=== PATIENT | male | born 1955 | race African-American/Black ===

== ENCOUNTER 2016-10-25 12:19 | Inpatient (IN) | payer OTHER ==
[2016-10-25 13:56] VITALS: BMI 23.3
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
[2016-10-25] MEDS ORDERED: MAGNESIUM HYDROX 2400MG/30ML ORAL SUSPENSION 30 ML CUP PO PRN (17:24)
[2016-10-25] MEDS ORDERED: IBUPROFEN 400 MG TABLET (FP) PO PRN (17:24)
[2016-10-25] MEDS ORDERED: MENTHOL/PHENOL 1 EACH UD MM PRN (17:24)
[2016-10-25] MEDS ORDERED: LOPERAMIDE HCL 2 MG CAPSULE PO PRN (17:24)
[2016-10-25] MEDS ORDERED: MAGNESIUM CITRATE 300 ML BOTTLE PO PRN (17:24)
[2016-10-25] MEDS ORDERED: diphenhydrAMINE HCL 50 MG CAPSULE PO PRN (17:24)
[2016-10-25] MEDS ORDERED: ACETAMINOPHEN 325 MG TABLET (FP) PO PRN (17:24)
[2016-10-25] MEDS ORDERED: P-EPHED 60MG/TRIPROLIDI 2.5MG TABLET PO PRN (17:24)
[2016-10-25] MEDS ORDERED: guaiFENesin/D-METHORPHAN HB 10 ML UNIT-DOSE CUPS PO PRN (17:24)
[2016-10-25] MEDS ORDERED: MAG HYDROX/AL HYDROX/SIMETH 30 ML UNIT-DOSE CUP PO PRN (17:24)
[2016-10-25] MEDS ORDERED: chlordiazePOXIDE HCL 25 MG CAPSULE PO PRN (17:24)
[2016-10-25] MEDS ORDERED: ALBUTEROL SO4 6.7 GM HFA INHALER IH PRN (17:27)
[2016-10-25] MEDS ORDERED: chlordiazePOXIDE HCL 25 MG CAPSULE PO ONE (18:00)
[2016-10-25] MEDS: NICOTINE 21 MG/24 HOURS TOPICAL PATCH TD SCH (18:51)
[2016-10-25] MEDS: chlordiazePOXIDE HCL 25 MG CAPSULE PO SCH (22:14)
[2016-10-25] MEDS: THIAMINE HCL 100 MG TABLET (FP) PO SCH (22:14)
[2016-10-25 22:24] LABS: URINE APPEARANCE CLEAR; URINE BILIRUBIN NEGATIVE (NEGATIVE); URINE BLOOD NEGATIVE (NEGATIVE); URINE COLOR YELLOW; URINE GLUCOSE (UA) NEGATIVE (NEGATIVE); URINE KETONE NEGATIVE (NEGATIVE); URINE LEUK ESTERASE NEGATIVE (NEGATIVE); URINE NITRITE NEGATIVE (NEGATIVE); URINE PROTEIN NEGATIVE (NEGATIVE); URINE UROBILINOGEN 2.0 E.U/dl E.U./dl (0.2-1.0)
[2016-10-26] MEDS: chlordiazePOXIDE HCL 25 MG CAPSULE PO SCH ×4 (05:55→22:49)
--- NOTE | 2016-10-26 09:19 | EKG ---
Test Reason : Blood Pressure : / mmHG Vent. Rate : 073 BPM Atrial Rate : 081 BPM P-R Int : 000 ms QRS Dur : 090 ms QT Int : 440 ms P-R-T Axes : 000 063 056 degrees QTc Int : 484 ms POOR DATA QUALITY, INTERPRETATION MAY BE ADVERSELY AFFECTED NORMAL SINUS RHYTHM INCOMPLETE RBBB PROLONGED QT ABNORMAL ECG Confirmed by DINESH COATES MD ([id number]) on 10/26/2016 9:18:30 AM Referred By: Confirmed By:DINESH COATES MD
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
[2016-10-26 09:54] LABS: MCH 28.7 pg (25.7-33.7); MCHC 32.9 g/dl (32.0-35.9); MEAN CELL VOLUME 87.3 fl (80-96); MEAN PLT VOLUME 9.5 fl (7.5-11.1); PLATELET COUNT 246 K/MM3 (134-434); RDW 14.9 % (11.9-15.9); WHITE BLOOD COUNT 3.3 K/mm3 (4.0-10.0)
--- NOTE | 2016-10-26 10:08 | PN ---
S CIWA - CIWA Score Nausea/Vomitin-No Nausea/No Vomiting Muscle Tremors: 4-Moderate,w/Arms Extend Anxiety: 3 Agitation: 3 Paroxysmal Sweats: 3 Orientation: 0-Oriented Tacttile Disturbances: 0-None Auditory Disturbances: 0-None Visual Disturbances: 0-None Headache: 0-None Present CIWA-Ar Total Score: 13 S Progress Note (SOAP) Subjective: sweating,interrupted sleep,anxiety,tremors,restless. Objective: 10/26/16 10:06 Vital Signs - 8 hr 10/26/16 10/26/16 03:30 06:59 Temperature 97.2 F L Pulse Rate 79 Respiratory 18 18 Rate Blood Pressure 110/69 Laboratory Tests 10/25/16 10/26/16 22:04 06:00 WBC 3.3 L D RBC 4.38 Hgb 12.6 Hct 38.3 MCV 87.3 MCHC 32.9 RDW 14.9 Plt Count 246 MPV 9.5 Urine Color Yellow Urine Appearance Clear Urine pH 5.0 Ur Specific [place] 1.025 Urine Protein Negative Urine Glucose (UA) Negative Urine Ketones Negative Urine Blood Negative Urine Nitrite Negative Urine Bilirubin Negative Urine Urobilinogen 2.0 e.u/dl Ur Leukocyte Esterase Negative labs noted Assessment: 10/26/16 10:07 Withdrawal sx. Plan: Continue detox
[2016-10-26] MEDS: PRENATAL VITAMINS W/ FOLIC ACID TABLET (FP) PO SCH (10:12)
[2016-10-26] MEDS: NICOTINE 21 MG/24 HOURS TOPICAL PATCH TD SCH (10:12)
[2016-10-26 10:18] LABS: ALBUMIN 3.2 g/dl (3.4-5.0); ANION GAP 7 (8-16); CALCIUM 8.7 mg/dL (8.5-10.1); CO2 30 mmol/L (21-32); GLUCOSE,RANDOM 91 mg/dL (74-106)
[2016-10-26 10:23] LABS: ALK PHOS 84 U/L (45-117); BILIRUBIN,TOTAL 0.4 mg/dL (0.2-1.0); COCKROFT - GAULT 91.34; CREATININE 0.8 mg/dL (0.7-1.3); SGOT/AST 12 U/L (15-37); SGPT/ALT 16 U/L (12-78); TOT PROT 6.6 g/dl (6.4-8.2)
[2016-10-26] MEDS: TRIHEXYPHENIDYL HCL 2 MG TABLET PO SCH ×2 (15:07→22:49)
[2016-10-26] MEDS: OLANZapine 2.5 MG TABLET PO SCH (22:49)
[2016-10-26] MEDS: DIVALPROEX SODIUM 250 MG TABLET E.C. (FP) PO SCH (22:49)
[2016-10-26] MEDS: THIAMINE HCL 100 MG TABLET (FP) PO SCH (22:49)
[2016-10-27] MEDS: chlordiazePOXIDE HCL 25 MG CAPSULE PO SCH ×3 (05:41→17:40)
[2016-10-27] MEDS: TRIHEXYPHENIDYL HCL 2 MG TABLET PO SCH ×2 (10:23→22:05)
[2016-10-27] MEDS: DIVALPROEX SODIUM 250 MG TABLET E.C. (FP) PO SCH ×2 (10:23→22:05)
[2016-10-27] MEDS: NICOTINE 21 MG/24 HOURS TOPICAL PATCH TD SCH (10:23)
[2016-10-27] MEDS: PRENATAL VITAMINS W/ FOLIC ACID TABLET (FP) PO SCH (10:23)
--- NOTE | 2016-10-27 14:49 | PN ---
S CIWA - CIWA Score Nausea/Vomitin-No Nausea/No Vomiting Muscle Tremors: 4-Moderate,w/Arms Extend Anxiety: 3 Agitation: 3 Paroxysmal Sweats: 3 Orientation: 0-Oriented Tacttile Disturbances: 1-Very Mild Itch/Numbness Auditory Disturbances: 0-None Visual Disturbances: 0-None Headache: 0-None Present CIWA-Ar Total Score: 14 BHS Progress Note (SOAP) Subjective: Anxiety,tremors,sweating,interrupted sleep,restless Objective: 10/27/16 14:49 Vital Signs - 8 hr 10/27/16 10/27/16 09:42 14:04 Temperature 97.9 F 97.6 F Pulse Rate 70 68 Respiratory 18 18 Rate Blood Pressure 92/69 92/64 Laboratory Tests 10/25/16 10/26/16 10/26/16 22:04 06:00 06:00 WBC 3.3 L D RBC 4.38 Hgb 12.6 Hct 38.3 MCV 87.3 MCHC 32.9 RDW 14.9 Plt Count 246 MPV 9.5 Sodium 143 Potassium 4.1 Chloride 106 Carbon Dioxide 30 D Anion Gap 7 L BUN 13 D Creatinine 0.8 Creat Clearance w eGFR > 60 Random Glucose 91 Calcium 8.7 Total Bilirubin 0.4 D AST 12 L D ALT 16 Alkaline Phosphatase 84 Total Protein 6.6 Albumin 3.2 L Urine Color Yellow Urine Appearance Clear Urine pH 5.0 Ur Specific [place] 1.025 Urine Protein Negative Urine Glucose (UA) Negative Urine Ketones Negative Urine Blood Negative Urine Nitrite Negative Urine Bilirubin Negative Urine Urobilinogen 2.0 e.u/dl Ur Leukocyte Esterase Negative RPR Titer 10/26/16 06:00 WBC RBC Hgb Hct MCV MCHC RDW Plt Count MPV Sodium Potassium Chloride Carbon Dioxide Anion Gap BUN Creatinine Creat Clearance w eGFR Random Glucose Calcium Total Bilirubin AST ALT Alkaline Phosphatase Total Protein Albumin Urine Color Urine Appearance Urine pH Ur Specific [place] Urine Protein Urine Glucose (UA) Urine Ketones Urine Blood Urine Nitrite Urine Bilirubin Urine Urobilinogen Ur Leukocyte Esterase RPR Titer Nonreactive labs noted Assessment: 10/27/16 14:49 Withdrawal sx. Plan: Continue detox
[2016-10-27] MEDS: OLANZapine 2.5 MG TABLET PO SCH (22:05)
[2016-10-27] MEDS: THIAMINE HCL 100 MG TABLET (FP) PO SCH (22:05)
[2016-10-27] MEDS: chlordiazePOXIDE 5 MG CAPSULE PO SCH (22:06)
[2016-10-28] MEDS: chlordiazePOXIDE 5 MG CAPSULE PO SCH ×3 (05:21→17:01)
[2016-10-28] MEDS: PRENATAL VITAMINS W/ FOLIC ACID TABLET (FP) PO SCH (10:04)
[2016-10-28] MEDS: TRIHEXYPHENIDYL HCL 2 MG TABLET PO SCH ×2 (10:04→22:10)
[2016-10-28] MEDS: DIVALPROEX SODIUM 250 MG TABLET E.C. (FP) PO SCH ×2 (10:05→22:10)
[2016-10-28] MEDS: NICOTINE 21 MG/24 HOURS TOPICAL PATCH TD SCH (10:05)
--- NOTE | 2016-10-28 14:22 | PN ---
BHS Progress Note (SOAP) Subjective: Sweating,interrupted sleep,restless Objective: 10/28/16 14:15 Vital Signs - 8 hr 10/28/16 10/28/16 10/28/16 06:41 09:48 13:46 Temperature 97.7 F 96.9 F L 97.4 F L Pulse Rate 71 70 88 Respiratory 16 18 18 Rate Blood Pressure 100/74 91/54 94/65 Laboratory Tests 10/25/16 10/26/16 10/26/16 22:04 06:00 06:00 WBC 3.3 L D RBC 4.38 Hgb 12.6 Hct 38.3 MCV 87.3 MCHC 32.9 RDW 14.9 Plt Count 246 MPV 9.5 Sodium 143 Potassium 4.1 Chloride 106 Carbon Dioxide 30 D Anion Gap 7 L BUN 13 D Creatinine 0.8 Creat Clearance w eGFR > 60 Random Glucose 91 Calcium 8.7 Total Bilirubin 0.4 D AST 12 L D ALT 16 Alkaline Phosphatase 84 Total Protein 6.6 Albumin 3.2 L Urine Color Yellow Urine Appearance Clear Urine pH 5.0 Ur Specific [place] 1.025 Urine Protein Negative Urine Glucose (UA) Negative Urine Ketones Negative Urine Blood Negative Urine Nitrite Negative Urine Bilirubin Negative Urine Urobilinogen 2.0 e.u/dl Ur Leukocyte Esterase Negative RPR Titer 10/26/16 06:00 WBC RBC Hgb Hct MCV MCHC RDW Plt Count MPV Sodium Potassium Chloride Carbon Dioxide Anion Gap BUN Creatinine Creat Clearance w eGFR Random Glucose Calcium Total Bilirubin AST ALT Alkaline Phosphatase Total Protein Albumin Urine Color Urine Appearance Urine pH Ur Specific [place] Urine Protein Urine Glucose (UA) Urine Ketones Urine Blood Urine Nitrite Urine Bilirubin Urine Urobilinogen Ur Leukocyte Esterase RPR Titer Nonreactive Labs noted Assessment: 10/28/16 14:16 Withdrawal sx. Plan: Continue detox
[2016-10-28] MEDS: chlordiazePOXIDE HCL 10 MG CAPSULE PO SCH (22:10)
[2016-10-28] MEDS: OLANZapine 2.5 MG TABLET PO SCH (22:10)
[2016-10-28] MEDS: THIAMINE HCL 100 MG TABLET (FP) PO SCH (22:10)
[2016-10-29] MEDS: chlordiazePOXIDE HCL 10 MG CAPSULE PO SCH ×2 (05:44→10:16)
[2016-10-29 06:54] VITALS: BP 101/50; PULSE 77; TEMP 97.6
--- NOTE | 2016-10-29 09:42 | DS ---
[facility] Detox Discharge Summary Admission Date: 10/25/16 Discharge Date: 10/29/16 - History Present History: Alcohol Dependence, Cocaine Dependence Pertinent Past History: Asthma Parkinson's Disease - Physical Exam Results Vital Signs: Vital Signs Temperature 97.6 F 10/29/16 06:53 Pulse Rate 77 10/29/16 06:53 Respiratory Rate 18 10/29/16 06:53 Blood Pressure 101/50 10/29/16 06:53 O2 Sat by Pulse Oximetry (%) Pertinent Admission Physical Exam Findings: Withdrawal sx. Laboratory Last Values WBC 3.3 K/mm3 (4.0-10.0) L D 10/26/16 06:00 RBC 4.38 M/mm3 (4.00-5.60) 10/26/16 06:00 Hgb 12.6 GM/dL (11.7-16.9) 10/26/16 06:00 Hct 38.3 % (35.4-49) 10/26/16 06:00 MCV 87.3 fl (80-96) 10/26/16 06:00 MCHC 32.9 g/dl (32.0-35.9) 10/26/16 06:00 RDW 14.9 % (11.9-15.9) 10/26/16 06:00 Plt Count 246 K/MM3 (134-434) 10/26/16 06:00 MPV 9.5 fl (7.5-11.1) 10/26/16 06:00 Sodium 143 mmol/L (136-145) 10/26/16 06:00 Potassium 4.1 mmol/L (3.5-5.1) 10/26/16 06:00 Chloride 106 mmol/L (98-107) 10/26/16 06:00 Carbon Dioxide 30 mmol/L (21-32) D 10/26/16 06:00 Anion Gap 7 (8-16) L 10/26/16 06:00 BUN 13 mg/dL (7-18) D 10/26/16 06:00 Creatinine 0.8 mg/dL (0.7-1.3) 10/26/16 06:00 Creat Clearance w eGFR > 60 (>60) 10/26/16 06:00 Random Glucose 91 mg/dL (74-106) 10/26/16 06:00 Calcium 8.7 mg/dL (8.5-10.1) 10/26/16 06:00 Total Bilirubin 0.4 mg/dL (0.2-1.0) D 10/26/16 06:00 AST 12 U/L (15-37) L D 10/26/16 06:00 ALT 16 U/L (12-78) 10/26/16 06:00 Alkaline Phosphatase 84 U/L (45-117) 10/26/16 06:00 Total Protein 6.6 g/dl (6.4-8.2) 10/26/16 06:00 Albumin 3.2 g/dl (3.4-5.0) L 10/26/16 06:00 Urine Color Yellow 10/25/16 22:04 Urine Appearance Clear 10/25/16 22:04 Urine pH 5.0 (5.0-8.0) 10/25/16 22:04 Ur Specific [place] 1.025 (1.001-1.035) 10/25/16 22:04 Urine Protein Negative (NEGATIVE) 10/25/16 22:04 Urine Glucose (UA) Negative (NEGATIVE) 10/25/16 22:04 Urine Ketones Negative (NEGATIVE) 10/25/16 22:04 Urine Blood Negative (NEGATIVE) 10/25/16 22:04 Urine Nitrite Negative (NEGATIVE) 10/25/16 22:04 Urine Bilirubin Negative (NEGATIVE) 10/25/16 22:04 Urine Urobilinogen 2.0 e.u/dl E.U./dl (0.2-1.0) 10/25/16 22:04 Ur Leukocyte Esterase Negative (NEGATIVE) 10/25/16 22:04 RPR Titer Nonreactive (NONREACTIVE) 10/26/16 06:00 labs noted - Treatment Hospital Course: Detox Protocol Followed, Detoxed Safely, Responded well, Discharged Condition Good, Rehab Referral Accepted Patient has Accepted a Rehab Referral to: [facility] - Medication Discharge Medications: Ambulatory Orders Albuterol Sulfate Inhaler - [Ventolin HFA Inhaler -] 2 inh PO Q4H PRN #1 inh 05/04 Divalproex [Depakote -] 500 mg PO BID #60 tablet.ec 05/01/14 Trazodone HCl [Desyrel -] 100 mg PO HS 04/06/17 Benztropine Mesylate [Cogentin -] 2 mg PO BID 10/26/16 Divalproex [Depakote -] 500 mg PO HS #30 tablet.ec 10/26/16 Olanzapine [Zyprexa -] 2.5 mg PO HS #30 tablet 10/26/16 Trihexyphenidyl HCl 2 mg PO BID 10/26/16 - Diagnosis (1) Alcohol dependence with uncomplicated withdrawal Current Visit: Yes Status: Acute (2) Cocaine dependence, uncomplicated Current Visit: Yes Status: Acute (3) Nicotine dependence Current Visit: Yes Status: Acute Qualifiers: Nicotine product type: cigarettes Substance use status: uncomplicated Qualified Code(s): F17.210 - Nicotine dependence, cigarettes, uncomplicated (4) Asthma Current Visit: Yes Status: Chronic Qualifiers: Asthma severity: mild intermittent Asthma complication type: with status asthmaticus Qualified Code(s): J45.22 - Mild intermittent asthma with status asthmaticus (5) Parkinson disease Current Visit: Yes Status: Chronic (6) Schizoaffective disorder Current Visit: Yes Status: Chronic (7) Extrapyramidal and movement disorder Current Visit: Yes Status: Acute - AMA Did Patient Leave Against Medical Advice: No
[2016-10-29] MEDS: TRIHEXYPHENIDYL HCL 2 MG TABLET PO SCH (10:16)
[2016-10-29] MEDS: PRENATAL VITAMINS W/ FOLIC ACID TABLET (FP) PO SCH (10:16)
[2016-10-29] MEDS: NICOTINE 21 MG/24 HOURS TOPICAL PATCH TD SCH (10:16)
[2016-10-29] MEDS: DIVALPROEX SODIUM 250 MG TABLET E.C. (FP) PO SCH (10:16)
== END 2016-10-29 03:13 | disposition home or self-care (01) | DRG 774 ==
LOC: YASAS 12:19 → Y3N 17:40
PROVIDERS: ADMIT Internal Medicine; ATTEND Internal Medicine
PROC: HZ2ZZZZ Detoxification Services for Substance Abuse Treatment (ICD-10-PCS; principal; 2016-10-29)
DX: F10.230 Alcohol dependence with withdrawal, uncomplicated (principal); F14.120 Cocaine abuse with intoxication, uncomplicated; F17.210 Nicotine dependence, cigarettes, uncomplicated; F25.9 Schizoaffective disorder, unspecified; G40.909 Epilepsy, unspecified, not intractable, without status epilepticus; G20 Parkinson's disease; G25.9 Extrapyramidal and movement disorder, unspecified; Z86.73 Personal history of transient ischemic attack (TIA), and cerebral infarction without residual deficits; R63.4 Abnormal weight loss; Z68.23 Body mass index [BMI] 23.0-23.9, adult; Z59.0 Homelessness
CPT/HCPCS: 36415; 80053; 81003; 85027; 86593; 93005; 93010

== ENCOUNTER 2017-03-02 19:54 | Inpatient (IN) | payer OTHER ==
[2017-03-02 20:18] VITALS: BMI 26.9
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
[2017-03-02] MEDS ORDERED: ACETAMINOPHEN 325 MG TABLET (FP) PO PRN (21:11)
[2017-03-02] MEDS ORDERED: MAG HYDROX/AL HYDROX/SIMETH 30 ML UNIT-DOSE CUP PO PRN (21:11)
[2017-03-02] MEDS ORDERED: chlordiazePOXIDE HCL 25 MG CAPSULE PO PRN (21:11)
[2017-03-02] MEDS ORDERED: MENTHOL/PHENOL 1 EACH UD MM PRN (21:11)
[2017-03-02] MEDS ORDERED: guaiFENesin/D-METHORPHAN HB 10 ML UNIT-DOSE CUPS PO PRN (21:11)
[2017-03-02] MEDS ORDERED: chlordiazePOXIDE HCL 25 MG CAPSULE PO ONE (21:11)
[2017-03-02] MEDS ORDERED: P-EPHED 60MG/TRIPROLIDI 2.5MG TABLET PO PRN (21:11)
[2017-03-02] MEDS ORDERED: MAGNESIUM CITRATE 300 ML BOTTLE PO PRN (21:11)
[2017-03-02] MEDS ORDERED: MAGNESIUM HYDROX 2400MG/30ML ORAL SUSPENSION 30 ML CUP PO PRN (21:11)
[2017-03-02] MEDS ORDERED: IBUPROFEN 400 MG TABLET (FP) PO PRN (21:11)
[2017-03-02] MEDS ORDERED: LOPERAMIDE HCL 2 MG CAPSULE PO PRN (21:11)
[2017-03-02] MEDS ORDERED: diphenhydrAMINE HCL 50 MG CAPSULE PO PRN (21:11)
[2017-03-02] MEDS ORDERED: hydrOXYzine PAMOATE 25 MG CAPSULE (FP) PO PRN (21:11)
[2017-03-02] MEDS ORDERED: ALBUTEROL SO4 6.7 GM HFA INHALER IH PRN (21:22)
[2017-03-03] MEDS: chlordiazePOXIDE HCL 25 MG CAPSULE PO SCH ×5 (00:02→22:52)
[2017-03-03] MEDS: DIVALPROEX SODIUM 500 MG TABLET E.C. PO SCH ×3 (00:03→22:54)
[2017-03-03] MEDS: THIAMINE HCL 100 MG TABLET (FP) PO SCH ×2 (00:04→22:52)
[2017-03-03] MEDS: PRENATAL VITAMINS W/ FOLIC ACID TABLET (FP) PO SCH (10:30)
[2017-03-03 10:45] LABS: ALBUMIN 2.9 g/dl (3.4-5.0); ALK PHOS 75 U/L (45-117); ANION GAP 7 (8-16); BILIRUBIN,TOTAL 0.5 mg/dL (0.2-1.0); CALCIUM 8.1 mg/dL (8.5-10.1); CO2 27 mmol/L (21-32); CREATININE 0.8 mg/dL (0.7-1.3); GLUCOSE,RANDOM 105 mg/dL (74-106); SGOT/AST 11 U/L (15-37); SGPT/ALT 18 U/L (12-78); TOT PROT 5.6 g/dl (6.4-8.2)
[2017-03-03 10:50] LABS: MCH 28.3 pg (25.7-33.7); MCHC 32.7 g/dl (32.0-35.9); MEAN CELL VOLUME 86.5 fl (80-96); PLATELET COUNT 205 K/MM3 (134-434); RDW 14.1 % (11.9-15.9); WHITE BLOOD COUNT 3.7 K/mm3 (4.0-10.0)
[2017-03-03 11:40] LABS: HIV 1 & 2 AB NEGATIVE; HIV 1 AGp24 NEGATIVE
[2017-03-03 11:54] LABS: URINE APPEARANCE CLEAR; URINE BILIRUBIN NEGATIVE (NEGATIVE); URINE BLOOD NEGATIVE (NEGATIVE); URINE COLOR LT. YELLOW; URINE GLUCOSE (UA) NEGATIVE (NEGATIVE); URINE KETONE NEGATIVE (NEGATIVE); URINE LEUK ESTERASE NEGATIVE (NEGATIVE); URINE NITRITE NEGATIVE (NEGATIVE); URINE PROTEIN NEGATIVE (NEGATIVE); URINE UROBILINOGEN 0.2 mg/dL (0.2-1.0)
--- NOTE | 2017-03-03 14:31 | PN ---
S CIWA - CIWA Score Nausea/Vomitin Muscle Tremors: 4-Moderate,w/Arms Extend Anxiety: 4-Mod. Anxious/Guarded Agitation: 4-Moderately Restless Paroxysmal Sweats: 3 Orientation: 0-Oriented Tacttile Disturbances: 1-Very Mild Itch/Numbness Auditory Disturbances: 0-None Visual Disturbances: 0-None Headache: 2-Mild CIWA-Ar Total Score: 21 BHS Progress Note (SOAP) Subjective: Nausea, sweating, tremor, chills, interrupted sleep Objective: 03/03/17 14:28 Last Vital Signs Temp Pulse Resp BP Pulse Ox 97.6 F 73 18 94/58 03/03/17 13:51 03/03/17 13:51 03/03/17 13:51 03/03/17 13:51 B/P 94/58 (noted) Laboratory Tests 03/03/17 03/03/17 03/03/17 08:00 08:00 08:00 WBC 3.7 L RBC 4.10 Hgb 11.6 L Hct 35.5 MCV 86.5 MCH 28.3 MCHC 32.7 RDW 14.1 Plt Count 205 MPV 9.0 Sodium 142 Potassium 4.0 Chloride 108 H Carbon Dioxide 27 Anion Gap 7 L BUN 13 Creatinine 0.8 Creat Clearance w eGFR > 60 Random Glucose 105 Calcium 8.1 L Total Bilirubin 0.5 D AST 11 L ALT 18 Alkaline Phosphatase 75 Total Protein 5.6 L Albumin 2.9 L Urine Color Urine Appearance Urine pH Urine Protein Urine Glucose (UA) Urine Ketones Urine Blood Urine Nitrite Urine Bilirubin Urine Urobilinogen Ur Leukocyte Esterase RPR Titer Nonreactive HIV 1&2 Antibody Screen HIV P24 Antigen 03/03/17 03/03/17 08:00 09:20 WBC RBC Hgb Hct MCV MCH MCHC RDW Plt Count MPV Sodium Potassium Chloride Carbon Dioxide Anion Gap BUN Creatinine Creat Clearance w eGFR Random Glucose Calcium Total Bilirubin AST ALT Alkaline Phosphatase Total Protein Albumin Urine Color Lt. yellow Urine Appearance Clear Urine pH 6.0 Urine Protein Negative Urine Glucose (UA) Negative Urine Ketones Negative Urine Blood Negative Urine Nitrite Negative Urine Bilirubin Negative Urine Urobilinogen 0.2 Ur Leukocyte Esterase Negative RPR Titer HIV 1&2 Antibody Screen Negative HIV P24 Antigen Negative Labs noted Assessment: 03/03/17 14:29 Withdrawal symptoms Noted with hypotension Plan: Continue detox Hypotension: asymptomatic, encouraged to drink more water (water pitcher ordered )
[2017-03-04] MEDS: chlordiazePOXIDE HCL 25 MG CAPSULE PO SCH ×3 (05:16→17:50)
--- NOTE | 2017-03-04 09:32 | EKG ---
Test Reason : Blood Pressure : / mmHG Vent. Rate : 073 BPM Atrial Rate : 073 BPM P-R Int : 102 ms QRS Dur : 106 ms QT Int : 418 ms P-R-T Axes : 061 070 071 degrees QTc Int : 460 ms POOR DATA QUALITY, INTERPRETATION MAY BE ADVERSELY AFFECTED SINUS RHYTHM WITH SHORT GA OTHERWISE NORMAL ECG WHEN COMPARED WITH ECG OF 25-OCT-2016 17:58, GA INTERVAL HAS INCREASED ST NO LONGER ELEVATED IN LATERAL LEADS Confirmed by ANTONIA MARX MD ([id number]) on 03/04/2017 9:32:16 AM Referred By: Roderick Donahue Confirmed By:ANTONIA MARX MD
[2017-03-04] MEDS: DIVALPROEX SODIUM 500 MG TABLET E.C. PO SCH ×2 (10:27→22:38)
[2017-03-04] MEDS: PRENATAL VITAMINS W/ FOLIC ACID TABLET (FP) PO SCH (10:28)
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
--- NOTE | 2017-03-04 14:53 | PN ---
S CIWA - CIWA Score Nausea/Vomitin Muscle Tremors: 4-Moderate,w/Arms Extend Anxiety: 2 Agitation: 0-Normal Activity Paroxysmal Sweats: 3 Orientation: 2-Disoriented Date<2 days Tacttile Disturbances: 2-Mild Itch/Numbness/Burn Auditory Disturbances: 0-None Visual Disturbances: 0-None Headache: 3-Moderate CIWA-Ar Total Score: 18 BHS Progress Note (SOAP) Subjective: Tremors, Body Aches, Interrupted sleep, Sweating, H/A, Stomach Cramping. Objective: PT. A & O X 2 (DISORIENTED ABOUT DAY / DATE). PT. OBSERVED AMBULATING ON UNIT WITH ASSISTANCE OF A WALKER. NO ACUTE DISTRESS. 03/04/17 14:55 Vital Signs Temperature 98.3 F 03/04/17 14:11 Pulse Rate 87 03/04/17 14:11 Respiratory Rate 20 03/04/17 14:11 Blood Pressure 116/78 03/04/17 14:11 O2 Sat by Pulse Oximetry (%) Laboratory Tests 03/03/17 03/03/17 03/03/17 08:00 08:00 08:00 WBC 3.7 L RBC 4.10 Hgb 11.6 L Hct 35.5 MCV 86.5 MCH 28.3 MCHC 32.7 RDW 14.1 Plt Count 205 MPV 9.0 Sodium 142 Potassium 4.0 Chloride 108 H Carbon Dioxide 27 Anion Gap 7 L BUN 13 Creatinine 0.8 Creat Clearance w eGFR > 60 Random Glucose 105 Calcium 8.1 L Total Bilirubin 0.5 D AST 11 L ALT 18 Alkaline Phosphatase 75 Total Protein 5.6 L Albumin 2.9 L Urine Color Urine Appearance Urine pH Ur Specific [place] Urine Protein Urine Glucose (UA) Urine Ketones Urine Blood Urine Nitrite Urine Bilirubin Urine Urobilinogen Ur Leukocyte Esterase RPR Titer Nonreactive HIV 1&2 Antibody Screen HIV P24 Antigen 03/03/17 03/03/17 08:00 09:20 WBC RBC Hgb Hct MCV MCH MCHC RDW Plt Count MPV Sodium Potassium Chloride Carbon Dioxide Anion Gap BUN Creatinine Creat Clearance w eGFR Random Glucose Calcium Total Bilirubin AST ALT Alkaline Phosphatase Total Protein Albumin Urine Color Lt. yellow Urine Appearance Clear Urine pH 6.0 Ur Specific [place] 1.020 Urine Protein Negative Urine Glucose (UA) Negative Urine Ketones Negative Urine Blood Negative Urine Nitrite Negative Urine Bilirubin Negative Urine Urobilinogen 0.2 Ur Leukocyte Esterase Negative RPR Titer HIV 1&2 Antibody Screen Negative HIV P24 Antigen Negative LABS NOTED. Assessment: 03/04/17 15:11 WITHDRAWAL SYMPTOMS. Plan: CONTINUE DETOX.
[2017-03-04] MEDS ORDERED: ZOLPIDEM TARTRATE 5 MG TABLET PO PRN (22:00)
[2017-03-04] MEDS: chlordiazePOXIDE 5 MG CAPSULE PO SCH (22:38)
[2017-03-04] MEDS: OLANZapine 2.5 MG TABLET PO SCH (22:38)
[2017-03-04] MEDS: THIAMINE HCL 100 MG TABLET (FP) PO SCH (22:38)
[2017-03-05] MEDS: chlordiazePOXIDE 5 MG CAPSULE PO SCH ×3 (06:08→17:38)
[2017-03-05] MEDS: PRENATAL VITAMINS W/ FOLIC ACID TABLET (FP) PO SCH (10:21)
[2017-03-05] MEDS: DIVALPROEX SODIUM 500 MG TABLET E.C. PO SCH ×2 (10:21→22:20)
--- NOTE | 2017-03-05 11:26 | PN ---
BHS Progress Note (SOAP) Subjective: PT RESTING IN BED WHEN SEEN. C/O BODY ACHES,SLIGHT TREMORS BUT SLIGHTLY DROWSY.FATIGUE. Objective: 03/05/17 11:25 Vital Signs Temperature 96.9 F L 03/05/17 09:48 Pulse Rate 77 03/05/17 09:48 Respiratory Rate 20 03/05/17 09:48 Blood Pressure 111/72 03/05/17 09:48 O2 Sat by Pulse Oximetry (%) Laboratory Last Values WBC 3.7 K/mm3 (4.0-10.0) L 03/03/17 08:00 RBC 4.10 M/mm3 (4.00-5.60) 03/03/17 08:00 Hgb 11.6 GM/dL (11.7-16.9) L 03/03/17 08:00 Hct 35.5 % (35.4-49) 03/03/17 08:00 MCV 86.5 fl (80-96) 03/03/17 08:00 MCH 28.3 pg (25.7-33.7) 03/03/17 08:00 MCHC 32.7 g/dl (32.0-35.9) 03/03/17 08:00 RDW 14.1 % (11.9-15.9) 03/03/17 08:00 Plt Count 205 K/MM3 (134-434) 03/03/17 08:00 MPV 9.0 fl (7.5-11.1) 03/03/17 08:00 Sodium 142 mmol/L (136-145) 03/03/17 08:00 Potassium 4.0 mmol/L (3.5-5.1) 03/03/17 08:00 Chloride 108 mmol/L (98-107) H 03/03/17 08:00 Carbon Dioxide 27 mmol/L (21-32) 03/03/17 08:00 Anion Gap 7 (8-16) L 03/03/17 08:00 BUN 13 mg/dL (7-18) 03/03/17 08:00 Creatinine 0.8 mg/dL (0.7-1.3) 03/03/17 08:00 Creat Clearance w eGFR > 60 (>60) 03/03/17 08:00 Random Glucose 105 mg/dL (74-106) 03/03/17 08:00 Calcium 8.1 mg/dL (8.5-10.1) L 03/03/17 08:00 Total Bilirubin 0.5 mg/dL (0.2-1.0) D 03/03/17 08:00 AST 11 U/L (15-37) L 03/03/17 08:00 ALT 18 U/L (12-78) 03/03/17 08:00 Alkaline Phosphatase 75 U/L (45-117) 03/03/17 08:00 Total Protein 5.6 g/dl (6.4-8.2) L 03/03/17 08:00 Albumin 2.9 g/dl (3.4-5.0) L 03/03/17 08:00 Urine Color Lt. yellow 03/03/17 09:20 Urine Appearance Clear 03/03/17 09:20 Urine pH 6.0 (5.0-8.0) 03/03/17 09:20 Ur Specific [place] 1.020 (1.005-1.025) 03/03/17 09:20 Urine Protein Negative (NEGATIVE) 03/03/17 09:20 Urine Glucose (UA) Negative (NEGATIVE) 03/03/17 09:20 Urine Ketones Negative (NEGATIVE) 03/03/17 09:20 Urine Blood Negative (NEGATIVE) 03/03/17 09:20 Urine Nitrite Negative (NEGATIVE) 03/03/17 09:20 Urine Bilirubin Negative (NEGATIVE) 03/03/17 09:20 Urine Urobilinogen 0.2 mg/dL (0.2-1.0) 03/03/17 09:20 Ur Leukocyte Esterase Negative (NEGATIVE) 03/03/17 09:20 RPR Titer Nonreactive (NONREACTIVE) 03/03/17 08:00 HIV 1&2 Antibody Screen Negative 03/03/17 08:00 HIV P24 Antigen Negative 03/03/17 08:00 Assessment: 03/05/17 11:25 WITHDRAWAL SX Plan: CONTINUE DETOX LIBRIUM 15 MG PO HELD AT 11:OO TODAY.
[2017-03-05] MEDS: THIAMINE HCL 100 MG TABLET (FP) PO SCH (22:20)
[2017-03-05] MEDS: OLANZapine 2.5 MG TABLET PO SCH ×2 (22:20→22:41)
[2017-03-05] MEDS: chlordiazePOXIDE HCL 10 MG CAPSULE PO SCH (22:20)
[2017-03-06] MEDS: chlordiazePOXIDE HCL 10 MG CAPSULE PO SCH ×2 (06:11→12:06)
[2017-03-06] MEDS: DIVALPROEX SODIUM 500 MG TABLET E.C. PO SCH (09:36)
[2017-03-06] MEDS: PRENATAL VITAMINS W/ FOLIC ACID TABLET (FP) PO SCH (09:36)
[2017-03-06 09:39] VITALS: BP 113/81; PULSE 92; TEMP 98.2
--- NOTE | 2017-03-06 10:59 | DS ---
[facility] Detox Discharge Summary Admission Date: 03/02/17 Discharge Date: 03/06/17 - History Present History: Alcohol Dependence, Cocaine Dependence Additional Comments: DETOX COMPLETED. ALERT O X 3. NAD. Pertinent Past History: ASTHMA S/P CVA HX SEIZURES HX PARKINSONS DISEASE - Physical Exam Results Vital Signs: Vital Signs Temperature 98.2 F 03/06/17 09:38 Pulse Rate 92 H 03/06/17 09:38 Respiratory Rate 18 03/06/17 09:38 Blood Pressure 113/81 03/06/17 09:38 O2 Sat by Pulse Oximetry (%) Pertinent Admission Physical Exam Findings: WITHDRAWAL SX Laboratory Last Values WBC 3.7 K/mm3 (4.0-10.0) L 03/03/17 08:00 RBC 4.10 M/mm3 (4.00-5.60) 03/03/17 08:00 Hgb 11.6 GM/dL (11.7-16.9) L 03/03/17 08:00 Hct 35.5 % (35.4-49) 03/03/17 08:00 MCV 86.5 fl (80-96) 03/03/17 08:00 MCH 28.3 pg (25.7-33.7) 03/03/17 08:00 MCHC 32.7 g/dl (32.0-35.9) 03/03/17 08:00 RDW 14.1 % (11.9-15.9) 03/03/17 08:00 Plt Count 205 K/MM3 (134-434) 03/03/17 08:00 MPV 9.0 fl (7.5-11.1) 03/03/17 08:00 Sodium 142 mmol/L (136-145) 03/03/17 08:00 Potassium 4.0 mmol/L (3.5-5.1) 03/03/17 08:00 Chloride 108 mmol/L (98-107) H 03/03/17 08:00 Carbon Dioxide 27 mmol/L (21-32) 03/03/17 08:00 Anion Gap 7 (8-16) L 03/03/17 08:00 BUN 13 mg/dL (7-18) 03/03/17 08:00 Creatinine 0.8 mg/dL (0.7-1.3) 03/03/17 08:00 Creat Clearance w eGFR > 60 (>60) 03/03/17 08:00 Random Glucose 105 mg/dL (74-106) 03/03/17 08:00 Calcium 8.1 mg/dL (8.5-10.1) L 03/03/17 08:00 Total Bilirubin 0.5 mg/dL (0.2-1.0) D 03/03/17 08:00 AST 11 U/L (15-37) L 03/03/17 08:00 ALT 18 U/L (12-78) 03/03/17 08:00 Alkaline Phosphatase 75 U/L (45-117) 03/03/17 08:00 Total Protein 5.6 g/dl (6.4-8.2) L 03/03/17 08:00 Albumin 2.9 g/dl (3.4-5.0) L 03/03/17 08:00 Urine Color Lt. yellow 03/03/17 09:20 Urine Appearance Clear 03/03/17 09:20 Urine pH 6.0 (5.0-8.0) 03/03/17 09:20 Ur Specific [place] 1.020 (1.005-1.025) 03/03/17 09:20 Urine Protein Negative (NEGATIVE) 03/03/17 09:20 Urine Glucose (UA) Negative (NEGATIVE) 03/03/17 09:20 Urine Ketones Negative (NEGATIVE) 03/03/17 09:20 Urine Blood Negative (NEGATIVE) 03/03/17 09:20 Urine Nitrite Negative (NEGATIVE) 03/03/17 09:20 Urine Bilirubin Negative (NEGATIVE) 03/03/17 09:20 Urine Urobilinogen 0.2 mg/dL (0.2-1.0) 03/03/17 09:20 Ur Leukocyte Esterase Negative (NEGATIVE) 03/03/17 09:20 RPR Titer Nonreactive (NONREACTIVE) 03/03/17 08:00 HIV 1&2 Antibody Screen Negative 03/03/17 08:00 HIV P24 Antigen Negative 03/03/17 08:00 - Treatment Hospital Course: Detox Protocol Followed, Detoxed Safely, Responded well, Discharged Condition Good - Medication Discharge Medications: Ambulatory Orders Albuterol Sulfate Inhaler - [Ventolin HFA Inhaler -] 2 puff IH PRN PRN 03/02/17 Benztropine Mesylate [Cogentin -] 2 mg PO BID 03/02/17 Divalproex [Depakote -] 500 mg PO BID 03/02/17 Olanzapine [Zyprexa -] 2.5 mg PO HS 03/02/17 Trazodone HCl [Desyrel -] 100 mg PO HS 03/02/17 Trihexyphenidyl HCl 2 mg PO BID 03/02/17 Olanzapine [Zyprexa -] 2.5 mg PO HS #30 tablet 03/04/17 - Diagnosis (1) Alcohol dependence with uncomplicated withdrawal Status: Acute (2) Cocaine dependence, uncomplicated Status: Acute (3) Frequent falls Status: Chronic (4) Nicotine dependence Status: Chronic Qualifiers: Nicotine product type: cigarettes Substance use status: uncomplicated Qualified Code(s): F17.210 - Nicotine dependence, cigarettes, uncomplicated (5) Walker as ambulation aid Status: Chronic (6) Asthma Status: Chronic Qualifiers: Asthma severity: mild intermittent Asthma complication type: with status asthmaticus Qualified Code(s): J45.22 - Mild intermittent asthma with status asthmaticus (7) Old cerebrovascular accident without late effect Status: Chronic (8) Parkinson disease Status: Chronic (9) Seizure disorder Status: Chronic - AMA Did Patient Leave Against Medical Advice: No
== END 2017-03-06 12:40 | disposition other institution (70) | DRG 774 ==
LOC: YASAS 19:54 → Y3N 21:16
PROVIDERS: ADMIT Internal Medicine; ATTEND Internal Medicine
PROC: HZ2ZZZZ Detoxification Services for Substance Abuse Treatment (ICD-10-PCS; principal; 2017-03-02)
DX: F10.230 Alcohol dependence with withdrawal, uncomplicated (principal); F14.20 Cocaine dependence, uncomplicated; F17.210 Nicotine dependence, cigarettes, uncomplicated; I95.9 Hypotension, unspecified; G20 Parkinson's disease; J45.22 Mild intermittent asthma with status asthmaticus; R29.6 Repeated falls; R26.2 Difficulty in walking, not elsewhere classified; Z99.89 Dependence on other enabling machines and devices; G24.01 Drug induced subacute dyskinesia; G47.00 Insomnia, unspecified; G40.909 Epilepsy, unspecified, not intractable, without status epilepticus; Z86.73 Personal history of transient ischemic attack (TIA), and cerebral infarction without residual deficits; Z87.898 Personal history of other specified conditions; Z59.0 Homelessness
CPT/HCPCS: 36415; 80053; 81003; 85027; 86593; 87389; 93005; 93010

== ENCOUNTER 2017-03-06 12:55 | Inpatient (IN) | payer OTHER ==
--- NOTE | 2017-03-06 14:56 | HP ---
Psychiatrist Admission - Data Date of interview: 03/06/17 Admission source: [address] [place] [address] detox Identifying data: This is the fourth admission to [address] [place] [address] rehabilitation for this 61 AA single father of 5,homeless,supported by [facility]. Medical History: Significant for Seizure disorder,BA,S/P Low back surgery, Tardive dyskinezia. Psychiatric History: Patient has long and extensive psychiatric history started back in 1997 .according to the patient he was admitted to [facility] due first psychotic episode.Patient was dx with Schizophrenia.He was placed on Haldol.he reports about 5-7 psyichiatric hospitalizations .Most recent admission was about 6 months ago to [facility] due to depressed mood,auditory hallucinations,drug abuse.No psychiatric follow up.Patient restarted his psychotropic medications while in detox this week,prescribed by .Current medications:Zyprexa 2,5 mg po hs,Cogentin 2 mg po bid, Depakote 50 mg po bid and Trazodone 100 mg po hs. Physical/Sexual Abuse/Trauma History: denies Allergies/Adverse Reactions: Allergies Allergy/AdvReac Type Severity Reaction Status Date / Time No Known Allergies Allergy Verified 10/25/16 16:58 Date of last physical exam: 03/05/17 Concur with the findings of this exam: Yes - Substance Abuse/Tx History Hx Alcohol Use: Yes (drinking since 10 yo,1 int of vodka,6 packs of 16 oz of beer ) Hx Substance Use: Yes (cocaine /crack since 51 yo,$100 daily) Substance Use Type: Alcohol, Cocaine Hx Substance Use Treatment: Yes (longest abstinence-2 months only) - Admission Criteria Previous failed treatment: Yes Poor recovery environment: Yes Comorbidities: Yes Lacks judgement: Yes Mental Status Exam - Mental Status Exam Alert and Oriented to: Time, Place, Person Cognitive Function: Grossly Intact Patient Appearance: Unkempt Mood: Sad Affect: Mood Congruent, Constricted Patient Behavior: Cooperative Speech Pattern: Slurred Voice Loudness: Mildly Soft/Quiet Thought Process: Goal Oriented Thought Disorder: Being Controlled Hallucinations: Denies Suicidal Ideation: Denies Homicidal Ideation: Denies Insight/Judgement: Fair Sleep: Difficulty falling asleep Appetite: Fair Muscle strength/Tone: Normal Gait/Station: Spastic (patient ambulates with walker) Psychiatric Findings - Problem List ([place] 1, 2,3) (1) Extrapyramidal and movement disorder Status: Chronic (2) Asthma Status: Chronic Qualifiers: Asthma severity: mild intermittent Asthma complication type: with status asthmaticus Qualified Code(s): J45.22 - Mild intermittent asthma with status asthmaticus (3) Alcohol dependence Status: Chronic (4) Cocaine dependence Status: Chronic (5) Schizoaffective disorder, depressive type Status: Chronic (6) Old cerebrovascular accident without late effect Status: Chronic (7) Parkinson disease Status: Chronic (8) Seizure disorder Status: Chronic (9) Tardive dyskinesia Status: Chronic Comment: non compliant with his medication (10) Walker as ambulation aid Status: Chronic - Initial Treatment Plan Initial Treatment Plan: Continue current medications as per plan.
--- NOTE | 2017-03-06 16:04 | HP ---
[facility] Rehab Assess/Revision - Admission History Admitted to Rehab from: [facility] Date of Admission to Rehab: 03/06/17 - Findings Detox History & Physical reviewed: Yes Concur with findings: Yes Comments/Additional Findings: TRANSFERRED FROM DETOX TO REHAB ADMISSION PER PROTOCOL
[2017-03-06] MEDS ORDERED: MAGNESIUM HYDROX 2400MG/30ML ORAL SUSPENSION 30 ML CUP PO PRN (16:05)
[2017-03-06] MEDS ORDERED: P-EPHED 60MG/TRIPROLIDI 2.5MG TABLET PO PRN (16:05)
[2017-03-06] MEDS ORDERED: ACETAMINOPHEN 325 MG TABLET (FP) PO PRN (16:05)
[2017-03-06] MEDS ORDERED: MAG HYDROX/AL HYDROX/SIMETH 30 ML UNIT-DOSE CUP PO PRN (16:05)
[2017-03-06] MEDS ORDERED: diphenhydrAMINE HCL 50 MG CAPSULE PO PRN (16:05)
[2017-03-06] MEDS ORDERED: MAGNESIUM CITRATE 300 ML BOTTLE PO PRN (16:05)
[2017-03-06] MEDS ORDERED: LOPERAMIDE HCL 2 MG CAPSULE PO PRN (16:05)
[2017-03-06] MEDS ORDERED: NICOTINE POLACRILEX 2 MG GUM BUC PRN (16:05)
[2017-03-06] MEDS ORDERED: NICOTINE 14 MG/24 HOURS TOPICAL PATCH TD PRN (16:05)
[2017-03-06] MEDS ORDERED: guaiFENesin/D-METHORPHAN HB 10 ML UNIT-DOSE CUPS PO PRN (16:05)
[2017-03-06] MEDS ORDERED: IBUPROFEN 400 MG TABLET (FP) PO PRN (16:05)
[2017-03-06] MEDS ORDERED: MENTHOL/PHENOL 1 EACH UD MM PRN (16:05)
[2017-03-06] MEDS ORDERED: ALBUTEROL SO4 6.7 GM HFA INHALER IH PRN (16:06)
[2017-03-06 17:33] VITALS: BP 117/77; PULSE 80; TEMP 98.2
[2017-03-06] MEDS ORDERED: DIVALPROEX SODIUM 500 MG TABLET E.C. PO SCH (22:00)
[2017-03-06] MEDS ORDERED: traZODone HCL 100 MG TABLET (FP) PO SCH (22:00)
[2017-03-06] MEDS ORDERED: THIAMINE HCL 100 MG TABLET (FP) PO SCH (22:00)
[2017-03-06] MEDS ORDERED: OLANZapine 2.5 MG TABLET PO SCH (22:00)
[2017-03-06] MEDS ORDERED: BENZTROPINE MESYLATE 1 MG TABLET (FP) PO SCH (22:00)
[2017-03-07] MEDS ORDERED: PRENATAL VITAMINS W/ FOLIC ACID TABLET (FP) PO SCH (10:00)
== END 2017-03-06 20:50 | DRG 772 ==
LOC: YASAS 12:55 → Y5N 12:56
PROVIDERS: ADMIT Psychiatry & Neurology Psychiatry; ATTEND Psychiatry & Neurology Psychiatry
PROC: HZ42ZZZ Group Counseling for Substance Abuse Treatment, Cognitive-Behavioral (ICD-10-PCS; principal; 2017-03-06)
DX: F10.20 Alcohol dependence, uncomplicated (principal); F14.20 Cocaine dependence, uncomplicated; F17.210 Nicotine dependence, cigarettes, uncomplicated; G20 Parkinson's disease; J45.22 Mild intermittent asthma with status asthmaticus; F25.1 Schizoaffective disorder, depressive type; Z86.73 Personal history of transient ischemic attack (TIA), and cerebral infarction without residual deficits; G40.909 Epilepsy, unspecified, not intractable, without status epilepticus; G24.01 Drug induced subacute dyskinesia; Z59.0 Homelessness

== ENCOUNTER 2017-07-29 19:27 | Inpatient (IN) | payer OTHER ==
[2017-07-29 20:37] VITALS: BMI 21.7
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
[2017-07-29] MEDS ORDERED: LOPERAMIDE HCL 2 MG CAPSULE PO PRN (22:39)
[2017-07-29] MEDS ORDERED: hydrOXYzine PAMOATE 50 MG CAPSULE (FP) PO PRN (22:39)
[2017-07-29] MEDS ORDERED: P-EPHED 60MG/TRIPROLIDI 2.5MG TABLET PO PRN (22:39)
[2017-07-29] MEDS ORDERED: IBUPROFEN 400 MG TABLET (FP) PO PRN (22:39)
[2017-07-29] MEDS ORDERED: guaiFENesin/D-METHORPHAN HB 10 ML UNIT-DOSE CUPS PO PRN (22:39)
[2017-07-29] MEDS ORDERED: ACETAMINOPHEN 325 MG TABLET (FP) PO PRN (22:39)
[2017-07-29] MEDS ORDERED: MAG HYDROX/AL HYDROX/SIMETH 30 ML UNIT-DOSE CUP PO PRN (22:39)
[2017-07-29] MEDS ORDERED: MENTHOL/PHENOL 1 EACH UD MM PRN (22:39)
[2017-07-29] MEDS ORDERED: MAGNESIUM CITRATE 300 ML BOTTLE PO PRN (22:39)
[2017-07-29] MEDS ORDERED: chlordiazePOXIDE HCL 25 MG CAPSULE PO PRN (22:39)
[2017-07-29] MEDS ORDERED: NICOTINE POLACRILEX 2 MG GUM BC PRN (22:39)
[2017-07-29] MEDS ORDERED: chlordiazePOXIDE HCL 25 MG CAPSULE PO ONE (22:39)
[2017-07-29] MEDS ORDERED: MAGNESIUM HYDROX 2400MG/30ML ORAL SUSPENSION 30 ML CUP PO PRN (22:39)
[2017-07-29] MEDS ORDERED: ALBUTEROL SO4 18 GM HFA INHALER IH PRN (22:43)
[2017-07-29] MEDS: chlordiazePOXIDE HCL 25 MG CAPSULE PO SCH (23:48)
[2017-07-30] MEDS: chlordiazePOXIDE HCL 25 MG CAPSULE PO SCH ×4 (05:45→22:29)
[2017-07-30 10:21] LABS: ALBUMIN 2.8 g/dl (3.4-5.0); ALK PHOS 71 U/L (45-117); ANION GAP 4 (8-16); BILIRUBIN,TOTAL 0.2 mg/dL (0.2-1.0); BLOOD UREA NITROGEN 9 mg/dL (7-18); CALCIUM 8.5 mg/dL (8.5-10.1); CHLORIDE 107 mmol/L (98-107); CO2 31 mmol/L (21-32); CREATININE 0.7 mg/dL (0.7-1.3); GLUCOSE,RANDOM 82 mg/dL (74-106); POTASSIUM 4.3 mmol/L (3.5-5.1); SGOT/AST 12 U/L (15-37); SGPT/ALT 19 U/L (12-78); SODIUM 142 mmol/L (136-145)
[2017-07-30 10:29] LABS: HEMATOCRIT 34.4 % (35.4-49); HEMOGLOBIN 10.9 GM/dL (11.7-16.9); MCH 27.7 pg (25.7-33.7); MCHC 31.8 g/dl (32.0-35.9); MEAN CELL VOLUME 87.1 fl (80-96); PLATELET COUNT 137 K/MM3 (134-434); RBC 3.95 M/mm3 (4.00-5.60); RDW 14.7 % (11.9-15.9)
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
[2017-07-30] MEDS: PRENATAL VITAMINS W/ FOLIC ACID TABLET (FP) PO SCH (10:47)
[2017-07-30] MEDS: NICOTINE 21 MG/24 HOURS TOPICAL PATCH TD SCH (10:47)
--- NOTE | 2017-07-30 14:00 | PN ---
S CIWA - CIWA Score Nausea/Vomitin Muscle Tremors: 4-Moderate,w/Arms Extend Anxiety: 4-Mod. Anxious/Guarded Agitation: 4-Moderately Restless Paroxysmal Sweats: 3 Orientation: 0-Oriented Tacttile Disturbances: 1-Very Mild Itch/Numbness Auditory Disturbances: 0-None Visual Disturbances: 0-None Headache: 0-None Present CIWA-Ar Total Score: 19 BHS Progress Note (SOAP) Subjective: Tremor, chills, interrupted sleep Objective: 07/30/17 13:58 Last Vital Signs Temp Pulse Resp BP Pulse Ox 97.5 F L 89 16 98/66 07/30/17 10:15 07/30/17 10:15 07/30/17 10:15 07/30/17 10:15 b/p 98/66 (hypotension) Laboratory Tests 07/30/17 07/30/17 07/30/17 08:00 08:00 08:00 WBC 4.0 RBC 3.95 L Hgb 10.9 L Hct 34.4 L MCV 87.1 MCH 27.7 MCHC 31.8 L RDW 14.7 Plt Count 137 D MPV 10.0 D Sodium 142 Potassium 4.3 Chloride 107 Carbon Dioxide 31 Anion Gap 4 L BUN 9 D Creatinine 0.7 Creat Clearance w eGFR > 60 Random Glucose 82 D Calcium 8.5 Total Bilirubin 0.2 D AST 12 L ALT 19 Alkaline Phosphatase 71 Total Protein 6.0 L Albumin 2.8 L RPR Titer Nonreactive HIV 1&2 Antibody Screen HIV P24 Antigen 07/30/17 08:00 WBC RBC Hgb Hct MCV MCH MCHC RDW Plt Count MPV Sodium Potassium Chloride Carbon Dioxide Anion Gap BUN Creatinine Creat Clearance w eGFR Random Glucose Calcium Total Bilirubin AST ALT Alkaline Phosphatase Total Protein Albumin RPR Titer HIV 1&2 Antibody Screen Negative HIV P24 Antigen Negative Labs noted: anemia and thrombocytopenia noted Assessment: 07/30/17 13:59 Withdrawal symptoms Noted with anemia and thrombocytopenia, mild Plan: Continue detox Anemia: encouraged to eat more green leafy vegetables, follow up with PCP for monitoring/management Thrombocytopenia: stable, follow up with PCP for monitoring
--- NOTE | 2017-07-30 14:45 | EKG ---
Test Reason : Blood Pressure : / mmHG Vent. Rate : 072 BPM Atrial Rate : 072 BPM P-R Int : 118 ms QRS Dur : 102 ms QT Int : 412 ms P-R-T Axes : 075 073 069 degrees QTc Int : 451 ms NORMAL SINUS RHYTHM NORMAL ECG WHEN COMPARED WITH ECG OF 02-MAR-2017 22:24, NO SIGNIFICANT CHANGE WAS FOUND Confirmed by Albert Luque MD ([id number]) on 07/30/2017 2:45:20 PM Referred By: Confirmed By:Albert Luque MD
[2017-07-30 18:25] LABS: URINE APPEARANCE CLEAR; URINE BILIRUBIN NEGATIVE (NEGATIVE); URINE BLOOD NEGATIVE (NEGATIVE); URINE COLOR LTYELLOW; URINE GLUCOSE (UA) NEGATIVE (NEGATIVE); URINE KETONE NEGATIVE (NEGATIVE); URINE LEUK ESTERASE NEGATIVE (NEGATIVE); URINE NITRITE NEGATIVE (NEGATIVE); URINE PROTEIN NEGATIVE (NEGATIVE); URINE UROBILINOGEN NEGATIVE mg/dL (0.2-1.0)
[2017-07-30] MEDS: BENZTROPINE MESYLATE 1 MG TABLET (FP) PO SCH (22:28)
[2017-07-30] MEDS: OLANZapine 2.5 MG TABLET PO SCH (22:28)
[2017-07-30] MEDS: THIAMINE HCL 100 MG TABLET (FP) PO SCH (22:28)
[2017-07-30] MEDS: DIVALPROEX SODIUM 250 MG TABLET E.C. (FP) PO SCH (22:28)
[2017-07-31] MEDS: chlordiazePOXIDE HCL 25 MG CAPSULE PO SCH ×3 (06:02→17:32)
[2017-07-31] MEDS: BENZTROPINE MESYLATE 1 MG TABLET (FP) PO SCH ×2 (10:32→22:35)
[2017-07-31] MEDS: NICOTINE 21 MG/24 HOURS TOPICAL PATCH TD SCH (10:32)
[2017-07-31] MEDS: PRENATAL VITAMINS W/ FOLIC ACID TABLET (FP) PO SCH (10:32)
[2017-07-31] MEDS: DIVALPROEX SODIUM 250 MG TABLET E.C. (FP) PO SCH ×2 (10:32→22:34)
--- NOTE | 2017-07-31 15:29 | PN ---
S CIWA - CIWA Score Nausea/Vomitin-Mild Nausea/No Vomiting Muscle Tremors: 3 Anxiety: 3 Agitation: 0-Normal Activity Paroxysmal Sweats: 1-Minimal Palms Moist Orientation: 0-Oriented Tacttile Disturbances: 1-Very Mild Itch/Numbness Auditory Disturbances: 0-None Visual Disturbances: 0-None Headache: 0-None Present CIWA-Ar Total Score: 9 BHS Progress Note (SOAP) Subjective: Tremors, chills, interrupted sleep, anxious Objective: 07/31/17 15:28 Last Vital Signs Temp Pulse Resp BP Pulse Ox 98.9 F 89 18 108/75 07/31/17 13:17 07/31/17 13:17 07/31/17 13:17 07/31/17 13:17 07/31/17 15:28 Laboratory Last Values WBC 4.0 K/mm3 (4.0-10.0) 07/30/17 08:00 RBC 3.95 M/mm3 (4.00-5.60) L 07/30/17 08:00 Hgb 10.9 GM/dL (11.7-16.9) L 07/30/17 08:00 Hct 34.4 % (35.4-49) L 07/30/17 08:00 MCV 87.1 fl (80-96) 07/30/17 08:00 MCH 27.7 pg (25.7-33.7) 07/30/17 08:00 MCHC 31.8 g/dl (32.0-35.9) L 07/30/17 08:00 RDW 14.7 % (11.9-15.9) 07/30/17 08:00 Plt Count 137 K/MM3 (134-434) D 07/30/17 08:00 MPV 10.0 fl (7.5-11.1) D 07/30/17 08:00 Sodium 142 mmol/L (136-145) 07/30/17 08:00 Potassium 4.3 mmol/L (3.5-5.1) 07/30/17 08:00 Chloride 107 mmol/L (98-107) 07/30/17 08:00 Carbon Dioxide 31 mmol/L (21-32) 07/30/17 08:00 Anion Gap 4 (8-16) L 07/30/17 08:00 BUN 9 mg/dL (7-18) D 07/30/17 08:00 Creatinine 0.7 mg/dL (0.7-1.3) 07/30/17 08:00 Creat Clearance w eGFR > 60 (>60) 07/30/17 08:00 Random Glucose 82 mg/dL (74-106) D 07/30/17 08:00 Calcium 8.5 mg/dL (8.5-10.1) 07/30/17 08:00 Total Bilirubin 0.2 mg/dL (0.2-1.0) D 07/30/17 08:00 AST 12 U/L (15-37) L 07/30/17 08:00 ALT 19 U/L (12-78) 07/30/17 08:00 Alkaline Phosphatase 71 U/L (45-117) 07/30/17 08:00 Total Protein 6.0 g/dl (6.4-8.2) L 07/30/17 08:00 Albumin 2.8 g/dl (3.4-5.0) L 07/30/17 08:00 Urine Color Ltyellow 07/29/17 18:00 Urine Appearance Clear 07/29/17 18:00 Urine pH 7.0 (5.0-8.0) 07/29/17 18:00 Ur Specific [place] 1.012 (1.001-1.035) 07/29/17 18:00 Urine Protein Negative (NEGATIVE) 07/29/17 18:00 Urine Glucose (UA) Negative (NEGATIVE) 07/29/17 18:00 Urine Ketones Negative (NEGATIVE) 07/29/17 18:00 Urine Blood Negative (NEGATIVE) 07/29/17 18:00 Urine Nitrite Negative (NEGATIVE) 07/29/17 18:00 Urine Bilirubin Negative (NEGATIVE) 07/29/17 18:00 Urine Urobilinogen Negative mg/dL (0.2-1.0) 07/29/17 18:00 Ur Leukocyte Esterase Negative (NEGATIVE) 07/29/17 18:00 Valproic Acid 19.351 ug/ml (50-100) L 07/31/17 07:00 RPR Titer Nonreactive (NONREACTIVE) 07/30/17 08:00 Hepatitis C Antibody <0.1 s/co ratio (0.0-0.9) 07/29/17 08:00 HIV 1&2 Antibody Screen Negative 07/30/17 08:00 HIV P24 Antigen Negative 07/30/17 08:00 Labs noted Assessment: 07/31/17 15:28 Withdrawal symptoms Plan: Continue Detox Increase fluids
[2017-07-31] MEDS: THIAMINE HCL 100 MG TABLET (FP) PO SCH (22:33)
[2017-07-31] MEDS: OLANZapine 2.5 MG TABLET PO SCH (22:34)
[2017-07-31] MEDS: chlordiazePOXIDE 5 MG CAPSULE PO SCH (22:34)
[2017-08-01] MEDS: chlordiazePOXIDE 5 MG CAPSULE PO SCH ×3 (06:20→17:37)
[2017-08-01] MEDS: DIVALPROEX SODIUM 250 MG TABLET E.C. (FP) PO SCH ×2 (10:45→22:32)
[2017-08-01] MEDS: PRENATAL VITAMINS W/ FOLIC ACID TABLET (FP) PO SCH (10:45)
[2017-08-01] MEDS: BENZTROPINE MESYLATE 1 MG TABLET (FP) PO SCH ×2 (10:46→22:32)
[2017-08-01] MEDS: NICOTINE 21 MG/24 HOURS TOPICAL PATCH TD SCH (10:46)
--- NOTE | 2017-08-01 13:12 | PN ---
BHS Progress Note (SOAP) Subjective: tire, interrupted sleep, chills, body aches, anxious Objective: 08/01/17 13:11 Last Vital Signs Temp Pulse Resp BP Pulse Ox 97.4 F L 86 20 105/69 08/01/17 09:42 08/01/17 09:42 08/01/17 09:42 08/01/17 09:42 Laboratory Last Values WBC 4.0 K/mm3 (4.0-10.0) 07/30/17 08:00 RBC 3.95 M/mm3 (4.00-5.60) L 07/30/17 08:00 Hgb 10.9 GM/dL (11.7-16.9) L 07/30/17 08:00 Hct 34.4 % (35.4-49) L 07/30/17 08:00 MCV 87.1 fl (80-96) 07/30/17 08:00 MCH 27.7 pg (25.7-33.7) 07/30/17 08:00 MCHC 31.8 g/dl (32.0-35.9) L 07/30/17 08:00 RDW 14.7 % (11.9-15.9) 07/30/17 08:00 Plt Count 137 K/MM3 (134-434) D 07/30/17 08:00 MPV 10.0 fl (7.5-11.1) D 07/30/17 08:00 Sodium 142 mmol/L (136-145) 07/30/17 08:00 Potassium 4.3 mmol/L (3.5-5.1) 07/30/17 08:00 Chloride 107 mmol/L (98-107) 07/30/17 08:00 Carbon Dioxide 31 mmol/L (21-32) 07/30/17 08:00 Anion Gap 4 (8-16) L 07/30/17 08:00 BUN 9 mg/dL (7-18) D 07/30/17 08:00 Creatinine 0.7 mg/dL (0.7-1.3) 07/30/17 08:00 Creat Clearance w eGFR > 60 (>60) 07/30/17 08:00 Random Glucose 82 mg/dL (74-106) D 07/30/17 08:00 Calcium 8.5 mg/dL (8.5-10.1) 07/30/17 08:00 Total Bilirubin 0.2 mg/dL (0.2-1.0) D 07/30/17 08:00 AST 12 U/L (15-37) L 07/30/17 08:00 ALT 19 U/L (12-78) 07/30/17 08:00 Alkaline Phosphatase 71 U/L (45-117) 07/30/17 08:00 Total Protein 6.0 g/dl (6.4-8.2) L 07/30/17 08:00 Albumin 2.8 g/dl (3.4-5.0) L 07/30/17 08:00 Urine Color Ltyellow 07/29/17 18:00 Urine Appearance Clear 07/29/17 18:00 Urine pH 7.0 (5.0-8.0) 07/29/17 18:00 Ur Specific [place] 1.012 (1.001-1.035) 07/29/17 18:00 Urine Protein Negative (NEGATIVE) 07/29/17 18:00 Urine Glucose (UA) Negative (NEGATIVE) 07/29/17 18:00 Urine Ketones Negative (NEGATIVE) 07/29/17 18:00 Urine Blood Negative (NEGATIVE) 07/29/17 18:00 Urine Nitrite Negative (NEGATIVE) 07/29/17 18:00 Urine Bilirubin Negative (NEGATIVE) 07/29/17 18:00 Urine Urobilinogen Negative mg/dL (0.2-1.0) 07/29/17 18:00 Ur Leukocyte Esterase Negative (NEGATIVE) 07/29/17 18:00 Valproic Acid 19.351 ug/ml (50-100) L 07/31/17 07:00 RPR Titer Nonreactive (NONREACTIVE) 07/30/17 08:00 Hepatitis C Antibody <0.1 s/co ratio (0.0-0.9) 07/29/17 08:00 HIV 1&2 Antibody Screen Negative 07/30/17 08:00 HIV P24 Antigen Negative 07/30/17 08:00 Labs noted Assessment: 08/01/17 13:11 withdrawal symptoms Plan: Continue Detox Increase fluids Continue to monitor
[2017-08-01] MEDS: OLANZapine 2.5 MG TABLET PO SCH (22:32)
[2017-08-01] MEDS: chlordiazePOXIDE HCL 10 MG CAPSULE PO SCH (22:32)
[2017-08-01] MEDS: THIAMINE HCL 100 MG TABLET (FP) PO SCH (22:32)
[2017-08-02] MEDS: chlordiazePOXIDE HCL 10 MG CAPSULE PO SCH ×2 (06:13→10:32)
[2017-08-02 10:24] VITALS: BP 94/62; PULSE 92; TEMP 98.7
[2017-08-02] MEDS: PRENATAL VITAMINS W/ FOLIC ACID TABLET (FP) PO SCH (10:32)
[2017-08-02] MEDS: BENZTROPINE MESYLATE 1 MG TABLET (FP) PO SCH (10:32)
[2017-08-02] MEDS: DIVALPROEX SODIUM 250 MG TABLET E.C. (FP) PO SCH (10:32)
[2017-08-02] MEDS: NICOTINE 21 MG/24 HOURS TOPICAL PATCH TD SCH (10:32)
--- NOTE | 2017-08-02 10:59 | DS ---
[facility] Detox Discharge Summary Admission Date: 07/29/17 Discharge Date: 08/02/17 - History Present History: Alcohol Dependence, Cocaine Dependence Pertinent Past History: Asthma CVA Parkinson disease - Physical Exam Results Vital Signs: Vital Signs Temperature 98.7 F 08/02/17 10:23 Pulse Rate 92 H 08/02/17 10:23 Respiratory Rate 16 08/02/17 10:23 Blood Pressure 94/62 08/02/17 10:23 O2 Sat by Pulse Oximetry (%) Pertinent Admission Physical Exam Findings: Withdrawal symptoms Laboratory Tests 07/29/17 07/29/17 07/30/17 08:00 18:00 08:00 WBC 4.0 RBC 3.95 L Hgb 10.9 L Hct 34.4 L MCV 87.1 MCH 27.7 MCHC 31.8 L RDW 14.7 Plt Count 137 D MPV 10.0 D Sodium Potassium Chloride Carbon Dioxide Anion Gap BUN Creatinine Creat Clearance w eGFR Random Glucose Calcium Total Bilirubin AST ALT Alkaline Phosphatase Total Protein Albumin Urine Color Ltyellow Urine Appearance Clear Urine pH 7.0 Ur Specific [place] 1.012 Urine Protein Negative Urine Glucose (UA) Negative Urine Ketones Negative Urine Blood Negative Urine Nitrite Negative Urine Bilirubin Negative Urine Urobilinogen Negative Ur Leukocyte Esterase Negative Valproic Acid RPR Titer Hepatitis C Antibody <0.1 HIV 1&2 Antibody Screen HIV P24 Antigen 07/30/17 07/30/17 07/30/17 08:00 08:00 08:00 WBC RBC Hgb Hct MCV MCH MCHC RDW Plt Count MPV Sodium 142 Potassium 4.3 Chloride 107 Carbon Dioxide 31 Anion Gap 4 L BUN 9 D Creatinine 0.7 Creat Clearance w eGFR > 60 Random Glucose 82 D Calcium 8.5 Total Bilirubin 0.2 D AST 12 L ALT 19 Alkaline Phosphatase 71 Total Protein 6.0 L Albumin 2.8 L Urine Color Urine Appearance Urine pH Ur Specific [place] Urine Protein Urine Glucose (UA) Urine Ketones Urine Blood Urine Nitrite Urine Bilirubin Urine Urobilinogen Ur Leukocyte Esterase Valproic Acid RPR Titer Nonreactive Hepatitis C Antibody HIV 1&2 Antibody Screen Negative HIV P24 Antigen Negative 07/31/17 07:00 WBC RBC Hgb Hct MCV MCH MCHC RDW Plt Count MPV Sodium Potassium Chloride Carbon Dioxide Anion Gap BUN Creatinine Creat Clearance w eGFR Random Glucose Calcium Total Bilirubin AST ALT Alkaline Phosphatase Total Protein Albumin Urine Color Urine Appearance Urine pH Ur Specific [place] Urine Protein Urine Glucose (UA) Urine Ketones Urine Blood Urine Nitrite Urine Bilirubin Urine Urobilinogen Ur Leukocyte Esterase Valproic Acid 19.351 L RPR Titer Hepatitis C Antibody HIV 1&2 Antibody Screen HIV P24 Antigen Labs noted - Treatment Hospital Course: Detox Protocol Followed, Detoxed Safely, Responded well, Discharged Condition Good - Medication Discharge Medications: Ambulatory Orders Albuterol Sulfate Inhaler - [Ventolin HFA Inhaler -] 2 puff IH PRN PRN 03/02/17 Benztropine Mesylate [Cogentin -] 2 mg PO BID 03/02/17 Divalproex [Depakote -] 500 mg PO BID 03/02/17 Olanzapine [Zyprexa -] 2.5 mg PO HS 03/02/17 Trazodone HCl [Desyrel -] 100 mg PO HS 03/02/17 Trihexyphenidyl HCl 2 mg PO BID 03/02/17 Benztropine Mesylate [Cogentin -] 0.5 mg PO BID #30 tablet 08/02/17 Divalproex [Depakote -] 500 mg PO HS #30 tablet.ec 08/02/17 Olanzapine [Zyprexa -] 2.5 mg PO HS #30 tablet 08/02/17 - Diagnosis (1) Anemia Current Visit: Yes Status: Acute (2) Alcohol dependence with uncomplicated withdrawal Current Visit: Yes Status: Acute (3) Cocaine dependence, uncomplicated Current Visit: Yes Status: Chronic (4) Nicotine dependence Current Visit: Yes Status: Chronic Qualifiers: Nicotine product type: cigarettes Substance use status: uncomplicated Qualified Code(s): F17.210 - Nicotine dependence, cigarettes, uncomplicated (5) Asthma Current Visit: Yes Status: Chronic Qualifiers: Asthma severity: mild intermittent Asthma complication type: with status asthmaticus Qualified Code(s): J45.22 - Mild intermittent asthma with status asthmaticus (6) Parkinson disease Current Visit: Yes Status: Chronic (7) Old cerebrovascular accident without late effect Current Visit: Yes Status: Chronic - AMA Did Patient Leave Against Medical Advice: No (F/U with PCP within 1 week)
== END 2017-08-02 15:14 | disposition other institution (70) | DRG 774 ==
LOC: YASAS 19:27 → Y3N 22:51
PROVIDERS: ADMIT Internal Medicine; ATTEND Internal Medicine
PROC: HZ2ZZZZ Detoxification Services for Substance Abuse Treatment (ICD-10-PCS; principal; 2017-07-29)
DX: F10.230 Alcohol dependence with withdrawal, uncomplicated (principal); F14.20 Cocaine dependence, uncomplicated; F17.210 Nicotine dependence, cigarettes, uncomplicated; J45.22 Mild intermittent asthma with status asthmaticus; G20 Parkinson's disease; G24.01 Drug induced subacute dyskinesia; D64.9 Anemia, unspecified; Z86.73 Personal history of transient ischemic attack (TIA), and cerebral infarction without residual deficits; F25.9 Schizoaffective disorder, unspecified; G47.00 Insomnia, unspecified; Z59.0 Homelessness
CPT/HCPCS: 36415; 80053; 80164; 81003; 85027; 86593; 86803; 87389; 93005; 93010

== ENCOUNTER 2017-08-02 15:24 | Inpatient (IN) | payer OTHER ==
[2017-08-02] MEDS ORDERED: guaiFENesin/D-METHORPHAN HB 10 ML UNIT-DOSE CUPS PO PRN (19:53)
[2017-08-02] MEDS ORDERED: IBUPROFEN 400 MG TABLET (FP) PO PRN (19:53)
[2017-08-02] MEDS ORDERED: MAG HYDROX/AL HYDROX/SIMETH 30 ML UNIT-DOSE CUP PO PRN (19:53)
[2017-08-02] MEDS ORDERED: ACETAMINOPHEN 325 MG TABLET (FP) PO PRN (19:53)
[2017-08-02] MEDS ORDERED: hydrOXYzine PAMOATE 50 MG CAPSULE (FP) PO PRN (19:53)
[2017-08-02] MEDS ORDERED: MENTHOL/PHENOL 1 EACH UD MM PRN (19:53)
[2017-08-02] MEDS ORDERED: LOPERAMIDE HCL 2 MG CAPSULE PO PRN (19:53)
[2017-08-02] MEDS ORDERED: MAGNESIUM CITRATE 300 ML BOTTLE PO PRN (19:53)
[2017-08-02] MEDS ORDERED: P-EPHED 60MG/TRIPROLIDI 2.5MG TABLET PO PRN (19:53)
[2017-08-02] MEDS ORDERED: MAGNESIUM HYDROX 2400MG/30ML ORAL SUSPENSION 30 ML CUP PO PRN (19:53)
[2017-08-02] MEDS ORDERED: ALBUTEROL SO4 18 GM HFA INHALER IH PRN (19:54)
--- NOTE | 2017-08-02 19:55 | HP ---
[facility] Rehab Assess/Revision - Admission History Admitted to Rehab from: [facility] Date of Admission to Rehab: 08/02/17 - Findings Detox History & Physical reviewed: Yes Concur with findings: Yes Comments/Additional Findings: ADMIT TO REHAB
--- NOTE | 2017-08-02 20:04 | PN ---
S Progress Note Note: Psychiatry Attending's on-call note : Patient transferred from [address] [place] [address]. Medications resumed : zyprexa 2.5 mg po hs depakote 250 mg po bid cogentin 0.5 mg po bid Discussed with nurse in charge.
[2017-08-02] MEDS: DIVALPROEX SODIUM 250 MG TABLET E.C. (FP) PO SCH (21:50)
[2017-08-02] MEDS: THIAMINE HCL 100 MG TABLET (FP) PO SCH (21:50)
[2017-08-02] MEDS: BENZTROPINE MESYLATE 0.5 MG TABLET (FP) PO SCH (22:11)
[2017-08-02] MEDS: OLANZapine 2.5 MG TABLET PO SCH (22:19)
[2017-08-03] MEDS: PRENATAL VITAMINS W/ FOLIC ACID TABLET (FP) PO SCH (09:46)
[2017-08-03] MEDS: DIVALPROEX SODIUM 250 MG TABLET E.C. (FP) PO SCH ×2 (09:46→22:04)
[2017-08-03] MEDS: BENZTROPINE MESYLATE 0.5 MG TABLET (FP) PO SCH (10:46)
[2017-08-03] MEDS: BENZTROPINE MESYLATE 1 MG TABLET (FP) PO SCH ×2 (12:25→22:04)
[2017-08-03] MEDS: THIAMINE HCL 100 MG TABLET (FP) PO SCH (22:05)
[2017-08-03] MEDS: OLANZapine 2.5 MG TABLET PO SCH (22:05)
[2017-08-04] MEDS: PRENATAL VITAMINS W/ FOLIC ACID TABLET (FP) PO SCH (09:34)
[2017-08-04] MEDS: DIVALPROEX SODIUM 250 MG TABLET E.C. (FP) PO SCH (09:35)
[2017-08-04] MEDS: BENZTROPINE MESYLATE 1 MG TABLET (FP) PO SCH ×2 (09:35→21:59)
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
[2017-08-04] MEDS: OLANZapine 10 MG TABLET PO SCH (21:58)
[2017-08-04] MEDS: traZODone HCL 100 MG TABLET (FP) PO SCH (21:58)
[2017-08-04] MEDS: THIAMINE HCL 100 MG TABLET (FP) PO SCH (21:59)
[2017-08-04] MEDS: DIVALPROEX SODIUM 500 MG TABLET E.C. PO SCH (21:59)
[2017-08-05] MEDS: PRENATAL VITAMINS W/ FOLIC ACID TABLET (FP) PO SCH (09:16)
[2017-08-05] MEDS: DIVALPROEX SODIUM 500 MG TABLET E.C. PO SCH (09:17)
[2017-08-05] MEDS: BENZTROPINE MESYLATE 1 MG TABLET (FP) PO SCH (09:17)
[2017-08-06] MEDS: PRENATAL VITAMINS W/ FOLIC ACID TABLET (FP) PO SCH (10:27)
[2017-08-06] MEDS: DIVALPROEX SODIUM 500 MG TABLET E.C. PO SCH ×3 (10:28→22:25)
[2017-08-06] MEDS: BENZTROPINE MESYLATE 1 MG TABLET (FP) PO SCH ×3 (10:28→22:26)
[2017-08-06] MEDS: traZODone HCL 100 MG TABLET (FP) PO SCH ×2 (17:59→22:25)
[2017-08-06] MEDS: OLANZapine 10 MG TABLET PO SCH ×2 (18:00→22:25)
[2017-08-06] MEDS: THIAMINE HCL 100 MG TABLET (FP) PO SCH ×2 (18:00→22:25)
[2017-08-07] MEDS: BENZTROPINE MESYLATE 1 MG TABLET (FP) PO SCH ×2 (09:38→22:06)
[2017-08-07] MEDS: DIVALPROEX SODIUM 500 MG TABLET E.C. PO SCH ×2 (09:38→22:06)
[2017-08-07] MEDS: PRENATAL VITAMINS W/ FOLIC ACID TABLET (FP) PO SCH (09:38)
[2017-08-07] MEDS: OLANZapine 10 MG TABLET PO SCH (22:06)
[2017-08-07] MEDS: traZODone HCL 100 MG TABLET (FP) PO SCH (22:06)
[2017-08-07] MEDS: THIAMINE HCL 100 MG TABLET (FP) PO SCH (22:06)
[2017-08-08] MEDS: PRENATAL VITAMINS W/ FOLIC ACID TABLET (FP) PO SCH (09:45)
[2017-08-08] MEDS: BENZTROPINE MESYLATE 1 MG TABLET (FP) PO SCH ×2 (09:45→21:19)
[2017-08-08] MEDS: DIVALPROEX SODIUM 500 MG TABLET E.C. PO SCH ×2 (09:46→21:18)
[2017-08-08] MEDS: OLANZapine 10 MG TABLET PO SCH (21:19)
[2017-08-08] MEDS: THIAMINE HCL 100 MG TABLET (FP) PO SCH (21:19)
[2017-08-08] MEDS: traZODone HCL 100 MG TABLET (FP) PO SCH (21:19)
[2017-08-09] MEDS: PRENATAL VITAMINS W/ FOLIC ACID TABLET (FP) PO SCH (09:52)
[2017-08-09] MEDS: DIVALPROEX SODIUM 500 MG TABLET E.C. PO SCH ×2 (09:52→21:39)
[2017-08-09] MEDS: BENZTROPINE MESYLATE 1 MG TABLET (FP) PO SCH ×2 (09:52→21:38)
[2017-08-09] MEDS: OLANZapine 10 MG TABLET PO SCH (21:38)
[2017-08-09] MEDS: THIAMINE HCL 100 MG TABLET (FP) PO SCH (21:38)
[2017-08-09] MEDS: traZODone HCL 100 MG TABLET (FP) PO SCH (21:39)
[2017-08-10] MEDS: DIVALPROEX SODIUM 500 MG TABLET E.C. PO SCH ×2 (09:41→21:22)
[2017-08-10] MEDS: PRENATAL VITAMINS W/ FOLIC ACID TABLET (FP) PO SCH (09:41)
[2017-08-10] MEDS: BENZTROPINE MESYLATE 1 MG TABLET (FP) PO SCH ×2 (09:41→21:22)
[2017-08-10] MEDS: traZODone HCL 100 MG TABLET (FP) PO SCH (21:22)
[2017-08-10] MEDS: THIAMINE HCL 100 MG TABLET (FP) PO SCH (21:22)
[2017-08-10] MEDS: OLANZapine 10 MG TABLET PO SCH (21:22)
[2017-08-11] MEDS: BENZTROPINE MESYLATE 1 MG TABLET (FP) PO SCH ×2 (09:42→21:31)
[2017-08-11] MEDS: DIVALPROEX SODIUM 500 MG TABLET E.C. PO SCH ×2 (09:42→21:31)
[2017-08-11] MEDS: PRENATAL VITAMINS W/ FOLIC ACID TABLET (FP) PO SCH (09:42)
[2017-08-11] MEDS: THIAMINE HCL 100 MG TABLET (FP) PO SCH (21:31)
[2017-08-11] MEDS: traZODone HCL 100 MG TABLET (FP) PO SCH (21:31)
[2017-08-11] MEDS: OLANZapine 10 MG TABLET PO SCH (21:32)
[2017-08-12] MEDS: DIVALPROEX SODIUM 500 MG TABLET E.C. PO SCH ×2 (09:29→21:36)
[2017-08-12] MEDS: PRENATAL VITAMINS W/ FOLIC ACID TABLET (FP) PO SCH (09:29)
[2017-08-12] MEDS: BENZTROPINE MESYLATE 1 MG TABLET (FP) PO SCH ×2 (09:29→21:37)
[2017-08-12] MEDS: traZODone HCL 100 MG TABLET (FP) PO SCH (21:36)
[2017-08-12] MEDS: THIAMINE HCL 100 MG TABLET (FP) PO SCH (21:36)
[2017-08-12] MEDS: OLANZapine 10 MG TABLET PO SCH (21:36)
[2017-08-13] MEDS: BENZTROPINE MESYLATE 1 MG TABLET (FP) PO SCH ×2 (09:40→21:44)
[2017-08-13] MEDS: PRENATAL VITAMINS W/ FOLIC ACID TABLET (FP) PO SCH (09:40)
[2017-08-13] MEDS: DIVALPROEX SODIUM 500 MG TABLET E.C. PO SCH ×2 (09:40→21:44)
[2017-08-13] MEDS: THIAMINE HCL 100 MG TABLET (FP) PO SCH (21:44)
[2017-08-13] MEDS: OLANZapine 10 MG TABLET PO SCH (21:44)
[2017-08-13] MEDS: traZODone HCL 100 MG TABLET (FP) PO SCH (21:44)
[2017-08-14] MEDS: BENZTROPINE MESYLATE 1 MG TABLET (FP) PO SCH ×2 (09:22→21:33)
[2017-08-14] MEDS: DIVALPROEX SODIUM 500 MG TABLET E.C. PO SCH ×2 (09:22→21:32)
[2017-08-14] MEDS: PRENATAL VITAMINS W/ FOLIC ACID TABLET (FP) PO SCH (09:22)
[2017-08-14] MEDS: OLANZapine 10 MG TABLET PO SCH (21:31)
[2017-08-14] MEDS: THIAMINE HCL 100 MG TABLET (FP) PO SCH (21:31)
[2017-08-14] MEDS: traZODone HCL 100 MG TABLET (FP) PO SCH (21:32)
[2017-08-15] MEDS: PRENATAL VITAMINS W/ FOLIC ACID TABLET (FP) PO SCH (09:46)
[2017-08-15] MEDS: BENZTROPINE MESYLATE 1 MG TABLET (FP) PO SCH ×2 (09:46→21:46)
[2017-08-15] MEDS: DIVALPROEX SODIUM 500 MG TABLET E.C. PO SCH ×2 (09:46→21:45)
--- NOTE | 2017-08-15 10:02 | HP ---
Psychiatrist Admission - Data Identifying data: Patient addressing Alcohol and Cocaine Dependence comorbid with Nicotine Dependence, Schizoaffective Disorder and Substance-induced Sleep Disorder Vital Signs: Vital Signs - 24 hr 08/15/17 08/15/17 08/15/17 00:30 03:30 06:51 Temperature 97.2 F L Pulse Rate 71 Respiratory 18 18 20 Rate Blood Pressure 128/78 Allergies/Adverse Reactions: Allergies Allergy/AdvReac Type Severity Reaction Status Date / Time No Known Allergies Allergy Verified 07/29/17 22:56 Psychiatric Findings - Problem List ([place] 1, 2,3) (1) Alcohol dependence Current Visit: No Status: Acute (2) Cocaine dependence Current Visit: No Status: Acute (3) Nicotine dependence Current Visit: No Status: Chronic Qualifiers: Nicotine product type: cigarettes Substance use status: uncomplicated Qualified Code(s): F17.210 - Nicotine dependence, cigarettes, uncomplicated (4) Schizoaffective disorder Current Visit: No Status: Chronic Comment: As per records.Medications prescribed.Questionable adherence. (5) Substance or medication-induced sleep disorder Current Visit: Yes Status: Acute (6) Anemia Current Visit: No Status: Acute (7) Asthma Current Visit: No Status: Chronic Qualifiers: Asthma severity: mild intermittent Asthma complication type: with status asthmaticus (8) Old cerebrovascular accident without late effect Current Visit: No Status: Chronic (9) Parkinson disease Current Visit: No Status: Chronic (10) Seizure disorder Current Visit: No Status: Chronic (11) Tardive dyskinesia Current Visit: No Status: Chronic (12) Walker as ambulation aid Current Visit: No Status: Chronic
--- NOTE | 2017-08-15 10:03 | PN ---
Psychiatric Progress Note Vital Signs: Vital Signs Period Temp Pulse Resp BP Sys/Quintanilla Pulse Ox Last 24 Hr 97.2 F 71 18-20 128/78 Date of Session: 08/15/17 Chief Complaint:: Discharge Note HPI: Patient addressing Alcohol and Cocaine Dependence comorbid with Nicotine Dependence, Schizoaffective Disorder and Substance-induced Sleep Disorder ROS: Anemia, Asthma, Parkinson's Disease, Seizure Disorder, Old CVA, Tardive Dyskinesia Current Medications: Active Medications Generic Name Dose Route Start Last Admin Trade Name Freq PRN Reason Stop Dose Admin Acetaminophen 650 mg 08/02/17 19:53 Tylenol - PO Q4H PRN FEVER Al Hydroxide/Mg Hydroxide 30 ml 08/02/17 19:53 Mylanta Oral Suspension - PO Q6H PRN DYSPEPSIA Albuterol Sulfate 2 puff 08/02/17 19:54 Ventolin Hfa Inhaler - IH PRN PRN ASTHMA Benztropine Mesylate 2 mg 08/04/17 22:00 08/15/17 09:46 Cogentin - PO 2 mg BID MIKY Administration Divalproex Sodium 500 mg 08/04/17 22:00 08/15/17 09:46 Depakote - PO 500 mg BID MIKY Administration Eucalyptus/Menthol/Phenol/Sorbitol 1 each 08/02/17 19:53 Cepastat Lozenge - MM Q4H PRN SORE THROAT Guaifenesin 10 ml 08/02/17 19:53 08/05/17 12:48 Robitussin Dm - PO 10 ml Q6H PRN Administration COUGH Hydroxyzine Pamoate 50 mg 08/02/17 19:53 Vistaril - PO Q4H PRN AGITATION Ibuprofen 400 mg 08/02/17 19:53 Motrin - PO Q6H PRN Pain Level 4-6 Loperamide HCl 4 mg 08/02/17 19:53 Imodium - PO Q6H PRN DIARRHEA Magnesium Citrate 300 ml 08/02/17 19:53 Citroma - PO Q48H PRN CONSTIPATION Magnesium Hydroxide 30 ml 08/02/17 19:53 Milk Of Magnesia - PO DAILY PRN CONSTIPATION Olanzapine 10 mg 08/04/17 22:00 08/14/17 21:31 Zyprexa - PO 10 mg HS MIKY Administration Multivit/Folic Acid/Iron 1 tab 08/03/17 10:00 08/15/17 09:46 Vitamins (Sjr) - PO 1 tab DAILY MIKY Administration Pseudoephedrine/Triprolidine 1 combo 08/02/17 19:53 Actifed - PO TID PRN NASAL CONGESTION Thiamine HCl 100 mg 08/02/17 22:00 08/14/17 21:31 Vitamin B1 - PO 100 mg HS MIKY Administration Trazodone HCl 100 mg 08/04/17 22:00 08/14/17 21:32 Desyrel - PO 100 mg HS MIKY Administration Current Side Effect: No Lab tests ordered: Yes Lab tests reviewed: Yes Provider note:: Patient will complete this program on 08/16/17. He has met his treatment goals and will continue to address his issues in outpatient treatment program at [facility]. Told press writer that from his participation in this program, he has learned the importance of establishing a sober support network in order to maintain abstinence. He responded well to Zyprexa 10 mg po HS, Depakote 500 mg po BID, Trazadone 100 mg po HS and Cogentin 2 mg po BID. Scripts for 30 days supply of these medications will be electronically transmitted to [facility] at [address] [place] [address], He is stable for discharge on 08/16/17 Total face to face time:: 35 Mental Status Exam - Mental Status Exam Alert and Oriented to: Time, Place, Person Cognitive Function: Fair Patient Appearance: Well Groomed Mood: Hopeful, Euthymic Affect: Appropriate Patient Behavior: Cooperative Speech Pattern: Clear Voice Loudness: Normal Thought Process: Intact, Goal Oriented Thought Disorder: Not Present Hallucinations: Denies Suicidal Ideation: Denies Homicidal Ideation: Denies Insight/Judgement: Fair Sleep: Fair Appetite: Good Muscle strength/Tone: Normal Gait/Station: Normal Psychiatric Treatment Plan - Problem List (1) Alcohol dependence Current Visit: No (2) Cocaine dependence Current Visit: No (3) Nicotine dependence Current Visit: No Qualifiers: Nicotine product type: cigarettes Substance use status: uncomplicated Qualified Code(s): F17.210 - Nicotine dependence, cigarettes, uncomplicated (4) Schizoaffective disorder Current Visit: No Comment: As per records.Medications prescribed.Questionable adherence. (5) Substance or medication-induced sleep disorder Current Visit: Yes (6) Anemia Current Visit: No (7) Asthma Current Visit: No Qualifiers: Asthma severity: mild intermittent Asthma complication type: with status asthmaticus (8) Old cerebrovascular accident without late effect Current Visit: No (9) Parkinson disease Current Visit: No (10) Seizure disorder Current Visit: No (11) Tardive dyskinesia Current Visit: No (12) Walker as ambulation aid Current Visit: No Initial treatment plan: Patient will be discharged tomorrow and [facility]
[2017-08-15] MEDS: traZODone HCL 100 MG TABLET (FP) PO SCH (21:45)
[2017-08-15] MEDS: THIAMINE HCL 100 MG TABLET (FP) PO SCH (21:45)
[2017-08-15] MEDS: OLANZapine 10 MG TABLET PO SCH (21:45)
[2017-08-16 06:43] VITALS: BP 109/73; PULSE 70; TEMP 97.6
[2017-08-16] MEDS: DIVALPROEX SODIUM 500 MG TABLET E.C. PO SCH (09:01)
[2017-08-16] MEDS: BENZTROPINE MESYLATE 1 MG TABLET (FP) PO SCH (09:01)
[2017-08-16] MEDS: PRENATAL VITAMINS W/ FOLIC ACID TABLET (FP) PO SCH (09:01)
== END 2017-08-16 09:05 | disposition home or self-care (01) | DRG 772 ==
LOC: YASAS 15:24 → Y3W 15:25
PROVIDERS: ADMIT Psychiatry & Neurology Psychiatry; ATTEND Psychiatry & Neurology Psychiatry
PROC: HZ42ZZZ Group Counseling for Substance Abuse Treatment, Cognitive-Behavioral (ICD-10-PCS; principal; 2017-08-02)
DX: F10.20 Alcohol dependence, uncomplicated (principal); F14.20 Cocaine dependence, uncomplicated; F17.210 Nicotine dependence, cigarettes, uncomplicated; F25.9 Schizoaffective disorder, unspecified; F19.282 Other psychoactive substance dependence with psychoactive substance-induced sleep disorder; D64.9 Anemia, unspecified; J45.909 Unspecified asthma, uncomplicated; G20 Parkinson's disease; G24.01 Drug induced subacute dyskinesia; R26.89 Other abnormalities of gait and mobility; Z91.14 Patient's other noncompliance with medication regimen; Z86.73 Personal history of transient ischemic attack (TIA), and cerebral infarction without residual deficits

== ENCOUNTER 2018-02-13 15:54 | Emergency (ER) | payer OTHER ==
[2018-02-13 16:07] VITALS: BMI 20.9
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
--- NOTE | 2018-02-13 18:00 | PDOC ---
Attending Attestation - HPI HPI: 02/13/18 18:58 The patient is a 62 year old male with history of polysubstance abuse, psych disorder, seizure disorder, tardive dyskinesia, sent from [facility] rehab s/p unwitnessed fall today. Per [facility] staff, the patient was reportedly found after an unwitnessed fall. He reportedly complained that he felt dizzy and his legs gave out. On ED evaluation, the patient is a poor historian and is unable to recall the details of his fall. - Physicial Exam PE: 02/13/18 19:01 Constitutional: Awake, appears sleepy. Head: Normocephalic. Atraumatic Eyes: PERRL. EOMI. Conjunctivae are not pale. ENT: +Mucous membranes are very dry. Posterior pharynx without exudates or erythema. Uvula midline. Neck: Supple. Full ROM. No lymphadenopathy. Cardiovascular: Regular rate. Regular rhythm. S1, S2 regular. Distal pulses are 2+ and symmetric. Pulmonary/Chest: No evidence of respiratory distress. Clear to auscultation bilaterally No wheezing, rales or rhonchi. Abdominal: Soft and non-distended. There is no tenderness. No rebound, guarding or rigidity. No organomegaly. No palpable masses. Good bowel sounds. Back: No CVA tenderness. Musculoskeletal: No edema. No cyanosis. No clubbing. Full range of motion in all extremities. Nocalf tenderness. Radial/pedal pulses are intact and 2+ bilaterally Skin: Skin is warm and dry. No petechiae. No purpura. Neurological: Awake, appears slightly confused. +Mild left sided facial droop. +L nystagmus. Generalized weakness in all four extremities. +Speech is slurred. - Medical Decision Making 02/13/18 19:04 Documentation prepared by Eunice Gorman, acting as medical physics professor for Phyllis Avelar DO. <Eunice Gorman - Last Filed: 02/13/18 19:05> - Resident Resident Name: Priscilla Oliveira - ED Attending Attestation I have performed the following: I have examined & evaluated the patient, The case was reviewed & discussed with the resident, I agree w/resident's findings & plan, Exceptions are as noted - Medical Decision Making 02/13/18 18:00 IDr. Phyllis, DO, attest that this document has been prepared under my direction and personally reviewed by me in its entirety. I further attest, that it accurately reflects all work, treatment, procedures and medical decision -making performed by me. 02/13/18 18:48 a/p: 62yo male with hx of etoh abuse, psych hx, tardive dyskinesia, drug abuse presents from rehab for eval of a fall earlier today -felt dizzy with cp earlier today -unwitness fall at rehab -sent for eval -hx of hepatic encephalopathy as well -concern for cp/altered ms -pt is a poor historia -pt is generally weak on exam -will obtain head ct, labs, ammonia, cxr, ekg -pt with decreased PO intake over the last few days -will start IVF hydration -will send lactate -will most likely need admission 02/13/18 23:[address] trop negative head ct negative pt feels better and reqeusting to go back to rehab. <Phyllis Avelar - Last Filed: 02/13/18 23:17> Discharge Disposition - Discharge Dispostion Last Admission D/C Date: 02/10/18 Decision to Admit order: No <Phyllis Avelar - Last Filed: 02/13/18 23:17> - Diagnosis Unwitnessed fall, Closed head injury, Extrapyramidal and movement disorder - Discharge Dispostion Disposition: HOME Condition at time of disposition: Stable - Referrals Referrals: Peter Espinoza MD [Staff Physician] - - Patient Instructions Printed Discharge Instructions: How to Prevent Falls, DI for Closed Head Injury Additional Instructions: Please take all medications as prescribed. Please return to the ED with any further concerns or complaints. Please return to rehab. Heart Score/ECG Review - ECG Intrepretation Comment:: 02/13/18 21:17 sinus at 76, nl axis, nl interval, no acute st/t wave findings <Phyllis Avelar - Last Filed: 02/13/18 23:17>
[2018-02-13] MEDS ORDERED: SODIUM CHLORIDE 0.9% 500 ML INFUS.BAG IV ONE (18:08)
[2018-02-13 18:51] LABS: HEMOGLOBIN 10.2 GM/dL (11.7-16.9); MCH 28.6 pg (25.7-33.7); MCHC 32.9 g/dl (32.0-35.9); MEAN CELL VOLUME 86.9 fl (80-96); MEAN PLT VOLUME 8.7 fl (7.5-11.1); PLATELET COUNT 178 K/MM3 (134-434); RBC 3.56 M/mm3 (4.00-5.60); RDW 15.2 % (11.9-15.9)
[2018-02-13 19:06] LABS: INR 0.94 (0.82-1.09); PROTHROMBIN TIME (PATIENT) 10.6 SEC (9.7-13.0)
[2018-02-13 19:09] LABS: ACTIVATED PTT 27.4 SECONDS (25.2-36.5)
[2018-02-13 19:15] LABS: ALBUMIN 2.8 g/dl (3.4-5.0); ANION GAP 5 (8-16); BILIRUBIN,TOTAL 0.1 mg/dL (0.2-1.0); BLOOD UREA NITROGEN 14 mg/dL (7-18); CALCIUM 8.6 mg/dL (8.5-10.1); CHLORIDE 110 mmol/L (98-107); CO2 31 mmol/L (21-32); CREATININE 0.6 mg/dL (0.7-1.3); GLUCOSE,RANDOM 88 mg/dL (74-106); POTASSIUM 4.3 mmol/L (3.5-5.1); SGOT/AST 11 U/L (15-37); SODIUM 146 mmol/L (136-145)
[2018-02-13 19:21] LABS: ALK PHOS 78 U/L (45-117); SGPT/ALT 15 U/L (12-78)
--- NOTE | 2018-02-13 19:35 | PDOC ---
*Physical Exam - Vital Signs Last Vital Signs Temp Pulse Resp BP Pulse Ox 97.8 F 77 18 102/68 99 02/13/18 16:03 02/13/18 16:03 02/13/18 16:03 02/13/18 16:03 02/13/18 16:03 - Physical Exam Comments: HEENT: EOMI, PERRL, atraumatic Neck: trachea midline, supple Respiratory: Lungs clear, Normal breath sounds Cardiovascular: Regular rhythm, normal S1 and S2, no murmurs, rubs, or gallops Abdominal: Soft, nontender, normative bowel sounds Extremities: Distal pulses present in all extremities Neurologic: Alert and Oriented x2, Slurred speech, +horizontal nystagmus ED Treatment Course - LABORATORY CBC & Chemistry Diagram: 02/13/18 18:30 02/13/18 18:30 - ADDITIONAL ORDERS Additional order review: Laboratory Results 02/13/18 02/13/18 02/13/18 18:30 18:30 18:30 PT with INR 10.60 INR 0.94 PTT (Actin FS) 27.4 Sodium Potassium Chloride Carbon Dioxide Anion Gap BUN Creatinine Creat Clearance w eGFR Random Glucose Lactic Acid 1.0 Calcium Magnesium 1.9 Total Bilirubin AST ALT Alkaline Phosphatase Ammonia Troponin I Total Protein Albumin 02/13/18 02/13/18 18:30 18:30 PT with INR INR PTT (Actin FS) Sodium 146 H Potassium 4.3 Chloride 110 H Carbon Dioxide 31 Anion Gap 5 L BUN 14 Creatinine 0.6 L Creat Clearance w eGFR > 60 Random Glucose 88 Lactic Acid Calcium 8.6 Magnesium Total Bilirubin 0.1 L AST 11 L D ALT 15 Alkaline Phosphatase 78 Ammonia 36.20 H Troponin I < 0.02 Total Protein 6.0 L Albumin 2.8 L 02/13/18 18:30 RBC 3.56 L MCV 86.9 MCHC 32.9 RDW 15.2 MPV 8.7 - Medications Given in the ED: ED Medications Discontinued Medications Generic Name Dose Route Start Last Admin Trade Name Freq PRN Reason Stop Dose Admin Sodium Chloride 1,000 ml 02/13/18 18:08 02/13/18 18:33 Normal Saline - IV 02/13/18 18:09 1,000 ml ONCE ONE Administration Medical Decision Making - Medical Decision Making 62yo patient with history of parkinson's disease, tardive dykinesia, seizures, polysubstance abuse fell today unwitnessed. Ordered: EKG, CBC, CMP, Ammonia, PTT , PT/INR, Tpn, Mag, Lactate; Imaging: Head CT w/o contrast, CXR, Knee R, Knee L. Likely admission to observation due to chest pain, dizziness, and unwitnessed fall. Patient appears dry. Complaining of chest pain; may be musculoskeletal in nature as it is reproducible upon palpation. Patient also reports bilateral knee pain. Unable to ascertain whether this is a chronic issue vs. injury sustained from unwitnessed fall. Ammonia 36.2 high (63.4 on 02/09/18) 02/13/18 19:[address] Brown who recommended second troponin at 4 hours after first troponin. Second troponin negative. Will discharge back to [facility]. 02/14/18 00:06 *DC/Admit/Observation/Transfer Diagnosis at time of Disposition: Unwitnessed fall, Closed head injury, Extrapyramidal and movement disorder - Discharge Dispostion Disposition: HOME Condition at time of disposition: Stable - Referrals Referrals: Peter Espinoza MD [Staff Physician] - - Patient Instructions Printed Discharge Instructions: How to Prevent Falls, DI for Closed Head Injury Additional Instructions: Please take all medications as prescribed. Please return to the ED with any further concerns or complaints. Please return to rehab. - Post Discharge Activity
[2018-02-13 23:22] VITALS: BP 105/70; PULSE 80; TEMP 98.2
--- NOTE | 2018-02-14 11:31 | EKG ---
Test Reason : Blood Pressure : / mmHG Vent. Rate : 076 BPM Atrial Rate : 076 BPM P-R Int : 126 ms QRS Dur : 084 ms QT Int : 390 ms P-R-T Axes : 058 056 050 degrees QTc Int : 438 ms POOR DATA QUALITY, INTERPRETATION MAY BE ADVERSELY AFFECTED NORMAL SINUS RHYTHM NORMAL ECG WHEN COMPARED WITH ECG OF 07-FEB-2018 11:49, ST NO LONGER ELEVATED IN ANTERIOR LEADS Confirmed by PAULINE PALMA, LUIS ([id number]) on 02/14/2018 11:31:29 AM Referred By: Confirmed By:LUIS CARPENTER MD
== END 2018-02-14 00:26 | disposition home or self-care (01) ==
LOC: JER 15:54
DX: S09.8XXA Other specified injuries of head, initial encounter (principal); R41.82 Altered mental status, unspecified; W18.39XA Other fall on same level, initial encounter; Z91.81 History of falling; Y93.89 Activity, other specified; Y92.238 Other place in hospital as the place of occurrence of the external cause; Y99.8 Other external cause status; F10.20 Alcohol dependence, uncomplicated; G24.01 Drug induced subacute dyskinesia; G20 Parkinson's disease; J45.909 Unspecified asthma, uncomplicated
CPT/HCPCS: 36415; 70450-TC; 71045-TC-FY; 73560-TC-LT-FY; 73560-TC-RT-FY; 80053; 82140; 83605; 83735; 84484; 85027; 85610; 85730; 93005; 93010; 99283-25

== ENCOUNTER 2018-04-24 14:35 | Inpatient (IN) | payer OTHER ==
[2018-04-24 15:01] VITALS: BMI 20.3
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
[2018-04-24] MEDS ORDERED: MENTHOL/PHENOL 1 EACH UD MM PRN (16:30)
[2018-04-24] MEDS ORDERED: MAGNESIUM CITRATE 300 ML BOTTLE PO PRN (16:30)
[2018-04-24] MEDS ORDERED: NICOTINE POLACRILEX 2 MG GUM BC PRN (16:30)
[2018-04-24] MEDS ORDERED: ACETAMINOPHEN 325 MG TABLET (FP) PO PRN (16:30)
[2018-04-24] MEDS ORDERED: IBUPROFEN 400 MG TABLET (FP) PO PRN (16:30)
[2018-04-24] MEDS ORDERED: MAGNESIUM HYDROX 2400MG/30ML ORAL SUSPENSION 30 ML CUP PO PRN (16:30)
[2018-04-24] MEDS ORDERED: P-EPHED 60MG/TRIPROLIDI 2.5MG TABLET PO PRN (16:30)
[2018-04-24] MEDS ORDERED: MAG HYDROX/AL HYDROX/SIMETH 30 ML UNIT-DOSE CUP PO PRN (16:30)
[2018-04-24] MEDS ORDERED: LOPERAMIDE HCL 2 MG CAPSULE PO PRN (16:30)
[2018-04-24] MEDS ORDERED: chlordiazePOXIDE HCL 25 MG CAPSULE PO PRN (16:30)
[2018-04-24] MEDS ORDERED: hydrOXYzine PAMOATE 25 MG CAPSULE (FP) PO PRN (16:30)
[2018-04-24] MEDS ORDERED: guaiFENesin/D-METHORPHAN HB 10 ML UNIT-DOSE CUPS PO PRN (16:30)
[2018-04-24] MEDS ORDERED: ALBUTEROL SO4 0.083% IH SOL 2.5 MG/3 ML VIAL.NEB. NEB PRN (16:38)
[2018-04-24] MEDS ORDERED: chlordiazePOXIDE HCL 25 MG CAPSULE PO ONE (19:00)
[2018-04-24] MEDS ORDERED: MELATONIN 5 MG TABLETS PO PRN (22:00)
[2018-04-24] MEDS: chlordiazePOXIDE HCL 25 MG CAPSULE PO SCH (22:26)
[2018-04-24] MEDS: THIAMINE HCL 100 MG TABLET (FP) PO SCH (22:26)
[2018-04-25] MEDS: chlordiazePOXIDE HCL 25 MG CAPSULE PO SCH ×4 (06:00→23:13)
--- NOTE | 2018-04-25 09:38 | EKG ---
Test Reason : Blood Pressure : / mmHG Vent. Rate : 073 BPM Atrial Rate : 073 BPM P-R Int : 114 ms QRS Dur : 100 ms QT Int : 410 ms P-R-T Axes : 075 075 063 degrees QTc Int : 451 ms NORMAL SINUS RHYTHM WHEN COMPARED WITH ECG OF 13-FEB-2018 21:17, NO SIGNIFICANT CHANGE WAS FOUND Confirmed by DINESH COATES MD ([id number]) on 04/25/2018 9:38:06 AM Referred By: Confirmed By:DINESH COATES MD
--- NOTE | 2018-04-25 10:06 | PN ---
BHS CIWA - CIWA Score Nausea/Vomitin Muscle Tremors: 2 Anxiety: 1-Mildly Anxious Agitation: 0-Normal Activity Paroxysmal Sweats: 3 Orientation: 0-Oriented Tacttile Disturbances: 0-None Auditory Disturbances: 0-None Visual Disturbances: 0-None Headache: 0-None Present CIWA-Ar Total Score: 8 BHS Progress Note (SOAP) Subjective: ANXIOUS, INSOMNIA, SHAKES AND SWEATING. Objective: 04/25/18 10:04 Vital Signs Temperature 97.3 F L 04/25/18 09:48 Pulse Rate 61 04/25/18 09:48 Respiratory Rate 18 04/25/18 09:48 Blood Pressure 113/74 04/25/18 09:48 O2 Sat by Pulse Oximetry (%) ALERT AND ORIENTED SKIN FOREHEAD MOISTURE CAR S1S2 RESP CTA BL EXT +TREMORS Assessment: 04/25/18 10:05 WITHDRAWAL SYNDROME Plan: CONTINUE DETOX ORDERED ENCOURAGE ORAL FLUIDS CONTINUE TO MONITOR CLINICALLY
[2018-04-25 11:01] LABS: HEMATOCRIT 35.1 % (35.4-49); HEMOGLOBIN 11.3 GM/dL (11.7-16.9); MCH 27.8 pg (25.7-33.7); MCHC 32.2 g/dl (32.0-35.9); MEAN CELL VOLUME 86.1 fl (80-96); MEAN PLT VOLUME 9.5 fl (7.5-11.1); PLATELET COUNT 175 K/MM3 (134-434); RBC 4.07 M/mm3 (4.00-5.60); RDW 14.3 % (11.9-15.9); WHITE BLOOD COUNT 3.7 K/mm3 (4.0-10.0)
--- NOTE | 2018-04-25 11:07 | CONSULT ---
[facility] Psychiatric Consult - Data Date of interview: 04/25/18 Admission source: [facility] Identifying data: Patient is a 63 year old single male, father of five, unemployed, domiciled, and supported by disability benefits. This is one multiple admissions for patient. Patient admitted to for alcohol and cocaine dependence. Substance Abuse History: Smoking Cessation. Smoking history: Current every day smoker. Have you smoked in the past 12 months: Yes. Aproximately how many cigarettes per day: 8. Cigars Per Day: 0. Hx Chewing Tobacco Use: No. Initiated information on smoking cessation: Yes. 'Breaking Loose' booklet given : 04/24/18. - Substance & Tx. History. Hx Alcohol Use: Yes. Hx Substance Use : Yes. Substance Use Type: Alcohol, Cocaine. Hx Substance Use Treatment: Yes ( Last detox and Rehab [facility] 02/06/18 -02/10/18 and rehab 02/10/18 -03/01/18.). - Substances Abused. Alcohol. Route: Oral. Frequency: Daily. Amount used: 3 pints nitesh angulo. Age of first use: 10. Date of Last Use: 04/24/18. Crack. Route: Smoking. Frequency: Daily. Amount used: $300. Age of first use : 53. Date of Last Use: 04/23/18 Medical History: Anemia, seizures ( 2 months ago) Psychiatric History: Patient reports multiple psychiatric hospitalizations, most recently at [facility] six months ago. Patient is also known to [facility], and [facility]. Patient was receiving outpatient care at the [facility]. As per pharmacy claims patient is prescribed zyprexa 2.5mg + depakote 250mg TID + cogentin 0.5mg. Diagnosis of schizoaffective. He reports medications nonadherence. Last accepted medication one month ago. No psychosis noted. He reports history of suicide attempts (self- mutilation). Patient currently reports poor sleep and is agreeable to restarting medications. Physical/Sexual Abuse/Trauma History: denies. Mental Status Exam - Mental Status Exam Alert and Oriented to: Time, Place, Person Cognitive Function: Good Patient Appearance: Well Groomed Mood: Euthymic Affect: Mood Congruent Patient Behavior: Cooperative Speech Pattern: Delayed Voice Loudness: Moderately Soft/Quiet Thought Process: Goal Oriented Thought Disorder: Not Present Hallucinations: Denies Suicidal Ideation: Denies Homicidal Ideation: Denies Insight/Judgement: Poor Sleep: Poorly Appetite: Fair Gait/Station: Other (Patient uses a rolling walker to ambulate.) Psychiatric Findings - Problem List ([place] 1, 2,3) (1) Alcohol dependence with uncomplicated withdrawal Current Visit: Yes Status: Acute (2) Cocaine dependence Current Visit: Yes Status: Acute Qualifiers: Substance use status: uncomplicated Qualified Code(s): F14.20 - Cocaine dependence, uncomplicated (3) Schizoaffective disorder Current Visit: Yes Status: Chronic (4) Substance-induced sleep disorder Current Visit: Yes Status: Acute (5) Tardive dyskinesia Current Visit: Yes Status: Chronic - Initial Treatment Plan Initial Treatment Plan: Psychoeducation provided. Detoxiifcation in progress. Will order zyprexa 2.5mg + Cogentin 0.5mg qhs + depakote 250mg TID + Trazodone 50mg qhs. Valproic level ordered for 04/26/18. Benefits and side effects discussed. Verbal consent given.
[2018-04-25] MEDS: PRENATAL VITAMINS W/ FOLIC ACID TABLET (FP) PO SCH (11:26)
[2018-04-25] MEDS: NICOTINE 14 MG/24 HOURS TOPICAL PATCH TD SCH (11:26)
[2018-04-25 11:43] LABS: ALBUMIN 2.9 g/dl (3.4-5.0); ALK PHOS 73 U/L (45-117); ANION GAP 8 MMOL/L (8-16); BILIRUBIN,TOTAL 0.4 mg/dL (0.2-1); BLOOD UREA NITROGEN 8 mg/dL (7-18); CALCIUM 8.9 mg/dL (8.5-10.1); CHLORIDE 108 mmol/L (98-107); CO2 26 mmol/L (21-32); CREATININE 0.7 mg/dL (0.55-1.3); GLUCOSE,RANDOM 87 mg/dL (74-106); POTASSIUM 4.1 mmol/L (3.5-5.1); SGOT/AST 14 U/L (15-37); SGPT/ALT 17 U/L (13-61); SODIUM 141 mmol/L (136-145); TOT PROT 6.2 g/dl (6.4-8.2)
[2018-04-25] MEDS: DIVALPROEX SODIUM 250 MG TABLET E.C. PO SCH ×2 (14:21→23:12)
[2018-04-25 17:35] LABS: URINE APPEARANCE CLOUDY; URINE BILIRUBIN NEGATIVE (<2.0 mg/dL); URINE COLOR DKYELLOW; URINE GLUCOSE (UA) NEGATIVE (NEGATIVE); URINE KETONE NEGATIVE (NEGATIVE); URINE LEUK ESTERASE NEGATIVE (NEGATIVE); URINE NITRITE NEGATIVE (NEGATIVE); URINE PROTEIN NEGATIVE (NEGATIVE); URINE UROBILINOGEN NEGATIVE mg/dL (0.2-1.0)
[2018-04-25] MEDS: BENZTROPINE MESYLATE 1 MG TABLET (FP) PO SCH (23:12)
[2018-04-25] MEDS: traZODone HCL 50 MG TABLET (FP) PO SCH (23:12)
[2018-04-25] MEDS: OLANZapine 2.5 MG TABLET PO SCH (23:13)
[2018-04-25] MEDS: THIAMINE HCL 100 MG TABLET (FP) PO SCH (23:13)
[2018-04-26] MEDS: chlordiazePOXIDE HCL 25 MG CAPSULE PO SCH ×3 (05:11→17:55)
[2018-04-26] MEDS: DIVALPROEX SODIUM 250 MG TABLET E.C. PO SCH ×3 (05:11→22:20)
--- NOTE | 2018-04-26 10:10 | PN ---
S CIWA - CIWA Score Nausea/Vomitin-No Nausea/No Vomiting Muscle Tremors: 2 Anxiety: 2 Agitation: 1-Slight > Activity Paroxysmal Sweats: No Perspiration Orientation: 0-Oriented Tacttile Disturbances: 0-None Auditory Disturbances: 0-None Visual Disturbances: 0-None Headache: 2-Mild CIWA-Ar Total Score: 7 BHS Progress Note (SOAP) Subjective: PT REPORTS MILD SHAKES AND ANXIOUS/IRRITABILITY Objective: 04/26/18 10:09 Vital Signs Temperature 97.7 F 04/26/18 06:00 Pulse Rate 71 04/26/18 06:00 Respiratory Rate 18 04/26/18 06:00 Blood Pressure 101/87 04/26/18 06:00 O2 Sat by Pulse Oximetry (%) Laboratory Tests 04/25/18 04/25/18 04/25/18 07:00 07:00 07:00 WBC 3.7 L RBC 4.07 Hgb 11.3 L Hct 35.1 L MCV 86.1 MCH 27.8 MCHC 32.2 RDW 14.3 Plt Count 175 MPV 9.5 Sodium 141 Potassium 4.1 Chloride 108 H Carbon Dioxide 26 Anion Gap 8 BUN 8 Creatinine 0.7 Creat Clearance w eGFR > 60 Random Glucose 87 Calcium 8.9 Total Bilirubin 0.4 AST 14 L ALT 17 Alkaline Phosphatase 73 Total Protein 6.2 L Albumin 2.9 L Urine Color Urine Appearance Urine pH Ur Specific [place] Urine Protein Urine Glucose (UA) Urine Ketones Urine Blood Urine Nitrite Urine Bilirubin Urine Urobilinogen Ur Leukocyte Esterase RPR Titer Nonreactive 04/25/18 16:30 WBC RBC Hgb Hct MCV MCH MCHC RDW Plt Count MPV Sodium Potassium Chloride Carbon Dioxide Anion Gap BUN Creatinine Creat Clearance w eGFR Random Glucose Calcium Total Bilirubin AST ALT Alkaline Phosphatase Total Protein Albumin Urine Color Dkyellow Urine Appearance Cloudy Urine pH 5.0 Ur Specific [place] 1.021 Urine Protein Negative Urine Glucose (UA) Negative Urine Ketones Negative Urine Blood Negative Urine Nitrite Negative Urine Bilirubin Negative Urine Urobilinogen Negative Ur Leukocyte Esterase Negative RPR Titer ALERT AND ORIENTED SKIN WARM AND DRY AMB AD LOLLY EXT NO EDEMA, MILD TREMORS Assessment: 04/26/18 10:09 WITHDRAWAL SYNDROME Plan: CONTINUE DETOX ENOURAGE ORAL FLUIDS CONTINUE TO MONITOR
[2018-04-26] MEDS: PRENATAL VITAMINS W/ FOLIC ACID TABLET (FP) PO SCH (10:18)
[2018-04-26] MEDS: BENZTROPINE MESYLATE 1 MG TABLET (FP) PO SCH ×2 (10:18→22:20)
[2018-04-26] MEDS: NICOTINE 14 MG/24 HOURS TOPICAL PATCH TD SCH (10:19)
[2018-04-26] MEDS: traZODone HCL 50 MG TABLET (FP) PO SCH (22:20)
[2018-04-26] MEDS: chlordiazePOXIDE 5 MG CAPSULE PO SCH (22:20)
[2018-04-26] MEDS: THIAMINE HCL 100 MG TABLET (FP) PO SCH (22:21)
[2018-04-26] MEDS: OLANZapine 2.5 MG TABLET PO SCH (22:21)
[2018-04-27] MEDS: chlordiazePOXIDE 5 MG CAPSULE PO SCH ×3 (06:25→18:12)
[2018-04-27] MEDS: DIVALPROEX SODIUM 250 MG TABLET E.C. PO SCH ×3 (06:25→23:57)
[2018-04-27] MEDS: BENZTROPINE MESYLATE 1 MG TABLET (FP) PO SCH ×2 (10:31→22:55)
[2018-04-27] MEDS: PRENATAL VITAMINS W/ FOLIC ACID TABLET (FP) PO SCH (10:31)
[2018-04-27] MEDS: NICOTINE 14 MG/24 HOURS TOPICAL PATCH TD SCH (10:31)
--- NOTE | 2018-04-27 16:49 | PN ---
BHS Progress Note (SOAP) Subjective: feeling better sleep better social with peers in day room Objective: 04/27/18 16:48 Vital Signs Temperature 98.2 F 04/27/18 14:36 Pulse Rate 74 04/27/18 14:36 Respiratory Rate 18 04/27/18 14:36 Blood Pressure 101/54 L 04/27/18 14:36 O2 Sat by Pulse Oximetry (%) Laboratory Last Values WBC 3.7 K/mm3 (4.0-10.0) L 04/25/18 07:00 RBC 4.07 M/mm3 (4.00-5.60) 04/25/18 07:00 Hgb 11.3 GM/dL (11.7-16.9) L 04/25/18 07:00 Hct 35.1 % (35.4-49) L 04/25/18 07:00 MCV 86.1 fl (80-96) 04/25/18 07:00 MCH 27.8 pg (25.7-33.7) 04/25/18 07:00 MCHC 32.2 g/dl (32.0-35.9) 04/25/18 07:00 RDW 14.3 % (11.9-15.9) 04/25/18 07:00 Plt Count 175 K/MM3 (134-434) 04/25/18 07:00 MPV 9.5 fl (7.5-11.1) 04/25/18 07:00 Sodium 141 mmol/L (136-145) 04/25/18 07:00 Potassium 4.1 mmol/L (3.5-5.1) 04/25/18 07:00 Chloride 108 mmol/L (98-107) H 04/25/18 07:00 Carbon Dioxide 26 mmol/L (21-32) 04/25/18 07:00 Anion Gap 8 MMOL/L (8-16) 04/25/18 07:00 BUN 8 mg/dL (7-18) 04/25/18 07:00 Creatinine 0.7 mg/dL (0.55-1.3) 04/25/18 07:00 Creat Clearance w eGFR > 60 (>60) 04/25/18 07:00 Random Glucose 87 mg/dL (74-106) 04/25/18 07:00 Calcium 8.9 mg/dL (8.5-10.1) 04/25/18 07:00 Total Bilirubin 0.4 mg/dL (0.2-1) 04/25/18 07:00 AST 14 U/L (15-37) L 04/25/18 07:00 ALT 17 U/L (13-61) 04/25/18 07:00 Alkaline Phosphatase 73 U/L (45-117) 04/25/18 07:00 Total Protein 6.2 g/dl (6.4-8.2) L 04/25/18 07:00 Albumin 2.9 g/dl (3.4-5.0) L 04/25/18 07:00 Urine Color Dkyellow 04/25/18 16:30 Urine Appearance Cloudy 04/25/18 16:30 Urine pH 5.0 (5.0-8.0) 04/25/18 16:30 Ur Specific [place] 1.021 (1.010-1.035) 04/25/18 16:30 Urine Protein Negative (NEGATIVE) 04/25/18 16:30 Urine Glucose (UA) Negative (NEGATIVE) 04/25/18 16:30 Urine Ketones Negative (NEGATIVE) 04/25/18 16:30 Urine Blood Negative (NEGATIVE) 04/25/18 16:30 Urine Nitrite Negative (NEGATIVE) 04/25/18 16:30 Urine Bilirubin Negative (<2.0 mg/dL) 04/25/18 16:30 Urine Urobilinogen Negative mg/dL (0.2-1.0) 04/25/18 16:30 Ur Leukocyte Esterase Negative (NEGATIVE) 04/25/18 16:30 Valproic Acid < 3.0 ug/ml (50-100) L 04/26/18 10:15 RPR Titer Nonreactive (NONREACTIVE) 04/25/18 07:00 lab noted Assessment: 04/27/18 16:49 mild withdrawal sx Plan: medically supervised detox
[2018-04-27] MEDS: chlordiazePOXIDE HCL 10 MG CAPSULE PO SCH (23:58)
[2018-04-27] MEDS: THIAMINE HCL 100 MG TABLET (FP) PO SCH (23:58)
[2018-04-27] MEDS: OLANZapine 2.5 MG TABLET PO SCH (23:58)
[2018-04-27] MEDS: traZODone HCL 50 MG TABLET (FP) PO SCH (23:58)
[2018-04-28] MEDS: chlordiazePOXIDE HCL 10 MG CAPSULE PO SCH ×2 (06:43→10:33)
[2018-04-28] MEDS: DIVALPROEX SODIUM 250 MG TABLET E.C. PO SCH ×2 (06:45→13:25)
--- NOTE | 2018-04-28 08:55 | DS ---
[facility] Detox Discharge Summary Admission Date: 04/24/18 Discharge Date: 04/28/18 - History Present History: Alcohol Dependence Additional Comments: 63 years old male admitted on 04/24/18 for alcohol withdrawal sx completed alcohol detox regimen tolerated well denies alcohol withdrawal sx alert oriented x 3 no acute distress aftercare [facility] - Physical Exam Results Vital Signs: Vital Signs Temperature 98.2 F 04/28/18 06:49 Pulse Rate 84 04/28/18 06:49 Respiratory Rate 18 04/28/18 06:49 Blood Pressure 117/73 04/28/18 06:49 O2 Sat by Pulse Oximetry (%) Pertinent Admission Physical Exam Findings: alcohol withdrawal sx Vital Signs Temperature 98.8 F 04/28/18 09:12 Pulse Rate 83 04/28/18 09:12 Respiratory Rate 16 04/28/18 09:12 Blood Pressure 117/67 04/28/18 09:12 O2 Sat by Pulse Oximetry (%) Laboratory Last Values WBC 3.7 K/mm3 (4.0-10.0) L 04/25/18 07:00 RBC 4.07 M/mm3 (4.00-5.60) 04/25/18 07:00 Hgb 11.3 GM/dL (11.7-16.9) L 04/25/18 07:00 Hct 35.1 % (35.4-49) L 04/25/18 07:00 MCV 86.1 fl (80-96) 04/25/18 07:00 MCH 27.8 pg (25.7-33.7) 04/25/18 07:00 MCHC 32.2 g/dl (32.0-35.9) 04/25/18 07:00 RDW 14.3 % (11.9-15.9) 04/25/18 07:00 Plt Count 175 K/MM3 (134-434) 04/25/18 07:00 MPV 9.5 fl (7.5-11.1) 04/25/18 07:00 Sodium 141 mmol/L (136-145) 04/25/18 07:00 Potassium 4.1 mmol/L (3.5-5.1) 04/25/18 07:00 Chloride 108 mmol/L (98-107) H 04/25/18 07:00 Carbon Dioxide 26 mmol/L (21-32) 04/25/18 07:00 Anion Gap 8 MMOL/L (8-16) 04/25/18 07:00 BUN 8 mg/dL (7-18) 04/25/18 07:00 Creatinine 0.7 mg/dL (0.55-1.3) 04/25/18 07:00 Creat Clearance w eGFR > 60 (>60) 04/25/18 07:00 Random Glucose 87 mg/dL (74-106) 04/25/18 07:00 Calcium 8.9 mg/dL (8.5-10.1) 04/25/18 07:00 Total Bilirubin 0.4 mg/dL (0.2-1) 04/25/18 07:00 AST 14 U/L (15-37) L 04/25/18 07:00 ALT 17 U/L (13-61) 04/25/18 07:00 Alkaline Phosphatase 73 U/L (45-117) 04/25/18 07:00 Total Protein 6.2 g/dl (6.4-8.2) L 04/25/18 07:00 Albumin 2.9 g/dl (3.4-5.0) L 04/25/18 07:00 Urine Color Dkyellow 04/25/18 16:30 Urine Appearance Cloudy 04/25/18 16:30 Urine pH 5.0 (5.0-8.0) 04/25/18 16:30 Ur Specific [place] 1.021 (1.010-1.035) 04/25/18 16:30 Urine Protein Negative (NEGATIVE) 04/25/18 16:30 Urine Glucose (UA) Negative (NEGATIVE) 04/25/18 16:30 Urine Ketones Negative (NEGATIVE) 04/25/18 16:30 Urine Blood Negative (NEGATIVE) 04/25/18 16:30 Urine Nitrite Negative (NEGATIVE) 04/25/18 16:30 Urine Bilirubin Negative (<2.0 mg/dL) 04/25/18 16:30 Urine Urobilinogen Negative mg/dL (0.2-1.0) 04/25/18 16:30 Ur Leukocyte Esterase Negative (NEGATIVE) 04/25/18 16:30 Valproic Acid < 3.0 ug/ml (50-100) L 04/26/18 10:15 RPR Titer Nonreactive (NONREACTIVE) 04/25/18 07:00 lab noted - Treatment Hospital Course: Detox Protocol Followed, Detoxed Safely, Responded well, Discharged Condition Good, Rehab Referral Accepted Patient has Accepted a Rehab Referral to: [facility] - Medication Discharge Medications: Ambulatory Orders Albuterol Sulfate Inhaler - [Ventolin HFA Inhaler -] 2 puff IH PRN PRN 03/02/17 Divalproex [Depakote -] 500 mg PO BID #60 tablet.ec 08/15/17 traZODone HCL [Desyrel -] 100 mg PO HS #30 tablet 08/15/17 Budesonide/Formeterol Fumarate [SYMBICORT 80/4.5mcg -] 1 inh PO BID 02/10/18 Benztropine Mesylate [Cogentin -] 2 mg PO BID #60 tablet 02/19/18 Divalproex [Depakote -] 500 mg PO BID #60 tablet.ec 02/19/18 Olanzapine [Zyprexa] 10 mg PO HS #30 tablet 02/19/18 Divalproex Sodium [Depakote] 250 mg PO TID 04/25/18 - Diagnosis (1) Alcohol dependence with uncomplicated withdrawal Current Visit: Yes Status: Acute (2) Substance-induced sleep disorder Current Visit: Yes Status: Suspected (3) Weight loss Current Visit: Yes Status: Acute (4) Asthma Current Visit: Yes Status: Chronic Qualifiers: Asthma severity: mild Asthma persistence: unspecified Asthma complication type: uncomplicated Qualified Code(s): J45.909 - Unspecified asthma, uncomplicated (5) Nicotine dependence Current Visit: Yes Status: Acute Qualifiers: Nicotine product type: cigarettes Substance use status: in withdrawal Qualified Code(s): F17.213 - Nicotine dependence, cigarettes, with withdrawal (6) Schizoaffective disorder Current Visit: Yes Status: Suspected Qualifiers: Schizoaffective disorder type: unspecified Qualified Code(s): F25.9 - Schizoaffective disorder, unspecified (7) Walker as ambulation aid Current Visit: Yes Status: Chronic - AMA Did Patient Leave Against Medical Advice: No
[2018-04-28 09:13] VITALS: BP 117/67; PULSE 83; TEMP 98.8
[2018-04-28] MEDS: BENZTROPINE MESYLATE 1 MG TABLET (FP) PO SCH (10:32)
[2018-04-28] MEDS: PRENATAL VITAMINS W/ FOLIC ACID TABLET (FP) PO SCH (10:32)
[2018-04-28] MEDS: NICOTINE 14 MG/24 HOURS TOPICAL PATCH TD SCH (10:32)
== END 2018-04-28 15:00 | disposition home or self-care (01) | DRG 775 ==
LOC: YASAS 14:35 → Y6N 18:15
PROC: HZ2ZZZZ Detoxification Services for Substance Abuse Treatment (ICD-10-PCS; principal; 2018-04-24)
DX: F10.230 Alcohol dependence with withdrawal, uncomplicated (principal); F17.210 Nicotine dependence, cigarettes, uncomplicated; F19.282 Other psychoactive substance dependence with psychoactive substance-induced sleep disorder; F31.9 Bipolar disorder, unspecified; F25.9 Schizoaffective disorder, unspecified; D64.9 Anemia, unspecified; G40.909 Epilepsy, unspecified, not intractable, without status epilepticus; G24.01 Drug induced subacute dyskinesia; G25.9 Extrapyramidal and movement disorder, unspecified; J45.909 Unspecified asthma, uncomplicated; R63.4 Abnormal weight loss; Z68.20 Body mass index [BMI] 20.0-20.9, adult; R26.89 Other abnormalities of gait and mobility; Z99.89 Dependence on other enabling machines and devices; Z86.73 Personal history of transient ischemic attack (TIA), and cerebral infarction without residual deficits; Z91.81 History of falling; Z91.5 Personal history of self-harm
CPT/HCPCS: 36415; 80053; 80164; 81003; 85027; 86593; 93005; 93010

== ENCOUNTER 2019-02-13 11:23 | Inpatient (IN) | payer OTHER | END 2019-02-17 08:41 | disposition home or self-care (01) | LOC: YASAS 11:23 → Y3N 15:26 | PROC: HZ2ZZZZ Detoxification Services for Substance Abuse Treatment (ICD-10-PCS; principal; 2019-02-13) | DX: F10.230 Alcohol dependence with withdrawal, uncomplicated (principal); F14.20 Cocaine dependence, uncomplicated; F17.213 Nicotine dependence, cigarettes, with withdrawal; F25.9 Schizoaffective disorder, unspecified; F31.9 Bipolar disorder, unspecified; D64.9 Anemia, unspecified; D72.819 Decreased white blood cell count, unspecified; G40.909 Epilepsy, unspecified, not intractable, without status epilepticus; G47.00 Insomnia, unspecified; G20 Parkinson's disease; G24.01 Drug induced subacute dyskinesia; Z86.73 Personal history of transient ischemic attack (TIA), and cerebral infarction without residual deficits; Z99.89 Dependence on other enabling machines and devices; Z91.19 Patient's noncompliance with other medical treatment and regimen ==

== ENCOUNTER 2019-05-08 10:58 | Inpatient (IN) | payer OTHER ==
[2019-05-08 12:13] VITALS: BMI 19.3
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
[2019-05-08] MEDS ORDERED: hydrOXYzine PAMOATE 25 MG CAPSULE (FP) PO PRN (14:29)
[2019-05-08] MEDS ORDERED: IBUPROFEN 400 MG TABLET (FP) PO PRN (14:29)
[2019-05-08] MEDS ORDERED: MAG HYDROX/AL HYDROX/SIMETH 30 ML UNIT-DOSE CUP PO PRN (14:29)
[2019-05-08] MEDS ORDERED: MAGNESIUM HYDROX 2400MG/30ML ORAL SUSPENSION 30 ML CUP PO PRN (14:29)
[2019-05-08] MEDS ORDERED: MENTHOL/PHENOL 1 EACH UD MM PRN (14:29)
[2019-05-08] MEDS ORDERED: MAGNESIUM CITRATE 300 ML BOTTLE PO PRN (14:29)
[2019-05-08] MEDS ORDERED: BISMUTH SUBSALICYLATE 524 MG/30 ML UD PO PRN (14:29)
[2019-05-08] MEDS ORDERED: ACETAMINOPHEN 325 MG TABLET (FP) PO PRN ×2 (14:29)
[2019-05-08] MEDS ORDERED: chlordiazePOXIDE HCL 25 MG CAPSULE PO PRN (14:30)
[2019-05-08] MEDS: chlordiazePOXIDE HCL 25 MG CAPSULE PO SCH ×2 (17:14→22:03)
[2019-05-08] MEDS: VALBENAZINE TOSYLATE 80 MG PO ONE ×2 (18:21→19:35)
--- NOTE | 2019-05-08 18:22 | PN ---
S Progress Note Note: Patient currently on Ingrezza 80 mg qd. Patient brought one dose of his medication and medication is currently unavailable at this and requires delivery from a specialty pharmacy.
[2019-05-08] MEDS: PATIENT'S OWN MEDICATION (NON-FORMULARY) (Umeclidinium Bromide [Incruse Ellipta] 62.5 MCG) IH SCH (21:34)
[2019-05-08] MEDS: levETIRAcetam 500 MG TABLET (FP) PO SCH (21:35)
[2019-05-08] MEDS: MELATONIN 5 MG TABLETS PO PRN (21:35)
[2019-05-08] MEDS: THIAMINE HCL 100 MG TABLET (FP) PO SCH (21:36)
[2019-05-08] MEDS: VALPROATE SODIUM 250 MG/5 ML LIQUID BULK BOTTLE PO SCH (21:36)
[2019-05-08] MEDS: ATORVASTATIN CA 20 MG TABLET (FP) PO SCH (21:36)
[2019-05-09] MEDS: chlordiazePOXIDE HCL 25 MG CAPSULE PO SCH ×4 (05:14→22:16)
[2019-05-09 10:13] LABS: ALBUMIN 2.5 g/dl (3.4-5.0); BILIRUBIN,TOTAL 0.2 mg/dL (0.2-1); CALCIUM 8.4 mg/dL (8.5-10.1); CREATININE 0.6 mg/dL (0.55-1.3); POTASSIUM 4.1 mmol/L (3.5-5.1)
[2019-05-09] MEDS: VALPROATE SODIUM 250 MG/5 ML LIQUID BULK BOTTLE PO SCH ×2 (10:14→22:15)
[2019-05-09] MEDS: levETIRAcetam 500 MG TABLET (FP) PO SCH ×2 (10:14→22:15)
[2019-05-09] MEDS: PRENATAL VITAMINS W/ FOLIC ACID TABLET (FP) PO SCH (10:14)
[2019-05-09] MEDS: PATIENT'S OWN MEDICATION (NON-FORMULARY) (Umeclidinium Bromide [Incruse Ellipta] 62.5 MCG) IH SCH (10:30)
[2019-05-09 10:38] LABS: HEMATOCRIT 29.5 % (35.4-49); HEMOGLOBIN 9.8 GM/dL (11.7-16.9); MCH 28.8 pg (25.7-33.7); MCHC 33.3 g/dl (32.0-35.9); MEAN CELL VOLUME 86.4 fl (80-96); MEAN PLT VOLUME 8.7 fl (7.5-11.1); PLATELET COUNT 211 K/MM3 (134-434); RBC 3.41 M/mm3 (4.00-5.60); RDW 15.3 % (11.9-15.9); WHITE BLOOD COUNT 6.8 K/mm3 (4.0-10.0)
--- NOTE | 2019-05-09 10:45 | PN ---
S CIWA - CIWA Score Nausea/Vomitin-No Nausea/No Vomiting Muscle Tremors: 2 Anxiety: 2 Agitation: 1-Slight > Activity Paroxysmal Sweats: 3 Orientation: 0-Oriented Tacttile Disturbances: 0-None Auditory Disturbances: 0-None Visual Disturbances: 0-None Headache: 2-Mild CIWA-Ar Total Score: 10 BHS Progress Note (SOAP) Subjective: c/o anxiety, headache, shakes, and sweats. Objective: 05/09/19 10:44 Vital Signs 05/09/19 05/09/19 06:00 09:32 Temperature 97.3 F L 97.8 F Pulse Rate 63 89 Respiratory 16 18 Rate Blood Pressure 106/63 102/70 Lab Results Sodium 142 mmol/L (136-145) 05/09/19 08:00 Potassium 4.1 mmol/L (3.5-5.1) 05/09/19 08:00 Chloride 108 mmol/L (98-107) H 05/09/19 08:00 Carbon Dioxide 30 mmol/L (21-32) 05/09/19 08:00 Anion Gap 5 MMOL/L (8-16) L 05/09/19 08:00 BUN 9.0 mg/dL (7-18) 05/09/19 08:00 Creatinine 0.6 mg/dL (0.55-1.3) 05/09/19 08:00 Random Glucose 87 mg/dL (74-106) 05/09/19 08:00 Calcium 8.4 mg/dL (8.5-10.1) L 05/09/19 08:00 Laboratory Last Values Sodium 142 mmol/L (136-145) 05/09/19 08:00 Potassium 4.1 mmol/L (3.5-5.1) 05/09/19 08:00 Chloride 108 mmol/L (98-107) H 05/09/19 08:00 Carbon Dioxide 30 mmol/L (21-32) 05/09/19 08:00 Anion Gap 5 MMOL/L (8-16) L 05/09/19 08:00 BUN 9.0 mg/dL (7-18) 05/09/19 08:00 Creatinine 0.6 mg/dL (0.55-1.3) 05/09/19 08:00 Est GFR (CKD-EPI)AfAm 124.02 05/09/19 08:00 Est GFR (CKD-EPI)NonAf 107.00 05/09/19 08:00 Random Glucose 87 mg/dL (74-106) 05/09/19 08:00 Calcium 8.4 mg/dL (8.5-10.1) L 05/09/19 08:00 Total Bilirubin 0.2 mg/dL (0.2-1) 05/09/19 08:00 AST 8 U/L (15-37) L 05/09/19 08:00 ALT 11 U/L (13-61) L 05/09/19 08:00 Alkaline Phosphatase 72 U/L (45-117) 05/09/19 08:00 Total Protein 6.0 g/dl (6.4-8.2) L 05/09/19 08:00 Albumin 2.5 g/dl (3.4-5.0) L 05/09/19 08:00 Labs noted. Assessment: 05/09/19 10:45 AOX3, in no acute respiratory distress. Full ROM, ambulating in the unit with a walker. Withdrawal symptoms. Plan: continue detox.
[2019-05-09] MEDS ORDERED: FLU VACCINE QUAD 60 MCG/0.5 ML (MDV 19-20) IM ONE (12:00)
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
[2019-05-09] MEDS ORDERED: VALBENAZINE TOSYLATE 80 MG PO ONE (22:00)
[2019-05-09] MEDS: THIAMINE HCL 100 MG TABLET (FP) PO SCH (22:15)
[2019-05-09] MEDS: ATORVASTATIN CA 20 MG TABLET (FP) PO SCH (22:15)
[2019-05-09] MEDS: OLANZapine 5 MG TABLET PO SCH (22:15)
[2019-05-09] MEDS: traZODone HCL 50 MG TABLET (FP) PO SCH (22:15)
[2019-05-09] MEDS: MELATONIN 5 MG TABLETS PO PRN (22:17)
[2019-05-10] MEDS: chlordiazePOXIDE HCL 25 MG CAPSULE PO SCH ×4 (05:24→22:29)
[2019-05-10] MEDS: PRENATAL VITAMINS W/ FOLIC ACID TABLET (FP) PO SCH (10:40)
[2019-05-10] MEDS: levETIRAcetam 500 MG TABLET (FP) PO SCH ×2 (10:40→22:29)
[2019-05-10] MEDS: VALPROATE SODIUM 250 MG/5 ML LIQUID BULK BOTTLE PO SCH ×2 (10:42→22:30)
[2019-05-10] MEDS: PATIENT'S OWN MEDICATION (NON-FORMULARY) (Umeclidinium Bromide [Incruse Ellipta] 62.5 MCG) IH SCH (10:43)
--- NOTE | 2019-05-10 11:41 | PN ---
S CIWA - CIWA Score Nausea/Vomitin-Mild Nausea/No Vomiting Muscle Tremors: 3 Anxiety: 3 Agitation: 2 Paroxysmal Sweats: 3 Orientation: 0-Oriented Tacttile Disturbances: 0-None Auditory Disturbances: 0-None Visual Disturbances: 0-None Headache: 0-None Present CIWA-Ar Total Score: 12 BHS Progress Note (SOAP) Subjective: Feels ok, the medication is working fine Objective: 05/10/19 11:39 Last Vital Signs Temp Pulse Resp BP Pulse Ox 97.5 F L 64 16 104/67 05/10/19 09:32 05/10/19 09:32 05/10/19 09:32 05/10/19 09:32 Laboratory Tests 05/09/19 05/09/19 05/09/19 08:00 08:00 08:00 WBC 6.8 RBC 3.41 L Hgb 9.8 L Hct 29.5 L MCV 86.4 MCH 28.8 MCHC 33.3 RDW 15.3 Plt Count 211 D MPV 8.7 D Sodium 142 Potassium 4.1 Chloride 108 H Carbon Dioxide 30 Anion Gap 5 L BUN 9.0 Creatinine 0.6 Est GFR (CKD-EPI)AfAm 124.02 Est GFR (CKD-EPI)NonAf 107.00 Random Glucose 87 Calcium 8.4 L Total Bilirubin 0.2 AST 8 L ALT 11 L Alkaline Phosphatase 72 Total Protein 6.0 L Albumin 2.5 L RPR Titer Nonreactive Labs reviewed: anemia noted Assessment: 05/10/19 11:40 Withdrawal sxs Noted with anemia Plan: Continue detox Encouraged PO water intake Anemia: could be r/t alcoholism, follow up with PCP for management
[2019-05-10] MEDS: ATORVASTATIN CA 20 MG TABLET (FP) PO SCH (22:29)
[2019-05-10] MEDS: THIAMINE HCL 100 MG TABLET (FP) PO SCH (22:29)
[2019-05-10] MEDS: OLANZapine 5 MG TABLET PO SCH (22:29)
[2019-05-10] MEDS: traZODone HCL 50 MG TABLET (FP) PO SCH (22:29)
[2019-05-11] MEDS ORDERED: chlordiazePOXIDE HCL 10 MG CAPSULE PO PRN
[2019-05-11 06:39] VITALS: PULSE 76
[2019-05-11 06:46] VITALS: BP 103/70
--- NOTE | 2019-05-11 07:13 | PN ---
[facility] Progress Note Note: ASKED TO SEE CLIENT FOR NEAR FALL. IT IS REPORTED THAT THE CLIENT ATTEMPTED TO GET OUT OF BED AND FELT WEAK. STAFF REPORTS CLIENT WAS ABLE TO INFORM THEM THAT HE BUMPED HIS HEAD ON HIS ROLLING WALKER HE WAS GOING TO SIT ON THE BED. CLIENT WAS FOUND LYING ACROSS HIS BED. CLIENT SEEN BY PROVIDER LYING IN BED WITH PURSED LIP BREATHING O2 SAT 98% RA. HE IS A/O X3 BUT APPEARS CONFUSED WITH SLOW THOUGHT PROCESS AND GARBLED SPEECH. CLIENT IS UNABLE TO GIVE ACCOUNT OF THE ABOVE INCIDENT ONLY THAT HE WAS CALLED FOR MEDICATION. CLIENT ALSO NOTED WITH A PRODUCTIVE COUGH WITH WEAK COUGH. DENIES FEVERS, CHILLS, SOB CLIENT IS UNABLE TO SIT UP ON HIS OWN. ASSISTED TO SEATING POSITION BY PROVIDER. CLIENT UNABLE TO REMAIN IN SEATED POSITION LEANING OVER TOWARD RIGHT SIDE WITH TRUNK IMBALANCE. WEAKNESS IN MUSCLE STRENGTH TO UPPER/LOWER EXTREMITIES NOTED RIGHT GREATER THAN LEFT. CLIENT REPORTS HX/O CVA BUT STATES WEAKNESS ON LEFT. HE IS ALSO NOTED WITH LEFT SIDED FACIAL DROOPING. BUT DOES NOT HAVE HIS BOTTOM DENTURES IN. NCAT WITH LEFT SIDE FACIAL DROOPING PERRLA- UNABLE TO FOLLOW DIRECTIONS TO COMPLETE NEURO EXAM CV RRR LUNGS DECREASED BREATH SOUND BILAT- 02 SAT RA 98% EXTREMITIES: WEAKNESS NOTED TO BOTH UPPER/LOWER EXTREMITIES R> L Vital Signs - 8 hr 05/11/19 05/11/19 05/11/19 00:30 03:30 06:37 Temperature 95.5 F L Pulse Rate 76 Respiratory 18 18 18 Rate Blood Pressure 107/70 05/11/19 06:45 Temperature 95.5 F L Pulse Rate 76 Respiratory 18 Rate Blood Pressure 103/70 Laboratory Tests 05/09/19 05/09/19 05/09/19 08:00 08:00 08:00 WBC 6.8 RBC 3.41 L Hgb 9.8 L Hct 29.5 L MCV 86.4 MCH 28.8 MCHC 33.3 RDW 15.3 Plt Count 211 D MPV 8.7 D Sodium 142 Potassium 4.1 Chloride 108 H Carbon Dioxide 30 Anion Gap 5 L BUN 9.0 Creatinine 0.6 Est GFR (CKD-EPI)AfAm 124.02 Est GFR (CKD-EPI)NonAf 107.00 Random Glucose 87 Calcium 8.4 L Total Bilirubin 0.2 AST 8 L ALT 11 L Alkaline Phosphatase 72 Total Protein 6.0 L Albumin 2.5 L RPR Titer Nonreactive S/P NEAR FALL, WEAKNESS, CHANGE IN MENTAL STATUS, R/O NEW CVA, POST ICTAL- SEIZURE 64 Y.O. MALE ADMITTED ON 05/08/2019 TO DETOX FOR ALCOHOLISM. UNEVENTFUL STAY UNTIL APPROX 6:20 AM WHEN CLIENT WAS FOUND LYING ACROSS HIS BED. PMHX- ASTHMA, SEIZURE D/O, SCHIZOPHRENIA, PARKINSON D/O. CLIENT WAS LAST MEDICATED WITH LIBRIUM 25 MG AT 10:29PM. PER STAFF CLIENT WAS OOB AMBULATING WITH ROLLING WALKER TO NURSING WINDOW ON HIS OWN W/O DIFFICULTY AT THIS TIME. P- TRANSFER CLIENT TO [facility] FOR EVAL CASE ENDORSED TO DR. VENTURA
[2019-05-11 07:25] VITALS: TEMP 98.8
[2019-05-11] MEDS: chlordiazePOXIDE HCL 10 MG CAPSULE PO SCH ×4 (07:31→22:22)
[2019-05-11] MEDS: VALPROATE SODIUM 250 MG/5 ML LIQUID BULK BOTTLE PO SCH ×2 (11:32→22:22)
[2019-05-11] MEDS: PRENATAL VITAMINS W/ FOLIC ACID TABLET (FP) PO SCH (11:33)
[2019-05-11] MEDS: levETIRAcetam 500 MG TABLET (FP) PO SCH ×2 (11:33→22:22)
[2019-05-11] MEDS: PATIENT'S OWN MEDICATION (NON-FORMULARY) (Umeclidinium Bromide [Incruse Ellipta] 62.5 MCG) IH SCH (11:34)
[2019-05-11] MEDS: traZODone HCL 50 MG TABLET (FP) PO SCH (22:22)
[2019-05-11] MEDS: ATORVASTATIN CA 20 MG TABLET (FP) PO SCH (22:24)
[2019-05-11] MEDS: THIAMINE HCL 100 MG TABLET (FP) PO SCH (22:25)
[2019-05-11] MEDS: OLANZapine 5 MG TABLET PO SCH (22:25)
[2019-05-12] MEDS ORDERED: chlordiazePOXIDE HCL 10 MG CAPSULE PO SCH (05:00)
[2019-05-13] MEDS ORDERED: chlordiazePOXIDE HCL 10 MG CAPSULE PO ONE (05:00)
== END 2019-05-11 11:00 | disposition short-term general hospital (02) | DRG 774 ==
LOC: YASAS 10:58 → Y6N 15:06
PROVIDERS: ADMIT Allergy & Immunology; ATTEND Allergy & Immunology
PROC: HZ2ZZZZ Detoxification Services for Substance Abuse Treatment (ICD-10-PCS; principal; 2019-05-11)
DX: F10.230 Alcohol dependence with withdrawal, uncomplicated (principal); F14.20 Cocaine dependence, uncomplicated; F17.213 Nicotine dependence, cigarettes, with withdrawal; F25.9 Schizoaffective disorder, unspecified; D64.9 Anemia, unspecified; R41.82 Altered mental status, unspecified; R53.1 Weakness; G25.70 Drug induced movement disorder, unspecified; G24.01 Drug induced subacute dyskinesia; G47.00 Insomnia, unspecified; G40.909 Epilepsy, unspecified, not intractable, without status epilepticus; G20 Parkinson's disease; J45.909 Unspecified asthma, uncomplicated; Z86.73 Personal history of transient ischemic attack (TIA), and cerebral infarction without residual deficits; Z99.89 Dependence on other enabling machines and devices; W22.8XXA Striking against or struck by other objects, initial encounter; Y93.89 Activity, other specified; Y92.230 Patient room in hospital as the place of occurrence of the external cause
CPT/HCPCS: 36415; 80053; 85027; 86593

== ENCOUNTER 2019-05-11 08:39 | Observation (INO) | payer OTHER ==
--- NOTE | 2019-05-11 09:28 | PDOC ---
Attending Attestation - Resident Resident Name: Milton Randall - ED Attending Attestation I have performed the following: I have examined & evaluated the patient, The case was reviewed & discussed with the resident, I agree w/resident's findings & plan, Exceptions are as noted - HPI HPI: 05/11/19 09:24 64y hx of schizoaffective d/o, seizures, tardive dyskinesia, parkinsons, asthma , polysubstance abuse presents from [facility] for evaluation of weakness. Per [facility] records, the pt had attempted to get out of bed and felt weak - staff reported pt bumped head on the rolling walker when he went to sit in bed, but apparently appeared confused and pt unable to give clear recollection of what ocurred. It was noted pt had R sided [facility]. Pt does not recall what happened - states that he fell on his walker going to the bathroom. Pt also had difficulty sitting up from the bed. Pt endorses having mild productive cough for the past month without any fever/loza/cp/le edema. Exam: General: No acute distress HEENT: atraumatic Pulm: rhonchi bilaterally, no acute respiratory distress Card: rrr, no mrg abd: soft nontender ext: no edema neuro: +truncal weakness, but symmetric b/l UE/LE movement, +slurred speech. - Physicial Exam PE: 05/11/19 14:37 see above - Medical Decision Making 05/11/19 11:27 ct head is negative here will dw neuro and pt will likely need an MRI due to concern for possible TIA and hx of CVA 05/11/19 14:37 pts cxr noted to have findings in RLL - will treat with azithromycin fuad dmit for ruther management Heart Score/ECG Review - ECG Impressions Comment:: 05/11/19 12:04 Twelve-lead EKG was performed and reviewed by me. There is normal sinus rhythm with a normal rate. Rate of 67 The axis is normal. The intervals are normal. There is normal R wave progression There are no ST or T wave abnormalities. Impression: Normal twelve-lead EKG
[2019-05-11 10:13] LABS: BASO % 0.2 % (0-2.0); EOS % 1.1 % (0-4.5); HEMATOCRIT 30.2 % (35.4-49); HEMOGLOBIN 9.9 GM/dL (11.7-16.9); LYMPH % 9.6 % (8-40); MCH 28.5 pg (25.7-33.7); MCHC 32.8 g/dl (32.0-35.9); MEAN PLT VOLUME 8.4 fl (7.5-11.1); MONO % 6.6 % (3.8-10.2); NEUT % 82.5 % (42.8-82.8); PLATELET COUNT 223 K/MM3 (134-434); RBC 3.47 M/mm3 (4.00-5.60); RDW 15.3 % (11.9-15.9)
[2019-05-11 10:26] LABS: INR 1.12 (0.83-1.09); PROTHROMBIN TIME (PATIENT) 13.2 SEC (9.7-13.0)
[2019-05-11 10:28] LABS: ACTIVATED PTT 30.1 SECONDS (25.2-36.5)
[2019-05-11 10:45] LABS: URINE APPEARANCE CLEAR; URINE BILIRUBIN NEGATIVE (NEGATIVE); URINE COLOR YELLOW; URINE GLUCOSE (UA) NEGATIVE (NEGATIVE); URINE KETONE NEGATIVE (NEGATIVE); URINE LEUK ESTERASE NEGATIVE (NEGATIVE); URINE NITRITE NEGATIVE (NEGATIVE); URINE PROTEIN NEGATIVE (NEGATIVE); URINE UROBILINOGEN 0.2 mg/dL (0.2-1.0)
[2019-05-11 12:10] LABS: MAGNESIUM 1.7 mg/dL (1.8-2.4); PHOSPHOROUS 3.1 mg/dL (2.5-4.9)
[2019-05-11 12:13] LABS: COCAINE, UR NEGATIVE ng/ml (CUTOFF=300); METHADONE, UR NEGATIVE ng/ml (CUTOFF=300); OPIATES, URI NEGATIVE ng/ml (CUTOFF=300); PHENCYCLIDINE,URINE NEGATIVE ng/ml (CUTOFF=25); URINE AMPHETAMINES NEGATIVE ng/ml (CUTOFF=500); URINE BARBITURATES NEGATIVE ng/ml (CUTOFF=200)
[2019-05-11 12:16] LABS: URINE BENZODIAZEPINES POSITIVE ng/ml (CUTOFF=200)
[2019-05-11 12:17] LABS: ALBUMIN 2.4 g/dl (3.4-5.0); ALK PHOS 73 U/L (45-117); ANION GAP 7 MMOL/L (8-16); BILIRUBIN,TOTAL 0.2 mg/dL (0.2-1); BLOOD UREA NITROGEN 8.6 mg/dL (7-18); CALCIUM 8.1 mg/dL (8.5-10.1); CHLORIDE 107 mmol/L (98-107); CO2 30 mmol/L (21-32); CREATININE 0.5 mg/dL (0.55-1.3); GLUCOSE,RANDOM 82 mg/dL (74-106); SGOT/AST 8 U/L (15-37); SGPT/ALT 9 U/L (13-61); SODIUM 143 mmol/L (136-145); TOT PROT 5.8 g/dl (6.4-8.2)
[2019-05-11] MEDS ORDERED: chlordiazePOXIDE HCL 10 MG CAPSULE PO ONE (12:29)
[2019-05-11] MEDS ORDERED: chlordiazePOXIDE 5 MG CAPSULE ONE (12:30)
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
[2019-05-11] MEDS ORDERED: AZITHROMYCIN 250 MG TABLET PO ONE (14:37)
[2019-05-11] MEDS ORDERED: AZITHROMYCIN 250 MG TABLET ONE (15:05)
--- NOTE | 2019-05-11 19:37 | HP ---
Admitting History and Physical - Primary Care Physician PCP: Matthew Forman - Admission History of Present Illness: 64y hx of schizoaffective d/o, seizures, tardive dyskinesia, parkinsons, asthma , polysubstance abuse presents from [facility] for evaluation of weakness. Per [facility] records, the pt had attempted to get out of bed and felt weak - staff reported pt bumped head on the rolling walker when he went to sit in bed, but apparently appeared confused and pt unable to give clear recollection of what ocurred. It was noted pt had R sided weakness per [place] records. Pt does not recall what happened - states that he fell on his walker going to the bathroom. Pt also had difficulty sitting up from the bed. Pt endorses having mild productive cough for the past month without any fever/loza/cp/le edema. 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 Pulmonary: Yes: Asthma - Smoking History Smoking history: Unknown if ever smoked Have you smoked in the past 12 months: Yes Aproximately how many cigarettes per day: 8 - Alcohol/Substance Use Hx Alcohol Use: Yes Home Medications - Allergies Allergies/Adverse Reactions: Allergies Allergy/AdvReac Type Severity Reaction Status Date / Time No Known Allergies Allergy Verified 05/08/19 11:57 - Home Medications Home Medications: Ambulatory Orders Folic Acid 1 mg PO DAILY 02/13/19 Atorvastatin Ca [Lipitor] 20 mg PO DAILY 05/08/19 Olanzapine [Zyprexa] 20 mg PO HS 05/08/19 Umeclidinium [place] [Incruse Ellipta] 62.5 mcg IH DAILY 05/08/19 Valbenazine Tosylate [Ingrezza] 80 mg PO DAILY 05/08/19 Valproic Acid 500 mg PO BID 05/08/19 levETIRAcetam [Keppra -] 500 mg PO BID 05/08/19 traZODone HCL [Desyrel -] 50 mg PO HS 05/08/19 Physical Examination Vital Signs: Vital Signs Temperature 98.3 F 05/11/19 17:13 Pulse Rate 69 05/11/19 17:13 Respiratory Rate 18 05/11/19 15:35 Blood Pressure 100/63 05/11/19 17:13 O2 Sat by Pulse Oximetry (%) 98 05/11/19 17:13 Constitutional: Yes: Calm Neck: Yes: Supple Cardiovascular: Yes: Regular Rate and Rhythm Respiratory: Yes: CTA Bilaterally Gastrointestinal: Yes: Normal Bowel Sounds Extremities: Yes: WNL Edema: No Neurological: Yes: Alert, Oriented Labs: CBC, BMP 05/11/19 10:00 05/11/19 11:23 Imaging - Results X-ray: Report Reviewed Cat Scan: Report Reviewed Problem List - Problems (1) Alcohol dependence with uncomplicated withdrawal Assessment/Plan: librium protocol detox consult Code(s): F10.230 - ALCOHOL DEPENDENCE WITH WITHDRAWAL, UNCOMPLICATED (2) Facial droop Assessment/Plan: neuro on board neuro checks q4 Code(s): R29.810 - FACIAL WEAKNESS (3) Weakness Assessment/Plan: pt eval Code(s): R53.1 - WEAKNESS Assessment/Plan Laboratory Tests 05/11/19 05/11/19 05/11/19 10:00 10:00 10:00 WBC 12.0 H RBC 3.47 L Hgb 9.9 L Hct 30.2 L MCV 87.0 MCH 28.5 MCHC 32.8 RDW 15.3 Plt Count 223 MPV 8.4 Absolute Neuts (auto) 9.9 H Neutrophils % 82.5 D Lymphocytes % 9.6 D Monocytes % 6.6 Eosinophils % 1.1 Basophils % 0.2 Nucleated RBC % 0 PT with INR 13.20 H INR 1.12 H PTT (Actin FS) 30.1 Sodium Potassium Chloride Carbon Dioxide Anion Gap BUN Creatinine Est GFR (CKD-EPI)AfAm Est GFR (CKD-EPI)NonAf Random Glucose Calcium Phosphorus Magnesium Total Bilirubin AST ALT Alkaline Phosphatase Troponin I Total Protein Albumin Urine Color Urine Appearance Urine pH Ur Specific [place] Urine Protein Urine Glucose (UA) Urine Ketones Urine Blood Urine Nitrite Urine Bilirubin Urine Urobilinogen Ur Leukocyte Esterase Opiates Screen Methadone Screen Barbiturate Screen Phencyclidine Screen Ur Amphetamines Screen MDMA (Ecstasy) Screen Benzodiazepines Screen Cocaine Screen U Marijuana (THC) Screen Alcohol, Quantitative Cancelled 05/11/19 05/11/19 05/11/19 10:00 10:30 10:30 WBC RBC Hgb Hct MCV MCH MCHC RDW Plt Count MPV Absolute Neuts (auto) Neutrophils % Lymphocytes % Monocytes % Eosinophils % Basophils % Nucleated RBC % PT with INR INR PTT (Actin FS) Sodium Cancelled Potassium Cancelled Chloride Cancelled Carbon Dioxide Cancelled Anion Gap Cancelled BUN Cancelled Creatinine Cancelled Est GFR (CKD-EPI)AfAm Cancelled Est GFR (CKD-EPI)NonAf Cancelled Random Glucose Cancelled Calcium Cancelled Phosphorus Cancelled Magnesium Cancelled Total Bilirubin Cancelled AST Cancelled ALT Cancelled Alkaline Phosphatase Cancelled Troponin I Cancelled Total Protein Cancelled Albumin Cancelled Urine Color Yellow Urine Appearance Clear Urine pH 7.0 D Ur Specific [place] 1.021 Urine Protein Negative Urine Glucose (UA) Negative Urine Ketones Negative Urine Blood Negative Urine Nitrite Negative Urine Bilirubin Negative Urine Urobilinogen 0.2 Ur Leukocyte Esterase Negative Opiates Screen Negative Methadone Screen Negative Barbiturate Screen Negative Phencyclidine Screen Negative Ur Amphetamines Screen Negative MDMA (Ecstasy) Screen Negative Benzodiazepines Screen Positive A* Cocaine Screen Negative U Marijuana (THC) Screen Negative Alcohol, Quantitative 05/11/19 05/11/19 11:23 11:23 WBC RBC Hgb Hct MCV MCH MCHC RDW Plt Count MPV Absolute Neuts (auto) Neutrophils % Lymphocytes % Monocytes % Eosinophils % Basophils % Nucleated RBC % PT with INR INR PTT (Actin FS) Sodium 143 Potassium 4.0 Chloride 107 Carbon Dioxide 30 Anion Gap 7 L BUN 8.6 Creatinine 0.5 L Est GFR (CKD-EPI)AfAm 133.67 Est GFR (CKD-EPI)NonAf 115.33 Random Glucose 82 Calcium 8.1 L Phosphorus 3.1 Magnesium 1.7 L Total Bilirubin 0.2 AST 8 L ALT 9 L Alkaline Phosphatase 73 Troponin I < 0.02 Total Protein 5.8 L Albumin 2.4 L Urine Color Urine Appearance Urine pH Ur Specific [place] Urine Protein Urine Glucose (UA) Urine Ketones Urine Blood Urine Nitrite Urine Bilirubin Urine Urobilinogen Ur Leukocyte Esterase Opiates Screen Methadone Screen Barbiturate Screen Phencyclidine Screen Ur Amphetamines Screen MDMA (Ecstasy) Screen Benzodiazepines Screen Cocaine Screen U Marijuana (THC) Screen Alcohol, Quantitative < 3.0 Active Medications Generic Name Dose Route Start Last Admin Trade Name Freq PRN Reason Stop Dose Admin Atorvastatin Calcium 20 mg 05/11/19 22:00 05/13/19 21:29 Lipitor - PO 20 mg HS MIKY Administration Folic Acid 1 mg 05/12/19 10:00 05/14/19 09:48 Folic Acid - PO 1 mg DAILY MIKY Administration Non-Formulary Medication 80 mg 05/12/19 10:00 Valbenazine Tosylate [Ingrezza] PO DAILY MIKY Olanzapine 20 mg 05/11/19 22:00 05/13/19 21:29 Zyprexa - PO 20 mg HS MIYK Administration Tiotropium [place] 2 puff 05/13/19 10:00 05/14/19 09:48 Spiriva Respimat IH 2 puff DAILY MIKY Administration
[2019-05-11] MEDS ORDERED: ATORVASTATIN CA 20 MG TABLET (FP) ONE (22:08)
[2019-05-11] MEDS ORDERED: levETIRAcetam 500 MG TABLET (FP) PO ONE (22:09)
[2019-05-11] MEDS ORDERED: OLANZapine 10 MG TABLET ONE (22:09)
[2019-05-11] MEDS: OLANZapine 10 MG TABLET PO SCH (22:14)
[2019-05-11] MEDS: levETIRAcetam 500 MG TABLET (FP) PO SCH (22:14)
[2019-05-11] MEDS: ATORVASTATIN CA 20 MG TABLET (FP) PO SCH (22:14)
[2019-05-11] MEDS: traZODone HCL 50 MG TABLET (FP) PO SCH (23:41)
--- NOTE | 2019-05-12 08:41 | CON.NEURO ---
Consult Consult Specialty:: neurology Reason for Consultation:: AMS - History of Present Illness History of Present Illness: 64y hx of schizoaffective d/o, seizures, tardive dyskinesia, parkinsons, asthma , polysubstance abuse presents from [facility] for evaluation of weakness. Per [facility] records, the pt had attempted to get out of bed and felt weak - staff reported pt bumped head on the rolling walker when he went to sit in bed, but apparently appeared confused and pt unable to give clear recollection of what ocurred. It was noted pt had R sided weakness per [place] records. Pt does not recall what happened - states that he fell on his walker going to the bathroom. Pt also had difficulty sitting up from the bed. Pt endorses having mild productive cough for the past month without any fever/loza/cp/le edema. I saw and examined the pt at the bedside; not a good hx ; he is disheveled , dysarthric , oriented to self only ; states that his last sz was 4 months ago. 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 Pulmonary: Yes: Asthma - Alcohol/Substance Use Hx Alcohol Use: Yes - Smoking History Smoking history: Unknown if ever smoked Have you smoked in the past 12 months: Yes Aproximately how many cigarettes per day: 8 Home Medications - Allergies Allergies/Adverse Reactions: Allergies Allergy/AdvReac Type Severity Reaction Status Date / Time No Known Allergies Allergy Verified 05/08/19 11:57 - Home Medications Home Medications: Ambulatory Orders Folic Acid 1 mg PO DAILY 02/13/19 Atorvastatin Ca [Lipitor] 20 mg PO DAILY 05/08/19 Olanzapine [Zyprexa] 20 mg PO HS 05/08/19 Umeclidinium [place] [Incruse Ellipta] 62.5 mcg IH DAILY 05/08/19 Valbenazine Tosylate [Ingrezza] 80 mg PO DAILY 05/08/19 Valproic Acid 500 mg PO BID 05/08/19 levETIRAcetam [Keppra -] 500 mg PO BID 05/08/19 traZODone HCL [Desyrel -] 50 mg PO HS 05/08/19 Review of Systems - Review of Systems Eyes: reports: No Symptoms HENT: reports: No Symptoms Neck: reports: No Symptoms Cardiovascular: reports: No Symptoms Breasts: reports: No Symptoms Reported Musculoskeletal: reports: No Symptoms Physical Exam-Neuro Vital Signs: Vital Signs Temperature 98.1 F 05/12/19 06:12 Pulse Rate 64 05/12/19 06:12 Respiratory Rate 16 05/12/19 06:12 Blood Pressure 112/75 05/12/19 06:12 O2 Sat by Pulse Oximetry (%) 98 05/12/19 06:12 Constitutional: Yes: Mild Distress Neck: Yes: Supple Cardiovascular: Yes: Regular Rate and Rhythm Respiratory: Yes: CTA Bilaterally Musculoskeletal: Yes: WNL Edema: No Psychiatric: Yes: Other (confused) Labs: CBC, BMP 05/11/19 10:00 05/11/19 11:23 INR, PTT INR 1.12 (0.83-1.09) H 05/11/19 10:00 - Neuro Exam Level Of Consciousness: Yes: Oriented to Person Eyes: Yes: PERRLA Speech: Garbled Cranial Nerves II-XII Intact: Yes (face asymmetric) Gag: Present DTR's: 1+ Left Bicep, 1+ Right Bicep, 1+ Left Tricep, 1+ Right Tricep, 1+ Left Brachioradialis, 1+ Right Brachioradialis, 1+ Left Achilles, 1+ Right Achilles Babinski: Absent Response to light touch: Normal Response to pain prick: Normal Coordination: Normal: Finger to Nose Motor Strength: 4/5: Left Arm, Right Arm, Left Leg, Right Leg Gait: Deferred Imaging - Results Cat Scan: Report Reviewed, Image Reviewed (No acvute finding) Problem List - Problems (1) Fall Code(s): W19.XXXA - UNSPECIFIED FALL, INITIAL ENCOUNTER Qualifiers: Encounter type: initial encounter Qualified Code(s): W19.XXXA - Unspecified fall, initial encounter (2) Slurred speech Code(s): R47.81 - SLURRED SPEECH (3) Weakness Code(s): R53.1 - WEAKNESS (4) Alcohol dependence Code(s): F10.20 - ALCOHOL DEPENDENCE, UNCOMPLICATED Assessment/Plan 64y hx of schizoaffective d/o, seizures, tardive dyskinesia, parkinsons, asthma , polysubstance abuse presents from [facility] for evaluation of weakness. Pt is confused , demented , ?base line , no clinical seizure , face asymmeric and has dysarthria , ? ischemic event vs amparo's paralysis due to seizure ; hx of substance abuse; I suggest: MRI /A brain wo ; EEG routine ; keppra not a good option given h/o schizoaffective ; switch to trileptal 150 mg bid ; neurocheck q 4 hours; fall . seizure precautions ; DT protocol. Health maintenance per primary team. Thank you. Riley Snider MD
[2019-05-12 09:05] LABS: BASO % 0.2 % (0-2.0); EOS % 2.1 % (0-4.5); HEMATOCRIT 32.2 % (35.4-49); HEMOGLOBIN 10.5 GM/dL (11.7-16.9); LYMPH % 13.9 % (8-40); MCH 28.2 pg (25.7-33.7); MCHC 32.5 g/dl (32.0-35.9); MEAN CELL VOLUME 86.8 fl (80-96); NEUT % 77.8 % (42.8-82.8); PLATELET COUNT 228 K/MM3 (134-434); RBC 3.71 M/mm3 (4.00-5.60); RDW 15.6 % (11.9-15.9); WHITE BLOOD COUNT 8.6 K/mm3 (4.0-10.0)
[2019-05-12 09:38] LABS: ALBUMIN 2.6 g/dl (3.4-5.0); BILIRUBIN,TOTAL 0.2 mg/dL (0.2-1); BLOOD UREA NITROGEN 7.8 mg/dL (7-18); CALCIUM 8.8 mg/dL (8.5-10.1); CREATININE 0.6 mg/dL (0.55-1.3); POTASSIUM 3.9 mmol/L (3.5-5.1); TOT PROT 6.6 g/dl (6.4-8.2)
[2019-05-12] MEDS ORDERED: VALBENAZINE TOSYLATE 80 MG PO SCH (10:00)
[2019-05-12] MEDS: levETIRAcetam 500 MG TABLET (FP) PO SCH ×2 (10:00→21:48)
[2019-05-12] MEDS: FOLIC ACID 1 MG TABLET (FP) PO SCH (10:05)
--- NOTE | 2019-05-12 12:11 | EKG ---
Test Reason : Blood Pressure : / mmHG Vent. Rate : 067 BPM Atrial Rate : 067 BPM P-R Int : 118 ms QRS Dur : 098 ms QT Int : 422 ms P-R-T Axes : 065 071 065 degrees QTc Int : 445 ms NORMAL SINUS RHYTHM NORMAL ECG WHEN COMPARED WITH ECG OF 24-APR-2018 18:39, NO SIGNIFICANT CHANGE WAS FOUND Confirmed by Albert Luque MD ([id number]) on 05/12/2019 12:11:18 PM Referred By: Confirmed By:Albert Luque MD
--- NOTE | 2019-05-12 20:42 | PN ---
Progress Note, Physician - Current Medication List Current Medications: Active Medications Atorvastatin Calcium (Lipitor -) 20 mg PO HS [facility] Last Admin: 05/11/19 22:14 Dose: 20 mg Folic Acid (Folic Acid -) 1 mg PO DAILY [facility] Last Admin: 05/12/19 10:05 Dose: 1 mg Influenza Virus Vaccine Quadrival (Flulaval Quad [id number]) 60 mcg IM .ONCE ONE Stop: 05/13/19 09:01 Levetiracetam (Keppra -) 500 mg PO BID [facility] Last Admin: 05/12/19 10:00 Dose: 500 mg Non-Formulary Medication (Valbenazine Tosylate [Ingrezza]) 80 mg PO DAILY [facility] Olanzapine (Zyprexa -) 20 mg PO HS [facility] Last Admin: 05/11/19 22:14 Dose: 20 mg Pneumococcal 13-Valent Conj Vacc (Prevnar 13 Syringe -) 0.5 ml IM .ONCE ONE Stop: 05/13/19 09:01 Tiotropium [place] (Spiriva Respimat) 2 puff IH DAILY [facility] Trazodone HCl (Desyrel -) 50 mg PO [facility] Last Admin: 05/11/19 23:41 Dose: 50 mg - Objective Vital Signs: Vital Signs Temperature 98.1 F 05/12/19 18:00 Pulse Rate 71 05/12/19 18:00 Respiratory Rate 18 05/12/19 18:57 Blood Pressure 127/67 05/12/19 18:00 O2 Sat by Pulse Oximetry (%) 100 05/12/19 18:57 Constitutional: Yes: No Distress HENT: Yes: Atraumatic Neck: Yes: Supple Cardiovascular: Yes: Regular Rate and Rhythm Respiratory: Yes: CTA Bilaterally Gastrointestinal: Yes: Normal Bowel Sounds Extremities: Yes: WNL Neurological: Yes: Alert, Oriented Labs: CBC, BMP 05/12/19 08:35 05/12/19 08:35 INR, PTT INR 1.12 (0.83-1.09) H 05/11/19 10:00 Problem List - Problems (1) Alcohol dependence with uncomplicated withdrawal Assessment/Plan: on librium protocol Code(s): F10.230 - ALCOHOL DEPENDENCE WITH WITHDRAWAL, UNCOMPLICATED (2) Facial droop Assessment/Plan: neuro on board Code(s): R29.810 - FACIAL WEAKNESS (3) Weakness Assessment/Plan: pt eval Code(s): R53.1 - WEAKNESS
[2019-05-12] MEDS: traZODone HCL 50 MG TABLET (FP) PO SCH (21:48)
[2019-05-12] MEDS: ATORVASTATIN CA 20 MG TABLET (FP) PO SCH (21:48)
[2019-05-13] MEDS: OLANZapine 10 MG TABLET PO SCH ×2 (04:36→21:29)
[2019-05-13] MEDS ORDERED: PNEUMOC 13-VAL CONJ-DIP CRM/PF 0.5 ML DISP.SYRIN IM ONE (09:00)
[2019-05-13] MEDS: FOLIC ACID 1 MG TABLET (FP) PO SCH (10:42)
[2019-05-13] MEDS: levETIRAcetam 500 MG TABLET (FP) PO SCH (10:42)
[2019-05-13] MEDS: TIOTROPIUM BROMIDE 2.5 MCG (SPIRIVA) RESPIMAT INHALER IH SCH (10:42)
--- NOTE | 2019-05-13 11:32 | PN ---
Progress Note (short form) - Note Progress Note: 64y hx of schizoaffective d/o, seizures, tardive dyskinesia, parkinsons, asthma , polysubstance abuse presents from [facility] for evaluation of weakness. Per [facility] records, the pt had attempted to get out of bed and felt weak - staff reported pt bumped head on the rolling walker when he went to sit in bed, but apparently appeared confused and pt unable to give clear recollection of what ocurred. It was noted pt had R sided weakness per MD records. Pt does not recall what happened - states that he fell on his walker going to the bathroom. Pt also had difficulty sitting up from the bed. Pt endorses having mild productive cough for the past month without any fever/loza/cp/le edema. last seizure 4 months ago. FU: still quite sleepy, dysarthric, ? 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 Pulmonary: Yes: Asthma - Alcohol/Substance Use Hx Alcohol Use: Yes - Smoking History Smoking history: Unknown if ever smoked Have you smoked in the past 12 months: Yes Aproximately how many cigarettes per day: 8 Home Medications - Allergies Allergies/Adverse Reactions: Allergies Allergy/AdvReac Type Severity Reaction Status Date / Time No Known Allergies Allergy Verified 05/08/19 11:57 - Home Medications Home Medications: Ambulatory Orders Folic Acid 1 mg PO DAILY 02/13/19 Atorvastatin Ca [Lipitor] 20 mg PO DAILY 05/08/19 Olanzapine [Zyprexa] 20 mg PO HS 05/08/19 Umeclidinium [place] [Incruse Ellipta] 62.5 mcg IH DAILY 05/08/19 Valbenazine Tosylate [Ingrezza] 80 mg PO DAILY 05/08/19 Valproic Acid 500 mg PO BID 05/08/19 levETIRAcetam [Keppra -] 500 mg PO BID 05/08/19 traZODone HCL [Desyrel -] 50 mg PO HS 05/08/19 Review of Systems - Review of Systems Eyes: reports: No Symptoms HENT: reports: No Symptoms Neck: reports: No Symptoms Cardiovascular: reports: No Symptoms Breasts: reports: No Symptoms Reported Musculoskeletal: reports: No Symptoms Physical Exam-Neuro Vital Signs: Vital Signs Temperature 98.5 F 05/13/19 05:35 Pulse Rate 70 05/13/19 05:35 Respiratory Rate 18 05/13/19 05:35 Blood Pressure 92/62 05/13/19 05:35 O2 Sat by Pulse Oximetry (%) 100 05/12/19 21:00 Constitutional: Yes: Mild Distress Neck: Yes: Supple Cardiovascular: Yes: Regular Rate and Rhythm Respiratory: Yes: CTA Bilaterally Musculoskeletal: Yes: WNL Edema: No Psychiatric: Yes: Other (confused) Labs: CBC, BMP 05/11/19 10:00 05/11/19 11:23 INR, PTT INR 1.12 (0.83-1.09) H 05/11/19 10:00 - Neuro Exam Level Of Consciousness: Yes: Oriented to Person Eyes: Yes: PERRLA Speech: Garbled Cranial Nerves II-XII Intact: Yes (face asymmetric) Gag: Present DTR's: 1+ Left Bicep, 1+ Right Bicep, 1+ Left Tricep, 1+ Right Tricep, 1+ Left Brachioradialis, 1+ Right Brachioradialis, 1+ Left Achilles, 1+ Right Achilles Babinski: Absent Response to light touch: Normal Response to pain prick: Normal Coordination: Normal: Finger to Nose Motor Strength: 4/5: Left Arm, Right Arm, Left Leg, Right Leg Gait: Deferred Imaging - Results Cat Scan: Report Reviewed, Image Reviewed (No acvute finding) Problem List - Problems (1) Fall Code(s): W19.XXXA - UNSPECIFIED FALL, INITIAL ENCOUNTER Qualifiers: Encounter type: initial encounter Qualified Code(s): W19.XXXA - Unspecified fall, initial encounter (2) Slurred speech Code(s): R47.81 - SLURRED SPEECH (3) Weakness Code(s): R53.1 - WEAKNESS (4) Alcohol dependence Code(s): F10.20 - ALCOHOL DEPENDENCE, UNCOMPLICATED Assessment/Plan 64y hx of schizoaffective d/o, seizures, tardive dyskinesia, parkinsons, asthma , polysubstance abuse presents from [facility] for evaluation of weakness. Pt is confused , demented , ?base line , no clinical seizure , face asymmeric and has dysarthria , ? ischemic event vs amparo's paralysis due to seizure ; hx of substance abuse; ideally would like him more awake before dc planning to get MRI BRAIN tonight will DC for now [facility] [id number]-- ? contributes to sleepiness , also hold trazodone cont Depakote ideally would like him more awake before dc planning DR ALVES
[2019-05-13] MEDS ORDERED: FLU VACCINE QUAD 60 MCG/0.5 ML (MDV 19-20) IM ONE (14:15)
[2019-05-13] MEDS ORDERED: PNEUMOCOCCAL 23 VACCINE 0.5 ML VIAL IM ONE (14:30)
[2019-05-13 15:18] VITALS: BMI 19.2
--- NOTE | 2019-05-13 16:04 | PN ---
Progress Note, Physician - Current Medication List Current Medications: Active Medications Atorvastatin Calcium (Lipitor -) 20 mg PO HS [facility] Last Admin: 05/12/19 21:48 Dose: 20 mg Folic Acid (Folic Acid -) 1 mg PO DAILY [facility] Last Admin: 05/13/19 10:42 Dose: 1 mg Non-Formulary Medication (Valbenazine Tosylate [Ingrezza]) 80 mg PO DAILY [facility] Olanzapine (Zyprexa -) 20 mg PO HS [facility] Last Admin: 05/13/19 04:36 Dose: 20 mg Tiotropium [place] (Spiriva Respimat) 2 puff IH DAILY [facility] Last Admin: 05/13/19 10:42 Dose: 2 puff - Objective Vital Signs: Vital Signs Temperature 97.8 F 05/13/19 14:00 Pulse Rate 79 05/13/19 14:00 Respiratory Rate 18 05/13/19 05:35 Blood Pressure 89/53 L 05/13/19 14:00 O2 Sat by Pulse Oximetry (%) 100 05/12/19 21:00 Constitutional: Yes: No Distress HENT: Yes: Atraumatic Neck: Yes: Supple Cardiovascular: Yes: Regular Rate and Rhythm Respiratory: Yes: CTA Bilaterally Gastrointestinal: Yes: Normal Bowel Sounds Extremities: Yes: WNL Neurological: Yes: Alert, Oriented Labs: CBC, BMP 05/12/19 08:35 05/12/19 08:35 INR, PTT INR 1.12 (0.83-1.09) H 05/11/19 10:00 Problem List - Problems (1) Alcohol dependence with uncomplicated withdrawal Assessment/Plan: on librium protocol detox consult Code(s): F10.230 - ALCOHOL DEPENDENCE WITH WITHDRAWAL, UNCOMPLICATED (2) Facial droop Assessment/Plan: neuro on board resolved mri done..negative Code(s): R29.810 - FACIAL WEAKNESS (3) Weakness Assessment/Plan: pt eval Code(s): R53.1 - WEAKNESS
[2019-05-13] MEDS ORDERED: PT OWN MED DRAWER 7, Y5N ONE (21:00)
[2019-05-13] MEDS: ATORVASTATIN CA 20 MG TABLET (FP) PO SCH (21:29)
[2019-05-14] MEDS: FOLIC ACID 1 MG TABLET (FP) PO SCH (09:48)
[2019-05-14] MEDS: TIOTROPIUM BROMIDE 2.5 MCG (SPIRIVA) RESPIMAT INHALER IH SCH (09:48)
[2019-05-14 10:30] VITALS: BP 123/81; PULSE 89; TEMP 98.4
--- NOTE | 2019-05-14 12:11 | DS ---
Physical Examination Vital Signs: Vital Signs Temperature 98.4 F 05/14/19 09:00 Pulse Rate 89 05/14/19 09:00 Respiratory Rate 20 05/14/19 09:00 Blood Pressure 123/81 05/14/19 09:00 O2 Sat by Pulse Oximetry (%) 97 05/14/19 09:00 Constitutional: Yes: No Distress HENT: Yes: Atraumatic Neck: Yes: Supple Cardiovascular: Yes: Regular Rate and Rhythm Respiratory: Yes: CTA Bilaterally Gastrointestinal: Yes: Normal Bowel Sounds Extremities: Yes: WNL Edema: No Neurological: Yes: Alert, Oriented Labs: CBC, BMP 05/12/19 08:35 05/12/19 08:35 Discharge Summary Problems reviewed: Yes Reason For Visit: SLURRED SPEECH,FACIAL DROOP,WEAKNESS,FALL Current Active Problems Facial droop (Acute) Fall (Acute) Slurred speech (Acute) Weakness (Acute) Condition: Stable - Instructions Referrals: Austin Meeks DO [Staff Physician] - Disposition: I.P. ALCOHOL/SUBS ABUSE REHAB - Home Medications Comprehensive Discharge Medication List: Ambulatory Orders Folic Acid 1 mg PO DAILY 02/13/19 Atorvastatin Ca [Lipitor] 20 mg PO DAILY 05/08/19 Olanzapine [Zyprexa] 20 mg PO HS 05/08/19 Umeclidinium [place] [Incruse Ellipta] 62.5 mcg IH DAILY 05/08/19 Valbenazine Tosylate [Ingrezza] 80 mg PO DAILY 05/08/19 Valproic Acid 500 mg PO BID 05/08/19 levETIRAcetam [Keppra -] 500 mg PO BID 05/08/19 traZODone HCL [Desyrel -] 50 mg PO HS 05/08/19 dc to [facility] for rehab
== END 2019-05-14 15:40 | disposition other institution (70) ==
LOC: JER 08:39 → INTOOBSV 14:25 → UNDOADMOB 14:25 → JERBED 14:25 → J4W 05-12 15:34 → JERBED 05-12 15:34 → J4W 05-13 13:48 → JERBED 05-13 13:48
PROVIDERS: ADMIT Internal Medicine; ATTEND Internal Medicine
PROC: 3E0234Z Introduction of Serum, Toxoid and Vaccine into Muscle, Percutaneous Approach (ICD-10-PCS; principal; 2019-05-13)
PROC: 3E0234Z Introduction of Serum, Toxoid and Vaccine into Muscle, Percutaneous Approach (ICD-10-PCS; 2019-05-13)
PROC: 3E0F7GC Introduction of Other Therapeutic Substance into Respiratory Tract, Via Natural or Artificial Opening (ICD-10-PCS; 2019-05-13)
DX: R53.1 Weakness (principal); R47.81 Slurred speech; R29.810 Facial weakness; F10.230 Alcohol dependence with withdrawal, uncomplicated; F17.210 Nicotine dependence, cigarettes, uncomplicated; F25.9 Schizoaffective disorder, unspecified; G40.909 Epilepsy, unspecified, not intractable, without status epilepticus; J45.909 Unspecified asthma, uncomplicated; I69.354 Hemiplegia and hemiparesis following cerebral infarction affecting left non-dominant side; D64.9 Anemia, unspecified; G20 Parkinson's disease; R26.2 Difficulty in walking, not elsewhere classified; Z99.89 Dependence on other enabling machines and devices; W18.39XA Other fall on same level, initial encounter; Y93.9 Activity, unspecified; Y92.239 Unspecified place in hospital as the place of occurrence of the external cause; Y99.9 Unspecified external cause status; Z23 Encounter for immunization
CPT/HCPCS: 36415; 70450-TC; 70544-TC; 70551-TC; 71045-TC-FY; 80053; 80307; 81003; 83735; 84100; 84484; 85025; 85610; 85730; 90471; 90732; 93005; 93010; 94640; 97116-GP; 97161-GP; 99285-25; G0009; G0378; Q2036

== ENCOUNTER 2019-05-14 15:50 | Inpatient (IN) | payer OTHER ==
[2019-05-14 17:38] VITALS: BMI 19.5
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
--- NOTE | 2019-05-14 18:31 | PN ---
Teaching Attending Note Name of Resident: Jamari Mojica ATTENDING PHYSICIAN STATEMENT I saw and evaluated the patient. I reviewed the resident's note and discussed the case with the resident. I agree with the resident's findings and plan as documented. SUBJECTIVE: 64 y.o. male retruns for rehab after hospitalization 05/11/19-05/14 for change in MS , CVA r/o . Pt states he is feeling well, noted to have dysarthria . PMHX: asthma, seizure d/o , Parkinson disease, schizophrenia. OBJECTIVE: wnwd Vital Signs - 24 hr 05/14/19 17:35 Temperature 100.2 F H Pulse Rate 95 H Respiratory 16 Rate Blood Pressure 82/59 L ASSESSMENT AND PLAN: Alcohol dependence - rehab Empiric tx for Pneumonia / IVF . Soft diet.
[2019-05-14] MEDS ORDERED: MAGNESIUM HYDROX 2400MG/30ML ORAL SUSPENSION 30 ML CUP PO PRN (18:35)
[2019-05-14] MEDS ORDERED: IBUPROFEN 400 MG TABLET (FP) PO PRN (18:35)
[2019-05-14] MEDS ORDERED: guaiFENesin 200 MG/10 ML 10 ML UNIT-DOSE CUPS PO PRN (18:35)
[2019-05-14] MEDS ORDERED: MENTHOL/PHENOL 1 EACH UD MM PRN (18:35)
[2019-05-14] MEDS ORDERED: MAG HYDROX/AL HYDROX/SIMETH 30 ML UNIT-DOSE CUP PO PRN (18:35)
[2019-05-14] MEDS ORDERED: ACETAMINOPHEN 325 MG TABLET (FP) PO PRN (18:35)
[2019-05-14] MEDS ORDERED: P-EPHED 60MG/TRIPROLIDI 2.5MG TABLET PO PRN (18:35)
[2019-05-14] MEDS ORDERED: LOPERAMIDE HCL 2 MG CAPSULE PO PRN (18:35)
[2019-05-14] MEDS ORDERED: MAGNESIUM CITRATE 300 ML BOTTLE PO PRN (18:35)
[2019-05-14] MEDS ORDERED: SODIUM CHLORIDE 1,000 ML IV SCH (18:45)
[2019-05-14] MEDS ORDERED: ATORVASTATIN CA 20 MG TABLET (FP) PO SCH (22:00)
[2019-05-14] MEDS ORDERED: VALPROIC ACID 250 MG CAPSULE PO SCH (22:00)
[2019-05-14] MEDS ORDERED: MELATONIN 5 MG TABLETS PO PRN (22:00)
[2019-05-14] MEDS: THIAMINE HCL 100 MG TABLET (FP) PO SCH (22:10)
[2019-05-14] MEDS: levETIRAcetam 500 MG TABLET (FP) PO SCH (22:10)
[2019-05-14] MEDS: DIVALPROEX SODIUM 500 MG TABLET E.C. PO SCH (22:10)
[2019-05-15] MEDS ORDERED: TIOTROPIUM BROMIDE 2.5 MCG (SPIRIVA) RESPIMAT INHALER IH SCH (10:00)
[2019-05-15] MEDS ORDERED: VALBENAZINE TOSYLATE 80 MG PO SCH (10:00)
[2019-05-15] MEDS ORDERED: PRENATAL VITAMINS W/ FOLIC ACID TABLET (FP) PO SCH (10:00)
[2019-05-15] MEDS ORDERED: AZITHROMYCIN 250 MG TABLET PO SCH (10:00)
[2019-05-15 10:35] LABS: HEMATOCRIT 29.3 % (35.4-49); HEMOGLOBIN 9.7 GM/dL (11.7-16.9); MCH 28.5 pg (25.7-33.7); MCHC 33.1 g/dl (32.0-35.9); MEAN CELL VOLUME 86.2 fl (80-96); MEAN PLT VOLUME 7.9 fl (7.5-11.1); PLATELET COUNT 254 K/MM3 (134-434); RBC 3.41 M/mm3 (4.00-5.60); RDW 15.2 % (11.9-15.9); WHITE BLOOD COUNT 6.7 K/mm3 (4.0-10.0)
[2019-05-15] MEDS: levETIRAcetam 500 MG TABLET (FP) PO SCH ×2 (10:42→23:40)
[2019-05-15] MEDS: DIVALPROEX SODIUM 500 MG TABLET E.C. PO SCH ×2 (10:43→23:40)
[2019-05-15 10:53] LABS: ALBUMIN 2.4 g/dl (3.4-5.0); BILIRUBIN,TOTAL 0.2 mg/dL (0.2-1); BLOOD UREA NITROGEN 13.4 mg/dL (7-18); CREATININE 0.6 mg/dL (0.55-1.3); POTASSIUM 4.5 mmol/L (3.5-5.1)
--- NOTE | 2019-05-15 11:03 | PN ---
Physical Exam: SUBJECTIVE: Patient seen and examined at bedside. Per nurse, patient febrile at 100.4 with tachycardia 101. Patient appears weak and tired. OBJECTIVE: Vital Signs Period Temp Pulse Resp BP Sys/Quintanilla Pulse Ox Last 24 Hr 99.0 F-100.2 F 88-95 16-18 82-106/57-59 GENERAL: A&Ox3, no acute distress EYES: PERRLA, EOMI ENT: Dry mucus membranes LUNGS: rales in RLL and mild rhonchi in L base, cough expectorated yellow sputum HEART: tachycardic ABDOMEN: Soft, nontender, BS present EXTREMITIES: 2+ pulses, no edema NEUROLOGICAL: Dysarthric, rest of cranial nerves grossly intact; patient is weak and cannot ambulate Laboratory Results - last 24 hr 05/15/19 05/15/19 07:20 07:20 WBC 6.7 RBC 3.41 L Hgb 9.7 L Hct 29.3 L MCV 86.2 MCH 28.5 MCHC 33.1 RDW 15.2 Plt Count 254 MPV 7.9 Sodium 143 Potassium 4.5 Chloride 108 H Carbon Dioxide 30 Anion Gap 5 L BUN 13.4 Creatinine 0.6 Est GFR (CKD-EPI)AfAm 124.02 Est GFR (CKD-EPI)NonAf 107.00 Random Glucose 93 Calcium 8.0 L Total Bilirubin 0.2 AST 10 L ALT 9 L Alkaline Phosphatase 68 Total Protein 6.0 L Albumin 2.4 L Active Medications Generic Name Dose Route Start Last Admin Trade Name Freq PRN Reason Stop Dose Admin Acetaminophen 650 mg 05/14/19 18:35 05/15/19 10:46 Tylenol - PO 650 mg Q4H PRN Administration FEVER Al Hydroxide/Mg Hydroxide 30 ml 05/14/19 18:35 Mylanta Oral Suspension - PO Q6H PRN DYSPEPSIA Azithromycin 500 mg 05/15/19 10:00 Zithromax - PO 05/17/19 10:01 DAILY MIKY Divalproex Sodium 500 mg 05/14/19 22:00 05/15/19 10:43 Depakote - PO 500 mg BID MIKY Administration Eucalyptus/Menthol/Phenol/Sorbitol 1 each 05/14/19 18:35 Cepastat Lozenge - MM Q4H PRN SORE THROAT Guaifenesin 10 ml 05/14/19 18:35 Robitussin - PO Q6H PRN COUGH Ibuprofen 400 mg 05/14/19 18:35 Motrin - PO Q6H PRN Pain level 4-6 Levetiracetam 500 mg 05/14/19 22:00 05/15/19 10:42 Keppra - PO 500 mg BID MIKY Administration Loperamide HCl 4 mg 05/14/19 18:35 Imodium - PO Q6H PRN DIARRHEA Magnesium Citrate 300 ml 05/14/19 18:35 Citroma - PO Q48H PRN CONSTIPATION Magnesium Hydroxide 30 ml 05/14/19 18:35 Milk Of Magnesia - PO DAILY PRN CONSTIPATION Non-Formulary Medication 80 mg 05/15/19 10:00 Valbenazine Tosylate [Ingrezza] PO DAILY [facility] Multivit/Folic Acid/Iron 1 tab 05/15/19 10:00 05/15/19 10:43 Vitamins (Sjr) - PO 1 tab DAILY MIKY Administration Pseudoephedrine/Triprolidine 1 combo 05/14/19 18:35 Actifed - PO TID PRN NASAL CONGESTION Thiamine HCl 100 mg 05/14/19 22:00 05/14/19 22:10 Vitamin B1 - PO 100 mg HS MIKY Administration Tiotropium [place] 2 puff 05/15/19 10:00 05/15/19 10:45 Spiriva Respimat IH 2 puff DAILY MIKY Administration ASSESSMENT/PLAN: 64 year old male with a history of schizoaffective disorder, parkinson disease, tardive dyskinesia, parkinsons, asthma, and alcohol/cocaine dependence here for rehab from alcohol/cocaine use. Evaluated in ED for dysarthria and possible stroke yesterday, MRI negative. Had a possible developing infectious process yesterday of unclear etiology. #Sepsis: possible pneumonia/aspiration; patient is febrile to 100.4, tachycardic to 101, and hypotensive 96/60. -yesterday trialed 1 liter of normal saline and azithromycin 500mg -patient did not appear to improve this morning -will need repeat CXR, blood/urine cultures -respiratory virus panel should be ordered -will need further sepsis evaluation in hospital and likely IV fluids/IV antibiotics -differentials include aspiration PNA, community acquired PNA, urinary tract infection (although previous UA was unremarkable -keep on a soft diet as patient may not easily swallow medication -report given to Dr. Chepe Arroyo in ED Jamari Mojica Problem List - Problems (1) Alcohol dependence Code(s): F10.20 - ALCOHOL DEPENDENCE, UNCOMPLICATED (2) Slurred speech Code(s): R47.81 - SLURRED SPEECH (3) Weakness Code(s): R53.1 - WEAKNESS (4) Tardive dyskinesia Code(s): G24.01 - DRUG INDUCED SUBACUTE DYSKINESIA Visit type - Emergency Visit Emergency Visit: No - New Patient This patient is new to me today: No - Critical Care Critical Care patient: No ATTENDING PHYSICIAN STATEMENT I saw and evaluated the patient. I reviewed the resident's note and discussed the case with the resident. I agree with the resident's findings and plan as documented. SUBJECTIVE: OBJECTIVE: ASSESSMENT AND PLAN:
[2019-05-15 12:16] VITALS: BP 96/64; PULSE 101; TEMP 100.4
[2019-05-15] MEDS: THIAMINE HCL 100 MG TABLET (FP) PO SCH (23:41)
== END 2019-05-15 11:55 | disposition short-term general hospital (02) | DRG 772 ==
LOC: YASAS 15:50 → Y3W 19:26
PROVIDERS: ADMIT Neuromusculoskeletal Medicine & OMM; ATTEND Neuromusculoskeletal Medicine & OMM
PROC: HZ42ZZZ Group Counseling for Substance Abuse Treatment, Cognitive-Behavioral (ICD-10-PCS; principal; 2019-05-14)
DX: F10.20 Alcohol dependence, uncomplicated (principal); A41.9 Sepsis, unspecified organism; J45.909 Unspecified asthma, uncomplicated; R50.9 Fever, unspecified; R00.0 Tachycardia, unspecified; R47.81 Slurred speech; R53.1 Weakness; G24.01 Drug induced subacute dyskinesia; Z86.73 Personal history of transient ischemic attack (TIA), and cerebral infarction without residual deficits
CPT/HCPCS: 36415; 80053; 85027; 86593; J7030

== ENCOUNTER 2019-05-15 11:42 | Inpatient (IN) | payer OTHER ==
--- NOTE | 2019-05-15 12:17 | PDOC ---
Attending Attestation - Resident Resident Name: Milton Randall - HPI HPI: 05/15/19 12:40 Pt presents to the ED complaining of fever--sent in from [facility] for evaluation. Patient reports that he has had fevers and chest discomfort accompanied by productive cough for the last two days. Denies nausea, vomiting , abdominal pain or urinary complaints. States that he is in [facility] for ETOH and cocaine. Denies IV drug abuse. Denies history of HIV (but states he' s never been tested). Recent admission for CVA/TIA. - Physicial Exam PE: 05/15/19 12:44 Agree with resident exam. PAtient is alert and in NAD. CV: RRR no m/r/g. Pulm :+ rhonchi in bases, worse on L. Abdomen: soft, non distended, non tender. Ext : no edema or tenderness. - Medical Decision Making 05/15/19 12:48 PT presents to the ED complaining of fever. Found to be febrile and hypotensive on arrival to the ED. Will start sepsis protocol, start agressive hydration and admit. Will check CXR and UA, blood and urine cultures. Will admit to medicine.
[2019-05-15 13:03] LABS: BASO % 0.7 % (0-2.0); EOS % 2.1 % (0-4.5); LYMPH % 14.1 % (8-40); MCH 28.2 pg (25.7-33.7); MCHC 32.2 g/dl (32.0-35.9); MEAN CELL VOLUME 87.6 fl (80-96); MEAN PLT VOLUME 8.2 fl (7.5-11.1); NEUT % 74.1 % (42.8-82.8); PLATELET COUNT 276 K/MM3 (134-434); RDW 15.6 % (11.9-15.9); WHITE BLOOD COUNT 8.5 K/mm3 (4.0-10.0)
[2019-05-15] MEDS ORDERED: CEFEPIME HCL/D5W 2 GM/50 ML BAG IVPB ONE (13:15)
[2019-05-15] MEDS ORDERED: VANCOMYCIN HCL 1,500 MG in DEXTROSE 5%-WATER - 500 ML IVPB ONE (13:15)
[2019-05-15] MEDS ORDERED: LACTATED RINGERS SOLUTION 1000 ML INFUS.BAG IV ONE (13:15)
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
[2019-05-15 13:22] LABS: VENOUS PH 7.41 (7.31-7.41); VENOUS PO2 64.9 mmHg (28-48)
[2019-05-15 13:31] LABS: ALBUMIN 2.4 g/dl (3.4-5.0); BILIRUBIN,TOTAL 0.1 mg/dL (0.2-1); BLOOD UREA NITROGEN 12.2 mg/dL (7-18); CALCIUM 8.4 mg/dL (8.5-10.1); CREATININE 0.6 mg/dL (0.55-1.3); INR 1.27 (0.83-1.09); POTASSIUM 4.1 mmol/L (3.5-5.1); TOT PROT 5.9 g/dl (6.4-8.2)
[2019-05-15 13:34] LABS: ACTIVATED PTT 19.4 SECONDS (25.2-36.5)
[2019-05-15] MEDS ORDERED: VANCOMYCIN 500 MG VIAL (RESTRICTED TO ID ONLY) ONE (13:34)
[2019-05-15] MEDS ORDERED: VANCOMYCIN 1 GRAM (PRE-DOCKED) 1,000 MG/250 ML BAG IVPB ONE (13:34)
[2019-05-15] MEDS ORDERED: CEFEPIME 2 GM/100 ML BAG IVPB ONE (13:35)
[2019-05-15 14:00] LABS: PH,URINE 7.5 (5.0-8.0); URINE APPEARANCE CLEAR; URINE BILIRUBIN NEGATIVE (NEGATIVE); URINE COLOR YELLOW; URINE GLUCOSE (UA) NEGATIVE (NEGATIVE); URINE KETONE NEGATIVE (NEGATIVE); URINE LEUK ESTERASE NEGATIVE (NEGATIVE); URINE NITRITE NEGATIVE (NEGATIVE); URINE PROTEIN NEGATIVE (NEGATIVE)
--- NOTE | 2019-05-15 15:07 | HP ---
Admitting History and Physical - Admission Chief Complaint: fever History Source: Patient - Past Medical History ASSESSMENT RN: Yes: Seizure Pulmonary: Yes: Asthma - Smoking History Smoking history: Smoker current status UNK Have you smoked in the past 12 months: Yes Aproximately how many cigarettes per day: 8 - Alcohol/Substance Use Hx Alcohol Use: Yes Home Medications - Allergies Allergies/Adverse Reactions: Allergies Allergy/AdvReac Type Severity Reaction Status Date / Time No Known Allergies Allergy Verified 05/15/19 11:49 - Home Medications Home Medications: Ambulatory Orders Folic Acid 1 mg PO DAILY 02/13/19 Atorvastatin Ca [Lipitor] 20 mg PO DAILY 05/08/19 Olanzapine [Zyprexa] 20 mg PO HS 05/08/19 Umeclidinium [place] [Incruse Ellipta] 62.5 mcg IH DAILY 05/08/19 Valbenazine Tosylate [Ingrezza] 80 mg PO DAILY 05/08/19 Valproic Acid 500 mg PO BID 05/08/19 levETIRAcetam [Keppra -] 500 mg PO BID 05/08/19 traZODone HCL [Desyrel -] 50 mg PO HS 05/08/19 Physical Examination Vital Signs: Vital Signs Temperature 100.9 F H 05/15/19 11:49 Pulse Rate 81 05/15/19 14:56 Respiratory Rate 24 H 05/15/19 14:56 Blood Pressure 78/44 L 05/15/19 14:56 O2 Sat by Pulse Oximetry (%) 97 05/15/19 14:56 Labs: CBC, BMP 05/15/19 12:37 05/15/19 12:37
[2019-05-15] MEDS ORDERED: LACTATED RINGERS SOLUTION 1,000 ML/1,000 ML INFUS.BAG IV SCH (16:15)
--- NOTE | 2019-05-15 16:50 | HP ---
<Jamari Lao - Last Filed: 05/15/19 17:51> CHIEF COMPLAINT: PCP: HISTORY OF PRESENT ILLNESS: 64yo M with h/o of [facility] rehab (alcohol and crack/cocaine) and seizure disorder for unknown reason who presents today from rehab for fever. 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 Pt reports he was sent here from [facility] and he has increased white sputum production. Pt doesn't remember anybody sick at [facility], but he is unsure. Pt is unsure of HIV status. Pt has no new medications and does not use IV illicit drugs. Denies any chills, rigors, shortness of breath, chest pain, palpitations, abdominal pain, diarrhea, constipation, leg pain, calf tenderness, leg edema. PAST MEDICAL HISTORY: Polysubstance abuse Seizure disorder Prior CVA? (R sided residual weakness) PAST SURGICAL HISTORY: Denies Social History: Smoking: No tobacco Alcohol: Last use 3 days ago; 3-4 pints of alcohol every other day Drugs: Crack; smokes it; last use 3 days ago Homeless Allergies No Known Allergies Allergy (Verified 05/15/19 11:49) HOME MEDICATIONS: Home Medications Medication Instructions Recorded Folic Acid 1 mg PO DAILY 02/13/19 Atorvastatin Ca [Lipitor] 20 mg PO DAILY 05/08/19 Olanzapine [Zyprexa] 20 mg PO HS 05/08/19 Umeclidinium [place] [Incruse 62.5 mcg IH DAILY 05/08/19 Ellipta] Valbenazine Tosylate [Ingrezza] 80 mg PO DAILY 05/08/19 Valproic Acid 500 mg PO BID 05/08/19 levETIRAcetam [Keppra -] 500 mg PO BID 05/08/19 traZODone HCL [Desyrel -] 50 mg PO HS 05/08/19 REVIEW OF SYSTEMS As per HPI PHYSICAL EXAMINATION Vital Signs - 24 hr 05/15/19 05/15/19 11:49 14:56 Temperature 100.9 F H Pulse Rate 90 Pulse Rate [#1] 81 Pulse Rate [#2] 77 Pulse Rate [#3] 69 Respiratory 18 Rate Respiratory 24 H Rate [#2] Respiratory 16 Rate [#3] Blood Pressure 96/60 Blood Pressure 78/44 L [#1] Blood Pressure 86/64 L [#2] Blood Pressure 95/69 [#3] O2 Sat by Pulse 97 Oximetry (%) O2 Sat by Pulse 97 Oximetry (%) [ #1] O2 Sat by Pulse 98 Oximetry (%) [ #2] O2 Sat by Pulse 99 Oximetry (%) [ #3] GENERAL: Cachectic, NAD, Awake, alert, and fully oriented HEENT: NC/AT, scalp without notable findings, sclera anicteric, OC, EOMI, mouth without ulcerations, no thrush observed NECK: No JVD LUNGS: Rhoncherous breath sounds L>R, no wheezes, no accessory muscle use. 98% on RA HEART: RRR, normal S1 and S2 without murmur, ABDOMEN: Soft, NT/ND, normoactive bowel sounds, no guarding MUSCULOSKELETAL: No CVA tenderness. see EXT exam UPPER EXTREMITIES: 2+ radial pulses, warm, well-perfused. No insect bites or injection osborne noted on arms. Old scars well-healed LOWER EXTREMITIES: 2+ DP pulses, warm No calf tenderness. No peripheral edema. NEUROLOGICAL: R-sided chronic weakness noted. otherwise molder closed molds intact and nonfocal exam. PSYCHIATRIC: Cooperative. Good eye contact. Appropriate mood and affect. SKIN: Warm, dry, no rashes or lesions noted Laboratory Results - last 24 hr 05/15/19 05/15/19 05/15/19 12:37 12:37 12:37 WBC 8.5 RBC 3.20 L Hgb 9.0 L Hct 28.0 L MCV 87.6 MCH 28.2 MCHC 32.2 RDW 15.6 Plt Count 276 MPV 8.2 Absolute Neuts (auto) 6.3 Neutrophils % 74.1 Lymphocytes % 14.1 Monocytes % 9.0 Eosinophils % 2.1 Basophils % 0.7 D Nucleated RBC % 0 PT with INR 15.00 H INR 1.27 H PTT (Actin FS) 19.4 L VBG pH POC VBG pCO2 POC VBG pO2 VBG HCO3 VBG O2 Sat (Manny) VBG Base Excess Sodium Potassium Chloride Carbon Dioxide Anion Gap BUN Creatinine Est GFR (CKD-EPI)AfAm Est GFR (CKD-EPI)NonAf Random Glucose Lactic Acid 1.1 Calcium Total Bilirubin AST ALT Alkaline Phosphatase Troponin I Total Protein Albumin Urine Color Urine Appearance Urine pH Ur Specific [place] Urine Protein Urine Glucose (UA) Urine Ketones Urine Blood Urine Nitrite Urine Bilirubin Urine Urobilinogen Ur Leukocyte Esterase 05/15/19 05/15/19 05/15/19 12:37 12:37 12:37 WBC RBC Hgb Hct MCV MCH MCHC RDW Plt Count MPV Absolute Neuts (auto) Neutrophils % Lymphocytes % Monocytes % Eosinophils % Basophils % Nucleated RBC % PT with INR INR PTT (Actin FS) VBG pH POC VBG pCO2 POC VBG pO2 VBG HCO3 VBG O2 Sat (Manny) VBG Base Excess Sodium 141 Potassium 4.1 Chloride 108 H Carbon Dioxide 28 Anion Gap 4 L BUN 12.2 Creatinine 0.6 Est GFR (CKD-EPI)AfAm 124.02 Est GFR (CKD-EPI)NonAf 107.00 Random Glucose 89 Lactic Acid Calcium 8.4 L Total Bilirubin 0.1 L AST 11 L ALT 11 L Alkaline Phosphatase 67 Troponin I < 0.02 Total Protein 5.9 L Albumin 2.4 L Urine Color Yellow Urine Appearance Clear Urine pH 7.5 Ur Specific [place] 1.014 Urine Protein Negative Urine Glucose (UA) Negative Urine Ketones Negative Urine Blood Negative Urine Nitrite Negative Urine Bilirubin Negative Urine Urobilinogen 1.0 Ur Leukocyte Esterase Negative 05/15/19 12:50 WBC RBC Hgb Hct MCV MCH MCHC RDW Plt Count MPV Absolute Neuts (auto) Neutrophils % Lymphocytes % Monocytes % Eosinophils % Basophils % Nucleated RBC % PT with INR INR PTT (Actin FS) VBG pH 7.41 POC VBG pCO2 45.0 POC VBG pO2 64.9 H VBG HCO3 27.7 VBG O2 Sat (Manny) 91.5 H VBG Base Excess 3.2 H Sodium Potassium Chloride Carbon Dioxide Anion Gap BUN Creatinine Est GFR (CKD-EPI)AfAm Est GFR (CKD-EPI)NonAf Random Glucose Lactic Acid Calcium Total Bilirubin AST ALT Alkaline Phosphatase Troponin I Total Protein Albumin Urine Color Urine Appearance Urine pH Ur Specific [place] Urine Protein Urine Glucose (UA) Urine Ketones Urine Blood Urine Nitrite Urine Bilirubin Urine Urobilinogen Ur Leukocyte Esterase ASSESSMENT/PLAN: Fever of Unknown Origin Hypotension Polysubstance abuse Seizure Disorder History of ? CVA --One-time fever noted during this stay --PE reflecting lung source, however CXR not truly impressive --CT Chest noncontrast for accurate read --BCx and UCx pending --HIV status pending --RSV, Influenza and respiratory panel ordered --Albuterol PRN for wheezing --Bolus 1L LR; maintenance of 100cc/hr LR for support --Repeat orthostatics after bolus --ID consult: Dr. Garcia --Cefepime and vancomycin already given in ED --Monitor for withdrawal signs --Can give Valium doses if pt withdraws: CIWA 0 currently FEN: Fluids: LR @100cc/hr Electrolyte abnormalities: None Nutrition: Regular diet PPX: DVT - SCds GI - Not indicated Dispo: M/S case discussed Jamari Lao Do - IM PGy-3 ATTENDING PHYSICIAN STATEMENT I saw and evaluated the patient. I reviewed the resident's note and discussed the case with the resident. I agree with the resident's findings and plan as documented. SUBJECTIVE: OBJECTIVE: ASSESSMENT AND PLAN: <Reza Ann - Last Filed: 05/16/19 10:15> Seen and examined in ER; agree with above history and physcial. Independently verified all exam findings and historical information. Personally reviewed all imaging and all diagnostics. Discussed with resident team. 60 minutes were spent in the care of this patient. Presents with fever and hypotension without tachycardia from [facility]. Suboptimal historian with history of polysubstance and EtOH abuse. ER events noted. No actual complaints when I saw him; generalized headache but no meningeal signs and no red flag symptoms or neuro findings with exam. Benign abdominal exam. No HIV since 2018. Requested Dr. Garcia to see in ER. 10 sys ROS done and negative aside from HPI VS noted; orthostatics pending NAD, AAOx3, resting in bed NC AT EOMI PERRLA Neck supple, (-) B/K-mening signs, trachea midline, no LN CN2-12 wnl, no FND Lungs with scattered wheezes b/l but no focal consolidation, w/ sym exp NT ND +BS Skin without rashes or breakdown or obvious track osborne Normal strength 5/5 all 4 ext with normal tone Flat affect, negligible CIWA, limited insight Final imaging reads pending Labs pending serology, etc. A/P: This is a 64 y/o male presenting to the ER with hypotension and fever with normal HR; technically septic with unclear source. Underlying polysubstance abuse and seizure disorder (unclear if organic or related to this). Neuro checks and seizure precautions ordered, monitoring on floor pending diagnostic workup. Problem list agreed with per resident note. Visit type - Emergency Visit Emergency Visit: Yes ED Registration Date: 05/15/19 Care time: The patient presented to the Emergency Department on the above date and was hospitalized for further evaluation of their emergent condition. - New Patient This patient is new to me today: Yes Date on this admission: 05/16/19 - Critical Care Critical Care patient: Yes Total Critical Care Time (in minutes): 60 Critical Care Statement: The care of this patient involved high complexity decision making to prevent further life threatening deterioration of the patient 's condition and/or to evaluate & treat vital organ system(s) failure or risk of failure. ATTENDING PHYSICIAN STATEMENT I saw and evaluated the patient. I reviewed the resident's note and discussed the case with the resident. I agree with the resident's findings and plan as documented. SUBJECTIVE: OBJECTIVE: ASSESSMENT AND PLAN:
[2019-05-15] MEDS ORDERED: ACETAMINOPHEN 325 MG TABLET (FP) PO PRN (17:50)
[2019-05-15] MEDS: LACTATED RINGERS SOLUTION 1,000 ML/1,000 ML INFUS.BAG IV SCH (18:36)
--- NOTE | 2019-05-15 19:46 | PN ---
Progress Note (short form) - Note Progress Note: ID CONSULT DICTATED
--- NOTE | 2019-05-15 20:37 | CONS ---
DATE OF CONSULTATION: 05/15/2019 INFECTIOUS DISEASE CONSULTATION HISTORY OF PRESENT ILLNESS: The patient is a 64-year-old male who is evaluated for fever. He was recently admitted to [facility] for evaluation of slurred speech, facial droop, and weakness. He was evaluated by medicine team. An MRI was performed of the brain and was negative for acute infarct or bleed. He was discharged back to detox. Patient now returns reports of fever. He is awake and responsive. Complains only of fever. He denies any focal complaint. He denies any chest pain, shortness of breath, cough or sputum production. No abdominal pain, vomiting, or diarrhea. No dysuria, or hematuria. In the emergency room, he was noted to be hypotensive. Cultures were obtained; he was empirically treated with vancomycin and cefepime. An HIV test was performed and was negative. PAST MEDICAL HISTORY: Positive for schizoaffective disorder, seizure disorder, asthma, CVA. ALLERGIES: No known allergies. SOCIAL HISTORY: Positive for alcohol and cocaine use. He denies history of intravenous drug use. LABORATORY DATA: White count 8.5, hematocrit 28.0, platelets 276. Urinalysis negative. Chest x-ray negative . Liver enzymes normal. PHYSICAL EXAMINATION: General: On exam, he is awake and responsive, in no acute distress. Vital signs: Temperature 100.9, blood pressure 78/44, pulse 81 regular, respirations 16 per minute. HEENT: Sclerae anicteric. Cardiovascular: Heart sounds S1, S2. Lungs: Clear. Abdomen: Soft, nontender. Extremities: Negative for edema. IMPRESSION: 1. Fever, unclear source. 2. History of polysubstance abuse. Sepsis workup has been ordered. Empiric antibiotic coverage pending sepsis workup with ceftriaxone. Obtain influenza swab and viral respiratory panel. Thank you for the kind referral. DINESH DE LA GARZA M.D. [id number]
[2019-05-15] MEDS ORDERED: CEFTRIAXONE 2 GM/100 ML BAG IVPB ONE (21:36)
[2019-05-15] MEDS: CEFTRIAXONE 2 GM in DEXTROSE 5%-WATER 100 ML IVPB SCH (21:46)
[2019-05-15] MEDS: levETIRAcetam 500 MG TABLET (FP) PO SCH (23:16)
[2019-05-15] MEDS: ATORVASTATIN CA 20 MG TABLET (FP) PO SCH (23:16)
[2019-05-15] MEDS: OLANZapine 10 MG TABLET PO SCH (23:16)
[2019-05-15] MEDS: DIVALPROEX SODIUM 500 MG TABLET E.C. PO SCH (23:17)
[2019-05-16] MEDS ORDERED: DEXTROSE 5%-WATER 100 ML IVPB ONE (10:05)
[2019-05-16] MEDS: THIAMINE HCL 100 MG TABLET (FP) PO SCH (10:10)
[2019-05-16] MEDS: levETIRAcetam 500 MG TABLET (FP) PO SCH ×2 (10:10→21:00)
[2019-05-16] MEDS: CEFTRIAXONE 2 GM in DEXTROSE 5%-WATER 100 ML IVPB SCH (10:10)
[2019-05-16] MEDS: FOLIC ACID 1 MG TABLET (FP) PO SCH (10:10)
[2019-05-16] MEDS: DIVALPROEX SODIUM 500 MG TABLET E.C. PO SCH ×2 (10:10→21:00)
[2019-05-16 12:13] LABS: COCAINE, UR NEGATIVE ng/ml (CUTOFF=300); METHADONE, UR NEGATIVE ng/ml (CUTOFF=300); OPIATES, URI NEGATIVE ng/ml (CUTOFF=300); PHENCYCLIDINE,URINE NEGATIVE ng/ml (CUTOFF=25); URINE AMPHETAMINES NEGATIVE ng/ml (CUTOFF=500); URINE BARBITURATES NEGATIVE ng/ml (CUTOFF=200)
[2019-05-16 12:21] LABS: URINE BENZODIAZEPINES POSITIVE ng/ml (CUTOFF=200)
--- NOTE | 2019-05-16 12:32 | PN ---
Physical Exam: SUBJECTIVE: Patient seen and examined' Patient continue to have in his back and chest currunt dose of morphine is not helping. OBJECTIVE: Vital Signs Period Temp Pulse Resp BP Sys/Quintanilla Pulse Ox Last 24 Hr 98.4 F-98.8 F 56-81 16-24 78-123/44-78 97-100 GENERAL: The patient is awake, alert, and fully oriented, in no acute distress. HEAD: Normal with no signs of trauma. EYES: PERRL, extraocular movements intact, sclera anicteric, conjunctiva clear. No ptosis. ENT: Ears normal, nares patent, oropharynx clear without exudates, moist mucous membranes. NECK: Trachea midline, full range of motion, supple. LUNGS: coarse bs bilateral. HEART: Regular rate and rhythm, S1, S2 without murmur, rub or gallop. ABDOMEN: Soft, nontender, nondistended, normoactive bowel sounds, no guarding, no rebound, no hepatosplenomegaly, no masses. EXTREMITIES: 2+ pulses, warm, well-perfused, no edema. NEUROLOGICAL: Cranial nerves II through XII grossly intact. Normal speech, gait not observed. Laboratory Results - last 24 hr 05/15/19 05/15/19 05/15/19 12:37 12:37 12:37 WBC 8.5 RBC 3.20 L Hgb 9.0 L Hct 28.0 L MCV 87.6 MCH 28.2 MCHC 32.2 RDW 15.6 Plt Count 276 MPV 8.2 Absolute Neuts (auto) 6.3 Neutrophils % 74.1 Lymphocytes % 14.1 Monocytes % 9.0 Eosinophils % 2.1 Basophils % 0.7 D Nucleated RBC % 0 PT with INR 15.00 H INR 1.27 H PTT (Actin FS) 19.4 L VBG pH POC VBG pCO2 POC VBG pO2 VBG HCO3 VBG O2 Sat (Manny) VBG Base Excess Sodium Potassium Chloride Carbon Dioxide Anion Gap BUN Creatinine Est GFR (CKD-EPI)AfAm Est GFR (CKD-EPI)NonAf Random Glucose Lactic Acid 1.1 Calcium Total Bilirubin AST ALT Alkaline Phosphatase Troponin I Total Protein Albumin Urine Color Urine Appearance Urine pH Ur Specific [place] Urine Protein Urine Glucose (UA) Urine Ketones Urine Blood Urine Nitrite Urine Bilirubin Urine Urobilinogen Ur Leukocyte Esterase Opiates Screen Methadone Screen Barbiturate Screen Phencyclidine Screen Ur Amphetamines Screen MDMA (Ecstasy) Screen Benzodiazepines Screen Cocaine Screen U Marijuana (THC) Screen HIV 1&2 Antibody Screen HIV P24 Antigen Influenza A (Rapid) Influenza B (Rapid) RSV Rapid 05/15/19 05/15/19 05/15/19 12:37 12:37 12:37 WBC RBC Hgb Hct MCV MCH MCHC RDW Plt Count MPV Absolute Neuts (auto) Neutrophils % Lymphocytes % Monocytes % Eosinophils % Basophils % Nucleated RBC % PT with INR INR PTT (Actin FS) VBG pH POC VBG pCO2 POC VBG pO2 VBG HCO3 VBG O2 Sat (Manny) VBG Base Excess Sodium 141 Potassium 4.1 Chloride 108 H Carbon Dioxide 28 Anion Gap 4 L BUN 12.2 Creatinine 0.6 Est GFR (CKD-EPI)AfAm 124.02 Est GFR (CKD-EPI)NonAf 107.00 Random Glucose 89 Lactic Acid Calcium 8.4 L Total Bilirubin 0.1 L AST 11 L ALT 11 L Alkaline Phosphatase 67 Troponin I < 0.02 Total Protein 5.9 L Albumin 2.4 L Urine Color Yellow Urine Appearance Clear Urine pH 7.5 Ur Specific [place] 1.014 Urine Protein Negative Urine Glucose (UA) Negative Urine Ketones Negative Urine Blood Negative Urine Nitrite Negative Urine Bilirubin Negative Urine Urobilinogen 1.0 Ur Leukocyte Esterase Negative Opiates Screen Methadone Screen Barbiturate Screen Phencyclidine Screen Ur Amphetamines Screen MDMA (Ecstasy) Screen Benzodiazepines Screen Cocaine Screen U Marijuana (THC) Screen HIV 1&2 Antibody Screen HIV P24 Antigen Influenza A (Rapid) Influenza B (Rapid) RSV Rapid 05/15/19 05/15/19 05/15/19 12:50 15:35 19:28 WBC RBC Hgb Hct MCV MCH MCHC RDW Plt Count MPV Absolute Neuts (auto) Neutrophils % Lymphocytes % Monocytes % Eosinophils % Basophils % Nucleated RBC % PT with INR INR PTT (Actin FS) VBG pH 7.41 POC VBG pCO2 45.0 POC VBG pO2 64.9 H VBG HCO3 27.7 VBG O2 Sat (Manny) 91.5 H VBG Base Excess 3.2 H Sodium Potassium Chloride Carbon Dioxide Anion Gap BUN Creatinine Est GFR (CKD-EPI)AfAm Est GFR (CKD-EPI)NonAf Random Glucose Lactic Acid Calcium Total Bilirubin AST ALT Alkaline Phosphatase Troponin I Total Protein Albumin Urine Color Urine Appearance Urine pH Ur Specific [place] Urine Protein Urine Glucose (UA) Urine Ketones Urine Blood Urine Nitrite Urine Bilirubin Urine Urobilinogen Ur Leukocyte Esterase Opiates Screen Methadone Screen Barbiturate Screen Phencyclidine Screen Ur Amphetamines Screen MDMA (Ecstasy) Screen Benzodiazepines Screen Cocaine Screen U Marijuana (THC) Screen HIV 1&2 Antibody Screen Negative HIV P24 Antigen Negative Influenza A (Rapid) Negative Influenza B (Rapid) Negative RSV Rapid 05/15/19 05/16/19 19:28 11:30 WBC RBC Hgb Hct MCV MCH MCHC RDW Plt Count MPV Absolute Neuts (auto) Neutrophils % Lymphocytes % Monocytes % Eosinophils % Basophils % Nucleated RBC % PT with INR INR PTT (Actin FS) VBG pH POC VBG pCO2 POC VBG pO2 VBG HCO3 VBG O2 Sat (Manny) VBG Base Excess Sodium Potassium Chloride Carbon Dioxide Anion Gap BUN Creatinine Est GFR (CKD-EPI)AfAm Est GFR (CKD-EPI)NonAf Random Glucose Lactic Acid Calcium Total Bilirubin AST ALT Alkaline Phosphatase Troponin I Total Protein Albumin Urine Color Urine Appearance Urine pH Ur Specific [place] Urine Protein Urine Glucose (UA) Urine Ketones Urine Blood Urine Nitrite Urine Bilirubin Urine Urobilinogen Ur Leukocyte Esterase Opiates Screen Negative Methadone Screen Negative Barbiturate Screen Negative Phencyclidine Screen Negative Ur Amphetamines Screen Negative MDMA (Ecstasy) Screen Negative Benzodiazepines Screen Positive A* Cocaine Screen Negative U Marijuana (THC) Screen Negative HIV 1&2 Antibody Screen HIV P24 Antigen Influenza A (Rapid) Influenza B (Rapid) RSV Rapid Negative Active Medications Generic Name Dose Route Start Last Admin Trade Name Freq PRN Reason Stop Dose Admin Acetaminophen 650 mg 05/15/19 17:50 Tylenol - PO Q4H PRN FEVER Atorvastatin Calcium 20 mg 05/15/19 22:00 05/15/19 23:16 Lipitor - PO 20 mg HS MIKY Administration Divalproex Sodium 500 mg 05/15/19 22:00 05/16/19 10:10 Depakote - PO 500 mg BID MIKY Administration Folic Acid 1 mg 05/16/19 10:00 05/16/19 10:10 Folic Acid - PO 1 mg DAILY MIKY Administration Lactated Ringer's 1,000 ml in 1,000 mls @ 100 mls/hr 05/15/19 18:00 05/15/19 18:36 Lactated Ringers Solution IV 100 mls/hr ASDIR MIKY Administration Ceftriaxone Sodium 2 gm/ 100 mls @ 100 mls/hr 05/15/19 20:00 05/16/19 10:10 Dextrose IVPB 100 mls/hr DAILY MIKY Administration Protocol Levetiracetam 500 mg 05/15/19 22:00 05/16/19 10:10 Keppra - PO 500 mg BID MIKY Administration Olanzapine 20 mg 05/15/19 22:00 05/15/19 23:16 Zyprexa - PO 20 mg HS MIKY Administration Thiamine HCl 100 mg 05/16/19 10:00 05/16/19 10:10 Vitamin B1 - PO 100 mg DAILY MIKY Administration ASSESSMENT/PLAN: Fever it is possibley due to pneumonia on iv abx Hypotension Stable now and continue iv fluids at this time. Polysubstance abuse urine tox came back with positive benzo Seizure Disorder no siezure noted in hospital continue meds keppra Back and chest pains increase dose of morphine to 4 mg every six hourly. FEN: Fluids: LR @100cc/hr Electrolyte abnormalities: None Nutrition: Regular diet PPX: DVT - SCds GI - Not indicated Visit type - Emergency Visit Emergency Visit: Yes ED Registration Date: 05/15/19 Care time: The patient presented to the Emergency Department on the above date and was hospitalized for further evaluation of their emergent condition. - New Patient This patient is new to me today: Yes Date on this admission: 05/16/19 - Critical Care Critical Care patient: No - Discharge Referral Referred to [facility] Med P.C[facility] No
[2019-05-16 12:33] LABS: BASO % 0.4 % (0-2.0); EOS % 3.7 % (0-4.5); HEMATOCRIT 26.8 % (35.4-49); HEMOGLOBIN 8.9 GM/dL (11.7-16.9); LYMPH % 22.4 % (8-40); MCH 28.4 pg (25.7-33.7); MEAN CELL VOLUME 86.1 fl (80-96); MEAN PLT VOLUME 7.3 fl (7.5-11.1); MONO % 15.3 % (3.8-10.2); NEUT % 58.2 % (42.8-82.8); PLATELET COUNT 222 K/MM3 (134-434); RBC 3.12 M/mm3 (4.00-5.60); RDW 15.3 % (11.9-15.9); WHITE BLOOD COUNT 5.9 K/mm3 (4.0-10.0)
[2019-05-16 13:00] LABS: BLOOD UREA NITROGEN 10.3 mg/dL (7-18); CALCIUM 8.2 mg/dL (8.5-10.1); CREATININE 0.5 mg/dL (0.55-1.3); MAGNESIUM 1.9 mg/dL (1.8-2.4)
--- NOTE | 2019-05-16 14:47 | EKG ---
Test Reason : Blood Pressure : / mmHG Vent. Rate : 075 BPM Atrial Rate : 075 BPM P-R Int : 122 ms QRS Dur : 096 ms QT Int : 410 ms P-R-T Axes : 066 062 057 degrees QTc Int : 457 ms NORMAL SINUS RHYTHM NORMAL ECG WHEN COMPARED WITH ECG OF 11-MAY-2019 10:13, NO SIGNIFICANT CHANGE WAS FOUND Confirmed by LUIS CARPENTER MD ([id number]) on 05/16/2019 2:47:10 PM Referred By: Confirmed By:LUIS CARPENTER MD
--- NOTE | 2019-05-16 16:20 | PN ---
Progress Note, Physician History of Present Illness: AWAKE, ALERT SUPINE IN BED REPORTS OCCASIONAL COUGH, WHITE SPUTUM TEMPS DOWN AFEBRILE LEGIONELLA AG (-) PNEUMOCOCCAL AG + HIV(-) FLU (-) RSV(-) - Current Medication List Current Medications: Active Medications Acetaminophen (Tylenol -) 650 mg PO Q4H PRN PRN Reason: FEVER Atorvastatin Calcium (Lipitor -) 20 mg PO HS [facility] Last Admin: 05/15/19 23:16 Dose: 20 mg Divalproex Sodium (Depakote -) 500 mg PO BID [facility] Last Admin: 05/16/19 10:10 Dose: 500 mg Folic Acid (Folic Acid -) 1 mg PO DAILY [facility] Last Admin: 05/16/19 10:10 Dose: 1 mg Lactated Ringer's (Lactated Ringers Solution) 1,000 ml in 1,000 mls @ 100 mls/ hr IV ASDIR [facility] Last Admin: 05/15/19 18:36 Dose: 100 mls/hr Ceftriaxone Sodium 2 gm/ (Dextrose) 100 mls @ 100 mls/hr IVPB DAILY [facility]; Protocol Last Admin: 05/16/19 10:10 Dose: 100 mls/hr Levetiracetam (Keppra -) 500 mg PO BID [facility] Last Admin: 05/16/19 10:10 Dose: 500 mg Olanzapine (Zyprexa -) 20 mg PO HS [facility] Last Admin: 05/15/19 23:16 Dose: 20 mg Thiamine HCl (Vitamin B1 -) 100 mg PO DAILY [facility] Last Admin: 05/16/19 10:10 Dose: 100 mg - Objective Vital Signs: Vital Signs Temperature 98.1 F 05/16/19 14:00 Pulse Rate 73 05/16/19 14:00 Respiratory Rate 20 05/16/19 14:00 Blood Pressure 106/69 05/16/19 14:00 O2 Sat by Pulse Oximetry (%) 99 05/16/19 09:00 Constitutional: Yes: No Distress Cardiovascular: Yes: Regular Rate and Rhythm, S1, S2 Respiratory: Yes: Rhonchi Gastrointestinal: Yes: Normal Bowel Sounds, Soft Labs: CBC, BMP 05/16/19 11:50 05/16/19 11:50 INR, PTT INR 1.27 (0.83-1.09) H 05/15/19 12:37 Assessment/Plan ? PNEUMOCOCCAL PNEUMONIA HX SUBSTANCE ABUSE CONTINUE CEFTRIAXONE CHECK SPUTUM C/S
[2019-05-16] MEDS: LACTATED RINGERS SOLUTION 1,000 ML/1,000 ML INFUS.BAG IV SCH (18:07)
[2019-05-16] MEDS: OLANZapine 10 MG TABLET PO SCH (21:01)
[2019-05-16] MEDS: ATORVASTATIN CA 20 MG TABLET (FP) PO SCH (21:01)
[2019-05-17] MEDS ORDERED: DEXTROSE 5%-WATER 100 ML IVPB ONE (09:13)
[2019-05-17] MEDS: levETIRAcetam 500 MG TABLET (FP) PO SCH ×2 (09:21→21:07)
[2019-05-17] MEDS: FOLIC ACID 1 MG TABLET (FP) PO SCH (09:21)
[2019-05-17] MEDS: DIVALPROEX SODIUM 500 MG TABLET E.C. PO SCH ×2 (09:21→21:07)
[2019-05-17] MEDS: THIAMINE HCL 100 MG TABLET (FP) PO SCH (09:21)
[2019-05-17] MEDS: CEFTRIAXONE 2 GM in DEXTROSE 5%-WATER 100 ML IVPB SCH (09:21)
--- NOTE | 2019-05-17 11:42 | PN ---
Physical Exam: SUBJECTIVE: Patient seen and examined He is better and no fever ro chills he is eating well his wbc count is better. OBJECTIVE: Vital Signs Period Temp Pulse Resp BP Sys/Quintanilla Pulse Ox Last 24 Hr 97.5 F-99 F 64-76 20-20 106-133/65-78 98-98 GENERAL: The patient is awake, alert, , in no acute distress. HEAD: Normal with no signs of trauma. NECK: Trachea midline, full range of motion, supple. LUNGS: coarse bs bilateral . HEART: Regular rate and rhythm, S1, S2 without murmur, rub or gallop. ABDOMEN: Soft, nontender, nondistended, normoactive bowel sounds, no guarding, no rebound, no hepatosplenomegaly, no masses. EXTREMITIES: 2+ pulses, warm, well-perfused, no edema. NEUROLOGICAL: alert and awake and oriented Laboratory Results - last 24 hr 05/16/19 05/16/19 05/16/19 10:16 11:30 11:50 WBC 5.9 RBC 3.12 L Hgb 8.9 L Hct 26.8 L MCV 86.1 MCH 28.4 MCHC 33.0 RDW 15.3 Plt Count 222 MPV 7.3 L D Absolute Neuts (auto) 3.4 Neutrophils % 58.2 D Lymphocytes % 22.4 D Monocytes % 15.3 H Eosinophils % 3.7 Basophils % 0.4 Nucleated RBC % 0 ESR Sodium Potassium Chloride Carbon Dioxide Anion Gap BUN Creatinine Est GFR (CKD-EPI)AfAm Est GFR (CKD-EPI)NonAf Random Glucose Calcium Magnesium C-Reactive Protein 3.8 H Opiates Screen Negative Methadone Screen Negative Barbiturate Screen Negative Phencyclidine Screen Negative Ur Amphetamines Screen Negative MDMA (Ecstasy) Screen Negative Benzodiazepines Screen Positive A* Cocaine Screen Negative U Marijuana (THC) Screen Negative 05/16/19 05/16/19 11:50 11:50 WBC RBC Hgb Hct MCV MCH MCHC RDW Plt Count MPV Absolute Neuts (auto) Neutrophils % Lymphocytes % Monocytes % Eosinophils % Basophils % Nucleated RBC % ESR 83 H Sodium 143 Potassium 4.0 Chloride 107 Carbon Dioxide 31 Anion Gap 5 L BUN 10.3 Creatinine 0.5 L Est GFR (CKD-EPI)AfAm 133.67 Est GFR (CKD-EPI)NonAf 115.33 Random Glucose 87 Calcium 8.2 L Magnesium 1.9 C-Reactive Protein Opiates Screen Methadone Screen Barbiturate Screen Phencyclidine Screen Ur Amphetamines Screen MDMA (Ecstasy) Screen Benzodiazepines Screen Cocaine Screen U Marijuana (THC) Screen Active Medications Generic Name Dose Route Start Last Admin Trade Name Freq PRN Reason Stop Dose Admin Acetaminophen 650 mg 05/15/19 17:50 Tylenol - PO Q4H PRN FEVER Atorvastatin Calcium 20 mg 05/15/19 22:00 05/16/19 21:01 Lipitor - PO 20 mg HS MIKY Administration Divalproex Sodium 500 mg 05/15/19 22:00 05/17/19 09:21 Depakote - PO 500 mg BID MIKY Administration Folic Acid 1 mg 05/16/19 10:00 05/17/19 09:21 Folic Acid - PO 1 mg DAILY MIKY Administration Lactated Ringer's 1,000 ml in 1,000 mls @ 100 mls/hr 05/15/19 18:00 05/16/19 18:07 Lactated Ringers Solution IV 100 mls/hr ASDIR MIKY Administration Ceftriaxone Sodium 2 gm/ 100 mls @ 100 mls/hr 05/15/19 20:00 05/17/19 09:21 Dextrose IVPB 100 mls/hr DAILY MIKY Administration Protocol Levetiracetam 500 mg 05/15/19 22:00 05/17/19 09:21 Keppra - PO 500 mg BID MIKY Administration Olanzapine 20 mg 05/15/19 22:00 05/16/19 21:01 Zyprexa - PO 20 mg HS MIKY Administration Thiamine HCl 100 mg 05/16/19 10:00 05/17/19 09:21 Vitamin B1 - PO 100 mg DAILY MIKY Administration A/P Fever AND pneumonia on iv abx Hypotension Stable now and continue iv fluids at this time. Polysubstance abuse urine tox came back with positive benzo Seizure Disorder no siezure noted in hospital continue meds keppra FEN: Fluids: LR @100cc/hr Electrolyte abnormalities: None Nutrition: Regular diet PPX: DVT - SCds GI - Not indicated Visit type - Emergency Visit Emergency Visit: Yes ED Registration Date: 05/15/19 Care time: The patient presented to the Emergency Department on the above date and was hospitalized for further evaluation of their emergent condition. - New Patient This patient is new to me today: Yes Date on this admission: 05/17/19 - Critical Care Critical Care patient: No - Discharge Referral Referred to [facility] Med P.C.: No
[2019-05-17] MEDS: OLANZapine 10 MG TABLET PO SCH (21:07)
[2019-05-17] MEDS: ATORVASTATIN CA 20 MG TABLET (FP) PO SCH (21:07)
--- NOTE | 2019-05-18 08:16 | PN ---
Progress Note (short form) - Note Progress Note: HPI: No fevers overnight. Pt with continued sputum production and denies shortness of breath. Denies CP, palpitations PE: GENERAL: Cachectic, NAD, Awake, alert, and fully oriented HEENT: NC/AT, sclera anicteric, OC, mouth without ulcerations, no thrush observed LUNGS: Rhoncherous breath sounds L>R, no wheezes, no accessory muscle use. 98% on RA HEART: RRR, normal S1 and S2 without murmur, ABDOMEN: Soft, NT/ND, normoactive bowel sounds, no guarding LOWER EXTREMITIES: 2+ DP pulses, warm No calf tenderness. No peripheral edema. NEUROLOGICAL: R-sided chronic weakness noted. 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 PSYCHIATRIC: Cooperative. Good eye contact. Appropriate mood and affect. SKIN: Warm, dry, no rashes or lesions noted CBC, BMP 05/18/19 08:24 05/18/19 08:24 Microbiology 05/16/19 16:50 Sputum - Expectorated Gram Stain - Final 05/16/19 16:50 Sputum - Expectorated Sputum Culture - Preliminary Yeast Like Organism 05/15/19 12:30 Blood - Peripheral Venous Blood Culture - Preliminary NO GROWTH OBTAINED AFTER 72 HOURS, INCUBATION TO CONTINUE FOR 2 DAYS. 05/15/19 12:30 Blood - Peripheral Venous Blood Culture - Preliminary NO GROWTH OBTAINED AFTER 72 HOURS, INCUBATION TO CONTINUE FOR 2 DAYS. 05/16/19 12:00 Urine For Antigen Detection Legionella Antigen - Final 05/16/19 12:00 Urine For Antigen Detection Streptococcus pneumoniae Antigen (M - Final 05/15/19 12:37 Urine - Urine Clean Catch Urine Culture - Final NO GROWTH OBTAINED Active Medications Acetaminophen (Tylenol -) 650 mg PO Q4H PRN PRN Reason: FEVER Aspirin (Ecotrin -) 81 mg PO DAILY [facility] Last Admin: 05/18/19 09:18 Dose: 81 mg Atorvastatin Calcium (Lipitor -) 20 mg PO HS [facility] Last Admin: 05/18/19 21:43 Dose: 20 mg Budesonide/Formoterol Fumarate (Symbicort 160/4.5mcg -) 2 puff IH BID [facility] Last Admin: 05/18/19 21:42 Dose: 2 inhaler Divalproex Sodium (Depakote -) 500 mg PO BID [facility] Last Admin: 05/18/19 21:43 Dose: 500 mg Folic Acid (Folic Acid -) 1 mg PO DAILY [facility] Last Admin: 05/18/19 09:18 Dose: 1 mg Ceftriaxone Sodium 2 gm/ (Dextrose) 100 mls @ 100 mls/hr IVPB DAILY [facility]; Protocol Last Admin: 05/18/19 09:18 Dose: 100 mls/hr Levetiracetam (Keppra -) 500 mg PO BID [facility] Last Admin: 05/18/19 21:43 Dose: 500 mg Olanzapine (Zyprexa -) 20 mg PO HS [facility] Last Admin: 05/18/19 21:43 Dose: 20 mg Thiamine HCl (Vitamin B1 -) 100 mg PO DAILY [facility] Last Admin: 05/18/19 09:18 Dose: 100 mg Tiotropium [place] (Spiriva Respimat) 2 puff IH DAILY [facility] Last Admin: 05/18/19 09:35 Dose: 2 puff Assessment and Plan: Community acquired Pneumonia Multiple apical lung nodules COPD 2/2 to tobacco abuse history Bronchiectasis Seizure history 2/2 CVA Polysubstance abuse Normocytic anemia Leukopenia --Pt afebrile for 24hrs --Continue Rocephin 2gm for CAPna --Can likely de-escalate from IV ABX per ID --Pt can optional CT scan in 6-12 months for pulmonary nodule f/u --Continue Spiriva qdaily --Continue Symbicort 160/4.5 BID --Albuterol PRN --Continue Keppra 500mg BID --Continue rest of home medications: ASA 81m qdaily Lipitor 20mg HS Depakote 500mg BID Zyprexa 20mg HS PO --Folic acid to continue FEN: Fluids: PO encouraged Electrolyte abnormalities: none Nutrition: Regular diet PPX: DVT - SCDs for now Dispo: Can likely de-escalate IV ABX to oral agents and can d/c back to inpatient rehab soon Case discussed with Dr. Marissa Lao, DO - IM PGY-3 <Jamari Lao - Last Filed: 05/19/19 01:21> - Note Progress Note: Seen and examined in ER; agree with above history and physcial. Independently verified all exam findings and historical information. Personally reviewed all imaging and all diagnostics. Discussed with resident team. No new symptoms; smacks lips together in pattern that appears like Tardive Dyskinesia but tells me that he has a diagnosis of Parkinsons. He denies issues swallowing and can apparently sip his cup of water. He doesn't have solid food around to complete a formal bedside eval. If I have persisting suspicions of dysphagia I will obtain his prior records and consider consulting speech and swallow. 10 sys ROS done and negative aside from HPI VS noted; orthostatics pending NAD, AAOx3, resting in bed NC AT EOMI PERRLA Neck supple, (-) B/K-mening signs, trachea midline, no LN CN2-12 wnl, no FND Lungs with scattered wheezes b/l but no focal consolidation, w/ sym exp NT ND +BS Skin without rashes or breakdown or obvious track osborne Normal strength 5/5 all 4 ext with normal tone Flat affect, negligible CIWA, limited insight Final imaging reads pending Labs pending serology, etc. A/P: This is a 64 y/o male presenting to the ER with hypotension and fever with normal HR; technically septic with unclear source. Underlying polysubstance abuse and seizure disorder (unclear if organic or related to this). He is found to have a multifocal pneumonia with PNC Ag + and was seen by ID and is cleared to go on Levaquin if remains stable for an additional 7 days. He is considering going back to [facility] to complete his rehab and detox. Community acquired Pneumococcal Pneumonia, multifocal and Multiple apical lung nodules, followup imaging per radiology guidelines COPD 2/2 to tobacco abuse history, followup pulmonary recs and needs OP PFTs and COPD tx Bronchiectasis Seizure history 2/2 CVA Polysubstance abuse Normocytic anemia Leukopenia Problem list agreed with per resident note. Full Code <Reza Ann - Last Filed: 05/20/19 01:39>
[2019-05-18 08:48] LABS: HEMATOCRIT 28.8 % (35.4-49); HEMOGLOBIN 9.5 GM/dL (11.7-16.9); MCH 28.4 pg (25.7-33.7); MEAN CELL VOLUME 86.2 fl (80-96); MEAN PLT VOLUME 7.7 fl (7.5-11.1); PLATELET COUNT 252 K/MM3 (134-434); RBC 3.34 M/mm3 (4.00-5.60); RDW 15.2 % (11.9-15.9); WHITE BLOOD COUNT 3.1 K/mm3 (4.0-10.0)
[2019-05-18 09:08] LABS: BLOOD UREA NITROGEN 11.8 mg/dL (7-18); CALCIUM 8.4 mg/dL (8.5-10.1); CREATININE 0.5 mg/dL (0.55-1.3); POTASSIUM 4.5 mmol/L (3.5-5.1)
[2019-05-18] MEDS ORDERED: PT OWN MED DRAWER 7, Y5N ONE (09:13)
[2019-05-18] MEDS ORDERED: DEXTROSE 5%-WATER 100 ML IVPB ONE (09:13)
[2019-05-18] MEDS: CEFTRIAXONE 2 GM in DEXTROSE 5%-WATER 100 ML IVPB SCH (09:18)
[2019-05-18] MEDS: levETIRAcetam 500 MG TABLET (FP) PO SCH ×2 (09:18→21:43)
[2019-05-18] MEDS: FOLIC ACID 1 MG TABLET (FP) PO SCH (09:18)
[2019-05-18] MEDS: ASPIRIN COATED 81 MG TABLET.EC PO SCH (09:18)
[2019-05-18] MEDS: DIVALPROEX SODIUM 500 MG TABLET E.C. PO SCH ×2 (09:18→21:43)
[2019-05-18] MEDS: THIAMINE HCL 100 MG TABLET (FP) PO SCH (09:18)
--- NOTE | 2019-05-18 09:19 | CON.PULM ---
Consult Consult Specialty:: PULM/CCM Referred by:: Hospitalist Reason for Consultation:: COPD - History of Present Illness Chief Complaint: fever History of Present Illness: 64 M, alcohol and crack/cocaine abuse, seizure disorder, and long standing 1 PPD smoker. Admitted from rehab for fever. Reports some increase in daily cough productive of white to clear sputum. No hemoptysis. No travel history or sick contacts. He has never had baseline PFTs. He reports sporadic use of inhalational devices. He has not been steroid dependent. There is no history that would be consistent with [facility]. 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 No: O2 Dependent, Pneumonia, Previously Intubated, Pulmonary Embolus, Pulmonary Fibrosis, Sleep Apnea - Alcohol/Substance Use Hx Alcohol Use: Yes - Smoking History Smoking history: Smoker current status UNK Have you smoked in the past 12 months: Yes Aproximately how many cigarettes per day: 8 Home Medications - Allergies Allergies/Adverse Reactions: Allergies Allergy/AdvReac Type Severity Reaction Status Date / Time No Known Allergies Allergy Verified 05/15/19 11:49 - Home Medications Home Medications: Ambulatory Orders Folic Acid 1 mg PO DAILY 02/13/19 Atorvastatin Ca [Lipitor] 20 mg PO DAILY 05/08/19 Olanzapine [Zyprexa] 20 mg PO HS 05/08/19 Umeclidinium [place] [Incruse Ellipta] 62.5 mcg IH DAILY 05/08/19 Valbenazine Tosylate [Ingrezza] 80 mg PO DAILY 05/08/19 Valproic Acid 500 mg PO BID 05/08/19 levETIRAcetam [Keppra -] 500 mg PO BID 05/08/19 traZODone HCL [Desyrel -] 50 mg PO HS 05/08/19 Review of Systems - Review of Systems Constitutional: reports: Fever, Malaise. denies: Night Sweats, Unintentional Wgt. Loss Eyes: reports: No Symptoms HENT: reports: No Symptoms Neck: reports: No Symptoms Cardiovascular: reports: Shortness of Breath. denies: Chest Pain, Edema, Palpitations Respiratory: reports: Cough, SOB, SOB on Exertion. denies: Hemoptysis, Orthopnea, PND, Snoring, Wheezing Gastrointestinal: reports: No Symptoms Genitourinary: reports: No Symptoms Breasts: reports: No Symptoms Reported Musculoskeletal: reports: No Symptoms Integumentary: reports: No Symptoms Neurological: reports: No Symptoms Endocrine: reports: No Symptoms Hematology/Lymphatic: reports: No Symptoms Psychiatric: reports: No Symptoms Physical Exam Vital Sings: Vital Signs Temperature 98 F 05/18/19 06:41 Pulse Rate 59 L 05/18/19 06:41 Respiratory Rate 23 H 05/18/19 06:41 Blood Pressure 120/68 05/18/19 06:41 O2 Sat by Pulse Oximetry (%) 98 05/17/19 21:00 Constitutional: Yes: No Distress, Thin Eyes: Yes: Conjunctiva Clear, EOM Intact HENT: Yes: Atraumatic, Normocephalic Neck: Yes: Supple, Trachea Midline Cardiovascular: Yes: Regular Rate and Rhythm Respiratory: Yes: Cough, Diminished. No: Accessory Muscle Use, Rales, Rhonchi, SOB, SOB on Exertion, Stridor, Tachypnea, Wheezes ...Inspection: Yes: WNL ...Clubbing: No Gastrointestinal: Yes: Normal Bowel Sounds, Soft Renal/: Yes: WNL Musculoskeletal: Yes: WNL Extremities: Yes: WNL Edema: No Peripheral Pulses WNL: Yes Integumentary: Yes: WNL Neurological: Yes: WNL, Alert, Oriented ...Motor Strength: WNL Psychiatric: Yes: WNL, Oriented Labs: CBC, BMP 05/18/19 08:24 Imaging - Results Chest X-ray: Report Reviewed, Image Reviewed Cat Scan: Report Reviewed, Image Reviewed Problem List - Problems (1) COPD (chronic obstructive pulmonary disease) Code(s): J44.9 - CHRONIC OBSTRUCTIVE PULMONARY DISEASE, UNSPECIFIED (2) Fever Code(s): R50.9 - FEVER, UNSPECIFIED Qualifiers: Fever type: unspecified Qualified Code(s): R50.9 - Fever, unspecified (3) Alcohol dependence Code(s): F10.20 - ALCOHOL DEPENDENCE, UNCOMPLICATED (4) 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 head injury Code(s): R56.1 - POST TRAUMATIC SEIZURES (5) Cocaine dependence Code(s): F14.20 - COCAINE DEPENDENCE, UNCOMPLICATED Qualifiers: Substance use status: uncomplicated Qualified Code(s): F14.20 - Cocaine dependence, uncomplicated (6) Insomnia Code(s): G47.00 - INSOMNIA, UNSPECIFIED Qualifiers: Insomnia type: unspecified Qualified Code(s): G47.00 - Insomnia, unspecified (7) Nicotine dependence Code(s): F17.200 - NICOTINE DEPENDENCE, UNSPECIFIED, UNCOMPLICATED Qualifiers: Nicotine product type: cigarettes Substance use status: in withdrawal Qualified Code(s): F17.213 - Nicotine dependence, cigarettes, with withdrawal (8) Lung granuloma Code(s): J84.10 - PULMONARY FIBROSIS, UNSPECIFIED (9) Lung nodule < 6cm on CT Code(s): R91.1 - SOLITARY PULMONARY NODULE (10) Emphysema lung Code(s): J43.9 - EMPHYSEMA, UNSPECIFIED (11) Bronchiectasis Code(s): J47.9 - BRONCHIECTASIS, UNCOMPLICATED (12) Community acquired pneumonia Code(s): J18.9 - PNEUMONIA, UNSPECIFIED ORGANISM Assessment/Plan COPD due to long standing smoking history: likely GOLD stage 1 or 2 Multiple non-calcified subcentimeter apical nodules ABX per ID Smoking cessation discussed at length Will need outpatient PFTs BD TX PRN No clear indication to add systemic steroids at this point Noted Spiriva and Symbicort Can DC home on just Albuterol PRN and a LAMA & LABA combination According to the updated Fleischner 2017 recommendations, an optional [address] is suggested. Will follow Thank you. Dr Arciniega
[2019-05-18] MEDS: BUDESONIDE/FORMETEROL FUMARATE 160/4.5 mcg INHALER IH SCH ×2 (09:30→21:42)
[2019-05-18] MEDS: TIOTROPIUM BROMIDE 2.5 MCG (SPIRIVA) RESPIMAT INHALER IH SCH (09:35)
--- NOTE | 2019-05-18 13:49 | ECHO ---
Name: GERSON HAZELALD Exam:Adult Echocardiogram Study Date: 05/18/2019 11:47 AM Age: 64 yrs Reason For Study: CAD Height: 66 in Weight: 130 lb BSA: 1.7 m2 MMode/2D Measurements & Calculations IVSd: 0.75 cm Ao root diam: 2.9 cm LVIDd: 4.2 cm LA dimension: 2.1 cm LVIDs: 2.9 cm LVPWd: 1.0 cm LVPWs: 1.3 cm EDV(Teich): 78.3 ml ESV(Teich): 32.6 ml LVOT diam: 2.1 cm RV S Koko: 11.0 cm/sec Doppler Measurements & Calculations MV E max koko: 78.0 cm/sec Ao V2 max: 118.2 cm/sec MV A max koko: 51.8 cm/sec Ao max P.6 mmHg MV E/A: 1.5 MV dec time: 0.26 sec MIRTHA(V,D): 3.1 cm2 LV V1 max P.1 mmHg TR max koko: 193.2 cm/sec LV V1 max: 100.7 cm/sec TR max P.5 mmHg PA V2 max: 99.1 cm/sec Med Peak E' Koko: 10.1 cm/sec PA max P.1 mmHg Med E/e': 7.7 Lat Peak E' Koko: 12.6 cm/sec Lat E/e': 6.2 Procedure A complete two-dimensional transthoracic echocardiogram was performed (2D, M-mode, Doppler and color flow Doppler). Left Ventricle The left ventricle is normal in size. Left ventricular systolic function is normal. Ejection Fraction = 55- 60%. No regional wall motion abnormalities noted. Right Ventricle The right ventricle is normal size. The right ventricular systolic function is normal. RV systolic TD I is 11 cm/s. Atria The left atrial size is normal. Right atrial size is normal. Mitral Valve There is mild mitral annular calcification. There is mild mitral regurgitation. Tricuspid Valve The tricuspid valve is normal in structure and function. There is mild tricuspid regurgitation. Pulmo nary artery systolic pressure is at least 24 mmHg if RA pressure is assumed 3 mmHg. Aortic Valve There is mild aortic sclerosis.;. No aortic regurgitation is present. Pulmonic Valve The pulmonic valve is not well visualized. Great Vessels The aortic root is normal size. Pericardium/Pleura There is no pericardial effusion. Interpretation Summary The left ventricle is normal in size. Left ventricular systolic function is normal. No regional wall motion abnormalities noted. Ejection Fraction = 55-60%. The right ventricular systolic function is normal. The left atrial size is normal. Right atrial size is normal. There is mild mitral annular calcification. There is mild mitral regurgitation. There is mild tricuspid regurgitation. Pulmonary artery systolic pressure is at least 24 mmHg if RA pressure is assumed 3 mmHg There is mild aortic sclerosis. There is no pericardial effusion. Previous study is not available for comparison Genaro Lyn MD 05/18/2019 01:49 PM
[2019-05-18] MEDS: ATORVASTATIN CA 20 MG TABLET (FP) PO SCH (21:43)
[2019-05-18] MEDS: OLANZapine 10 MG TABLET PO SCH (21:43)
[2019-05-19 08:17] LABS: HEMATOCRIT 28.7 % (35.4-49); HEMOGLOBIN 9.2 GM/dL (11.7-16.9); MCH 27.8 pg (25.7-33.7); MCHC 32.2 g/dl (32.0-35.9); MEAN CELL VOLUME 86.4 fl (80-96); MEAN PLT VOLUME 8.5 fl (7.5-11.1); PLATELET COUNT 258 K/MM3 (134-434); RBC 3.32 M/mm3 (4.00-5.60); RDW 15.2 % (11.9-15.9); WHITE BLOOD COUNT 3.6 K/mm3 (4.0-10.0)
[2019-05-19 08:43] LABS: ALBUMIN 2.4 g/dl (3.4-5.0); BILIRUBIN,TOTAL 0.2 mg/dL (0.2-1); BLOOD UREA NITROGEN 10.2 mg/dL (7-18); CALCIUM 8.3 mg/dL (8.5-10.1); CREATININE 0.6 mg/dL (0.55-1.3); PHOSPHOROUS 3.5 mg/dL (2.5-4.9); POTASSIUM 4.3 mmol/L (3.5-5.1); TOT PROT 5.9 g/dl (6.4-8.2)
[2019-05-19] MEDS ORDERED: DEXTROSE 5%-WATER 100 ML IVPB ONE (09:02)
[2019-05-19] MEDS: levETIRAcetam 500 MG TABLET (FP) PO SCH ×2 (09:11→21:59)
[2019-05-19] MEDS: THIAMINE HCL 100 MG TABLET (FP) PO SCH (09:11)
[2019-05-19] MEDS: ASPIRIN COATED 81 MG TABLET.EC PO SCH (09:11)
[2019-05-19] MEDS: CEFTRIAXONE 2 GM in DEXTROSE 5%-WATER 100 ML IVPB SCH (09:11)
[2019-05-19] MEDS: FOLIC ACID 1 MG TABLET (FP) PO SCH (09:11)
[2019-05-19] MEDS: DIVALPROEX SODIUM 500 MG TABLET E.C. PO SCH ×2 (09:11→21:59)
[2019-05-19] MEDS: BUDESONIDE/FORMETEROL FUMARATE 160/4.5 mcg INHALER IH SCH ×2 (09:12→22:00)
[2019-05-19] MEDS: TIOTROPIUM BROMIDE 2.5 MCG (SPIRIVA) RESPIMAT INHALER IH SCH (09:12)
--- NOTE | 2019-05-19 09:38 | PN ---
Progress Note (short form) - Note Progress Note: Feels a little better today. Some dry cough. Remains afebrile. No acute events overnight. Intake & Output 05/16/19 05/17/19 05/18/19 05/19/19 23:59 23:59 23:59 23:59 Intake Total 3800 2400 1360 0 Output Total 1200 1900 1000 Balance 2600 500 360 0 Last Vital Signs Temp Pulse Resp BP Pulse Ox 98.2 F 75 20 113/64 97 05/18/19 17:25 05/18/19 21:00 05/18/19 21:00 05/18/19 21:00 05/18/19 10:40 Active Medications Acetaminophen (Tylenol -) 650 mg PO Q4H PRN PRN Reason: FEVER Aspirin (Ecotrin -) 81 mg PO DAILY [facility] Last Admin: 05/19/19 09:11 Dose: 81 mg Atorvastatin Calcium (Lipitor -) 20 mg PO HS [facility] Last Admin: 05/18/19 21:43 Dose: 20 mg Budesonide/Formoterol Fumarate (Symbicort 160/4.5mcg -) 2 puff IH BID [facility] Last Admin: 05/19/19 09:12 Dose: 2 inhaler Divalproex Sodium (Depakote -) 500 mg PO BID [facility] Last Admin: 05/19/19 09:11 Dose: 500 mg Folic Acid (Folic Acid -) 1 mg PO DAILY [facility] Last Admin: 05/19/19 09:11 Dose: 1 mg Ceftriaxone Sodium 2 gm/ (Dextrose) 100 mls @ 100 mls/hr IVPB DAILY [facility]; Protocol Last Admin: 05/19/19 09:11 Dose: 100 mls/hr Levetiracetam (Keppra -) 500 mg PO BID [facility] Last Admin: 05/19/19 09:11 Dose: 500 mg Olanzapine (Zyprexa -) 20 mg PO HS [facility] Last Admin: 05/18/19 21:43 Dose: 20 mg Thiamine HCl (Vitamin B1 -) 100 mg PO DAILY [facility] Last Admin: 05/19/19 09:11 Dose: 100 mg Tiotropium [place] (Spiriva Respimat) 2 puff IH DAILY [facility] Last Admin: 05/19/19 09:12 Dose: 2 puff Constitutional: Yes: No Distress Eyes: Yes: Conjunctiva Clear, EOM Intact HENT: Yes: Atraumatic, Normocephalic Neck: Yes: Supple, Trachea Midline Cardiovascular: Yes: Regular Rate and Rhythm Respiratory: Yes: Cough, Diminished. No: Accessory Muscle Use, Rales, Rhonchi, SOB, SOB on Exertion, Stridor, Tachypnea, Wheezes ...Inspection: Yes: WNL ...Clubbing: No Gastrointestinal: Yes: Normal Bowel Sounds, Soft Renal/: Yes: WNL Musculoskeletal: Yes: WNL Extremities: Yes: WNL Edema: No Peripheral Pulses WNL: Yes Integumentary: Yes: WNL Neurological: Yes: WNL, Alert, Oriented ...Motor Strength: WNL Psychiatric: Yes: WNL, Oriented Labs: Laboratory Results - last 24 hr 05/17/19 05/18/19 05/18/19 05:37 08:24 08:24 WBC 3.1 L RBC 3.34 L Hgb 9.5 L Hct 28.8 L MCV 86.2 MCH 28.4 MCHC 33.0 RDW 15.2 Plt Count 252 MPV 7.7 Sodium 143 Potassium 4.5 Chloride 109 H Carbon Dioxide 30 Anion Gap 4 L BUN 11.8 Creatinine 0.5 L Est GFR (CKD-EPI)AfAm 133.67 Est GFR (CKD-EPI)NonAf 115.33 Random Glucose 84 Hemoglobin A1c % Calcium 8.4 L Phosphorus Magnesium Total Bilirubin AST ALT Alkaline Phosphatase Total Protein Albumin Triglycerides 32 Cholesterol 126 Total LDL Cholesterol 71 HDL Cholesterol 46 TSH 1.67 Cortisol AM Sample 8.6 05/18/19 05/19/19 05/19/19 10:00 06:55 06:55 WBC 3.6 L RBC 3.32 L Hgb 9.2 L Hct 28.7 L MCV 86.4 MCH 27.8 MCHC 32.2 RDW 15.2 Plt Count 258 MPV 8.5 D Sodium 146 H Potassium 4.3 Chloride 109 H Carbon Dioxide 30 Anion Gap 7 L BUN 10.2 Creatinine 0.6 Est GFR (CKD-EPI)AfAm 124.02 Est GFR (CKD-EPI)NonAf 107.00 Random Glucose 98 Hemoglobin A1c % 5.1 Calcium 8.3 L Phosphorus 3.5 Magnesium 2.0 Total Bilirubin 0.2 AST 12 L ALT 12 L Alkaline Phosphatase 72 Total Protein 5.9 L Albumin 2.4 L Triglycerides Cholesterol Total LDL Cholesterol HDL Cholesterol TSH Cortisol AM Sample Problem List - Problems (1) COPD (chronic obstructive pulmonary disease) Code(s): J44.9 - CHRONIC OBSTRUCTIVE PULMONARY DISEASE, UNSPECIFIED (2) Fever Code(s): R50.9 - FEVER, UNSPECIFIED Qualifiers: Fever type: unspecified Qualified Code(s): R50.9 - Fever, unspecified (3) Alcohol dependence Code(s): F10.20 - ALCOHOL DEPENDENCE, UNCOMPLICATED (4) 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 head injury Code(s): R56.1 - POST TRAUMATIC SEIZURES (5) Cocaine dependence Code(s): F14.20 - COCAINE DEPENDENCE, UNCOMPLICATED Qualifiers: Substance use status: uncomplicated Qualified Code(s): F14.20 - Cocaine dependence, uncomplicated (6) Insomnia Code(s): G47.00 - INSOMNIA, UNSPECIFIED Qualifiers: Insomnia type: unspecified Qualified Code(s): G47.00 - Insomnia, unspecified (7) Nicotine dependence Code(s): F17.200 - NICOTINE DEPENDENCE, UNSPECIFIED, UNCOMPLICATED Qualifiers: Nicotine product type: cigarettes Substance use status: in withdrawal Qualified Code(s): F17.213 - Nicotine dependence, cigarettes, with withdrawal (8) Lung granuloma Code(s): J84.10 - PULMONARY FIBROSIS, UNSPECIFIED (9) Lung nodule < 6cm on CT Code(s): R91.1 - SOLITARY PULMONARY NODULE (10) Emphysema lung Code(s): J43.9 - EMPHYSEMA, UNSPECIFIED (11) Bronchiectasis Code(s): J47.9 - BRONCHIECTASIS, UNCOMPLICATED (12) Community acquired pneumonia Code(s): J18.9 - PNEUMONIA, UNSPECIFIED ORGANISM Assessment/Plan COPD due to long standing smoking history: likely GOLD stage 1 or 2 Multiple non-calcified subcentimeter apical nodules ABX per ID: can consider to change to PO Smoking cessation discussed at length Will need outpatient PFTs BD TX PRN Spiriva and Symbicort Can DC home on just Albuterol PRN and a LAMA & LABA combination According to the updated Fleischner 2017 recommendations, an optional [address] Arciniega Problem List - Problems (1) COPD (chronic obstructive pulmonary disease) Code(s): J44.9 - CHRONIC OBSTRUCTIVE PULMONARY DISEASE, UNSPECIFIED (2) Fever Code(s): R50.9 - FEVER, UNSPECIFIED Qualifiers: Fever type: unspecified Qualified Code(s): R50.9 - Fever, unspecified (3) Alcohol dependence Code(s): F10.20 - ALCOHOL DEPENDENCE, UNCOMPLICATED (4) 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 head injury Code(s): R56.1 - POST TRAUMATIC SEIZURES (5) Cocaine dependence Code(s): F14.20 - COCAINE DEPENDENCE, UNCOMPLICATED Qualifiers: Substance use status: uncomplicated Qualified Code(s): F14.20 - Cocaine dependence, uncomplicated (6) Insomnia Code(s): G47.00 - INSOMNIA, UNSPECIFIED Qualifiers: Insomnia type: unspecified Qualified Code(s): G47.00 - Insomnia, unspecified (7) Nicotine dependence Code(s): F17.200 - NICOTINE DEPENDENCE, UNSPECIFIED, UNCOMPLICATED Qualifiers: Nicotine product type: cigarettes Substance use status: in withdrawal Qualified Code(s): F17.213 - Nicotine dependence, cigarettes, with withdrawal (8) Lung granuloma Code(s): J84.10 - PULMONARY FIBROSIS, UNSPECIFIED (9) Lung nodule < 6cm on CT Code(s): R91.1 - SOLITARY PULMONARY NODULE (10) Emphysema lung Code(s): J43.9 - EMPHYSEMA, UNSPECIFIED (11) Bronchiectasis Code(s): J47.9 - BRONCHIECTASIS, UNCOMPLICATED (12) Community acquired pneumonia Code(s): J18.9 - PNEUMONIA, UNSPECIFIED ORGANISM
--- NOTE | 2019-05-19 11:57 | DS ---
Physical Exam: SUBJECTIVE: OBJECTIVE: Vital Signs Period Temp Pulse Resp BP Sys/Quintanilla Pulse Ox Last 24 Hr 98.2 F-98.5 F 71-80 20-24 103-114/60-69 97 PHYSICAL EXAM GENERAL: The patient is awake, alert, and fully oriented, in no acute distress. HEAD: Normal with no signs of trauma. EYES: PERRL, extraocular movements intact, sclera anicteric, conjunctiva clear. ENT: Ears normal, nares patent, oropharynx clear without exudates, moist mucous membranes. NECK: Trachea midline, full range of motion, supple. LUNGS: Breath sounds equal, clear to auscultation bilaterally, no wheezes, no crackles, no accessory muscle use. HEART: Regular rate and rhythm, S1, S2 without murmur, rub or gallop. ABDOMEN: Soft, nontender, nondistended, normoactive bowel sounds, no guarding, no rebound, no hepatosplenomegaly, no masses. EXTREMITIES: 2+ pulses, warm, well-perfused, no edema. NEUROLOGICAL: Cranial nerves II through XII grossly intact. Normal speech, gait not observed. PSYCH: Normal mood, normal affect. SKIN: Warm, dry, normal turgor, no rashes or lesions noted. LABS Laboratory Results - last 24 hr 05/17/19 05/19/19 05/19/19 05:37 06:55 06:55 WBC 3.6 L RBC 3.32 L Hgb 9.2 L Hct 28.7 L MCV 86.4 MCH 27.8 MCHC 32.2 RDW 15.2 Plt Count 258 MPV 8.5 D Sodium 146 H Potassium 4.3 Chloride 109 H Carbon Dioxide 30 Anion Gap 7 L BUN 10.2 Creatinine 0.6 Est GFR (CKD-EPI)AfAm 124.02 Est GFR (CKD-EPI)NonAf 107.00 Random Glucose 98 Calcium 8.3 L Phosphorus 3.5 Magnesium 2.0 Total Bilirubin 0.2 AST 12 L ALT 12 L Alkaline Phosphatase 72 Total Protein 5.9 L Albumin 2.4 L Cortisol AM Sample 8.6 HOSPITAL COURSE: Date of Admission:05/15/19 Date of Discharge: 05/19/19 Discharge Summary Problems reviewed: Yes Reason For Visit: FEVER Current Active Problems Bronchiectasis (Acute) COPD (chronic obstructive pulmonary disease) (Acute) Community acquired pneumonia (Acute) Emphysema lung (Acute) Fever (Acute) Hypotension (Acute) Lung granuloma (Acute) Lung nodule < 6cm on CT (Acute) Condition: Stable - Instructions Disposition: TRANSFER ACUTE CARE/OTHER HOSP - Home Medications Comprehensive Discharge Medication List: Ambulatory Orders Folic Acid 1 mg PO DAILY 02/13/19 Atorvastatin Ca [Lipitor] 20 mg PO DAILY 05/08/19 Olanzapine [Zyprexa] 20 mg PO HS 05/08/19 Umeclidinium [place] [Incruse Ellipta] 62.5 mcg IH DAILY 05/08/19 Valbenazine Tosylate [Ingrezza] 80 mg PO DAILY 05/08/19 Valproic Acid 500 mg PO BID 05/08/19 levETIRAcetam [Keppra -] 500 mg PO BID 05/08/19 traZODone HCL [Desyrel -] 50 mg PO HS 05/08/19 - Discharge Referral Referred to [facility] No ATTENDING PHYSICIAN STATEMENT I saw and evaluated the patient. I reviewed the resident's note and discussed the case with the resident. I agree with the resident's findings and plan as documented. SUBJECTIVE: OBJECTIVE: ASSESSMENT AND PLAN:
--- NOTE | 2019-05-19 12:01 | CONSULT ---
Admitting History and Physical - Primary Care Physician PCP: Reza Ann - Admission History of Present Illness: 64 M, alcohol and crack/cocaine abuse, seizure disorder, and long standing 1 PPD smoker. Admitted from rehab for fever,increase in daily cough productive of white to clear sputum. Per Pulmonary-COPD due to long standing smoking history: likely GOLD stage 1 or 2 Multiple non-calcified subcentimeter apical nodules Per ID-LEGIONELLA AG (-) PNEUMOCOCCAL AG + HIV(-) FLU (-) RSV(-) Selected Entries 05/18/19 05/18/19 10:00 20:22 Breakfast 100% Diet Tolerated Well Well Lunch 75% Supper 100% Laboratory Tests 05/19/19 06:55 WBC 3.6 L Pt reports difficulty swallowing since "they found a cyst in his throat at [facility] a month ago." Per pt, they did not recommend surgery or follow up. He is a smoker/drug/etoh abuser. 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 No: O2 Dependent, Pneumonia, Previously Intubated, Pulmonary Embolus, Pulmonary Fibrosis, Sleep Apnea - Smoking History Smoking history: Smoker current status UNK Have you smoked in the past 12 months: Yes Aproximately how many cigarettes per day: 8 - Alcohol/Substance Use Hx Alcohol Use: Yes History - Admission Reason For Visit: FEVER - Diagnostics X-ray: Report Reviewed - General Mental Status: Awake and Alert, Able to Follow Commands Attention: Intact Ability to Follow Directions: Good Head/Neck Control: Good - Hearing Hearing: Normal Hearing Aide: No With Patient: No Speech Evaluation - Communication Primary Language: BRUNEIAN Communication: Yes: Simple Responses Oral Expression Ability: Yes: Mild Impairment, Moderate Impairment - Speech Production Able to Make Needs Known: Yes: Mildly Impaired, Moderately Impaired Intelligibility: Yes: Mildly Impaired, Moderately Impaired - Speech Characteristics Voice Loudness: Normal Voice Pitch: Yes: Normal Speech Pattern: Impaired Speech Clarity: < 50% Nasal Resonance: Hyponasal/Denasal Articulation: Yes: Imprecise Rate of Speech: Too Fast - Language/Auditory Comprehension Follows: Yes: 1 Stage Simple Commands Observation: Able to respond to yes/no queries: Yes, Yes/No Confusion: No, Comprehends Conversational Speech: Yes - Language/Verbal Expression Functional Communication Status: Yes: Mildly Impaired, Moderately Impaired - Swallow Evaluation/Bedside Assessment Current Nutritional Intake: Regular, Thin Liquids Oral Secretions: Yes: WFL Dentition: Yes: Edentulous (lower), Dental Appliance Upper Facial Symmetry at Rest: Symmetrical Facial Symmetry on Retraction: Symmetrical Against Resistance Opening: Weak Against Resistance Closing: Weak Pucker Lips: Weak Smile: Weak Lingual Movement: Symmetric Lingual Speed of Movement: Reduced Lingual Movement Strgth Against Opposition: Reduced Lingual Movement Characteristics: Normal Laryngeal Elevation: Impaired Laryngeal Movement: Reduced Excursion, Labored,delay initiation, Reduced Velocity Labial Seal: WFL Chewing: Impaired (labored) Oral Prep Time: Increased Timing of Swallow: Delayed Coughing/Throat Clear: Yes (on bread. cleared seemingly with f/u of liquid) Recommendations - Speech Evaluation, Impression/Plan Impression: Pt reports identification of "cyst in throat" a month ago at [facility] with onset of Dysphagia.Labored swallow, especially with solids. Speech intewlkligibilty is impaired, hyponasal, imprecise,muffled, varied during assessment. Suspect stasis with solids, risk of aspiration. Refusing suggestion of chopped food. - Dysphagia Impressions/Plan Swallowing Skills: Impaired Dysphagia Impressions: Mild Impairment, Moderate Impairment, Risk of Aspiration *Silent aspiration: cannot be R/O at bedside Dysphagia Treatment Plan: Small Bites, Chin Tuck/Down, 1/2 tsp. at a time, OOB for meals, OOB for 1 h. after meals, Other (alternate solids with liquids) Recommendations: ENT Consult - Recommendations Diet Consistency: Other (suggest chopped) Medication Administration: Crushed with applesauce Liquids: Thin Liquids Supplement: Ensure
--- NOTE | 2019-05-19 14:42 | PN ---
Progress Note (short form) - Note Progress Note: HPI: No fevers overnight. Pt with decreased sputum production and denies shortness of breath. Denies CP, palpitations. Pt reports his lip movements have been for a long time. He was told he has Parkinson's disease PE: GENERAL: Cachectic, NAD, Awake, alert, and fully oriented HEENT: NC/AT, sclera anicteric, OC, mouth without ulcerations, no thrush observed Akisthesia noted LUNGS: Rhoncherous breath sounds L>R, no wheezes, no accessory muscle use. 98% on RA HEART: RRR, normal S1 and S2 without murmur, ABDOMEN: Soft, NT/ND, normoactive bowel sounds, no guarding LOWER EXTREMITIES: 2+ DP pulses, warm No calf tenderness. No peripheral edema. NEUROLOGICAL: R-sided chronic weakness noted. otherwise package sorter intact and nonfocal exam. PSYCHIATRIC: Cooperative. Good eye contact. Appropriate mood and affect. SKIN: Warm, dry, no rashes or lesions noted CBC, BMP 05/19/19 06:55 05/19/19 06:55 Microbiology 05/15/19 12:30 Blood - Peripheral Venous Blood Culture - Preliminary NO GROWTH OBTAINED AFTER 96 HOURS, INCUBATION TO CONTINUE FOR 1 DAYS. 05/15/19 12:30 Blood - Peripheral Venous Blood Culture - Preliminary NO GROWTH OBTAINED AFTER 96 HOURS, INCUBATION TO CONTINUE FOR 1 DAYS. 05/16/19 16:50 Sputum - Expectorated Gram Stain - Final 05/16/19 16:50 Sputum - Expectorated Sputum Culture - Final Yeast Like Organism 05/16/19 12:00 Urine For Antigen Detection Legionella Antigen - Final 05/16/19 12:00 Urine For Antigen Detection Streptococcus pneumoniae Antigen (M - Final 05/15/19 12:37 Urine - Urine Clean Catch Urine Culture - Final NO GROWTH OBTAINED Active Medications Acetaminophen (Tylenol -) 650 mg PO Q4H PRN PRN Reason: FEVER Aspirin (Ecotrin -) 81 mg PO DAILY [facility] Last Admin: 05/19/19 09:11 Dose: 81 mg Atorvastatin Calcium (Lipitor -) 20 mg PO HS [facility] Last Admin: 05/19/19 21:59 Dose: 20 mg Budesonide/Formoterol Fumarate (Symbicort 160/4.5mcg -) 2 puff IH BID [facility] Last Admin: 05/19/19 22:00 Dose: 2 puff Divalproex Sodium (Depakote -) 500 mg PO BID [facility] Last Admin: 05/19/19 21:59 Dose: 500 mg Folic Acid (Folic Acid -) 1 mg PO DAILY [facility] Last Admin: 05/19/19 09:11 Dose: 1 mg Levetiracetam (Keppra -) 500 mg PO BID [facility] Last Admin: 05/19/19 21:59 Dose: 500 mg Levofloxacin (Levaquin -) 500 mg PO DAILY@0600 [facility] Stop: 05/26/19 05:59 Olanzapine (Zyprexa -) 20 mg PO HS [facility] Last Admin: 05/19/19 21:59 Dose: 20 mg Thiamine HCl (Vitamin B1 -) 100 mg PO DAILY [facility] Last Admin: 05/19/19 09:11 Dose: 100 mg Tiotropium [place] (Spiriva Respimat) 2 puff IH DAILY [facility] Last Admin: 05/19/19 09:12 Dose: 2 puff Assessment and Plan: Community acquired Pneumonia Akithesia Multiple apical lung nodules COPD 2/2 to tobacco abuse history Bronchiectasis Seizure history 2/2 CVA Polysubstance abuse Normocytic anemia Leukopenia --Pt afebrile for 24hrs --Transitioned to Levaquin 500mg qdaily until 05/26/19 --Pt can optional CT scan in 12 months for pulmonary nodule f/u --Continue Spiriva qdaily --Continue Symbicort 160/4.5 BID --Albuterol PRN --Continue Keppra 500mg BID --Continue rest of home medications: ASA 81m qdaily Lipitor 20mg HS Depakote 500mg BID Zyprexa 20mg HS PO --Folic acid to continue --Speech and swallow ordered and resulting MBS performed --Pt aspirating on puree and thin liquids with ? cystic vs. outpouching of pharynx --ENT consulted for further viewing of anatomical abnormality FEN: Fluids: PO encouraged Electrolyte abnormalities: none Nutrition: Regular diet PPX: DVT - SCDs for now Dispo: Will need ENT evaluation [facility] Case discussed with Dr. Marissa Lao, DO - IM PGY-3 <Jamari Lao - Last Filed: 05/19/19 23:41> - Note Progress Note: Seen and examined in ER; agree with above history and physcial. Independently verified all exam findings and historical information. Personally reviewed all imaging and all diagnostics. Discussed with resident team. No new symptoms; smacks lips together in pattern that appears like Tardive Dyskinesia but tells me that he has a diagnosis of Parkinsons. He denies issues swallowing and can apparently sip his cup of water. He doesn't have solid food around to complete a formal bedside eval. If I have persisting suspicions of dysphagia I will obtain his prior records and consider consulting speech and swallow. 10 sys ROS done and negative aside from HPI VS noted; orthostatics pending NAD, AAOx3, resting in bed NC AT EOMI PERRLA Neck supple, (-) B/K-mening signs, trachea midline, no LN CN2-12 wnl, no FND Lungs with scattered wheezes b/l but no focal consolidation, w/ sym exp NT ND +BS Skin without rashes or breakdown or obvious track osborne Normal strength 5/5 all 4 ext with normal tone Flat affect, negligible CIWA, limited insight Final imaging reads pending Labs pending serology, etc. A/P: This is a 64 y/o male presenting to the ER with hypotension and fever with normal HR; technically septic with unclear source. Underlying polysubstance abuse and seizure disorder (unclear if organic or related to this). He is found to have a multifocal pneumonia with PNC Ag + and was seen by ID and is cleared to go on Levaquin if remains stable for an additional 7 days. He wishes to go back to [facility]. When speaking to me and swallowing his saliva my suspicions were confirmed with potential dysphagia and consulting Navid Alvarado and reached out to her personally to inform her. She recommends MBBS and will try to coordinate due to her high suspicion of dysphagia (machine was down this AM so could be barrier). he alludes to a throat nodule documented at [facility] but states he was not treated. I called ENT (Dr. Duke) with the resident team to discuss and to set a time to review old imaging when made available from OSH; left message and placing consult. Community acquired Pneumococcal Pneumonia, multifocal Dysphagia, likely chronic, FU speech and swallow recs Throat nodule, pending ENT Multiple apical lung nodules, followup imaging per radiology guidelines COPD 2/2 to tobacco abuse history, followup pulmonary recs and needs OP PFTs and COPD tx Bronchiectasis Seizure history 2/2 CVA Polysubstance abuse Normocytic anemia Leukopenia Problem list agreed with per resident note. Full Code <Reza Ann - Last Filed: 05/20/19 01:43>
[2019-05-19] MEDS: OLANZapine 10 MG TABLET PO SCH (21:59)
[2019-05-19] MEDS: ATORVASTATIN CA 20 MG TABLET (FP) PO SCH (21:59)
[2019-05-20] MEDS ORDERED: PT OWN MED DRAWER 7, Y5N ONE (09:03)
[2019-05-20] MEDS: FOLIC ACID 1 MG TABLET (FP) PO SCH (09:05)
[2019-05-20] MEDS: DIVALPROEX SODIUM 500 MG TABLET E.C. PO SCH ×2 (09:05→21:58)
[2019-05-20] MEDS: THIAMINE HCL 100 MG TABLET (FP) PO SCH (09:05)
[2019-05-20] MEDS: ASPIRIN COATED 81 MG TABLET.EC PO SCH (09:05)
[2019-05-20] MEDS: levETIRAcetam 500 MG TABLET (FP) PO SCH ×2 (09:05→21:58)
[2019-05-20] MEDS: BUDESONIDE/FORMETEROL FUMARATE 160/4.5 mcg INHALER IH SCH ×2 (09:06→22:00)
[2019-05-20] MEDS: TIOTROPIUM BROMIDE 2.5 MCG (SPIRIVA) RESPIMAT INHALER IH SCH (09:06)
--- NOTE | 2019-05-20 14:39 | PN ---
Progress Note (short form) - Note Progress Note: PULMONARY Denies shortness of breath, cough or wheezing. Vital Signs Period Temp Pulse Resp BP Sys/Quint[place]illa Pulse Ox Last 24 Hr 97.9 F-98.6 F 73-91 18-20 101-124/58-74 98-98 Gen: NAD at rest Heart: RRR Lung: decreased breath sounds at the bases Abd: soft, nontender Ext: no edema CBC, BMP 05/19/19 06:55 05/19/19 06:55 Active Medications Acetaminophen (Tylenol -) 650 mg PO Q4H PRN PRN Reason: FEVER Aspirin (Ecotrin -) 81 mg PO DAILY [facility] Last Admin: 05/20/19 09:05 Dose: 81 mg Atorvastatin Calcium (Lipitor -) 20 mg PO [facility] Last Admin: 05/19/19 21:59 Dose: 20 mg Budesonide/Formoterol Fumarate (Symbicort 160/4.5mcg -) 2 puff IH BID [facility] Last Admin: 05/20/19 09:06 Dose: 2 puff Divalproex Sodium (Depakote -) 500 mg PO BID [facility] Last Admin: 05/20/19 09:05 Dose: 500 mg Folic Acid (Folic Acid -) 1 mg PO DAILY [facility] Last Admin: 05/20/19 09:05 Dose: 1 mg Levetiracetam (Keppra -) 500 mg PO BID [facility] Last Admin: 05/20/19 09:05 Dose: 500 mg Levofloxacin (Levaquin -) 500 mg PO DAILY@0600 [facility] Stop: 05/26/19 05:59 Last Admin: 05/20/19 05:48 Dose: 500 mg Olanzapine (Zyprexa -) 20 mg PO HS [facility] Last Admin: 05/19/19 21:59 Dose: 20 mg Thiamine HCl (Vitamin B1 -) 100 mg PO DAILY [facility] Last Admin: 05/20/19 09:05 Dose: 100 mg Tiotropium [place] (Spiriva Respimat) 2 puff IH DAILY [facility] Last Admin: 05/20/19 09:06 Dose: 2 puff A/P Pneumonia COPD Bronchiectasis Lung Nodules Seizure Disorder h/o CVA h/o Polysubstance Abuse - continue antibiotics - inhaled bronchodilators - outpt PFTs and f/u of lung nodules - DVT prophylaxis
--- NOTE | 2019-05-20 15:29 | PN ---
Progress Note, TUCK POINTER HELPER - Note Progress Note: Selected Entries 05/19/19 05/20/19 10:00 10:00 Breakfast 100% 100% Lunch 75% Temperature 98.2 F Laboratory Tests 05/18/19 05/19/19 08:24 06:55 WBC 3.1 L 3.6 L MBS with impaired UES relaxation with buildup of solids in pharynx with spillage into airway ENT consult noted. I reviewed case with Dr. Lao Pt good historian for me, o x 3. Reports at [facility], they put a camera up his nose (laryngoscopy) and found a cyst in his throat, not his nose. He said they did not do any xrays or CT, and that sx was not indicated. Awaiting report. Pt overtly tolerating puree/nectar. Thin Ensure at bedside, which he chugged, initially without difficulty, but then with a brief delayed cough. (Aspiration? - noted on MBS)] Rec- trial of Dys ground, chin tuick, multiple swallows, alternate with sip of nectar, reswallow. Cough hard/reswallow Supervision mealtime to assess tolerance. f/u Pulmonary to r/o aspiration Repeat laryngoscopy.
--- NOTE | 2019-05-20 15:32 | CONSULT ---
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 P/WD WN BM laying comfortably in bed, in NAD Lip smacking and tongue thrusting noted Neck without masses or tenderness Nose DNS on the left, patent right OC/OP dentures, small amount of cloudy mucus on the posterior wall, no masses seen Imp: no evident pharyngeal lesions on today's exam. Suspected neurologic condition affecting his mouth. Recommend neurology consult re the repetitive mouth movements, and obtaining his previous medical records to determine what was seen in his throat No throat symptoms at this time to justify laryngoscopy Reconsult if new throat symptoms or further information regarding the throat abnormality
--- NOTE | 2019-05-20 21:06 | PN ---
Progress Note (short form) - Note Progress Note: HPI: No fevers overnight. No other acute events. Pt is adamant about not wanting puree diet. Discussed barium swallow results and risks associated with aspiration, however he just "wants to eat normal food." PE: GENERAL: Cachectic, NAD, Awake, alert, and fully oriented HEENT: NC/AT, sclera anicteric, OC, mouth without ulcerations, no thrush observed Akisthesia noted LUNGS: Improved breath sounds, no wheezes, no accessory muscle use. 98% on RA HEART: RRR, normal S1 and S2 without murmur, ABDOMEN: Soft, NT/ND, normoactive bowel sounds, no guarding LOWER EXTREMITIES: 2+ DP pulses, warm No calf tenderness. No peripheral edema. NEUROLOGICAL: R-sided chronic weakness noted. otherwise analytics director intact and nonfocal exam. PSYCHIATRIC: Cooperative. Good eye contact. Appropriate mood and affect. SKIN: Warm, dry, no rashes or lesions noted CBC, BMP 05/19/19 06:55 05/19/19 06:55 Microbiology 05/15/19 12:30 Blood - Peripheral Venous Blood Culture - Preliminary NO GROWTH OBTAINED AFTER 96 HOURS, INCUBATION TO CONTINUE FOR 1 DAYS. 05/15/19 12:30 Blood - Peripheral Venous Blood Culture - Preliminary NO GROWTH OBTAINED AFTER 96 HOURS, INCUBATION TO CONTINUE FOR 1 DAYS. 05/16/19 16:50 Sputum - Expectorated Gram Stain - Final 05/16/19 16:50 Sputum - Expectorated Sputum Culture - Final Yeast Like Organism 05/16/19 12:00 Urine For Antigen Detection Legionella Antigen - Final 05/16/19 12:00 Urine For Antigen Detection Streptococcus pneumoniae Antigen (M - Final 05/15/19 12:37 Urine - Urine Clean Catch Urine Culture - Final NO GROWTH OBTAINED Active Medications Acetaminophen (Tylenol -) 650 mg PO Q4H PRN PRN Reason: FEVER Aspirin (Ecotrin -) 81 mg PO DAILY [facility] Last Admin: 05/19/19 09:11 Dose: 81 mg Atorvastatin Calcium (Lipitor -) 20 mg PO HS [facility] Last Admin: 05/19/19 21:59 Dose: 20 mg Budesonide/Formoterol Fumarate (Symbicort 160/4.5mcg -) 2 puff IH BID [facility] Last Admin: 05/19/19 22:00 Dose: 2 puff Divalproex Sodium (Depakote -) 500 mg PO BID [facility] Last Admin: 05/19/19 21:59 Dose: 500 mg Folic Acid (Folic Acid -) 1 mg PO DAILY [facility] Last Admin: 05/19/19 09:11 Dose: 1 mg Levetiracetam (Keppra -) 500 mg PO BID [facility] Last Admin: 05/19/19 21:59 Dose: 500 mg Levofloxacin (Levaquin -) 500 mg PO DAILY@0600 [facility] Stop: 05/26/19 05:59 Olanzapine (Zyprexa -) 20 mg PO HS [facility] Last Admin: 05/19/19 21:59 Dose: 20 mg Thiamine HCl (Vitamin B1 -) 100 mg PO DAILY [facility] Last Admin: 05/19/19 09:11 Dose: 100 mg Tiotropium [place] (Spiriva Respimat) 2 puff IH DAILY [facility] Last Admin: 05/19/19 09:12 Dose: 2 puff Assessment and Plan: Community acquired Pneumonia Akithesia Multiple apical lung nodules COPD 2/2 to tobacco abuse history Bronchiectasis Seizure history 2/2 CVA Polysubstance abuse Normocytic anemia Leukopenia --Pt afebrile for 24hrs --Transitioned to Levaquin 500mg qdaily until 05/26/19 --Pt can optional CT scan in 12 months for pulmonary nodule f/u --Continue Spiriva qdaily --Continue Symbicort 160/4.5 BID --Albuterol PRN --Continue Keppra 500mg BID --Continue rest of home medications: ASA 81m qdaily Lipitor 20mg HS Depakote 500mg BID Zyprexa 20mg HS PO --Folic acid to continue --ENT consult --Once ENT evaluated pending normal exam can be d/c to inpatient rehab at [facility] --Will try to obtain [facility] records FEN: Fluids: PO encouraged Electrolyte abnormalities: none Nutrition: Regular diet PPX: DVT - SCDs for now Dispo: Will need ENT evaluation before returning to [facility] Case discussed with Dr. Marissa Lao, DO - IM PGY-3 <Jamari Lao - Last Filed: 05/20/19 23:00> - Note Progress Note: Seen and examined in ER; agree with above history and physcial. Independently verified all exam findings and historical information. Personally reviewed all imaging and all diagnostics. Discussed with resident team. TD symptoms persist with prior documentation in neuro and psych noted. 05/13 MRI without issues, 05/13 MRA without issues. Seen by Dr. Meeks. Reconsulting per ENT. Appreciate ENT input. Continue aspiration precautions and diet modification per swallow. 10 sys ROS done and negative aside from HPI VS noted; orthostatics pending NAD, AAOx3, resting in bed NC AT EOMI PERRLA Neck supple, (-) B/K-mening signs, trachea midline, no LN CN2-12 wnl, no FND Lungs with scattered wheezes b/l but no focal consolidation, w/ sym exp NT ND +BS Skin without rashes or breakdown or obvious track osborne Normal strength 5/5 all 4 ext with normal tone Flat affect, negligible CIWA, limited insight Final imaging reads pending Labs pending serology, etc. A/P: This is a 64 y/o male presenting to the ER with hypotension and fever with normal HR; technically septic with unclear source. Underlying polysubstance abuse and seizure disorder (unclear if organic or related to this). 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 ENT has requested neurology evaluation for this issue and this is pending. Community acquired Pneumococcal Pneumonia, multifocal Dysphagia, likely chronic, FU speech and swallow recs Throat nodule, pending ENT Multiple apical lung nodules, followup imaging per radiology guidelines COPD 2/2 to tobacco abuse history, followup pulmonary recs and needs OP PFTs and COPD tx Bronchiectasis Seizure history 2/2 CVA Polysubstance abuse Normocytic anemia Leukopenia Tardive Dyskinesia Full Code <Reza Ann - Last Filed: 05/21/19 11:26>
[2019-05-20] MEDS: ATORVASTATIN CA 20 MG TABLET (FP) PO SCH (21:58)
[2019-05-20] MEDS: OLANZapine 10 MG TABLET PO SCH (21:58)
[2019-05-21] MEDS: DIVALPROEX SODIUM 500 MG TABLET E.C. PO SCH (09:30)
[2019-05-21] MEDS: FOLIC ACID 1 MG TABLET (FP) PO SCH (09:30)
[2019-05-21] MEDS: THIAMINE HCL 100 MG TABLET (FP) PO SCH (09:30)
[2019-05-21] MEDS: ASPIRIN COATED 81 MG TABLET.EC PO SCH (09:30)
[2019-05-21] MEDS: levETIRAcetam 500 MG TABLET (FP) PO SCH (09:35)
[2019-05-21] MEDS: TIOTROPIUM BROMIDE 2.5 MCG (SPIRIVA) RESPIMAT INHALER IH SCH (09:37)
[2019-05-21] MEDS: BUDESONIDE/FORMETEROL FUMARATE 160/4.5 mcg INHALER IH SCH (09:37)
--- NOTE | 2019-05-21 10:16 | PN ---
Progress Note (short form) - Note Progress Note: Feels a little better today. Some dry cough. Remains afebrile. No acute events overnight. Intake & Output 05/18/19 05/19/19 05/20/19 05/21/19 23:59 23:59 23:59 23:59 Intake Total 1360 0 400 0 Output Total 1000 1200 900 Balance 360 -1200 400 -900 Last Vital Signs Temp Pulse Resp BP Pulse Ox 98.3 F 69 20 87/58 L 98 05/21/19 07:05 05/21/19 07:05 05/21/19 07:05 05/21/19 07:05 05/20/19 09:00 Active Medications Acetaminophen (Tylenol -) 650 mg PO Q4H PRN PRN Reason: FEVER Aspirin (Ecotrin -) 81 mg PO DAILY [facility] Last Admin: 05/21/19 09:30 Dose: 81 mg Atorvastatin Calcium (Lipitor -) 20 mg PO HS [facility] Last Admin: 05/20/19 21:58 Dose: 20 mg Budesonide/Formoterol Fumarate (Symbicort 160/4.5mcg -) 2 puff IH BID [facility] Last Admin: 05/21/19 09:37 Dose: 2 puff Divalproex Sodium (Depakote -) 500 mg PO BID [facility] Last Admin: 05/21/19 09:30 Dose: 500 mg Folic Acid (Folic Acid -) 1 mg PO DAILY [facility] Last Admin: 05/21/19 09:30 Dose: 1 mg Levetiracetam (Keppra -) 500 mg PO BID [facility] Last Admin: 05/21/19 09:35 Dose: 500 mg Levofloxacin (Levaquin -) 500 mg PO DAILY@0600 [facility] Stop: 05/26/19 05:59 Last Admin: 05/21/19 06:26 Dose: 500 mg Olanzapine (Zyprexa -) 20 mg PO HS [facility] Last Admin: 05/20/19 21:58 Dose: 20 mg Thiamine HCl (Vitamin B1 -) 100 mg PO DAILY [facility] Last Admin: 05/21/19 09:30 Dose: 100 mg Tiotropium [place] (Spiriva Respimat) 2 puff IH DAILY [facility] Last Admin: 05/21/19 09:37 Dose: 2 puff Constitutional: Yes: No Distress Eyes: Yes: Conjunctiva Clear, EOM Intact HENT: Yes: Atraumatic, Normocephalic Neck: Yes: Supple, Trachea Midline Cardiovascular: Yes: Regular Rate and Rhythm Respiratory: Yes: Cough, Diminished. No: Accessory Muscle Use, Rales, Rhonchi, SOB, SOB on Exertion, Stridor, Tachypnea, Wheezes ...Inspection: Yes: WNL ...Clubbing: No Gastrointestinal: Yes: Normal Bowel Sounds, Soft Renal/: Yes: WNL Musculoskeletal: Yes: WNL Extremities: Yes: WNL Edema: No Peripheral Pulses WNL: Yes Integumentary: Yes: WNL Neurological: Yes: WNL, Alert, Oriented ...Motor Strength: WNL Psychiatric: Yes: WNL, Oriented Labs: Problem List - Problems (1) COPD (chronic obstructive pulmonary disease) Code(s): J44.9 - CHRONIC OBSTRUCTIVE PULMONARY DISEASE, UNSPECIFIED (2) Fever Code(s): R50.9 - FEVER, UNSPECIFIED Qualifiers: Fever type: unspecified Qualified Code(s): R50.9 - Fever, unspecified (3) Alcohol dependence Code(s): F10.20 - ALCOHOL DEPENDENCE, UNCOMPLICATED (4) 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 head injury Code(s): R56.1 - POST TRAUMATIC SEIZURES (5) Cocaine dependence Code(s): F14.20 - COCAINE DEPENDENCE, UNCOMPLICATED Qualifiers: Substance use status: uncomplicated Qualified Code(s): F14.20 - Cocaine dependence, uncomplicated (6) Insomnia Code(s): G47.00 - INSOMNIA, UNSPECIFIED Qualifiers: Insomnia type: unspecified Qualified Code(s): G47.00 - Insomnia, unspecified (7) Nicotine dependence Code(s): F17.200 - NICOTINE DEPENDENCE, UNSPECIFIED, UNCOMPLICATED Qualifiers: Nicotine product type: cigarettes Substance use status: in withdrawal Qualified Code(s): F17.213 - Nicotine dependence, cigarettes, with withdrawal (8) Lung granuloma Code(s): J84.10 - PULMONARY FIBROSIS, UNSPECIFIED (9) Lung nodule < 6cm on CT Code(s): R91.1 - SOLITARY PULMONARY NODULE (10) Emphysema lung Code(s): J43.9 - EMPHYSEMA, UNSPECIFIED (11) Bronchiectasis Code(s): J47.9 - BRONCHIECTASIS, UNCOMPLICATED (12) Community acquired pneumonia Code(s): J18.9 - PNEUMONIA, UNSPECIFIED ORGANISM Assessment/Plan COPD due to long standing smoking history: likely GOLD stage 1 or 2 Multiple non-calcified subcentimeter apical nodules ABX per ID: can consider to change to PO Smoking cessation discussed at length Will need outpatient PFTs BD TX PRN Spiriva and Symbicort Can DC home on just Albuterol PRN and a LAMA & LABA combination According to the updated Fleischner 2017 recommendations, an optional [address] Arciniega Problem List - Problems (1) COPD (chronic obstructive pulmonary disease) Code(s): J44.9 - CHRONIC OBSTRUCTIVE PULMONARY DISEASE, UNSPECIFIED (2) Fever Code(s): R50.9 - FEVER, UNSPECIFIED Qualifiers: Fever type: unspecified Qualified Code(s): R50.9 - Fever, unspecified (3) Alcohol dependence Code(s): F10.20 - ALCOHOL DEPENDENCE, UNCOMPLICATED (4) 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 head injury Code(s): R56.1 - POST TRAUMATIC SEIZURES (5) Cocaine dependence Code(s): F14.20 - COCAINE DEPENDENCE, UNCOMPLICATED Qualifiers: Substance use status: uncomplicated Qualified Code(s): F14.20 - Cocaine dependence, uncomplicated (6) Insomnia Code(s): G47.00 - INSOMNIA, UNSPECIFIED Qualifiers: Insomnia type: unspecified Qualified Code(s): G47.00 - Insomnia, unspecified (7) Nicotine dependence Code(s): F17.200 - NICOTINE DEPENDENCE, UNSPECIFIED, UNCOMPLICATED Qualifiers: Nicotine product type: cigarettes Substance use status: in withdrawal Qualified Code(s): F17.213 - Nicotine dependence, cigarettes, with withdrawal (8) Lung granuloma Code(s): J84.10 - PULMONARY FIBROSIS, UNSPECIFIED (9) Lung nodule < 6cm on CT Code(s): R91.1 - SOLITARY PULMONARY NODULE (10) Emphysema lung Code(s): J43.9 - EMPHYSEMA, UNSPECIFIED (11) Bronchiectasis Code(s): J47.9 - BRONCHIECTASIS, UNCOMPLICATED (12) Community acquired pneumonia Code(s): J18.9 - PNEUMONIA, UNSPECIFIED ORGANISM
--- NOTE | 2019-05-21 11:41 | PN ---
Progress Note, BUSINESS PROCESS MANAGER - Note Progress Note: Selected Entries 05/19/19 05/19/19 05/19/19 05:00 10:00 13:00 Breakfast 100% Diet Tolerated Well Lunch 75% Supper Temperature 98.2 F 98.6 F 05/19/19 05/19/19 05/20/19 17:04 21:00 10:00 Breakfast 100% Diet Tolerated Well Lunch Supper Temperature 98.6 F 97.9 F 98.2 F 05/20/19 05/20/19 05/20/19 14:00 17:09 22:37 Breakfast Diet Tolerated Lunch Supper 100% Temperature 98.1 F 98.5 F 05/21/19 05/21/19 02:11 07:05 Breakfast Diet Tolerated Lunch Supper Temperature 98.2 F 98.3 F Laboratory Tests 05/19/19 06:55 WBC 3.6 L MBS with impaired UES relaxation with buildup of solids in pharynx with spillage into airway Upgraded to Dys ground, chin tuck, multiple swallows, alternate with sip of nectar, re-swallow. Cough hard/re-swallow Supervision mealtime to assess tolerance. f/u Pulmonary to r/o aspiration Repeat laryngoscopy.
[2019-05-21 11:55] VITALS: BMI 20.9
[2019-05-21 14:17] VITALS: TEMP 98
--- NOTE | 2019-05-21 14:55 | DS ---
Physical Exam: SUBJECTIVE: Pt without events overnight. No complaints today besides wanting to go home. OBJECTIVE: Vital Signs Period Temp Pulse Resp BP Sys/Quintanilla Pulse Ox Last 24 Hr 98.0 F-98.5 F 68-84 20-20 87-105/48-63 PHYSICAL EXAM PE: GENERAL: Cachectic, NAD, Awake, alert, and fully oriented HEENT: NC/AT, sclera anicteric, OC, mouth without ulcerations, no thrush observed Akisthesia noted LUNGS: Improved breath sounds, no wheezes, no accessory muscle use. 98% on RA HEART: RRR, normal S1 and S2 without murmur, ABDOMEN: Soft, NT/ND, normoactive bowel sounds, no guarding LOWER EXTREMITIES: 2+ DP pulses, warm No calf tenderness. No peripheral edema. NEUROLOGICAL: R-sided chronic weakness noted. 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 PSYCHIATRIC: Cooperative. Good eye contact. Appropriate mood and affect. SKIN: Warm, dry, no rashes or lesions noted LABS CBC, BMP 05/19/19 06:55 05/19/19 06:55 Active Medications Acetaminophen (Tylenol -) 650 mg PO Q4H PRN PRN Reason: FEVER Aspirin (Ecotrin -) 81 mg PO DAILY [facility] Last Admin: 05/21/19 09:30 Dose: 81 mg Atorvastatin Calcium (Lipitor -) 20 mg PO [facility] Last Admin: 05/20/19 21:58 Dose: 20 mg Budesonide/Formoterol Fumarate (Symbicort 160/4.5mcg -) 2 puff IH BID [facility] Last Admin: 05/21/19 09:37 Dose: 2 puff Divalproex Sodium (Depakote -) 500 mg PO BID [facility] Last Admin: 05/21/19 09:30 Dose: 500 mg Folic Acid (Folic Acid -) 1 mg PO DAILY [facility] Last Admin: 05/21/19 09:30 Dose: 1 mg Levetiracetam (Keppra -) 500 mg PO BID [facility] Last Admin: 05/21/19 09:35 Dose: 500 mg Levofloxacin (Levaquin -) 500 mg PO DAILY@0600 [facility] Stop: 05/26/19 05:59 Last Admin: 05/21/19 06:26 Dose: 500 mg Olanzapine (Zyprexa -) 20 mg PO [facility] Last Admin: 05/20/19 21:58 Dose: 20 mg Thiamine HCl (Vitamin B1 -) 100 mg PO DAILY [facility] Last Admin: 05/21/19 09:30 Dose: 100 mg Tiotropium [place] (Spiriva Respimat) 2 puff IH DAILY [facility] Last Admin: 05/21/19 09:37 Dose: 2 puff Microbiology 05/15/19 12:30 Blood - Peripheral Venous Blood Culture - Final NO GROWTH AFTER 5 DAYS INCUBATION 05/15/19 12:30 Blood - Peripheral Venous Blood Culture - Final NO GROWTH AFTER 5 DAYS INCUBATION 05/16/19 16:50 Sputum - Expectorated Gram Stain - Final 05/16/19 16:50 Sputum - Expectorated Sputum Culture - Final Yeast Like Organism 05/16/19 12:00 Urine For Antigen Detection Legionella Antigen - Final 05/16/19 12:00 Urine For Antigen Detection Streptococcus pneumoniae Antigen (M - Final 05/15/19 12:37 Urine - Urine Clean Catch Urine Culture - Final NO GROWTH OBTAINED Imaging: Echocardiogram: Interpretation Summary The left ventricle is normal in size. Left ventricular systolic function is normal. No regional wall motion abnormalities noted. Ejection Fraction = 55-60%. The right ventricular systolic function is normal. The left atrial size is normal. Right atrial size is normal. There is mild mitral annular calcification. There is mild mitral regurgitation. There is mild tricuspid regurgitation. Pulmonary artery systolic pressure is at least 24 mmHg if RA pressure is assumed 3 mmHg There is mild aortic sclerosis. There is no pericardial effusion. Chest CT noncontrast: IMPRESSION: Small patchy infiltrates are seen within the lower lobes bilaterally, right middle lobe and lingula. Mild to moderate bilateral lower lobe bronchiectasis. A small amount of mucous secretions are noted along the trachea and right mainstem bronchus - ? chronic bronchitis Small bilateral apical bullae. Probable mild centrilobular emphysema. Several small bilateral 3 to 4 mm noncalcified upper lobe pulmonary nodules are seen. Correlation with 6 month follow-up CT is suggested. At least moderate atherosclerotic coronary artery calcifications are seen. Correlate with clinical risk factors. There appears to be mild concentric subcutaneous soft tissue stranding along the chest and upper abdomen - ? Mild fluid retention Modified barium swallow Multiple bolus types were presented to the patient under direct fluoroscopic observation. Few images were obtained. Aspiration observed during examination Please refer to speech pathology report for detailed analysis of the swallowing mechanism and evaluation for aspiration. HOSPITAL COURSE: Date of Admission:05/15/19 Date of Discharge: 05/21/19 Pt admitted from inpatient rehab due to fevers found to have bibasillar infiltrative processes suspicious for pneumonia. Pt was treated with IV Levaquin and transitioned to PO levaquin to continue with last dose on May 26, 2019. In addition, pt was found to have tardive dyskinesia movements of his mouth and underwent modified barium swallow suggesting aspiration as above. Pt reported he had a possible pharyngeal cyst found at [place], and was thus assessed by ENT who did not feel a laryngoscopy would impact management. In addition neurology and psychiatry were consulted who reported patient would be able to be worked up on an outpatient basis. Psychiatry noted that the patient would need to follow-up in an outpatient mental health facility so prior authorization could be obtained for tardive dyskinesia medications alongside of close follow-up. Pt is being discharged in stable condition with instructions to have chopped food and thickened liquids as his diet to help prevent aspiration events. In addition he is recommended to f/u with the referrals as below for continued medical care. Minutes to complete discharge: 35 <Jamari Lao - Last Filed: 05/21/19 15:23> Physical Exam: SUBJECTIVE: Patient seen and examined OBJECTIVE: PHYSICAL EXAM GENERAL: The patient is awake, alert, and fully oriented, in no acute distress. HEAD: Normal with no signs of trauma. EYES: PERRL, extraocular movements intact, sclera anicteric, conjunctiva clear. ENT: Ears normal, nares patent, oropharynx clear without exudates, moist mucous membranes. NECK: Trachea midline, full range of motion, supple. LUNGS: Breath sounds equal, clear to auscultation bilaterally, no wheezes, no crackles, no accessory muscle use. HEART: Regular rate and rhythm, S1, S2 without murmur, rub or gallop. ABDOMEN: Soft, nontender, nondistended, normoactive bowel sounds, no guarding, no rebound, no hepatosplenomegaly, no masses. EXTREMITIES: 2+ pulses, warm, well-perfused, no edema. NEUROLOGICAL: Cranial nerves II through XII grossly intact. Normal speech, gait not observed. PSYCH: Normal mood, normal affect. SKIN: Warm, dry, normal turgor, no rashes or lesions noted. LABS HOSPITAL COURSE: Date of Admission:05/15/19 Date of Discharge: 05/23/19 <Reza Ann - Last Filed: 05/23/19 13:50> Discharge Summary Problems reviewed: Yes Reason For Visit: FEVER Current Active Problems Bronchiectasis (Acute) COPD (chronic obstructive pulmonary disease) (Acute) Community acquired pneumonia (Acute) Emphysema lung (Acute) Fever (Acute) Hypotension (Acute) Lung granuloma (Acute) Lung nodule < 6cm on CT (Acute) - Home Medications Comprehensive Discharge Medication List: Ambulatory Orders Folic Acid 1 mg PO DAILY 02/13/19 Atorvastatin Ca [Lipitor] 20 mg PO DAILY 05/08/19 Olanzapine [Zyprexa] 20 mg PO HS 05/08/19 Umeclidinium [place] [Incruse Ellipta] 62.5 mcg IH DAILY 05/08/19 Valbenazine Tosylate [Ingrezza] 80 mg PO DAILY 05/08/19 Valproic Acid 500 mg PO BID 05/08/19 levETIRAcetam [Keppra -] 500 mg PO BID 05/08/19 traZODone HCL [Desyrel -] 50 mg PO HS 05/08/19 Budesonide/Formeterol Fumarate [SYMBICORT 160/4.5mcg -] 2 puff IH BID #1 inhaler 05/19/19 Tiotropium [place] [Spiriva Respimat] 2 puff IH DAILY #1 inhaler 05/19/19 levoFLOXacin [Levaquin -] 500 mg PO DAILY@0600 #6 tablet 05/19/19 <Jamari Lao - Last Filed: 05/21/19 15:23> - Home Medications Comprehensive Discharge Medication List: Ambulatory Orders Folic Acid 1 mg PO DAILY 02/13/19 Atorvastatin Ca [Lipitor] 20 mg PO DAILY 05/08/19 Olanzapine [Zyprexa] 20 mg PO HS 05/08/19 Umeclidinium [place] [Incruse Ellipta] 62.5 mcg IH DAILY 05/08/19 Valbenazine Tosylate [Ingrezza] 80 mg PO DAILY 05/08/19 Valproic Acid 500 mg PO BID 05/08/19 levETIRAcetam [Keppra -] 500 mg PO BID 05/08/19 traZODone HCL [Desyrel -] 50 mg PO HS 05/08/19 Budesonide/Formeterol Fumarate [SYMBICORT 160/4.5mcg -] 2 puff IH BID #1 inhaler 05/19/19 Tiotropium [place] [Spiriva Respimat] 2 puff IH DAILY #1 inhaler 05/19/19 levoFLOXacin [Levaquin -] 500 mg PO DAILY@0600 #6 tablet 05/19/19 <MarissaReza - Last Filed: 05/23/19 13:50> Condition: Stable - Instructions Diet, Activity, Other Instructions: You were seen here due to your fever and found to have pneumonia. You also had swallowing studies that showed you have food go into your lungs. After evaluation by an Ears, Nose, Throat doctor it was deemed your mouth movements may be contributing to your aspiration. Medications: Please continue Levaquin for 6 more days to help with your pneumonia Please continue your lung medications: Symbicort and Spiriva --Both of these have been sent to [facility] pharmacy Diet: Chopped diet with thickened liquids Follow-up: Please follow-up at a mental health clinic or with Dr. Alberto who can obtain authorization to help with your mouth movements Please follow-up with Dr. Brandon for continued rehabilitation on an outpatient setting Please follow-up with Dr. Mayfield in 3-5 days to establish a primary care physician Referrals: Missy Alberto MD [Staff Physician] - Austin Meeks DO [Staff Physician] - Teo Arciniega MD [Staff Physician] - 2 Weeks (Pulmonary function tests) Adrian Brandon DO [Staff Physician] - 1 Week (Inpatient Rehab) Rajat Mayfield MD [Staff Physician] - 1 Week (Establish care) Disposition: HOME This patient is new to me today: No Emergency Visit: Yes ED Registration Date: 05/15/19 Care time: The patient presented to the Emergency Department on the above date and was hospitalized for further evaluation of their emergent condition. Critical Care patient: No - Discharge Referral Referred to [facility] Med P.C.: No <Jamari Lao - Last Filed: 05/21/19 15:23> ATTENDING PHYSICIAN STATEMENT I saw and evaluated the patient. I reviewed the resident's note and discussed the case with the resident. I agree with the resident's findings and plan as documented. SUBJECTIVE: OBJECTIVE: ASSESSMENT AND PLAN: <Jamari Lao - Last Filed: 05/21/19 15:23> ATTENDING PHYSICIAN STATEMENT I saw and evaluated the patient. I reviewed the resident's note and discussed the case with the resident. I agree with the resident's findings and plan as documented. SUBJECTIVE: OBJECTIVE: ASSESSMENT AND PLAN: <Reza Ann - Last Filed: 05/23/19 13:50>
[2019-05-22 10:24] VITALS: BP 78/44; PULSE 81
== END 2019-05-21 16:30 | disposition home or self-care (01) | DRG 139 ==
LOC: JER 11:42 → JERBED 14:56 → OBSVTOIN 16:50 → J8W 22:00
PROVIDERS: ADMIT Internal Medicine; ATTEND Internal Medicine
DX: J18.9 Pneumonia, unspecified organism (principal); R50.9 Fever, unspecified; R91.1 Solitary pulmonary nodule; I95.9 Hypotension, unspecified; J47.9 Bronchiectasis, uncomplicated; F19.10 Other psychoactive substance abuse, uncomplicated; G24.01 Drug induced subacute dyskinesia; Z68.21 Body mass index [BMI] 21.0-21.9, adult; R64 Cachexia; F25.9 Schizoaffective disorder, unspecified; G40.909 Epilepsy, unspecified, not intractable, without status epilepticus; R00.0 Tachycardia, unspecified; D72.819 Decreased white blood cell count, unspecified; D64.9 Anemia, unspecified; F17.210 Nicotine dependence, cigarettes, uncomplicated; F10.20 Alcohol dependence, uncomplicated; F14.20 Cocaine dependence, uncomplicated; G47.00 Insomnia, unspecified; J84.10 Pulmonary fibrosis, unspecified; R13.19 Other dysphagia; I69.351 Hemiplegia and hemiparesis following cerebral infarction affecting right dominant side
CPT/HCPCS: 36415; 71046-TC-FY; 71250-TC; 74230-TC-FY; 80048; 80053; 80061; 80307; 81003; 82533; 82803; 83036; 83605; 83721; 83735; 84100; 84443; 84484; 85025; 85027; 85610; 85651; 85730; 86140; 86480; 87040; 87070; 87077; 87086; 87205; 87389; 87804; 87807; 87899; 92611-GN; 93005; 93010; 93306-TC; 94761; 99283-25; G0378

== ENCOUNTER 2019-09-03 14:04 | Inpatient (IN) | payer OTHER ==
--- NOTE | 2019-09-03 15:22 | BHS.RME ---
Substance Use & Tx History - Substance Use History Alcohol Substance amount: one pint gin Frequency of use: Daily Substance route: Oral Date of Last Use: 09/03/19 Cocaine (Crack) Substance amount: $100 Frequency of use: Daily Substance route: Smoking Date of Last Use: 09/03/19 Nicotine Substance amount: 1 ppd Frequency of use: Daily Substance route: Smoking Date of Last Use: 09/03/19 Physical/Psych/Mental Status - Behavior Eye Contact: Normal - Cooperativeness Cooperativeness: Cooperative - Thinking Thought Processes: Tight - Physical Health Problems Is patient presently having any pain?: No Does patient presently have any injuries (include location): No Does patient currently have a fever: No Is patient : No CIWA Nausea/Vomitin-Mild Nausea/No Vomiting Muscle Tremors: 1-None Visible, but [place] Anxiety: 3 Agitation: 2 Paroxysmal Sweats: 1-Minimal Palms Moist Orientation: 0-Oriented Tacttile Disturbances: 0-None Auditory Disturbances: 2-Mild Harshness/Frighten Visual Disturbances: 2-Mild Sensitivity Headache: 2-Mild CIWA-Ar Total Score: 14
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
[2019-09-03] MEDS ORDERED: ACETAMINOPHEN 325 MG TABLET (FP) PO PRN ×2 (16:22)
[2019-09-03] MEDS ORDERED: MELATONIN 5 MG TABLETS PO PRN (16:22)
[2019-09-03] MEDS ORDERED: IBUPROFEN 400 MG TABLET (FP) PO PRN (16:22)
[2019-09-03] MEDS ORDERED: METHOCARBAMOL 500 MG TABLET PO PRN (16:22)
[2019-09-03] MEDS ORDERED: MAGNESIUM HYDROX 2400MG/30ML ORAL SUSPENSION 30 ML CUP PO PRN (16:22)
[2019-09-03] MEDS ORDERED: hydrOXYzine PAMOATE 25 MG CAPSULE (FP) PO PRN (16:22)
[2019-09-03] MEDS ORDERED: MAGNESIUM CITRATE 300 ML BOTTLE PO PRN (16:22)
[2019-09-03] MEDS ORDERED: chlordiazePOXIDE HCL 25 MG CAPSULE PO PRN (16:22)
[2019-09-03] MEDS ORDERED: MENTHOL/PHENOL 1 EACH UD MM PRN (16:22)
[2019-09-03] MEDS ORDERED: MAG HYDROX/AL HYDROX/SIMETH 30 ML UNIT-DOSE CUP PO PRN (16:22)
[2019-09-03] MEDS ORDERED: BISMUTH SUBSALICYLATE 524 MG/30 ML UD PO PRN (16:22)
[2019-09-03 16:24] VITALS: BMI 19.3
[2019-09-03] MEDS: chlordiazePOXIDE HCL 25 MG CAPSULE PO SCH ×2 (18:13→23:52)
[2019-09-03] MEDS: ATORVASTATIN CA 20 MG TABLET (FP) PO SCH (18:13)
[2019-09-03] MEDS: BUDESONIDE/FORMETEROL FUMARATE 160/4.5 mcg INHALER IH SCH (21:55)
[2019-09-03] MEDS: DIVALPROEX SODIUM 500 MG TABLET E.C. PO SCH (21:56)
[2019-09-03] MEDS: THIAMINE HCL 100 MG TABLET (FP) PO SCH (21:56)
[2019-09-03] MEDS: levETIRAcetam 500 MG TABLET (FP) PO SCH (21:56)
[2019-09-04] MEDS: chlordiazePOXIDE HCL 25 MG CAPSULE PO SCH ×4 (06:11→22:21)
[2019-09-04 09:49] LABS: HEMATOCRIT 29.4 % (35.4-49); HEMOGLOBIN 9.8 GM/dL (11.7-16.9); MCH 28.2 pg (25.7-33.7); MCHC 33.4 g/dl (32.0-35.9); MEAN CELL VOLUME 84.5 fl (80-96); MEAN PLT VOLUME 9.1 fl (7.5-11.1); PLATELET COUNT 191 K/MM3 (134-434); RBC 3.48 M/mm3 (4.00-5.60); RDW 14.8 % (11.9-15.9); WHITE BLOOD COUNT 3.2 K/mm3 (4.0-10.0)
[2019-09-04] MEDS ORDERED: PATIENT'S OWN MEDICATION (NON-FORMULARY) (Umeclidinium Bromide [Incruse Ellipta] 62.5 MCG) IH SCH (10:00)
[2019-09-04] MEDS ORDERED: VALBENAZINE TOSYLATE 80 MG PO SCH (10:00)
[2019-09-04 10:04] LABS: ALBUMIN 2.5 g/dl (3.4-5.0); BILIRUBIN,TOTAL 0.1 mg/dL (0.2-1); BLOOD UREA NITROGEN 13.1 mg/dL (7-18); CALCIUM 8.4 mg/dL (8.5-10.1); CREATININE 0.6 mg/dL (0.55-1.3); POTASSIUM 3.9 mmol/L (3.5-5.1); TOT PROT 5.9 g/dl (6.4-8.2)
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
[2019-09-04] MEDS: FOLIC ACID 1 MG TABLET (FP) PO SCH (11:20)
[2019-09-04] MEDS: levETIRAcetam 500 MG TABLET (FP) PO SCH ×2 (11:21→22:18)
[2019-09-04] MEDS: PRENATAL VITAMINS W/ FOLIC ACID TABLET (FP) PO SCH (11:21)
[2019-09-04] MEDS: DIVALPROEX SODIUM 500 MG TABLET E.C. PO SCH ×2 (11:21→22:18)
[2019-09-04] MEDS: ATORVASTATIN CA 20 MG TABLET (FP) PO SCH (11:21)
[2019-09-04] MEDS: TIOTROPIUM BROMIDE 2.5 MCG (SPIRIVA) RESPIMAT INHALER IH SCH (11:25)
[2019-09-04] MEDS: BUDESONIDE/FORMETEROL FUMARATE 160/4.5 mcg INHALER IH SCH ×2 (11:25→22:18)
--- NOTE | 2019-09-04 13:42 | PN ---
S CIWA - CIWA Score Nausea/Vomitin Muscle Tremors: 2 Anxiety: 2 Agitation: 2 Paroxysmal Sweats: No Perspiration Orientation: 0-Oriented Tacttile Disturbances: 0-None Auditory Disturbances: 0-None Visual Disturbances: 0-None Headache: 1-Very Mild CIWA-Ar Total Score: 9 S Progress Note (SOAP) Subjective: alert,irritable,anxious,interrupted sleep,tremor Objective: 09/04/19 13:38 alert,irritable,anxious,interrupted sleep,tremor 09/04/19 13:38 Vital Signs Temperature 97.9 F 09/04/19 09:02 Pulse Rate 83 09/04/19 09:02 Respiratory Rate 16 09/04/19 09:02 Blood Pressure 97/56 L 09/04/19 09:02 O2 Sat by Pulse Oximetry (%) 09/04/19 13:39 Laboratory Last Values WBC 3.2 K/mm3 (4.0-10.0) L 09/04/19 07:25 RBC 3.48 M/mm3 (4.00-5.60) L 09/04/19 07:25 Hgb 9.8 GM/dL (11.7-16.9) L 09/04/19 07:25 Hct 29.4 % (35.4-49) L 09/04/19 07:25 MCV 84.5 fl (80-96) 09/04/19 07:25 MCH 28.2 pg (25.7-33.7) 09/04/19 07:25 MCHC 33.4 g/dl (32.0-35.9) 09/04/19 07:25 RDW 14.8 % (11.9-15.9) 09/04/19 07:25 Plt Count 191 K/MM3 (134-434) D 09/04/19 07:25 MPV 9.1 fl (7.5-11.1) 09/04/19 07:25 Sodium 147 mmol/L (136-145) H 09/04/19 07:25 Potassium 3.9 mmol/L (3.5-5.1) 09/04/19 07:25 Chloride 114 mmol/L (98-107) H 09/04/19 07:25 Carbon Dioxide 29 mmol/L (21-32) 09/04/19 07:25 Anion Gap 4 MMOL/L (8-16) L 09/04/19 07:25 BUN 13.1 mg/dL (7-18) 09/04/19 07:25 Creatinine 0.6 mg/dL (0.55-1.3) 09/04/19 07:25 Est GFR (CKD-EPI)AfAm 124.02 09/04/19 07:25 Est GFR (CKD-EPI)NonAf 107.00 09/04/19 07:25 Random Glucose 88 mg/dL (74-106) 09/04/19 07:25 Calcium 8.4 mg/dL (8.5-10.1) L 09/04/19 07:25 Total Bilirubin 0.1 mg/dL (0.2-1) L 09/04/19 07:25 AST 11 U/L (15-37) L 09/04/19 07:25 ALT 13 U/L (13-61) 09/04/19 07:25 Alkaline Phosphatase 85 U/L (45-117) 09/04/19 07:25 Total Protein 5.9 g/dl (6.4-8.2) L 09/04/19 07:25 Albumin 2.5 g/dl (3.4-5.0) L 09/04/19 07:25 RPR Titer Nonreactive (NONREACTIVE) 09/04/19 07:25 Assessment: 09/04/19 13:41 withdrawal symptom Plan: continue detox ,repeat cbc in am
[2019-09-04] MEDS ORDERED: traZODone HCL 50 MG TABLET (FP) PO PRN (22:00)
[2019-09-04] MEDS: OLANZapine 10 MG TABLET PO SCH (22:18)
[2019-09-04] MEDS: THIAMINE HCL 100 MG TABLET (FP) PO SCH (22:18)
[2019-09-05] MEDS ORDERED: chlordiazePOXIDE HCL 25 MG CAPSULE PO SCH (05:00)
[2019-09-05 09:32] LABS: HEMATOCRIT 35.2 % (35.4-49); HEMOGLOBIN 11.4 GM/dL (11.7-16.9); MCHC 32.5 g/dl (32.0-35.9); MEAN CELL VOLUME 86.4 fl (80-96); MEAN PLT VOLUME 9.9 fl (7.5-11.1); PLATELET COUNT 168 K/MM3 (134-434); RBC 4.08 M/mm3 (4.00-5.60); WHITE BLOOD COUNT 3.1 K/mm3 (4.0-10.0)
[2019-09-05] MEDS ORDERED: chlordiazePOXIDE HCL 25 MG CAPSULE PO PRN (10:37)
--- NOTE | 2019-09-05 12:43 | PN ---
[facility] Progress Note (SOAP) Subjective: pt was admitted for AUD. Placed on librium. This morning pt noted to be lethargic, remaining in bed and not able to eat on own. Pt had a similar episode at prior admission- with slurring speech and difficulty swallowing. Eval in the ER was neg. Hold librium, hold depakote. Pt is on Keppra, zyprexa and trazodone for sleep O: Vital Signs - 24 hr 09/04/19 09/04/19 09/04/19 14:58 17:41 20:47 Temperature 98.2 F 98.6 F 97.1 F L Pulse Rate 76 77 78 Respiratory 18 19 18 Rate Blood Pressure 103/63 126/69 91/68 09/05/19 09/05/19 09/05/19 00:47 06:30 10:27 Temperature 97.2 F L 98.2 F Pulse Rate 57 L 65 Respiratory 18 18 25 H Rate Blood Pressure 112/73 129/85 Laboratory Tests 09/04/19 09/04/19 09/04/19 07:25 07:25 07:25 WBC 3.2 L RBC 3.48 L Hgb 9.8 L Hct 29.4 L MCV 84.5 MCH 28.2 MCHC 33.4 RDW 14.8 Plt Count 191 D MPV 9.1 Sodium 147 H Potassium 3.9 Chloride 114 H Carbon Dioxide 29 Anion Gap 4 L BUN 13.1 Creatinine 0.6 Est GFR (CKD-EPI)AfAm 124.02 Est GFR (CKD-EPI)NonAf 107.00 Random Glucose 88 Calcium 8.4 L Total Bilirubin 0.1 L AST 11 L ALT 13 Alkaline Phosphatase 85 Total Protein 5.9 L Albumin 2.5 L RPR Titer Nonreactive 09/05/19 07:00 WBC 3.1 L RBC 4.08 Hgb 11.4 L Hct 35.2 L D MCV 86.4 MCH 28.0 MCHC 32.5 RDW 15.0 Plt Count 168 MPV 9.9 Sodium Potassium Chloride Carbon Dioxide Anion Gap BUN Creatinine Est GFR (CKD-EPI)AfAm Est GFR (CKD-EPI)NonAf Random Glucose Calcium Total Bilirubin AST ALT Alkaline Phosphatase Total Protein Albumin RPR Titer pt with anemia Hct 35. a/p: AUD- will hold librium- think current episode of increased lethargy and weakness due to medication.
[2019-09-05] MEDS: PRENATAL VITAMINS W/ FOLIC ACID TABLET (FP) PO SCH (13:59)
[2019-09-05] MEDS: levETIRAcetam 500 MG TABLET (FP) PO SCH ×2 (13:59→22:36)
[2019-09-05] MEDS: ATORVASTATIN CA 20 MG TABLET (FP) PO SCH (13:59)
[2019-09-05] MEDS: FOLIC ACID 1 MG TABLET (FP) PO SCH (13:59)
[2019-09-05] MEDS: TIOTROPIUM BROMIDE 2.5 MCG (SPIRIVA) RESPIMAT INHALER IH SCH (14:00)
[2019-09-05] MEDS: BUDESONIDE/FORMETEROL FUMARATE 160/4.5 mcg INHALER IH SCH ×2 (14:00→22:37)
[2019-09-05] MEDS: DIVALPROEX SODIUM 500 MG TABLET E.C. PO SCH (15:49)
[2019-09-05] MEDS: THIAMINE HCL 100 MG TABLET (FP) PO SCH (22:36)
[2019-09-05] MEDS: OLANZapine 10 MG TABLET PO SCH (22:36)
[2019-09-06] MEDS ORDERED: chlordiazePOXIDE HCL 10 MG CAPSULE PO PRN ×2
[2019-09-06] MEDS ORDERED: chlordiazePOXIDE HCL 10 MG CAPSULE PO SCH (05:00)
[2019-09-06] MEDS ORDERED: ASPIRIN 325 MG TABLET PO ONE (09:00)
[2019-09-06] MEDS ORDERED: ASPIRIN 81 MG CHEWABLE TABLETS PO ONE (09:00)
--- NOTE | 2019-09-06 09:05 | PN ---
[facility] Progress Note Note: Notified by nursing staff to evaluate for increased lethargy and slurred speech. Patient admitted to detox for alcohol dependence. Has hx of seizure disorder, asthma and schizophrenia. His presentation began 09/05/2019 and patient evaluated by Dr. Mccormick. Anastasiya Morrell and Benjamin held x yesterday. He has hx of similar symptoms in previous admission, April 2019 and evaluated at [facility]. ER work up negative. Patient noted to be increasingly lethargic this morning. He is unable to sit up in bed independently, alert and oriented to name only ( unable to name president , date or place). Also with slurred speech and episodes of incontinence. As per night staff, patient was able to ambulate with walker yesterday and go to bathroom independently. VS 155/87 77 18 PE alert and oriented x 1 skin warm and dry +perrla, eoms intact bl muscle tone 2/5 all 4 ext neg facial drooping, + slurred speech light touch normal position-unable to balance self in sitting position in bed A/P: Change in mental status lethargy Hx of SZD Will send to ER for further evaluation ASA 324mg po once Report given to Dr. Romeo
[2019-09-06 09:54] VITALS: TEMP 97.7
[2019-09-06] MEDS: FOLIC ACID 1 MG TABLET (FP) PO SCH (11:16)
[2019-09-06] MEDS: levETIRAcetam 500 MG TABLET (FP) PO SCH (11:17)
[2019-09-06] MEDS: PRENATAL VITAMINS W/ FOLIC ACID TABLET (FP) PO SCH (11:17)
[2019-09-06] MEDS: ATORVASTATIN CA 20 MG TABLET (FP) PO SCH (11:17)
[2019-09-06] MEDS: TIOTROPIUM BROMIDE 2.5 MCG (SPIRIVA) RESPIMAT INHALER IH SCH (11:17)
[2019-09-06] MEDS: BUDESONIDE/FORMETEROL FUMARATE 160/4.5 mcg INHALER IH SCH (11:17)
[2019-09-06 11:52] VITALS: BP 151/87; PULSE 6
[2019-09-07] MEDS ORDERED: chlordiazePOXIDE HCL 10 MG CAPSULE PO SCH (05:00)
[2019-09-08] MEDS ORDERED: chlordiazePOXIDE HCL 10 MG CAPSULE PO ONE (05:00)
== END 2019-09-06 22:53 | disposition short-term general hospital (02) | DRG 774 ==
LOC: YASAS 14:04 → Y6N 16:51
PROVIDERS: ADMIT Allergy & Immunology; ATTEND Allergy & Immunology
PROC: HZ2ZZZZ Detoxification Services for Substance Abuse Treatment (ICD-10-PCS; principal; 2019-09-03)
DX: F10.230 Alcohol dependence with withdrawal, uncomplicated (principal); F14.20 Cocaine dependence, uncomplicated; F17.213 Nicotine dependence, cigarettes, with withdrawal; F19.280 Other psychoactive substance dependence with psychoactive substance-induced anxiety disorder; F19.282 Other psychoactive substance dependence with psychoactive substance-induced sleep disorder; F25.9 Schizoaffective disorder, unspecified; F31.9 Bipolar disorder, unspecified; G40.909 Epilepsy, unspecified, not intractable, without status epilepticus; J45.909 Unspecified asthma, uncomplicated; D64.9 Anemia, unspecified; G20 Parkinson's disease; R41.82 Altered mental status, unspecified; R53.83 Other fatigue; R47.81 Slurred speech; G25.9 Extrapyramidal and movement disorder, unspecified; E78.5 Hyperlipidemia, unspecified; Z86.73 Personal history of transient ischemic attack (TIA), and cerebral infarction without residual deficits; Z91.5 Personal history of self-harm
CPT/HCPCS: 36415; 80053; 85027; 86593

== ENCOUNTER 2019-09-06 09:41 | Inpatient (IN) | payer OTHER ==
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
[2019-09-06] MEDS ORDERED: NALOXONE HCL 0.4 MG/ML VIAL IVPUSH ONE ×2 (10:05→10:28)
[2019-09-06] MEDS ORDERED: NALOXONE HCL 0.4 MG/ML VIAL ONE ×2 (10:07→10:27)
[2019-09-06 11:14] LABS: ARTERIAL BLD GAS O2 SATURATION 97.9 % (95-98); ARTERIAL BLOOD GAS BASE EXCESS 4.2 meq/l (-2-2); ARTERIAL BLOOD GAS PCO2 44.4 mmHg (35-45); ARTERIAL BLOOD GAS PO2 105 mmHg (80-100); ARTERIAL BLOOD GAS pH 7.42 (7.35-7.45); CARBOXYHEMOGLOBIN 1.1 % (0-2)
[2019-09-06 11:27] LABS: BASO % 0.6 % (0-2.0); EOS % 1.7 % (0-4.5); HEMATOCRIT 32.2 % (35.4-49); HEMOGLOBIN 10.6 GM/dL (11.7-16.9); LYMPH % 22.4 % (8-40); MCH 27.7 pg (25.7-33.7); MCHC 32.8 g/dl (32.0-35.9); MEAN CELL VOLUME 84.4 fl (80-96); MEAN PLT VOLUME 8.7 fl (7.5-11.1); NEUT % 67.3 % (42.8-82.8); PLATELET COUNT 184 K/MM3 (134-434); RBC 3.81 M/mm3 (4.00-5.60); RDW 14.8 % (11.9-15.9); WHITE BLOOD COUNT 4.8 K/mm3 (4.0-10.0)
[2019-09-06 11:40] LABS: INR 1.04 (0.83-1.09); PROTHROMBIN TIME (PATIENT) 12.3 SEC (9.7-13.0)
[2019-09-06 11:43] LABS: ACTIVATED PTT 32.2 SECONDS (25.2-36.5)
[2019-09-06 11:51] LABS: PH,URINE 5.5 (5.0-8.0); URINE APPEARANCE CLEAR; URINE BILIRUBIN NEGATIVE (NEGATIVE); URINE COLOR YELLOW; URINE GLUCOSE (UA) NEGATIVE (NEGATIVE); URINE KETONE NEGATIVE (NEGATIVE); URINE LEUK ESTERASE NEGATIVE (NEGATIVE); URINE NITRITE NEGATIVE (NEGATIVE); URINE PROTEIN NEGATIVE (NEGATIVE); URINE UROBILINOGEN 0.2 mg/dL (0.2-1.0)
[2019-09-06 12:02] LABS: COCAINE, UR NEGATIVE ng/ml (CUTOFF=300); METHADONE, UR NEGATIVE ng/ml (CUTOFF=300); OPIATES, URI NEGATIVE ng/ml (CUTOFF=300); PHENCYCLIDINE,URINE NEGATIVE ng/ml (CUTOFF=25); URINE AMPHETAMINES NEGATIVE ng/ml (CUTOFF=500); URINE BARBITURATES NEGATIVE ng/ml (CUTOFF=200)
[2019-09-06 12:04] LABS: URINE BENZODIAZEPINES POSITIVE ng/ml (CUTOFF=200)
[2019-09-06 12:07] LABS: ALBUMIN 2.8 g/dl (3.4-5.0); ALK PHOS 82 U/L (45-117); ANION GAP 4 MMOL/L (8-16); BILIRUBIN,TOTAL 0.1 mg/dL (0.2-1); BLOOD UREA NITROGEN 10.5 mg/dL (7-18); CALCIUM 8.2 mg/dL (8.5-10.1); CHLORIDE 112 mmol/L (98-107); CO2 28 mmol/L (21-32); CREATININE 0.4 mg/dL (0.55-1.3); GLUCOSE,RANDOM 81 mg/dL (74-106); MAGNESIUM 2.1 mg/dL (1.8-2.4); POTASSIUM 3.9 mmol/L (3.5-5.1); SGOT/AST 14 U/L (15-37); SGPT/ALT 12 U/L (13-61); SODIUM 145 mmol/L (136-145); TOT PROT 6.4 g/dl (6.4-8.2)
--- NOTE | 2019-09-06 12:50 | PDOC ---
Documentation entered by Maria Antonia Krishnamurthy SCRIBE, acting as scribe for Meena Lofton MD. Meena Lofton MD: This documentation has been prepared by the Yessy nuñez Nirvannie, SCRIBE, under my direction and personally reviewed by me in its entirety. I confirm that the documentation accurately reflects all work, treatment, procedures, and medical decision making performed by me. Attending Attestation - Resident Resident Name: Meena Chu - ED Attending Attestation I have performed the following: I have examined & evaluated the patient, The case was reviewed & discussed with the resident, I agree w/resident's findings & plan, Exceptions are as noted - HPI HPI: 09/06/19 10:43 The patient is a 64 year old male, with a significant past medical history of Polysubstance abuse (alcohol, cocaine, and nicotine), Schizoaffective disorder, Seizure disorder, Tardive dyskinesia, Extrapyramidal and movement disorder, Asthma, CVA (residual left side weakness), Anemia, unspecified, who presents to the emergency department with 1 day of altered mental status. As per [facility] staff and EMR, the patient has been admitted since 09/05 and today was found to be increasingly lethargic, depicting slurred speech, alert to only name this morning. Per EMR, the patient was also found to have episodes of incontinence last night. Allergies: NKA Social history: Polysubstance abuse (alcohol, cocaine, and nicotine). - Physicial Exam PE: GENERAL: Lethargic, minimally responsive, in no acute distress HEAD: No signs of trauma EYES: Constricted pupils B/L, sclera anicteric, conjunctiva clear ENT: Auricles normal inspection, hearing grossly normal, nares patent, oropharynx clear without exudates. Moist mucosa. Dec gag reflex NECK: Normal ROM, supple, no lymphadenopathy, JVD, or masses LUNGS: Breath sounds equal, clear to auscultation bilaterally. No wheezes, and no crackles HEART: Regular rate and rhythm, normal S1 and S2, no murmurs, rubs or gallops ABDOMEN: Soft, nontender, normoactive bowel sounds. No guarding, no rebound. No masses EXTREMITIES: Normal range of motion, no edema. No clubbing or cyanosis. No cords, erythema, or tenderness NEUROLOGICAL: Limited by AMS SKIN: Warm, dry, normal turgor, no rashes or lesions noted. - Medical Decision Making Pt presents with altered mental status from [facility], currently under treatment for alcohol use. Narcan given x2 doses, no change in MS. Patient taken to CT emergently, no ICH. MS improving as he returned to the ED. Possibly overmedicated for withdrawal? Will monitor MS in the ED.
[2019-09-06] MEDS ORDERED: ALBUTEROL SO4 2.5/IPRATROPIUM 0.5 INH SOL 3 ML VIAL.NEB. NEB PRN (15:35)
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
[2019-09-06] MEDS ORDERED: PIPERACILLIN/TAZOB 3.375 GM 3.375 GM in DEXTROSE 5%-WATER - 50 ML IVPB ONE (15:44)
[2019-09-06] MEDS ORDERED: levETIRAcetam 500 MG/5 ML INJECTION VIAL IVPB ONE ×2 (15:45→16:05)
[2019-09-06] MEDS ORDERED: FOLIC ACID INJECTION - 1 MG, THIAMINE HCL 100 MG, MULTIVIT INJECTION ADULT 10 ML in SOD... IVPB ONE (15:45)
--- NOTE | 2019-09-06 16:42 | PN ---
Teaching Attending Note Name of Resident: Jamari Winslow ATTENDING PHYSICIAN STATEMENT I saw and evaluated the patient. I reviewed the resident's note and discussed the case with the resident. I agree with the resident's findings and plan as documented. SUBJECTIVE: Patient is a 64yom with Pmhx of seizure disorder, schizoaffective disorder, tardive dyskinesia Extrapyramidal movement disorder, asthma, polysubstance abuse (alcohol/cocaine dependence), CVA (residual left side weakness), asthma who is presenting to the ED from [facility] for altered mental status and increased lethargy. Patient has slow speech, unknown his baseline. OBJECTIVE: Vital Signs Temperature 97.1 F L 09/06/19 09:50 Pulse Rate 81 09/06/19 16:13 Respiratory Rate 12 09/06/19 16:13 Blood Pressure 144/88 09/06/19 09:50 O2 Sat by Pulse Oximetry (%) 97 09/06/19 16:13 GENERAL: The patient is awake, alert, and oriented, in no acute distress. HEAD: Normal with no signs of trauma. EYES: PERRL, extraocular movements intact, sclera anicteric, conjunctiva clear. ENT: Ears normal, oropharynx clear without exudates, moist mucous membranes. NECK: Trachea midline, full range of motion, supple. LUNGS: Breath sounds equal, clear to auscultation bilaterally, no wheezes, no crackles, no accessory muscle use. HEART: Regular rate and rhythm, S1, S2 without murmur, rub or gallop. ABDOMEN: Soft, nontender, nondistended, normoactive bowel sounds, no guarding, no rebound, no masses appreciated . EXTREMITIES: 2+ pulses, warm, well-perfused, no edema. NEUROLOGICAL: Cranial nerves II through XII grossly intact. slow speech, unknown baseline , gait not observed. PSYCH: Normal mood, normal affect. SKIN: Warm, dry, normal turgor, no rashes or lesions noted CBCD WBC 4.8 K/mm3 (4.0-10.0) 09/06/19 10:23 RBC 3.81 M/mm3 (4.00-5.60) L 09/06/19 10:23 Hgb 10.6 GM/dL (11.7-16.9) L 09/06/19 10:23 Hct 32.2 % (35.4-49) L 09/06/19 10:23 MCV 84.4 fl (80-96) 09/06/19 10:23 MCHC 32.8 g/dl (32.0-35.9) 09/06/19 10:23 RDW 14.8 % (11.9-15.9) 09/06/19 10:23 Plt Count 184 K/MM3 (134-434) 09/06/19 10:23 MPV 8.7 fl (7.5-11.1) D 09/06/19 10:23 CMP Sodium 145 mmol/L (136-145) 09/06/19 10:23 Potassium 3.9 mmol/L (3.5-5.1) 09/06/19 10:23 Chloride 112 mmol/L (98-107) H 09/06/19 10:23 Carbon Dioxide 28 mmol/L (21-32) 09/06/19 10:23 Anion Gap 4 MMOL/L (8-16) L 09/06/19 10:23 BUN 10.5 mg/dL (7-18) 09/06/19 10:23 Creatinine 0.4 mg/dL (0.55-1.3) L 09/06/19 10:23 Random Glucose 81 mg/dL (74-106) 09/06/19 10:23 Calcium 8.2 mg/dL (8.5-10.1) L 09/06/19 10:23 Total Bilirubin 0.1 mg/dL (0.2-1) L 09/06/19 10:23 AST 14 U/L (15-37) L 09/06/19 10:23 ALT 12 U/L (13-61) L 09/06/19 10:23 Alkaline Phosphatase 82 U/L (45-117) 09/06/19 10:23 Total Protein 6.4 g/dl (6.4-8.2) 09/06/19 10:23 Albumin 2.8 g/dl (3.4-5.0) L 09/06/19 10:23 CARDIAC ENZYMES Creatine Kinase 82 U/L (26-308) 09/06/19 10:23 Troponin I < 0.02 ng/ml (0.00-0.05) 09/06/19 13:20 Current Medications Generic Name Dose Route Start Last Admin Trade Name Freq PRN Reason Stop Dose Admin Albuterol/Ipratropium 1 amp 09/06/19 15:35 Duoneb - NEB Q6H PRN SHORTNESS OF BREATH Amino Acids 30 ml 09/06/19 17:30 Prosource No Carb Liquid Pkt PO BID@0800,1730 [facility] Atorvastatin Calcium 20 mg 09/06/19 22:00 Lipitor - PO HS [facility] Budesonide/Formoterol Fumarate 2 puff 09/06/19 22:00 Symbicort 160/4.5mcg - IH BID [facility] Chlordiazepoxide HCl 10 mg 09/06/19 18:00 Librium - PO 09/07/19 11:01 [id number] [facility] Chlordiazepoxide HCl 10 mg 09/07/19 12:00 Librium - PO 09/08/19 00:01 Q12H MIKY Chlordiazepoxide HCl 10 mg 09/08/19 12:00 Librium - PO 09/08/19 12:01 ONCE@0500 ONE Chlordiazepoxide HCl 5 mg 09/09/19 00:00 Librium - PO 09/10/19 00:00 Q4H PRN WITHDRAWAL(CONT SUBST) Enoxaparin Sodium 40 mg 09/07/19 10:00 Lovenox - SQ DAILY [facility] Folic Acid 1 mg 09/07/19 10:00 Folic Acid - PO DAILY [facility] Folic Acid 1 mg/ Thiamine HCl 1,000 mls @ 125 mls/hr 09/06/19 15:45 100 mg/ Multivitamins/Minerals IVPB 09/06/19 23:44 10 ml/ Sodium Chloride ONCE ONE Levetiracetam 500 mg 09/06/19 22:00 Keppra - PO BID [facility] Melatonin 5 mg 09/06/19 22:00 Melatonin PO HS PRN INSOMNIA Multivitamins/Minerals/Vitamin C 1 tab 09/07/19 10:00 Tab-A-Vit - PO DAILY [facility] Olanzapine 20 mg 09/06/19 22:00 Zyprexa - PO HS [facility] Thiamine HCl 100 mg 09/07/19 10:00 Vitamin B1 - PO DAILY [facility] Tiotropium [place] 2 puff 09/07/19 10:00 Spiriva Respimat IH DAILY [facility] Trazodone HCl 50 mg 09/06/19 22:00 Desyrel - PO HS [facility] Valproate Sodium 500 mg 09/06/19 22:00 Depakene - PO BID [facility] Home Medications Medication Instructions Recorded Folic Acid 1 mg PO DAILY 02/13/19 Atorvastatin Ca [Lipitor] 20 mg PO DAILY 05/08/19 Olanzapine [Zyprexa] 20 mg PO HS 05/08/19 Valproic Acid 500 mg PO BID 05/08/19 levETIRAcetam [Keppra -] 500 mg PO BID 05/08/19 traZODone HCL [Desyrel -] 50 mg PO HS 05/08/19 Budesonide/Formeterol Fumarate 2 puff IH BID #1 inhaler 05/19/19 [SYMBICORT 160/4.5mcg -] Tiotropium [place] [Spiriva 2 puff IH DAILY #1 inhaler 05/19/19 Respimat] Head CT: within normal limits, mild cerebellar bl atrophy ASSESSMENT AND PLAN: Patient is a 64yom with Pmhx of seizure disorder, schizoaffective disorder, tardive dyskinesia Extrapyramidal movement disorder, asthma, polysubstance abuse (alcohol/cocaine dependence), CVA (residual left side weakness), asthma who is presenting to the ED from [facility] for altered mental status and increased lethargy possible had a seizure activity. # Acute Change of Mental Status due to metabolic encephalopathy /seizure activity since missed his keppra dose yesterday, possible in a post ictal state seizure/fall/aspiration precautions, bedrest, continue Keppra dose, dysphagia diet, speech/swallow consulted. seizure/fall/aspiration precautions #Alcohol Withdrawal continue Librium protiocol , banana bag, MVI/thiamine/ folic acid, addiction medicine consulted # Hx of Asthma continue duoneb, symbicort and spiriva #Schizoaffective Disorder continue valproic acid and olanzapine # normocytic anemia with unclear source, iron studies, b12/folic acid level DVT PPx; Lovenox 40 units subq tid
[2019-09-06] MEDS: AMINO ACIDS/PROTEIN HYDROLYS 30 ML LIQUID.PKT PO SCH (17:45)
[2019-09-06] MEDS: chlordiazePOXIDE HCL 10 MG CAPSULE PO SCH ×3 (17:59→22:55)
[2019-09-06] MEDS: DEXTROSE 5%-NORMAL SALINE 1,000 ML IV SCH ×2 (21:04→21:40)
[2019-09-06] MEDS ORDERED: VALPROATE SODIUM 250 MG/5 ML UNIT DOSE CUP PO SCH (22:00)
[2019-09-06] MEDS ORDERED: OLANZapine 10 MG TABLET PO SCH (22:00)
[2019-09-06] MEDS ORDERED: MELATONIN 5 MG TABLETS PO PRN (22:00)
[2019-09-06] MEDS ORDERED: levETIRAcetam 500 MG TABLET (FP) PO SCH (22:00)
[2019-09-06] MEDS: levETIRAcetam 500 MG/5 ML INJECTION VIAL IVPB SCH (22:13)
[2019-09-06] MEDS: BUDESONIDE/FORMETEROL FUMARATE 160/4.5 mcg INHALER IH SCH (22:32)
[2019-09-06] MEDS: VALPROATE SODIUM 500 MG/5 ML VIAL IVPB SCH (22:55)
[2019-09-07] MEDS: chlordiazePOXIDE HCL 10 MG CAPSULE PO SCH ×3 (05:03→14:27)
[2019-09-07 08:29] LABS: RBC 3.98 M/mm3 (4.00-5.60); WHITE BLOOD COUNT 4.6 K/mm3 (4.0-10.0)
[2019-09-07 08:30] LABS: BASO % 0.8 % (0-2.0); EOS % 2.2 % (0-4.5); HEMATOCRIT 33.6 % (35.4-49); LYMPH % 23.7 % (8-40); MCH 27.7 pg (25.7-33.7); MCHC 32.8 g/dl (32.0-35.9); MEAN CELL VOLUME 84.4 fl (80-96); MEAN PLT VOLUME 8.9 fl (7.5-11.1); MONO % 7.4 % (3.8-10.2); NEUT % 65.9 % (42.8-82.8); PLATELET COUNT 186 K/MM3 (134-434); RDW 15.1 % (11.9-15.9)
[2019-09-07 08:53] LABS: ALBUMIN 2.8 g/dl (3.4-5.0); BILIRUBIN,TOTAL 0.3 mg/dL (0.2-1); BLOOD UREA NITROGEN 7.6 mg/dL (7-18); CALCIUM 8.4 mg/dL (8.5-10.1); CREATININE 0.5 mg/dL (0.55-1.3); MAGNESIUM 2.1 mg/dL (1.8-2.4); POTASSIUM 4.1 mmol/L (3.5-5.1); TOT PROT 6.5 g/dl (6.4-8.2)
--- NOTE | 2019-09-07 10:07 | EKG ---
Test Reason : Blood Pressure : / mmHG Vent. Rate : 084 BPM Atrial Rate : 084 BPM P-R Int : 116 ms QRS Dur : 106 ms QT Int : 430 ms P-R-T Axes : 078 068 029 degrees QTc Int : 508 ms NORMAL SINUS RHYTHM PROLONGED QT ABNORMAL ECG WHEN COMPARED WITH ECG OF 15-MAY-2019 13:00, QT HAS LENGTHENED Confirmed by Kit Vega ([id number]) on 09/07/2019 10:07:12 AM Referred By: Confirmed By:Kit Vega
--- NOTE | 2019-09-07 10:38 | CONSULT ---
Admitting History and Physical - Primary Care Physician PCP: Nic Rogel - Admission History of Present Illness: Per EMR- Marshal Fontana is a 64 year old male with a past medical history of seizure disorder, schizoaffective disorder, ?Parkinson's disease, asthma, alcohol/ cocaine dependence, asthma who is presenting to the ED from [facility] detox for altered mental status and increased lethargy. At [facility] it was noticed that this morning the patient was lethargic and not at his usual baseline, he was not following commands, and not oriented. Patient recalls having dinner yesterday, going to sleep, waking up, but does not recall eating breakfast. As per ED resident, the patient was found to have corn flakes in his mouth by EMS which needed to be removed. In the ED, the patient had gradually improved in mental status and was following commands and answering questions appropriately. Patient stated that he had a seizure one month prior and noted that he is not compliant with his medications all the time when he is not in a facility. As per MAR, it was noted that the patient had not received a dose of Keppra at [facility] rehab for the morning of 09/05 and was not given his dose on 09/06. At the bedside, the patient stated he had some reproducible chest pain underneath his ribs. Also endorsed a minor headache and some lightheadedness. He denied fever, chills, shortness of breath, abdominal pain, nausea, vomiting, diarrhea, constipation, dysuria, hematuria, focal weakness, numbness, tingling. ER course was notable for: (1) Utox + Benzo (2) Head CT with minimal to mild bilateral cerebellar atrophy, bilateral basal ganglia calcifications (3) CXR without any acute pathology NPO except meds. Known to me from April 2019-MBS with impaired UES relaxation with moderate buildup of solids in pharynx with spillage into airway Before d/c, Pt tolerated Dys ground, chin tuck, multiple swallows, alternate with sip of nectar, re-swallow. Cough hard/re-swallow Supervision mealtime to assess tolerance.D/c'd to NH. Not seen by me since. 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 No: O2 Dependent, Pneumonia, Previously Intubated, Pulmonary Embolus, Pulmonary Fibrosis, Sleep Apnea - Past Surgical History Past Surgical History: Yes: None - Smoking History Smoking history: Smoker current status UNK Have you smoked in the past 12 months: Yes Aproximately how many cigarettes per day: 8 - Alcohol/Substance Use Hx Alcohol Use: Yes History of Substance Use: reports: Cocaine History - Admission Reason For Visit: AMS - Diagnostics X-ray: Report Reviewed (nad) CT Scan: Report Reviewed - General Mental Status: Awake and Alert, Able to Follow Commands Attention: Intact Ability to Follow Directions: Good Head/Neck Control: Good - Hearing Hearing: Normal Hearing Aide: No With Patient: No Speech Evaluation - Communication Primary Language: BENGALI Oral Expression Ability: Yes: Moderate Impairment - Speech Production Able to Make Needs Known: Yes: Moderately Impaired Intelligibility: Yes: Moderately Impaired - Speech Characteristics Voice Loudness: Mildly Soft/Quiet Voice Pitch: Yes: Mildly High Speech Pattern: Impaired Speech Clarity: < 50% Nasal Resonance: Hypernasal Articulation: Yes: Imprecise - Language/Auditory Comprehension Follows: Yes: 1 Stage Simple Commands Observation: Comprehends Conversational Speech: Yes - Language/Verbal Expression Functional Communication Status: Yes: Mildly Impaired, Moderately Impaired - Swallow Evaluation/Bedside Assessment Current Nutritional Intake: NPO Dentition: Yes: Edentulous (lower), Dental Appliance Upper Facial Symmetry at Rest: Symmetrical Facial Symmetry on Retraction: Symmetrical Lingual Movement: Symmetric Lingual Movement Strgth Against Opposition: Reduced Laryngeal Elevation: Impaired Laryngeal Movement: Reduced Excursion Bolus Size: WFL Labial Seal: WFL Oral Prep Time: WFL A-P Transit: WFL Timing of Swallow: Delayed Coughing/Throat Clear: Yes (coughing on po trials) Recommendations - Speech Evaluation, Impression/Plan Impression: h/o moderate dyusphagia 04/2019. Cough response on po trials. Persistant hypernasality. cxr -nad. npo - Disposition Discharge to: To be Determined - Dysphagia Impressions/Plan Swallowing Skills: Impaired Dysphagia Impressions: Ongoing Evaluation, Suspect Aspiration *Silent aspiration: cannot be R/O at bedside Recommendations: ENT Consult (laryngoscopy- please assess soft palate/larynx for pathology/structure/function), Modified Barium Swallow - Recommendations Diet Consistency: NPO
[2019-09-07] MEDS: BUDESONIDE/FORMETEROL FUMARATE 160/4.5 mcg INHALER IH SCH ×2 (11:02→22:24)
[2019-09-07] MEDS: TIOTROPIUM BROMIDE 2.5 MCG (SPIRIVA) RESPIMAT INHALER IH SCH (11:03)
[2019-09-07] MEDS: ENOXAPARIN NA (PORCINE) 40 MG/0.4 ML DISP.SYRIN SQ SCH (11:03)
[2019-09-07] MEDS: AMINO ACIDS/PROTEIN HYDROLYS 30 ML LIQUID.PKT PO SCH ×2 (11:03→16:56)
[2019-09-07] MEDS: VALPROATE SODIUM 500 MG/5 ML VIAL IVPB SCH ×2 (11:03→23:00)
[2019-09-07] MEDS: levETIRAcetam 500 MG/5 ML INJECTION VIAL IVPB SCH ×2 (11:03→22:24)
--- NOTE | 2019-09-07 12:16 | PN ---
Physical Exam: SUBJECTIVE: Patient seen and examined. He is hungry and wants to eat. OBJECTIVE: Vital Signs Period Temp Pulse Resp BP Sys/Quintanilla Pulse Ox Last 24 Hr 98.1 F-98.1 F 66-81 12-18 142-169/86-94 97-100 GENERAL: The patient is awake, alert, and fully oriented, in no acute distress. LUNGS: Breath sounds equal, clear to auscultation bilaterally, no wheezes, no crackles, no accessory muscle use. HEART: Regular rate and rhythm, S1, S2 without murmur, rub or gallop. ABDOMEN: Soft, nontender, nondistended, normoactive bowel sounds, no guarding, no rebound, no hepatosplenomegaly, no masses. EXTREMITIES: 2+ pulses, warm, well-perfused, no edema. Laboratory Results - last 24 hr 09/06/19 09/06/19 09/06/19 10:23 11:09 11:09 WBC RBC Hgb Hct MCV MCH MCHC RDW Plt Count MPV Absolute Neuts (auto) Neutrophils % Lymphocytes % Monocytes % Eosinophils % Basophils % Nucleated RBC % Retic Count Sodium 145 Potassium 3.9 Chloride 112 H Carbon Dioxide 28 Anion Gap 4 L BUN 10.5 Creatinine 0.4 L Est GFR (CKD-EPI)AfAm 146.51 Est GFR (CKD-EPI)NonAf 126.41 Random Glucose 81 Calcium 8.2 L Phosphorus 3.0 Magnesium 2.1 Iron TIBC Iron Saturation Unsaturated IBC Ferritin Total Bilirubin 0.1 L AST 14 L ALT 12 L Alkaline Phosphatase 82 Creatine Kinase 82 Troponin I < 0.02 Total Protein 6.4 Albumin 2.8 L Vitamin B12 760 Serum Folate TSH 0.57 D Salicylates < 1.7 L Acetaminophen <2.0 Alcohol, Quantitative < 3 09/06/19 09/07/19 09/07/19 13:20 07:10 07:10 WBC 4.6 RBC 3.98 L Hgb 11.0 L Hct 33.6 L MCV 84.4 MCH 27.7 MCHC 32.8 RDW 15.1 Plt Count 186 MPV 8.9 Absolute Neuts (auto) 3.1 Neutrophils % 65.9 Lymphocytes % 23.7 Monocytes % 7.4 Eosinophils % 2.2 Basophils % 0.8 Nucleated RBC % 0 Retic Count Sodium 144 Potassium 4.1 Chloride 110 H Carbon Dioxide 28 Anion Gap 6 L BUN 7.6 Creatinine 0.5 L Est GFR (CKD-EPI)AfAm 133.67 Est GFR (CKD-EPI)NonAf 115.33 Random Glucose 69 L Calcium 8.4 L Phosphorus Magnesium 2.1 Iron TIBC Iron Saturation Unsaturated IBC Ferritin Total Bilirubin 0.3 AST 13 L ALT 11 L Alkaline Phosphatase 90 Creatine Kinase Troponin I < 0.02 Total Protein 6.5 Albumin 2.8 L Vitamin B12 Serum Folate TSH Salicylates Acetaminophen Alcohol, Quantitative 09/07/19 09/07/19 09/07/19 07:10 07:10 07:10 WBC RBC Hgb Hct MCV MCH MCHC RDW Plt Count MPV Absolute Neuts (auto) Neutrophils % Lymphocytes % Monocytes % Eosinophils % Basophils % Nucleated RBC % Retic Count 0.51 Sodium Potassium Chloride Carbon Dioxide Anion Gap BUN Creatinine Est GFR (CKD-EPI)AfAm Est GFR (CKD-EPI)NonAf Random Glucose Calcium Phosphorus Magnesium Iron 51 TIBC 257 Iron Saturation 19 Unsaturated IBC 206 Ferritin 34.1 Total Bilirubin AST ALT Alkaline Phosphatase Creatine Kinase Troponin I Total Protein Albumin Vitamin B12 974 Serum Folate 18 H TSH Salicylates Acetaminophen Alcohol, Quantitative Active Medications Generic Name Dose Route Start Last Admin Trade Name Freq PRN Reason Stop Dose Admin Albuterol/Ipratropium 1 amp 09/06/19 15:35 Duoneb - NEB Q6H PRN SHORTNESS OF BREATH Amino Acids 30 ml 09/06/19 17:30 09/07/19 11:03 Prosource No Carb Liquid Pkt PO 30 ml BID@0800,1730 MIKY Administration Atorvastatin Calcium 20 mg 09/06/19 22:00 Lipitor - PO HS MIKY Budesonide/Formoterol Fumarate 2 puff 09/06/19 22:00 09/07/19 11:02 Symbicort 160/4.5mcg - IH 2 puff BID MIKY Administration Chlordiazepoxide HCl 10 mg 09/07/19 12:00 Librium - PO 09/08/19 00:01 Q12H MIKY Chlordiazepoxide HCl 10 mg 09/08/19 12:00 Librium - PO 09/08/19 12:01 ONCE@0500 ONE Chlordiazepoxide HCl 5 mg 09/09/19 00:00 Librium - PO 09/10/19 00:00 Q4H PRN WITHDRAWAL(CONT SUBST) Enoxaparin Sodium 40 mg 09/07/19 10:00 09/07/19 11:03 Lovenox - SQ 40 mg DAILY MIKY Administration Folic Acid 1 mg 09/07/19 10:00 Folic Acid - PO DAILY MIKY Dextrose/Sodium Chloride 1,000 mls @ 42 mls/hr 09/06/19 17:45 09/06/19 21:40 D5-Ns - IV Not Given ASDIR MIKY Levetiracetam 500 mg 09/06/19 22:00 09/07/19 11:03 Keppra Injection - IVPB 500 mg BID MIKY Administration Melatonin 5 mg 09/06/19 22:00 Melatonin PO HS PRN INSOMNIA Multivitamins/Minerals/Vitamin C 1 tab 09/07/19 10:00 Tab-A-Vit - PO DAILY MIKY Thiamine HCl 100 mg 09/07/19 10:00 Vitamin B1 - PO DAILY MIKY Tiotropium [place] 2 puff 09/07/19 10:00 09/07/19 11:03 Spiriva Respimat IH 2 puff DAILY MIKY Administration Trazodone HCl 50 mg 09/06/19 22:00 Desyrel - PO HS MIKY Valproate Sodium 500 mg 09/06/19 22:00 09/07/19 11:03 Depacon Injection - IVPB 500 mg BID MIKY Administration ASSESSMENT/PLAN: This is a 64 year old man with a history of hyperlipidemia, seizure disorder, schizoaffective disorder, Parkinson disease, asthma, alcohol dependence, cocaine dependence who was sent to the ED from [facility] for altered mental status. 1. Seizure with post-ictal state - Resolved 2. Seizure disorder with breakthrough seizure - No further seizures - Continue Keppra, Depacon 3. Dysphagia with probable aspiration - Swallow eval noted - Modified barium swallow pending - Maintain NPO 4. Alcohol dependence with uncomplicated withdrawal - Continue Librium detox - Continue multivitamin, thiamine, folic acid 5. Asthma - Stable - Continue Symbicort, Spiriva 6. Schizoaffective disorder - Continue Trazodone, Depacon 7. Hyperlipidemia - Continue Lipitor 8. Severe malnutrition - Nutrition evaluation - Recommendations depending on findings on MBS - may need alternate means of nutrition 9. Anemia - Normocytic - Iron studies, TSH, B12, folate all normal - Likely nutritional, chronic illness 10. Parkinson disease 11. Cocaine dependence Visit type - Emergency Visit Emergency Visit: Yes ED Registration Date: 09/06/19 Care time: The patient presented to the Emergency Department on the above date and was hospitalized for further evaluation of their emergent condition. - New Patient This patient is new to me today: Yes Date on this admission: 09/07/19 - Critical Care Critical Care patient: No - Discharge Referral Referred to [facility] Med P.C.: No
--- NOTE | 2019-09-07 12:34 | CONSULT ---
Consult Detox [facility] Reason for Current Admission/Consult: Patient transferred from [facility] to [facility] due to unresponsiveness but was getting detox in [facility]. Referred by:: wade mendoza - History History of Present Illness: Marshal Fontana is a 64 year old male with a past medical history of seizure disorder, schizoaffective disorder, ?Parkinson's disease, asthma, alcohol/ cocaine dependence, who is presenting to the ED from [facility] detox for altered mental status and increased lethargy. At [facility] it was noticed that this morning the patient was lethargic and not at his usual baseline, he was not following commands, and not oriented. Patient recalls having dinner yesterday, going to sleep, waking up, but does not recall eating breakfast. As per ED resident, the patient was found to have corn flakes in his mouth by EMS which needed to be removed. In the ED, the patient had gradually improved in mental status and was following commands and answering questions appropriately. Patient stated that he had a seizure one month prior and noted that he is not compliant with his medications all the time when he is not in a facility. As per MAR, it was noted that the patient had not received a dose of Keppra at [facility] rehab for the morning of 09/05 and was not given his dose on 09/06. At the bedside, the patient stated he had some reproducible chest pain underneath his ribs. Also endorsed a minor headache and some lightheadedness. He denied fever, chills, shortness of breath, abdominal pain, nausea, vomiting, diarrhea, constipation, dysuria, hematuria, focal weakness, numbness, tingling. - History Source History Provided By: Medical Record Limitations to Obtaining History: No Limitations - Alcohol/Substance Use Hx Alcohol Use: Yes Hx Substance Use: Yes (cocaine) - Current Drug/Alcohol Use Alcohol Route: Oral Frequency: Daily Amount used: 1 pint vodka Age of first use: 19 Date of Last Use: 09/04/19 Cocaine Route: Smoking Frequency: Daily Amount used: $100 Age of first use: 31 Date of Last Use: 09/04/19 - Past Medical History [employer]: Yes: Seizure Pulmonary: Yes: Asthma, Bronchitis. No: O2 Dependent, Pneumonia, Previously Intubated, Pulmonary Embolus, Pulmonary Fibrosis, Sleep Apnea - Past Surgical History Past Surgical History: Yes: None - Significant Medical Findings: As per Dr. Rogel today: Patient was away for barium swallow study. GENERAL: The patient is awake, alert, and fully oriented, in no acute distress. HEAD: Normal with no signs of trauma. EYES: PERRL, extraocular movements intact, sclera anicteric, conjunctiva clear. No ptosis. ENT: Ears normal, nares patent, oropharynx clear without exudates, moist mucous membranes. NECK: Trachea midline, full range of motion, supple. LUNGS: Breath sounds equal, clear to auscultation bilaterally, no wheezes, no crackles, no accessory muscle use. HEART: Regular rate and rhythm, S1, S2 without murmur, rub or gallop. ABDOMEN: Soft, nontender, nondistended, normoactive bowel sounds, no guarding, no rebound, no hepatosplenomegaly, no masses. EXTREMITIES: 2+ pulses, warm, well-perfused, no edema. NEUROLOGICAL: Cranial nerves II through XII grossly intact. Normal speech, gait not observed. PSYCH: Normal mood, normal affect. SKIN: Warm, dry, normal turgor, no rashes or lesions noted Assessment Plan - Plan Plan: 1. Alcohol Dependence with withdrawals: Patient can continue the [facility] Detox protocol while at [facility] and when medically stable can be transferred back to [facility]. Perhaps the lethargy and altered mental status was an undetected seizure activity due to his keppra being withheld. Reinstitute Keppra for the remainder of his course in hospital. Please call if anything else needs to be clarified. If he completes detox here, he can then progress to rehab at [facility] if he so wishes. Dr. Brandon - Medication Detox Regimen/Protocol: [facility]
[2019-09-07] MEDS ORDERED: PT OWN MED DRAWER 7, Y5N ONE (22:16)
[2019-09-08] MEDS ORDERED: chlordiazePOXIDE HCL 10 MG CAPSULE PO SCH
[2019-09-08] MEDS: chlordiazePOXIDE HCL 10 MG CAPSULE PO SCH (01:10)
[2019-09-08] MEDS: DEXTROSE 5%-NORMAL SALINE 1,000 ML IV SCH ×2 (09:55→19:39)
[2019-09-08] MEDS: levETIRAcetam 500 MG/5 ML INJECTION VIAL IVPB SCH ×2 (09:56→21:25)
[2019-09-08] MEDS: VALPROATE SODIUM 500 MG/5 ML VIAL IVPB SCH ×2 (09:56→22:00)
[2019-09-08] MEDS: ENOXAPARIN NA (PORCINE) 40 MG/0.4 ML DISP.SYRIN SQ SCH (09:57)
[2019-09-08] MEDS: AMINO ACIDS/PROTEIN HYDROLYS 30 ML LIQUID.PKT PO SCH ×2 (10:18→17:32)
[2019-09-08] MEDS: FOLIC ACID 1 MG TABLET (FP) PO SCH (10:18)
[2019-09-08] MEDS: MULTIVITAMINS (DAILY MVI) TABLET (FP) PO SCH (10:18)
[2019-09-08] MEDS: THIAMINE HCL 100 MG TABLET (FP) PO SCH (10:19)
[2019-09-08] MEDS ORDERED: chlordiazePOXIDE HCL 10 MG CAPSULE PO ONE (12:00)
[2019-09-08] MEDS: BUDESONIDE/FORMETEROL FUMARATE 160/4.5 mcg INHALER IH SCH ×2 (14:29→21:26)
[2019-09-08] MEDS: TIOTROPIUM BROMIDE 2.5 MCG (SPIRIVA) RESPIMAT INHALER IH SCH (14:29)
--- NOTE | 2019-09-08 14:50 | PN ---
Physical Exam: SUBJECTIVE: Patient seen and examined at the bedside. States he wants to eat and is hungry. Denies acute complaints of cp, sob, abd pain, n/v/c/d, headaches , dizziness, lightheadedness, fever, chills. OBJECTIVE: Vital Signs Period Temp Pulse Resp BP Sys/Quintanilla Pulse Ox Last 24 Hr 97.9 F-98.7 F 55-100 18-20 120-136/75-86 100 GENERAL: Awake, alert, and oriented x3. Very thin, malnourished. EYES: Pupils equal, round and reactive to light. THROAT: Oropharynx clear without exudates. Dry mucous membranes. LUNGS: Breath sounds mildly coarse bilaterally. No auscultated wheezes, no crackles. HEART: Regular rate and rhythm, normal S1 and S2 without murmur. ABDOMEN: Soft, nontender, not distended, normoactive bowel sounds, no guarding, no rebound, no masses. EXTREMITIES: 2+ pulses, warm, well-perfused. No calf tenderness. No peripheral edema. NEUROLOGICAL: Slurred speech noted. No facial droop. PSYCHIATRIC: Upset mood. Laboratory Results - last 24 hr 09/07/19 07:10 Transferrin 208 Active Medications Generic Name Dose Route Start Last Admin Trade Name Freq PRN Reason Stop Dose Admin Albuterol/Ipratropium 1 amp 09/06/19 15:35 Duoneb - NEB Q6H PRN SHORTNESS OF BREATH Amino Acids 30 ml 09/06/19 17:30 09/08/19 10:18 Prosource No Carb Liquid Pkt PO Not Given BID@0800,1730 [facility] Atorvastatin Calcium 20 mg 09/06/19 22:00 Lipitor - PO HS [facility] Budesonide/Formoterol Fumarate 2 puff 09/06/19 22:00 09/08/19 14:29 Symbicort 160/4.5mcg - IH 2 puff BID MIKY Administration Chlordiazepoxide HCl 5 mg 09/09/19 00:00 Librium - PO 09/10/19 00:00 Q4H PRN WITHDRAWAL(CONT SUBST) Enoxaparin Sodium 40 mg 09/07/19 10:00 09/08/19 09:57 Lovenox - SQ 40 mg DAILY MIKY Administration Folic Acid 1 mg 09/07/19 10:00 02/18/20 10:18 Folic Acid - PO Not Given DAILY MIKY Dextrose/Sodium Chloride 1,000 mls @ 42 mls/hr 09/06/19 17:45 09/08/19 09:55 D5-Ns - IV 42 mls/hr ASDIR MIKY Administration Levetiracetam 500 mg 09/06/19 22:00 09/08/19 09:56 Keppra Injection - IVPB 500 mg BID MIKY Administration Melatonin 5 mg 09/06/19 22:00 Melatonin PO HS PRN INSOMNIA Multivitamins/Minerals/Vitamin C 1 tab 09/07/19 10:00 09/08/19 10:18 Tab-A-Vit - PO Not Given DAILY MIKY Thiamine HCl 100 mg 09/07/19 10:00 09/08/19 10:19 Vitamin B1 - PO Not Given DAILY MIKY Tiotropium [place] 2 puff 09/07/19 10:00 09/08/19 14:29 Spiriva Respimat IH 2 puff DAILY MIKY Administration Trazodone HCl 50 mg 09/06/19 22:00 Desyrel - PO HS MIKY Valproate Sodium 500 mg 09/06/19 22:00 09/08/19 09:56 Depacon Injection - IVPB 500 mg BID MIKY Administration ASSESSMENT/PLAN: Marshal Fontana is a 64 year old male with a past medical history of seizure disorder, schizoaffective disorder, ?Parkinson's disease, asthma, alcohol/ cocaine dependence, asthma admitted for altered mental status likely in setting of breakthrough seizure. Altered Mental Status - likely in setting of breakthrough seizure, improved - loaded with Keppra and continue home dose - Keppra level - neurochecks - seizure/fall/aspiration precautions, bedrest - NPO - neurology consulted due to cerebellar atrophy, bilateral basal ganglia calcifications, and ?Parkinson's history with no Parkinson's meds Alcohol Withdrawal - continue Librium protocol - MVI/thiamine/folic acid - seizure/fall/aspiration precautions - addiction medicine consulted ?Aspiration secondary to dysarthria and dysphagia - hemodynamically stable, no antibiotics - low threshold to restart antibiotics if patient has fever or signs of infection - speech and swallow consulted, MBS done with signs of aspiration and poor swallow - HOB elevated, dysphagia precautions - NPO - ENT consulted - neurology consulted as symptoms may be in setting of neurological disorder Asthma - not currently in exacerbation - duoneb q6h prn - continue home symbicort and spiriva Schizoaffective Disorder - continue valproic acid - held olanzapine in setting of prolonged QTc, will need outpatient psych f/u to determine if can restart Weakness and Frail Appearance - physical therapy - dietary consult for likely poor PO intake and low albumin levels - speech/swallow consult as patient dysarthric and has hx of Parkinson's, recs appreciated Anemia - normocytic anemia with unclear source - iron studies within normal limits - FOBT ordered DVT PPx - Lovenox 40 units subq daily FEN - D5-NS at 42cc/hr - continue to monitor electrolytes and replete as necessary - NG tube placed, enteral feeds Dispo - continue to monitor on Med-surg Visit type - Emergency Visit Emergency Visit: Yes ED Registration Date: 09/06/19 Care time: The patient presented to the Emergency Department on the above date and was hospitalized for further evaluation of their emergent condition. - New Patient This patient is new to me today: No - Critical Care Critical Care patient: No
--- NOTE | 2019-09-08 16:23 | PN ---
Teaching Attending Note Name of Resident: Jamari Winslow ATTENDING PHYSICIAN STATEMENT I saw and evaluated the patient. I reviewed the resident's note and discussed the case with the resident. I agree with the resident's findings and plan as documented. SUBJECTIVE: Patient feels hungry and would like to eat. OBJECTIVE: Vital Signs Period Temp Pulse Resp BP Sys/Quintanilla Pulse Ox Last 24 Hr 97.9 F-98.7 F 55-100 18-20 120-136/75-86 100 GENERAL: The patient is awake, alert, and fully oriented, in no acute distress. LUNGS: Breath sounds equal, clear to auscultation bilaterally, no wheezes, no crackles, no accessory muscle use. HEART: Regular rate and rhythm, S1, S2 without murmur, rub or gallop. ABDOMEN: Soft, nontender, nondistended, normoactive bowel sounds, no guarding, no rebound, no hepatosplenomegaly, no masses. EXTREMITIES: 2+ pulses, warm, well-perfused, no edema. Laboratory Results - last 24 hr 09/07/19 07:10 Transferrin 208 Current Medications Generic Name Dose Route Start Last Admin Trade Name Freq PRN Reason Stop Dose Admin Albuterol/Ipratropium 1 amp 09/06/19 15:35 Duoneb - NEB Q6H PRN SHORTNESS OF BREATH Amino Acids 30 ml 09/06/19 17:30 09/08/19 10:18 Prosource No Carb Liquid Pkt PO Not Given BID@0800,1730 [facility] Atorvastatin Calcium 20 mg 09/06/19 22:00 Lipitor - PO HS MIKY Budesonide/Formoterol Fumarate 2 puff 09/06/19 22:00 09/08/19 14:29 Symbicort 160/4.5mcg - IH 2 puff BID MIKY Administration Chlordiazepoxide HCl 5 mg 09/09/19 00:00 Librium - PO 09/10/19 00:00 Q4H PRN WITHDRAWAL(CONT SUBST) Enoxaparin Sodium 40 mg 09/07/19 10:00 09/08/19 09:57 Lovenox - SQ 40 mg DAILY MIKY Administration Folic Acid 1 mg 09/07/19 10:00 09/08/19 10:18 Folic Acid - PO Not Given DAILY MIKY Dextrose/Sodium Chloride 1,000 mls @ 42 mls/hr 09/06/19 17:45 09/08/19 09:55 D5-Ns - IV 42 mls/hr ASDIR MIKY Administration Levetiracetam 500 mg 09/06/19 22:00 09/08/19 09:56 Keppra Injection - IVPB 500 mg BID MIKY Administration Melatonin 5 mg 09/06/19 22:00 Melatonin PO HS PRN INSOMNIA Multivitamins/Minerals/Vitamin C 1 tab 09/07/19 10:00 09/08/19 10:18 Tab-A-Vit - PO Not Given DAILY MIKY Thiamine HCl 100 mg 09/07/19 10:00 09/08/19 10:19 Vitamin B1 - PO Not Given DAILY MIKY Tiotropium [place] 2 puff 09/07/19 10:00 09/08/19 14:29 Spiriva Respimat IH 2 puff DAILY MIKY Administration Trazodone HCl 50 mg 09/06/19 22:00 Desyrel - PO HS MIKY Valproate Sodium 500 mg 09/06/19 22:00 09/08/19 09:56 Depacon Injection - IVPB 500 mg BID MIKY Administration ASSESSMENT AND PLAN: This is a 64 year old man with a history of hyperlipidemia, seizure disorder, schizoaffective disorder, Parkinson disease, asthma, alcohol dependence, cocaine dependence who was sent to the ED from [facility] for altered mental status. 1. Seizure with post-ictal state - Resolved 2. Seizure disorder with breakthrough seizure - No further seizures - Continue Keppra, Depacon 3. Dysphagia with aspiration - ? secondary to Parkinson's - Swallow eval noted - Modified barium swallow showed dysphagia with silent aspiration - Maintain NPO - NG tube for feeds - ENT, neurology consults 4. Alcohol dependence with uncomplicated withdrawal - Continue Librium detox - Continue multivitamin, thiamine, folic acid 5. Asthma - Stable - Continue Symbicort, Spiriva 6. Schizoaffective disorder - Continue Trazodone, Depacon 7. Hyperlipidemia - Continue Lipitor 8. Severe malnutrition - NG tube for feeds - Will likely need PEG 9. Anemia - Normocytic - Iron studies, TSH, B12, folate all normal - Likely nutritional, chronic illness 10. Parkinson disease 11. Cocaine dependence
[2019-09-08 17:25] LABS: HEMATOCRIT 32.5 % (35.4-49); HEMOGLOBIN 10.7 GM/dL (11.7-16.9); MCH 27.9 pg (25.7-33.7); MCHC 32.9 g/dl (32.0-35.9); MEAN CELL VOLUME 84.6 fl (80-96); MEAN PLT VOLUME 9.7 fl (7.5-11.1); PLATELET COUNT 160 K/MM3 (134-434); RBC 3.84 M/mm3 (4.00-5.60); RDW 14.7 % (11.9-15.9); WHITE BLOOD COUNT 3.4 K/mm3 (4.0-10.0)
[2019-09-08 17:58] LABS: BLOOD UREA NITROGEN 8.6 mg/dL (7-18); CALCIUM 8.4 mg/dL (8.5-10.1); CREATININE 0.6 mg/dL (0.55-1.3); PHOSPHOROUS 3.6 mg/dL (2.5-4.9); POTASSIUM 3.9 mmol/L (3.5-5.1)
--- NOTE | 2019-09-08 19:01 | CONSULT ---
Consult - text type - Consultation Consultation Note: ENT consult. 64-year-old man admitted for altered mental status, complaining of painful swallowing. Modified barium swallow showed pushpa aspiration without much of a cough response. Physical examination reveals a dry fissured tongue with multiple scattered areas of exudate adherent to the surface. small amount of creamy phlegm adherent to the posterior pharyngeal wall. The nose appears patent. Flexible fiberoptic laryngoscopy was performed through the right nostril. The right nasal cavity and nasopharynx are unremarkable. There are small amounts of creamy liquid in the vallecula and a small, and edematous omega-shaped epiglottis. There is a moderate amount of creamy liquid overlying the larynx, which partially clears with a requested cough. This same liquid pools in both piriform sinuses. Impression: there does not appear to be any structural problem with the palate. I am unable to get a good assessment of the larynx due to pooling of secretions. There is also some combination of oral thrush and dehydration, which is most likely the reason for his odynophagia. I cannot give a definitive reason for his dysphagia and suspected aspiration. This individual is at high risk of aspiration pneumonia if fed orally under his current circumstances. Recommend: appropriate hydration. Nystatin oral suspension, swish, gargle and spit four times daily, but don't swallow; or clotrimazole troches on the surface of the tongue five times a day for a week. Alternatively, start fluconazole 100 mg daily. I do not recommend oral feeding at this time; he is at high risk of aspiration. Should his clinical circumstances change, a reconsult would be in order.
[2019-09-08] MEDS ORDERED: PT OWN MED DRAWER 7, Y5N ONE (21:21)
[2019-09-08 23:54] VITALS: BMI 18.3
[2019-09-09] MEDS ORDERED: chlordiazePOXIDE HCL 10 MG CAPSULE PO PRN ×2
[2019-09-09] MEDS ORDERED: chlordiazePOXIDE HCL 10 MG CAPSULE PO ONE
--- NOTE | 2019-09-09 06:08 | PN ---
Physical Exam: SUBJECTIVE: Patient seen and examined at the bedside. Patient repeatedly stated that he wants to eat and does not care about his aspiration risks. Continues to endorse hunger. Denies acute complaints of cp, sob, abd pain, n/v/c/d, headaches , dizziness, lightheadedness, fever, chills. OBJECTIVE: Vital Signs Period Temp Pulse Resp BP Sys/Quintanilla Pulse Ox Last 24 Hr 97.9 F-98.7 F 55-86 20-20 120-138/75-88 100 GENERAL: Awake, alert, and oriented x3. Very thin, malnourished. EYES: Pupils equal, round and reactive to light. THROAT: Oropharynx clear without exudates. Dry mucous membranes. LUNGS: Breath sounds mildly coarse bilaterally. No auscultated wheezes, no crackles. HEART: Regular rate and rhythm, normal S1 and S2 without murmur. ABDOMEN: Soft, nontender, not distended, normoactive bowel sounds, no guarding, no rebound, no masses. EXTREMITIES: 2+ pulses, warm, well-perfused. No calf tenderness. No peripheral edema. NEUROLOGICAL: Slurred speech noted. No facial droop. PSYCHIATRIC: Upset mood. Laboratory Results - last 24 hr 09/07/19 09/08/19 09/08/19 07:10 15:20 15:20 WBC 3.4 L RBC 3.84 L Hgb 10.7 L Hct 32.5 L MCV 84.6 MCH 27.9 MCHC 32.9 RDW 14.7 Plt Count 160 MPV 9.7 Sodium 143 Potassium 3.9 Chloride 109 H Carbon Dioxide 30 Anion Gap 4 L BUN 8.6 Creatinine 0.6 Est GFR (CKD-EPI)AfAm 124.02 Est GFR (CKD-EPI)NonAf 107.00 Random Glucose 69 L Calcium 8.4 L Phosphorus 3.6 Magnesium 2.0 Transferrin 208 Active Medications Generic Name Dose Route Start Last Admin Trade Name Freq PRN Reason Stop Dose Admin Albuterol/Ipratropium 1 amp 09/06/19 15:35 Duoneb - NEB Q6H PRN SHORTNESS OF BREATH Amino Acids 30 ml 09/06/19 17:30 09/08/19 17:32 Prosource No Carb Liquid Pkt PO 30 ml BID@0800,1730 MIKY Administration Atorvastatin Calcium 20 mg 09/06/19 22:00 Lipitor - PO HS MIKY Budesonide/Formoterol Fumarate 2 puff 09/06/19 22:00 09/08/19 21:26 Symbicort 160/4.5mcg - IH 2 puff BID MIKY Administration Chlordiazepoxide HCl 5 mg 09/09/19 00:00 Librium - PO 09/10/19 00:00 Q4H PRN WITHDRAWAL(CONT SUBST) Enoxaparin Sodium 40 mg 09/07/19 10:00 09/08/19 09:57 Lovenox - SQ 40 mg DAILY MIKY Administration Folic Acid 1 mg 09/07/19 10:00 09/08/19 10:18 Folic Acid - PO Not Given DAILY MIKY Dextrose/Sodium Chloride 1,000 mls @ 42 mls/hr 09/06/19 17:45 09/08/19 19:39 D5-Ns - IV Not Given ASDIR MIKY Levetiracetam 500 mg 09/06/19 22:00 09/08/19 21:25 Keppra Injection - IVPB 500 mg BID MIKY Administration Melatonin 5 mg 09/06/19 22:00 Melatonin PO HS PRN INSOMNIA Multivitamins/Minerals/Vitamin C 1 tab 09/07/19 10:00 09/08/19 10:18 Tab-A-Vit - PO Not Given DAILY [facility] Nystatin 500,000 units 09/09/19 00:00 09/09/19 00:00 Nystatin Oral Suspension - PO 500,000 units Q6HPO MIKY Administration Thiamine HCl 100 mg 09/07/19 10:00 09/08/19 10:19 Vitamin B1 - PO Not Given DAILY MIKY Tiotropium [place] 2 puff 09/07/19 10:00 09/08/19 14:29 Spiriva Respimat IH 2 puff DAILY MIKY Administration Trazodone HCl 50 mg 09/06/19 22:00 Desyrel - PO HS MIKY Valproate Sodium 500 mg 09/06/19 22:00 09/08/19 22:00 Depacon Injection - IVPB 500 mg BID MIKY Administration ASSESSMENT/PLAN: Marshal Fontana is a 64 year old male with a past medical history of seizure disorder, schizoaffective disorder, ?Parkinson's disease, asthma, alcohol/ cocaine dependence, asthma admitted for altered mental status likely in setting of breakthrough seizure. Altered Mental Status - likely in setting of breakthrough seizure, improved - loaded with Keppra and continue home dose - Keppra level - neurochecks - seizure/fall/aspiration precautions, bedrest - neurology consulted due to cerebellar atrophy, bilateral basal ganglia calcifications, and ?Parkinson's history with no Parkinson's meds Alcohol Withdrawal - completed Librium protocol - MVI/thiamine/folic acid - seizure/fall/aspiration precautions - addiction medicine consulted Dysarthria and dysphagia - hemodynamically stable, no antibiotics - low threshold to restart antibiotics if patient has fever or signs of infection - speech and swallow consulted, MBS done with signs of aspiration and poor swallow - HOB elevated, dysphagia precautions - ENT consulted, recs appreciated - noted with oral thrush, nystatin swish and spit - neurology consulted as symptoms may be in setting of neurological disorder - NGT feeds started, patient pulled out NGT, if patient agreeable will replace - patient repeatedly requesting to eat and states he does not care about his aspiration risks, psychiatry consulted to assess decision making capacity - palliative care eval for patient as he may require PEG tube Asthma - not currently in exacerbation - duoneb q6h prn - continue home symbicort and spiriva Schizoaffective Disorder - continue valproic acid - held olanzapine in setting of prolonged QTc, will need outpatient psych f/u to determine if can restart Weakness and Frail Appearance - physical therapy - dietary consult for likely poor PO intake and low albumin levels, recs appreciated - speech/swallow consult as patient dysarthric and has hx of Parkinson's, recs appreciated Anemia - normocytic anemia with unclear source - iron studies within normal limits - FOBT ordered DVT PPx - Lovenox 40 units subq daily FEN - Clinamix - continue to monitor electrolytes and replete as necessary - enteral feeds as per dietary if NGT placed again Dispo - continue to monitor on Med-surg Visit type - Emergency Visit Emergency Visit: Yes ED Registration Date: 09/06/19 Care time: The patient presented to the Emergency Department on the above date and was hospitalized for further evaluation of their emergent condition. - New Patient This patient is new to me today: No - Critical Care Critical Care patient: No
[2019-09-09] MEDS: NYSTATIN 500,000 UNITS/5 ML SUSPENSION PO SCH ×4 (06:24→17:18)
[2019-09-09] MEDS: AMINO ACIDS/PROTEIN HYDROLYS 30 ML LIQUID.PKT PO SCH ×2 (10:46→17:18)
[2019-09-09] MEDS: FOLIC ACID 1 MG TABLET (FP) PO SCH (10:46)
[2019-09-09] MEDS: MULTIVITAMINS (DAILY MVI) TABLET (FP) PO SCH (10:46)
[2019-09-09] MEDS: THIAMINE HCL 100 MG TABLET (FP) PO SCH (10:46)
[2019-09-09] MEDS: DEXTROSE 5%-NORMAL SALINE 1,000 ML IV SCH (10:54)
[2019-09-09] MEDS: levETIRAcetam 500 MG/5 ML INJECTION VIAL IVPB SCH ×2 (10:55→21:40)
[2019-09-09] MEDS: TIOTROPIUM BROMIDE 2.5 MCG (SPIRIVA) RESPIMAT INHALER IH SCH (10:55)
[2019-09-09] MEDS: ENOXAPARIN NA (PORCINE) 40 MG/0.4 ML DISP.SYRIN SQ SCH (10:55)
[2019-09-09] MEDS: BUDESONIDE/FORMETEROL FUMARATE 160/4.5 mcg INHALER IH SCH ×2 (10:55→21:42)
[2019-09-09] MEDS ORDERED: DEXTROSE 5%-NORMAL SALINE 1,000 ML IV SCH (12:00)
--- NOTE | 2019-09-09 12:22 | PN ---
Progress Note, MINISTER - Note Progress Note: ENT consult reviewed and appreciated. Pooling of secretions.NPO recommended. Hypernasality persists. Pt continues to be NPO. Pt pulled NGT Poor compliance, asking to eat.
[2019-09-09] MEDS: VALPROATE SODIUM 500 MG/5 ML VIAL IVPB SCH ×2 (13:36→21:40)
[2019-09-09] MEDS: AMINO ACIDS 4.25%/D5W 1,000 ML IV SCH (17:36)
--- NOTE | 2019-09-09 19:17 | PN ---
Teaching Attending Note Name of Resident: Jamari Winslow ATTENDING PHYSICIAN STATEMENT I saw and evaluated the patient. I reviewed the resident's note and discussed the case with the resident. I agree with the resident's findings and plan as documented. SUBJECTIVE: No fever or chills. No N/V . wants to eat , feels hungry . Pulled NGT last night OBJECTIVE: NAD, thrush. Cv ; RRR. Lungs: CTAB Ext : No edema or erythema A/P : 64 year old man with a history of hyperlipidemia, seizure disorder, schizoaffective disorder, Parkinson's disease, asthma, alcohol and cocaine dependence, who was sent to the ED from [facility] for altered mental status. 1- Seizure. 2- Encephalopathy due to post-ictal state 3- oral thrush 4- dysphagia 5- ETOH withdrawal 6- severe malnutrition 7- chronic normocytic anemia plan : - cont NPO - he wants to take the risk of PNA and and eat. will ask psych to eval. if capable of making decisions , then will allow po feeding - in mean time, will give Clinamix - cont Keppra and valproic acid - cont topical nystatin - refused PEG - finished librium detox yesterday - monitor HB - images reviewed. - lovenox for DVT px
--- NOTE | 2019-09-09 19:51 | CONSULT ---
Consult - text type - Consultation Consultation Note: NEUROLOGY CONSULTATION is greatly appreciated: This 64 yo man with h/o schizoaffective disorder, seizure disorder and polysubstance abuse was admitted to [facility] for ETOH detox. Transferred here after he developed lethargy and decreased responsiveness. Now more alert but has "new" dysarthria and dysphagia. Tox screen only + for benzodiazepines. PMH sig for Cholesterol, COPD and "stroke" in 2003 with residual left sided weakness. Meds include: depakote (500 BID); Keppra (500 mg BID); atorvastatin; olanzapine (20 mg); trazadone (50 mg); simbicort and spiriva. CT of head (reviewed): Mild diffuse atrophy and calcifications of B/L basal ganglia. ADRIENNE: Thin. No bruits. Cor reg. No evidence of external head trauma. Neck supple. [place] - NEURO: Awake, alert. [facility], 2019. [place] Severe dysarthric speech Full [place]. Full EOM's with nystagmus on right gaze No facial. Decreased gag but swallows sips H2O. B/L drift. Normal grasps and ankle dorsiflexion. Decreased KJ's and absent AJ's. Left Babinski. Withdraws all fours to pinch. IMP: Bulbar or pseudobalbar palsy with dysarthria, dysphagia and B/L motor signs. New onset suggests a brainstem stroke or B/L internal capsule lacunar infarct (ie; Old one on the right with a new one on the left) Seizure disorder by history SUGGEST: Agree with NPO for now. Elevate HOB and mobilize patient OO Bed to chair MRI of brain (C-) Continue Levetiracetam (500 mg q12) and Valproic acid (500 q 12) IV until taking PO. Thank you very much, Michael Arevalo MD
[2019-09-09] MEDS ORDERED: PT OWN MED DRAWER 7, Y5N ONE (21:25)
[2019-09-09] MEDS: THIAMINE HCL 200 MG/2 ML VIAL IVPB SCH (21:27)
[2019-09-09] MEDS: traZODone HCL 100 MG TABLET (FP) PO SCH (21:41)
[2019-09-09] MEDS: ATORVASTATIN CA 20 MG TABLET (FP) PO SCH (21:42)
[2019-09-10] MEDS: NYSTATIN 500,000 UNITS/5 ML SUSPENSION PO SCH ×5 (00:58→23:41)
[2019-09-10] MEDS: THIAMINE HCL 200 MG/2 ML VIAL IVPB SCH ×3 (04:13→21:15)
[2019-09-10] MEDS: AMINO ACIDS 4.25%/D5W 1,000 ML IV SCH (06:33)
[2019-09-10] MEDS ORDERED: PT OWN MED DRAWER 7, Y5N ONE ×2 (06:38→09:15)
[2019-09-10] MEDS: VALPROATE SODIUM 500 MG/5 ML VIAL IVPB SCH (08:20)
[2019-09-10] MEDS: MULTIVITAMINS (DAILY MVI) TABLET (FP) PO SCH (09:12)
[2019-09-10] MEDS: FOLIC ACID 1 MG TABLET (FP) PO SCH (09:12)
[2019-09-10] MEDS: AMINO ACIDS/PROTEIN HYDROLYS 30 ML LIQUID.PKT PO SCH ×2 (09:12→17:23)
[2019-09-10] MEDS: levETIRAcetam 500 MG/5 ML INJECTION VIAL IVPB SCH (09:19)
[2019-09-10] MEDS: BUDESONIDE/FORMETEROL FUMARATE 160/4.5 mcg INHALER IH SCH ×2 (09:20→21:56)
[2019-09-10] MEDS: ENOXAPARIN NA (PORCINE) 40 MG/0.4 ML DISP.SYRIN SQ SCH (09:21)
[2019-09-10] MEDS: TIOTROPIUM BROMIDE 2.5 MCG (SPIRIVA) RESPIMAT INHALER IH SCH (09:21)
--- NOTE | 2019-09-10 11:25 | CON.PSY ---
Psychiatry Consult Chief Complaint: 64 Year old Male with a history of Chronic Schizophrenia and Alcohol abuse admitted here from [facility]. Patient seen for Psych eval to determine capacity to roesline decisions. 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 Patient reports that he had been eating prior to Admission and wants to start eating again. He is a good historian , appears frail, but able to comprehjend and understands the consequences of aspiration. Symptoms: reports: Anorexic Behavior - Previous Psychiatric Treatment Outpatient: Less than 6 mos ago Inpatient: One prior admission - Previous Substance Abuse Treatment Outpatient: More than 6 mos ago Inpatient: Within the last 12 months - Reason for Previous Treatment Reason for Previous Treatment: Psychotic Episode, Alcohol Abuse - Current Medications Current Medications: Active Medications Albuterol/Ipratropium (Duoneb -) 1 amp NEB Q6H PRN PRN Reason: SHORTNESS OF BREATH Amino Acids (Prosource No Carb Liquid Pkt) 30 ml PO BID@0800,1730 [facility] Last Admin: 09/10/19 09:12 Dose: Not Given Atorvastatin Calcium (Lipitor -) 20 mg PO HS [facility] Last Admin: 09/09/19 21:42 Dose: Not Given Budesonide/Formoterol Fumarate (Symbicort 160/4.5mcg -) 2 puff IH BID [facility] Last Admin: 09/10/19 09:20 Dose: 2 puff Enoxaparin Sodium (Lovenox -) 40 mg SQ DAILY [facility] Last Admin: 09/10/19 09:21 Dose: 40 mg Folic Acid (Folic Acid -) 1 mg PO DAILY [facility] Last Admin: 09/10/19 09:12 Dose: Not Given Amino Acids (Clinimix -) 1,000 mls @ 84 mls/hr IV Q12H [facility] Last Admin: 09/10/19 06:33 Dose: 84 mls/hr Levetiracetam (Keppra Injection -) 500 mg IVPB BID [facility] Last Admin: 09/10/19 09:19 Dose: 500 mg Melatonin (Melatonin) 5 mg PO HS PRN PRN Reason: INSOMNIA Multivitamins/Minerals/Vitamin C (Tab-A-Vit -) 1 tab PO DAILY [facility] Last Admin: 09/10/19 09:12 Dose: Not Given Nystatin (Nystatin Oral Suspension -) 500,000 units PO Q6HPO [facility] Last Admin: 09/10/19 11:06 Dose: Not Given Thiamine HCl (Vitamin B1 Injection -) 200 mg IVPB Q8H [facility] Stop: 09/12/19 20:00 Last Admin: 09/10/19 11:19 Dose: 200 mg Tiotropium [place] (Spiriva Respimat) 2 puff IH DAILY [facility] Last Admin: 09/10/19 09:21 Dose: 2 puff Trazodone HCl (Desyrel -) 50 mg PO HS [facility] Last Admin: 09/09/19 21:41 Dose: Not Given Valproate Sodium (Depacon Injection -) 500 mg IVPB BID [facility] Last Admin: 09/10/19 08:20 Dose: 500 mg - Allergies Allergies: Allergies Allergy/AdvReac Type Severity Reaction Status Date / Time No Known Allergies Allergy Verified 05/15/19 11:49 - Current Living Status Usual Living Arrangement: Alone - Current Mental Status Evaluation Appearance: Disheveled Attitude: Guarded - Affect Affect: Constrictive Appropriateness: Appropriate to Content - Mood Mood: Euthymic - Speech/Language Expressive: Coherent - Psychomotor Activity Psychomotor Activity: Slowed - Thought Process Thought Process: Intact - Thought Content Hallucinations: Absent Delusions: Absent - Self Perception Self Perception: No Impairment - Cognition Attention: Alert Orientation: Time Memory, Immediate Recall: Intact Memory, Short Term: 3/3 Memory, Remote with Promptin/3 - Concentration Serial Sevens Intact: No Simple Calculations Intact: Yes - Abstraction Proverb Interpretation: Intact Judgement: Intact - Insight Insight: Intact - Impulse Control Impulse Control: Good Control - Suicidal Ideation Suicidal Ideation: No - Homicidal Ideation Homicidal Ideation: No Assessment/Plan !) Patient has the capacity to make decisions at this time.
--- NOTE | 2019-09-10 13:00 | PN ---
Physical Exam: SUBJECTIVE: Patient seen and examined at the bedside. Stated that he continues to be hungry. Had an extensive conversation regarding the risks of PO intake including but not limited to fevers, pneumonitis, pneumonia, atelectasis, respiratory failure and/or patient noted that he understood the risks and continued to insist on PO intake. Otherwise denied cp, sob, abd pain, n/v/c/d, fevers, chills, dizziness, lightheadedness, headaches, numbness/tingling, throat pain. OBJECTIVE: Vital Signs Period Temp Pulse Resp BP Sys/Quintanilla Pulse Ox Last 24 Hr 98 F-98.4 F 60-68 20-20 127-133/67-72 100-100 GENERAL: Awake, alert, and oriented x3. Very thin, malnourished. EYES: Pupils equal, round and reactive to light. THROAT: Oropharynx clear without exudates. Dry mucous membranes. LUNGS: Breath sounds mildly coarse bilaterally. No auscultated wheezes, no crackles. HEART: Regular rate and rhythm, normal S1 and S2 without murmur. ABDOMEN: Soft, nontender, not distended, normoactive bowel sounds, no guarding, no rebound, no masses. EXTREMITIES: 2+ pulses, warm, well-perfused. No calf tenderness. No peripheral edema. NEUROLOGICAL: Slurred speech noted. No facial droop. Pronator drift bilaterally. PSYCHIATRIC: Compliant, appropriate mood and affect. Laboratory Results - last 24 hr 09/06/19 15:47 Levetiracetam 5.4 L Active Medications Generic Name Dose Route Start Last Admin Trade Name Freq PRN Reason Stop Dose Admin Albuterol/Ipratropium 1 amp 09/06/19 15:35 Duoneb - NEB Q6H PRN SHORTNESS OF BREATH Amino Acids 30 ml 09/06/19 17:30 09/10/19 09:12 Prosource No Carb Liquid Pkt PO Not Given BID@0800,1730 [facility] Atorvastatin Calcium 20 mg 09/06/19 22:00 09/09/19 21:42 Lipitor - PO Not Given HS [facility] Budesonide/Formoterol Fumarate 2 puff 09/06/19 22:00 09/10/19 09:20 Symbicort 160/4.5mcg - IH 2 puff BID MIKY Administration Enoxaparin Sodium 40 mg 09/07/19 10:00 09/10/19 09:21 Lovenox - SQ 40 mg DAILY MIKY Administration Folic Acid 1 mg 09/07/19 10:00 09/10/19 09:12 Folic Acid - PO Not Given DAILY MIKY Amino Acids 1,000 mls @ 84 mls/hr 09/09/19 16:30 09/10/19 06:33 Clinimix - IV 84 mls/hr Q12H MIKY Administration Levetiracetam 500 mg 09/06/19 22:00 09/10/19 09:19 Keppra Injection - IVPB 500 mg BID MIKY Administration Melatonin 5 mg 09/06/19 22:00 Melatonin PO HS PRN INSOMNIA Multivitamins/Minerals/Vitamin C 1 tab 09/07/19 10:00 09/10/19 09:12 Tab-A-Vit - PO Not Given DAILY [facility] Nystatin 500,000 units 09/09/19 00:00 09/10/19 11:06 Nystatin Oral Suspension - PO Not Given Q6HPO [facility] Thiamine HCl 200 mg 09/09/19 20:15 09/10/19 11:19 Vitamin B1 Injection - IVPB 09/12/19 20:00 200 mg Q8H MIKY Administration Tiotropium [place] 2 puff 09/07/19 10:00 09/10/19 09:21 Spiriva Respimat IH 2 puff DAILY MIKY Administration Trazodone HCl 50 mg 09/06/19 22:00 09/09/19 21:41 Desyrel - PO Not Given HS MIKY Valproate Sodium 500 mg 09/06/19 22:00 09/10/19 08:20 Depacon Injection - IVPB 500 mg BID MIKY Administration ASSESSMENT/PLAN: Marshal Fontana is a 64 year old male with a past medical history of seizure disorder, schizoaffective disorder, ?Parkinson's disease, asthma, alcohol/ cocaine dependence, asthma admitted for altered mental status likely in setting of breakthrough seizure. Altered Mental Status - likely in setting of breakthrough seizure, improved - loaded with Keppra and continue home dose of 500mg bid - Keppra level low, was subtherapeutic prior to loading and continuation - neurochecks - seizure/fall/aspiration precautions - neurology consulted due to cerebellar atrophy, bilateral basal ganglia calcifications, and ?Parkinson's history with no Parkinson's meds - MRI noting non-specific white matter changes consistent with chronic changes. No acute infarct or other acute intracranial process Alcohol Withdrawal - completed Librium protocol, not in withdrawal - MVI/thiamine/folic acid - seizure/fall/aspiration precautions - addiction medicine consulted Dysarthria and dysphagia - hemodynamically stable, no antibiotics - low threshold to restart antibiotics if patient has fever or signs of infection - speech and swallow consulted, MBS done with signs of aspiration and poor swallow - HOB elevated, dysphagia precautions - ENT consulted, recs appreciated - noted with oral thrush, nystatin swish and spit - neurology consulted as symptoms may be in setting of neurological disorder, MRI ordered - psychiatry consulted, recs appreciated, patient has decision making capacity - after review of the risks of aspiration including but not limited to pneumonitis, pneumonia, atelectasis, respiratory distress and/or failure, and patient understood the risks of feeding and will be allowed a dysphagia puree diet - palliative care eval for patient as he may require PEG tube Asthma - not currently in exacerbation - duoneb q6h prn - continue home symbicort and spiriva Schizoaffective Disorder - continue valproic acid - held olanzapine in setting of prolonged QTc, will need outpatient psych f/u to determine if can restart Weakness and Frail Appearance - physical therapy noting he walked 80 ft with moderate assistance of 2 - dietary consult for likely poor PO intake and low albumin levels, recs appreciated - speech/swallow consult as patient dysarthric and has hx of Parkinson's, recs appreciated - may require SNF placement Anemia - normocytic anemia with unclear source - iron studies within normal limits - FOBT ordered DVT PPx - Lovenox 40 units subq daily FEN - no standing fluids - continue to monitor electrolytes and replete as necessary - dysphagia puree diet Dispo - continue to monitor on Med-surg Visit type - Emergency Visit Emergency Visit: Yes ED Registration Date: 09/06/19 Care time: The patient presented to the Emergency Department on the above date and was hospitalized for further evaluation of their emergent condition. - New Patient This patient is new to me today: No - Critical Care Critical Care patient: No
--- NOTE | 2019-09-10 17:49 | PN ---
Teaching Attending Note Name of Resident: Jamari Winslow ATTENDING PHYSICIAN STATEMENT I saw and evaluated the patient. I reviewed the resident's note and discussed the case with the resident. I agree with the resident's findings and plan as documented. SUBJECTIVE: seen around 11 am no fever or chills. no pain , hungry and wants to eat . OBJECTIVE: NAD, thrush. Dry Mm but better than yesterday Cv; RRR. Lungs: CTAB Abd: soft, NT, Nd, NL BS Ext: No edema or erythema A/P : 64 year old man with a history of hyperlipidemia, seizure disorder, schizoaffective disorder, Parkinson's disease, asthma, alcohol and cocaine dependence, who was sent to the ED from [facility] for altered mental status. 1- Seizure. 2- Encephalopathy due to post-ictal state 3- oral thrush 4- dysphagia 5- ETOH withdrawal . s/p librium detox 6- Severe malnutrition 7- chronic normocytic anemia plan: - case was d/w Dr. Alberto. patient was deemed capable of making decisions. - will start dysphagia puree diet as patient accepted the risk of aspiration/PNA /and even - aspiration precautions . - dc climimix - change Keppra and valproic acid to po. - cont topical nystatin - seen by neuro. - MRI reviewed. No acute stroke or old strokes. periventricular white matter changes. also an area of possible hemosidrein deposition is seen . neuro input ? - cont iv thiamine - dc melatonin as can take po trazodone now - lovenox for DVT px rehab placement in progress. appreciate Sw help
[2019-09-10] MEDS: ATORVASTATIN CA 20 MG TABLET (FP) PO SCH (21:50)
[2019-09-10] MEDS: traZODone HCL 100 MG TABLET (FP) PO SCH (21:50)
[2019-09-10] MEDS: levETIRAcetam 500 MG TABLET (FP) PO SCH (21:50)
[2019-09-10] MEDS: VALPROATE SODIUM 250 MG/5 ML UNIT DOSE CUP PO SCH (22:08)
[2019-09-11] MEDS: THIAMINE HCL 200 MG/2 ML VIAL IVPB SCH ×3 (05:03→20:36)
[2019-09-11] MEDS: NYSTATIN 500,000 UNITS/5 ML SUSPENSION PO SCH ×4 (05:03→23:41)
[2019-09-11] MEDS ORDERED: ACETAMINOPHEN 1000 MG/100 ML VIAL (NON FORMULARY) IVPB ONE ×2 (06:24→07:00)
[2019-09-11] MEDS ORDERED: PIPERACILLIN/TAZOBACTAM 4.5 GM VIAL IVPB ONE ×3 (06:34→14:03)
[2019-09-11] MEDS ORDERED: DEXTROSE 5%-WATER 100 ML IVPB ONE ×3 (06:34→14:03)
[2019-09-11] MEDS: PIPERACILLIN/TAZOB 4.5 GM 4.5 GM in DEXTROSE 5%-WATER 100 ML IVPB SCH ×2 (06:37→09:04)
[2019-09-11] MEDS: AMINO ACIDS/PROTEIN HYDROLYS 30 ML LIQUID.PKT PO SCH ×2 (09:00→17:59)
[2019-09-11] MEDS: MULTIVITAMINS (DAILY MVI) TABLET (FP) PO SCH (09:00)
[2019-09-11] MEDS: ENOXAPARIN NA (PORCINE) 40 MG/0.4 ML DISP.SYRIN SQ SCH (09:04)
[2019-09-11] MEDS: VALPROATE SODIUM 250 MG/5 ML UNIT DOSE CUP PO SCH ×2 (09:05→22:21)
[2019-09-11] MEDS: levETIRAcetam 500 MG TABLET (FP) PO SCH (09:05)
[2019-09-11] MEDS: FOLIC ACID 1 MG TABLET (FP) PO SCH (09:05)
[2019-09-11] MEDS: BUDESONIDE/FORMETEROL FUMARATE 160/4.5 mcg INHALER IH SCH ×2 (09:11→22:24)
[2019-09-11] MEDS: TIOTROPIUM BROMIDE 2.5 MCG (SPIRIVA) RESPIMAT INHALER IH SCH (09:11)
[2019-09-11 09:59] LABS: BASO % 0.1 % (0-2.0); EOS % 0.1 % (0-4.5); HEMATOCRIT 30.8 % (35.4-49); HEMOGLOBIN 10.3 GM/dL (11.7-16.9); MCH 27.5 pg (25.7-33.7); MCHC 33.5 g/dl (32.0-35.9); MEAN CELL VOLUME 82.2 fl (80-96); MONO % 7.9 % (3.8-10.2); NEUT % 86.9 % (42.8-82.8); PLATELET COUNT 133 K/MM3 (134-434); RBC 3.74 M/mm3 (4.00-5.60); RDW 14.8 % (11.9-15.9); WHITE BLOOD COUNT 6.8 K/mm3 (4.0-10.0)
[2019-09-11 10:13] LABS: BLOOD UREA NITROGEN 12.4 mg/dL (7-18); CALCIUM 8.3 mg/dL (8.5-10.1); CREATININE 0.7 mg/dL (0.55-1.3); MAGNESIUM 1.8 mg/dL (1.8-2.4); POTASSIUM 3.5 mmol/L (3.5-5.1)
[2019-09-11] MEDS: AMPICILLIN NA/SULBACTAM NA 3 GM in DEXTROSE 5%-WATER 100 ML IVPB SCH ×2 (11:00→17:56)
--- NOTE | 2019-09-11 11:55 | PN ---
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 Pt deemed competant and diet ordered. CXR unchanged. Pt has been counseled on risk of po intake and option for recommended NPO/TF which he declined. Consider Palliative care consult re: pt's wishes including desire for intubation.
--- NOTE | 2019-09-11 14:58 | PN ---
Physical Exam: SUBJECTIVE: Patient seen and examined at the bedside. Overnight event noted of the patient having a fever. Patient was noted by nursing staff to have some coughing when he was consuming foods. Patient stated that he was anxious to go home. Patient denied cp, sob, abd pain, n/v/c/d, chills, headaches, dizziness, lightheadedness, focal weakness, numbness, tingling. OBJECTIVE: Vital Signs Period Temp Pulse Resp BP Sys/Quintanilla Pulse Ox Last 24 Hr 98.2 F-100.6 F 78-101 20-20 95-129/60-79 100 GENERAL: Awake, alert, and oriented x3. Very thin, malnourished. EYES: Pupils equal, round and reactive to light. THROAT: Oropharynx clear without exudates. Dry mucous membranes. LUNGS: Breath sounds mildly coarse bilaterally. No auscultated wheezes, no crackles. HEART: Regular rate and rhythm, normal S1 and S2 without murmur. ABDOMEN: Soft, nontender, not distended, normoactive bowel sounds, no guarding, no rebound, no masses. EXTREMITIES: 2+ pulses, warm, well-perfused. No calf tenderness. No peripheral edema. NEUROLOGICAL: Slurred speech noted. No facial droop. Pronator drift bilaterally. PSYCHIATRIC: Compliant, appropriate mood and affect. Laboratory Results - last 24 hr 09/11/19 09/11/19 08:35 08:35 WBC 6.8 RBC 3.74 L Hgb 10.3 L Hct 30.8 L MCV 82.2 MCH 27.5 MCHC 33.5 RDW 14.8 Plt Count 133 L MPV 9.0 Absolute Neuts (auto) 5.9 Neutrophils % 86.9 H D Lymphocytes % 5.0 L D Monocytes % 7.9 Eosinophils % 0.1 D Basophils % 0.1 Nucleated RBC % 0 Sodium 139 Potassium 3.5 Chloride 106 Carbon Dioxide 26 Anion Gap 6 L BUN 12.4 Creatinine 0.7 Est GFR (CKD-EPI)AfAm 116.40 Est GFR (CKD-EPI)NonAf 100.43 Random Glucose 89 Calcium 8.3 L Magnesium 1.8 Active Medications Generic Name Dose Route Start Last Admin Trade Name Freq PRN Reason Stop Dose Admin Albuterol/Ipratropium 1 amp 09/06/19 15:35 Duoneb - NEB Q6H PRN SHORTNESS OF BREATH Amino Acids 30 ml 09/06/19 17:30 09/11/19 09:00 Prosource No Carb Liquid Pkt PO Not Given BID@0800,1730 [facility] Atorvastatin Calcium 20 mg 09/06/19 22:00 09/10/19 21:50 Lipitor - PO 20 mg HS MIKY Administration Budesonide/Formoterol Fumarate 2 puff 09/06/19 22:00 09/11/19 09:11 Symbicort 160/4.5mcg - IH 2 puff BID [facility] Administration Enoxaparin Sodium 40 mg 09/07/19 10:00 09/11/19 09:04 Lovenox - SQ 40 mg DAILY MIKY Administration Folic Acid 1 mg 09/07/19 10:00 09/11/19 09:05 Folic Acid - PO Not Given DAILY [facility] Ampicillin Sodium/Sulbactam 100 mls @ 200 mls/hr 09/11/19 10:00 Sodium 3 gm/ Dextrose IVPB Q8H-IV [facility] Levetiracetam 500 mg 09/11/19 22:00 Keppra Oral Solution - PO BID [facility] Multivitamins/Minerals/Vitamin C 1 tab 09/07/19 10:00 09/11/19 09:00 Tab-A-Vit - PO Not Given DAILY [facility] Nystatin 500,000 units 09/09/19 00:00 09/11/19 14:22 Nystatin Oral Suspension - PO Not Given Q6HPO [facility] Thiamine HCl 200 mg 09/09/19 20:15 09/11/19 14:37 Vitamin B1 Injection - IVPB 09/12/19 20:00 200 mg Q8H [facility] Administration Tiotropium [place] 2 puff 09/07/19 10:00 09/11/19 09:11 Spiriva Respimat IH 2 puff DAILY [facility] Administration Trazodone HCl 50 mg 09/06/19 22:00 09/10/19 21:50 Desyrel - PO 50 mg HS MIKY Administration Valproate Sodium 500 mg 09/10/19 22:00 09/11/19 09:05 Depakene - PO Not Given BID [facility] ASSESSMENT/PLAN: Marshal Fontana is a 64 year old male with a past medical history of seizure disorder, schizoaffective disorder, ?Parkinson's disease, asthma, alcohol/ cocaine dependence, asthma admitted for altered mental status likely in setting of breakthrough seizure. Altered Mental Status - likely in setting of breakthrough seizure, improved - loaded with Keppra and continue home dose of 500mg bid - Keppra level low, was subtherapeutic prior to loading and continuation - neurochecks - seizure/fall/aspiration precautions - neurology consulted due to cerebellar atrophy, bilateral basal ganglia calcifications, and ?Parkinson's history with no Parkinson's meds - MRI noting non-specific white matter changes consistent with chronic changes. No acute infarct or other acute intracranial process Alcohol Withdrawal - completed Librium protocol, not in withdrawal - MVI/thiamine/folic acid - seizure/fall/aspiration precautions - addiction medicine consulted Dysarthria and dysphagia - hemodynamically stable, no antibiotics - low threshold to restart antibiotics if patient has fever or signs of infection - speech and swallow consulted, MBS done with signs of aspiration and poor swallow - HOB elevated, dysphagia precautions - ENT consulted, recs appreciated - noted with oral thrush, nystatin swish and spit - neurology consulted as symptoms may be in setting of neurological disorder, MRI ordered - psychiatry consulted, recs appreciated, patient has decision making capacity - after review of the risks of aspiration including but not limited to pneumonitis, pneumonia, atelectasis, respiratory distress and/or failure, and patient understood the risks of feeding and will be allowed a dysphagia puree diet - palliative care eval for patient as he may require PEG tube - spoken with neurology and most likely cause of chronic cerebellar atrophy and in setting of dysarthria and dysphagia is Wernicke's encephalopathy and current treatment with thiamine 200mg IV q8h x72 hours is sufficient as per neurology Fever - overnight fever - CXR without noted infiltrate, can repeat if further suspicion of infiltrate - Ucx, Bcx - flu swab - started on Unasyn for possible aspiration PNA - continue to monitor Asthma - not currently in exacerbation - duoneb q6h prn - continue home symbicort and spiriva Schizoaffective Disorder - continue valproic acid - held olanzapine in setting of prolonged QTc, will need outpatient psych f/u to determine if can restart Weakness and Frail Appearance - physical therapy noting he walked 80 ft with moderate assistance of 2 - dietary consult for likely poor PO intake and low albumin levels, recs appreciated - speech/swallow consult as patient dysarthric and has hx of Parkinson's, recs appreciated - may require SNF placement Anemia - normocytic anemia with unclear source - iron studies within normal limits - FOBT ordered DVT PPx - Lovenox 40 units subq daily FEN - no standing fluids - continue to monitor electrolytes and replete as necessary - dysphagia puree diet, Prosource Dispo - continue to monitor on Med-surg Visit type - Emergency Visit Emergency Visit: Yes ED Registration Date: 09/06/19 Care time: The patient presented to the Emergency Department on the above date and was hospitalized for further evaluation of their emergent condition. - New Patient This patient is new to me today: No - Critical Care Critical Care patient: No
--- NOTE | 2019-09-11 17:30 | PN ---
Teaching Attending Note Name of Resident: Jamari Winslow ATTENDING PHYSICIAN STATEMENT I saw and evaluated the patient. I reviewed the resident's note and discussed the case with the resident. I agree with the resident's findings and plan as documented. SUBJECTIVE: fever this am. cough with feeding. OBJECTIVE: NAD, thrush. Dry MM Cv; RRR. Lungs: CTAB Abd: soft, NT, Nd, NL BS Ext: No edema or erythema A/P : 64 year old man with a history of hyperlipidemia, seizure disorder, schizoaffective disorder, Parkinson's disease, asthma, alcohol and cocaine dependence, who was sent to the ED from [facility] for altered mental status. 1- Seizure. 2- Encephalopathy due to post-ictal state 3- oral thrush 4- fever. possible aspiration PNA/pneumonitis 5- ETOH withdrawal . s/p librium detox 6- Severe malnutrition 7- chronic normocytic anemia 8- dysphagia plan: - cont feeding as per patient wishes - start unasyn despite neg cxray. - UA reviewed. - aspiration precautions. - change Keppra and valproic acid to po. - cont topical nystatin - d/w neuro , hemosidrein deposits could be old hemorrhage. suspicion for Wernike's since MRI did not show stroke - cont iv thiamine for total of 72 hrs - lovenox for DVT px rehab placement in progress. appreciate Sw help.
[2019-09-11] MEDS ORDERED: PT OWN MED DRAWER 7, Y5N ONE (17:54)
[2019-09-11] MEDS: levETIRAcetam 500 MG/5 ML ORAL SOLUTION (UNIT-DOSE CUPS) PO SCH (22:20)
[2019-09-11] MEDS: ATORVASTATIN CA 20 MG TABLET (FP) PO SCH (22:22)
[2019-09-11] MEDS: traZODone HCL 100 MG TABLET (FP) PO SCH (22:22)
[2019-09-12] MEDS ORDERED: PT OWN MED DRAWER 7, Y5N ONE ×3 (01:11→11:31)
[2019-09-12] MEDS: AMPICILLIN NA/SULBACTAM NA 3 GM in DEXTROSE 5%-WATER 100 ML IVPB SCH (01:24)
[2019-09-12] MEDS ORDERED: PIPERACILLIN/TAZOB 4.5 GM 4.5 GM in DEXTROSE 5%-WATER 100 ML IVPB SCH (03:00)
[2019-09-12] MEDS: THIAMINE HCL 200 MG/2 ML VIAL IVPB SCH ×2 (04:25→11:36)
[2019-09-12] MEDS: NYSTATIN 500,000 UNITS/5 ML SUSPENSION PO SCH ×3 (05:14→17:11)
[2019-09-12 05:46] LABS: PH,URINE 6.5 (5.0-8.0); URINE APPEARANCE CLEAR; URINE BILIRUBIN NEGATIVE (NEGATIVE); URINE COLOR YELLOW; URINE GLUCOSE (UA) NEGATIVE (NEGATIVE); URINE KETONE NEGATIVE (NEGATIVE); URINE LEUK ESTERASE NEGATIVE (NEGATIVE); URINE NITRITE NEGATIVE (NEGATIVE); URINE PROTEIN NEGATIVE (NEGATIVE)
[2019-09-12] MEDS: AMINO ACIDS/PROTEIN HYDROLYS 30 ML LIQUID.PKT PO SCH ×2 (08:15→16:43)
[2019-09-12 08:33] LABS: BASO % 0.2 % (0-2.0); EOS % 0.7 % (0-4.5); HEMATOCRIT 29.7 % (35.4-49); HEMOGLOBIN 9.9 GM/dL (11.7-16.9); LYMPH % 15.9 % (8-40); MCH 27.7 pg (25.7-33.7); MCHC 33.2 g/dl (32.0-35.9); MEAN CELL VOLUME 83.3 fl (80-96); MEAN PLT VOLUME 9.1 fl (7.5-11.1); MONO % 8.6 % (3.8-10.2); NEUT % 74.6 % (42.8-82.8); PLATELET COUNT 123 K/MM3 (134-434); RBC 3.57 M/mm3 (4.00-5.60); RDW 14.9 % (11.9-15.9); WHITE BLOOD COUNT 7.6 K/mm3 (4.0-10.0)
[2019-09-12 09:06] LABS: BLOOD UREA NITROGEN 11.5 mg/dL (7-18); CALCIUM 8.4 mg/dL (8.5-10.1); CREATININE 0.6 mg/dL (0.55-1.3); MAGNESIUM 2.1 mg/dL (1.8-2.4); POTASSIUM 3.9 mmol/L (3.5-5.1)
[2019-09-12] MEDS: FOLIC ACID 1 MG TABLET (FP) PO SCH (09:19)
[2019-09-12] MEDS: levETIRAcetam 500 MG/5 ML ORAL SOLUTION (UNIT-DOSE CUPS) PO SCH ×2 (09:19→21:32)
[2019-09-12] MEDS: VALPROATE SODIUM 250 MG/5 ML UNIT DOSE CUP PO SCH ×2 (09:19→21:32)
[2019-09-12] MEDS: TIOTROPIUM BROMIDE 2.5 MCG (SPIRIVA) RESPIMAT INHALER IH SCH (09:19)
[2019-09-12] MEDS: ENOXAPARIN NA (PORCINE) 40 MG/0.4 ML DISP.SYRIN SQ SCH (09:19)
[2019-09-12] MEDS: MULTIVITAMINS (DAILY MVI) TABLET (FP) PO SCH (09:19)
[2019-09-12] MEDS: BUDESONIDE/FORMETEROL FUMARATE 160/4.5 mcg INHALER IH SCH ×2 (09:20→21:32)
--- NOTE | 2019-09-12 13:52 | PN ---
Physical Exam: SUBJECTIVE: Patient seen and examined at bedside. Answers questions slowly. No complaints. Eager to begin rehab. OBJECTIVE: Vital Signs Period Temp Pulse Resp BP Sys/Quintanilla Pulse Ox Last 24 Hr 98 F-99.1 F 66-78 18-20 89-100/52-63 96-97 Gen: alert, NAD HEENT: NCAT, EOMI Neck: supple, no jvd, no bruits Cardio: RRR, norm s1s2, no mrg noted Pulm: cta b/l Abd: soft, nontender, nondistended Laboratory Results - last 24 hr 09/12/19 09/12/19 09/12/19 05:00 08:04 08:04 WBC 7.6 RBC 3.57 L Hgb 9.9 L Hct 29.7 L MCV 83.3 MCH 27.7 MCHC 33.2 RDW 14.9 Plt Count 123 L MPV 9.1 Absolute Neuts (auto) 5.7 Neutrophils % 74.6 Lymphocytes % 15.9 D Monocytes % 8.6 Eosinophils % 0.7 D Basophils % 0.2 Nucleated RBC % 0 Sodium 142 Potassium 3.9 Chloride 109 H Carbon Dioxide 30 Anion Gap 3 L BUN 11.5 Creatinine 0.6 Est GFR (CKD-EPI)AfAm 124.02 Est GFR (CKD-EPI)NonAf 107.00 Random Glucose 80 Calcium 8.4 L Magnesium 2.1 Urine Color Yellow Urine Appearance Clear Urine pH 6.5 Ur Specific [place] 1.018 Urine Protein Negative Urine Glucose (UA) Negative Urine Ketones Negative Urine Blood Negative Urine Nitrite Negative Urine Bilirubin Negative Urine Urobilinogen 1.0 Ur Leukocyte Esterase Negative Active Medications Generic Name Dose Route Start Last Admin Trade Name Emileq PRN Reason Stop Dose Admin Albuterol/Ipratropium 1 amp 09/06/19 15:35 Duoneb - NEB Q6H PRN SHORTNESS OF BREATH Amino Acids 30 ml 09/06/19 17:30 09/12/19 08:15 Prosource No Carb Liquid Pkt PO 30 ml BID@0800,1730 MIKY Administration Atorvastatin Calcium 20 mg 09/06/19 22:00 09/11/19 22:22 Lipitor - PO 20 mg HS MIKY Administration Budesonide/Formoterol Fumarate 2 puff 09/06/19 22:00 09/12/19 09:20 Symbicort 160/4.5mcg - IH 2 puff BID MIKY Administration Enoxaparin Sodium 40 mg 09/07/19 10:00 09/12/19 09:19 Lovenox - SQ 40 mg DAILY MIKY Administration Folic Acid 1 mg 09/07/19 10:00 09/12/19 09:19 Folic Acid - PO 1 mg DAILY MIKY Administration Ampicillin Sodium/Sulbactam 100 mls @ 200 mls/hr 09/12/19 10:04 Sodium 3 gm/ Sodium Chloride IVPB Q8H-IV MIKY Levetiracetam 500 mg 09/11/19 22:00 09/12/19 09:19 Keppra Oral Solution - PO 500 mg BID MIKY Administration Multivitamins/Minerals/Vitamin C 1 tab 09/07/19 10:00 09/12/19 09:19 Tab-A-Vit - PO 1 tab DAILY MIKY Administration Nystatin 500,000 units 09/09/19 00:00 09/12/19 11:36 Nystatin Oral Suspension - PO 500,000 units Q6HPO MIKY Administration Thiamine HCl 200 mg 09/09/19 20:15 09/12/19 11:36 Vitamin B1 Injection - IVPB 09/12/19 20:00 200 mg Q8H MIKY Administration Tiotropium [place] 2 puff 09/07/19 10:00 09/12/19 09:19 Spiriva Respimat IH 2 puff DAILY MIKY Administration Trazodone HCl 50 mg 09/06/19 22:00 09/11/19 22:22 Desyrel - PO 50 mg HS MIKY Administration Valproate Sodium 500 mg 09/10/19 22:00 09/12/19 09:19 Depakene - PO 500 mg BID MIKY Administration ASSESSMENT/PLAN: Pt is a 64 y/o M with PMH seizure disorder, schizoaffective disorder, ?Parkinson 's disease, asthma, alcohol/cocaine dependence, asthma admitted for altered mental status likely 2/2 seizure Seizure -? compliance. Leviteracitam level low -loaded with AEDs Leviteracitam, Valproate -MRI unremarkable for cause -monitor for seizure -fall precautions -neurology on board EtOH / Cocaine abuse -completed librium -c/w thiamine folate supplementation -Addiction medicine on board Dysarthria/Dysphagia -neuro consulted -MRI unremarkable for cause -Barium Swallow revealed aspiration -palliative consult for possible PEG Schizoaffective -Psych on board -hold QTc prolonging agents -holding olanzapine Fever -? micro aspiration -afebrile at this time -c/w unasyn Asthma -c/w spirruth frenchcort Visit type - Emergency Visit Emergency Visit: No - New Patient This patient is new to me today: Yes Date on this admission: 09/12/19 - Critical Care Critical Care patient: No ATTENDING PHYSICIAN STATEMENT I saw and evaluated the patient. I reviewed the resident's note and discussed the case with the resident. I agree with the resident's findings and plan as documented. SUBJECTIVE: OBJECTIVE: ASSESSMENT AND PLAN:
--- NOTE | 2019-09-12 16:44 | PN ---
Teaching Attending Note Name of Resident: Zander Rossi ATTENDING PHYSICIAN STATEMENT I saw and evaluated the patient. I reviewed the resident's note and discussed the case with the resident. I agree with the resident's findings and plan as documented. SUBJECTIVE: No fever or chills. No MCNEAL , no CP or SOB . no diarrhea OBJECTIVE: seen at 9:30 am NAD, thrush is better . MMM. dysarthric speech Cv; RRR. Lungs: CTAB Abd: soft, NT, Nd, NL BS Ext: No edema or erythema A/P : 64 year old man with a history of hyperlipidemia, seizure disorder, schizoaffective disorder, Parkinson's disease, asthma, alcohol and cocaine dependence, who was sent to the ED from [facility] for altered mental status. 1- Seizure. 2- Encephalopathy due to post-ictal state and possible Wernike'e encephalopathy 3- oral thrush 4- fever. possible aspiration PNA/pneumonitis 5- ETOH withdrawal . s/p librium detox 6- Severe malnutrition 7- chronic normocytic anemia 8- dysphagia plan: - cont feeding as per patient wishes - cont unasyn day 2 - aspiration precautions. - cont Keppra and valproic acid - cont topical nystatin - cont iv thiamine for total of 72 hrs ( last dose tonight ) - lovenox for DVT px Rehab placement in progress. appreciate Sw help.
[2019-09-12] MEDS: AMPICILLIN NA/SULBACTAM NA 3 GM in SODIUM CHLORIDE 100 ML IVPB SCH (17:06)
[2019-09-12] MEDS: traZODone HCL 100 MG TABLET (FP) PO SCH (21:26)
[2019-09-12] MEDS: ATORVASTATIN CA 20 MG TABLET (FP) PO SCH (21:32)
[2019-09-13] MEDS: NYSTATIN 500,000 UNITS/5 ML SUSPENSION PO SCH ×4 (00:01→18:11)
[2019-09-13] MEDS: AMPICILLIN NA/SULBACTAM NA 3 GM in SODIUM CHLORIDE 100 ML IVPB SCH ×3 (01:37→18:11)
[2019-09-13] MEDS: AMINO ACIDS/PROTEIN HYDROLYS 30 ML LIQUID.PKT PO SCH ×2 (07:59→18:10)
[2019-09-13 08:48] LABS: BASO % 0.2 % (0-2.0); EOS % 1.6 % (0-4.5); HEMATOCRIT 30.2 % (35.4-49); HEMOGLOBIN 10.1 GM/dL (11.7-16.9); LYMPH % 27.7 % (8-40); MCH 28.2 pg (25.7-33.7); MCHC 33.6 g/dl (32.0-35.9); MEAN CELL VOLUME 83.9 fl (80-96); MEAN PLT VOLUME 9.1 fl (7.5-11.1); MONO % 10.3 % (3.8-10.2); NEUT % 60.2 % (42.8-82.8); PLATELET COUNT 132 K/MM3 (134-434); RDW 15.1 % (11.9-15.9); WHITE BLOOD COUNT 5.1 K/mm3 (4.0-10.0)
[2019-09-13] MEDS: ENOXAPARIN NA (PORCINE) 40 MG/0.4 ML DISP.SYRIN SQ SCH (09:51)
[2019-09-13] MEDS: FOLIC ACID 1 MG TABLET (FP) PO SCH (09:51)
[2019-09-13] MEDS: levETIRAcetam 500 MG/5 ML ORAL SOLUTION (UNIT-DOSE CUPS) PO SCH ×2 (09:51→21:16)
[2019-09-13] MEDS: VALPROATE SODIUM 250 MG/5 ML UNIT DOSE CUP PO SCH ×2 (09:51→21:15)
[2019-09-13] MEDS: MULTIVITAMINS (DAILY MVI) TABLET (FP) PO SCH (09:51)
[2019-09-13] MEDS: BUDESONIDE/FORMETEROL FUMARATE 160/4.5 mcg INHALER IH SCH ×2 (09:52→21:16)
[2019-09-13] MEDS: TIOTROPIUM BROMIDE 2.5 MCG (SPIRIVA) RESPIMAT INHALER IH SCH (09:53)
--- NOTE | 2019-09-13 19:47 | PN ---
Progress Note (short form) - Note Progress Note: Subjective: no pain , no SOB , no Abd pain. wants regular food not pureed food. : Vital Signs: Last Vital Signs Temp Pulse Resp BP Pulse Ox 98.4 F 71 18 92/53 L 96 09/13/19 17:21 09/13/19 17:21 09/13/19 17:21 09/13/19 17:21 09/12/19 21:00 Laboratory Results - last 24 hr 09/13/19 08:12 WBC 5.1 RBC 3.60 L Hgb 10.1 L Hct 30.2 L MCV 83.9 MCH 28.2 MCHC 33.6 RDW 15.1 Plt Count 132 L MPV 9.1 Absolute Neuts (auto) 3.1 Neutrophils % 60.2 Lymphocytes % 27.7 D Monocytes % 10.3 H Eosinophils % 1.6 D Basophils % 0.2 Nucleated RBC % 0 NAD, thrush is better . MMM. dysarthric speech Cv; RRR. Lungs: CTAB Abd: soft, NT, Nd, NL BS Ext: No edema or erythema A/P : 64 year old man with a history of hyperlipidemia, seizure disorder, schizoaffective disorder, Parkinson's disease, asthma, alcohol and cocaine dependence, who was sent to the ED from [facility] for altered mental status. 1- Seizure. 2- Encephalopathy due to post-ictal state and possible Wernike'e encephalopathy 3- oral thrush 4- possible aspiration PNA/pneumonitis 5- ETOH withdrawal . s/p librium detox 6- Severe malnutrition 7- chronic normocytic anemia 8- dysphagia plan: - Change diet to regular as per his wishes. he understands the increased risk of aspiration with the regular diet - unasyn day 3. will switch to augmentin to complete 5 days - aspiration precautions. - cont Keppra and valproic acid - cont topical nystatin - finished 72 hours of thiamine for Possible Wernike's - lovenox for DVT px - No labs tomorrow Rehab placement in progress. appreciate Sw help. Visit type - Emergency Visit Emergency Visit: Yes ED Registration Date: 09/06/19 Care time: The patient presented to the Emergency Department on the above date and was hospitalized for further evaluation of their emergent condition. - New Patient This patient is new to me today: No - Critical Care Critical Care patient: No
[2019-09-13] MEDS: traZODone HCL 100 MG TABLET (FP) PO SCH (21:16)
[2019-09-13] MEDS: ATORVASTATIN CA 20 MG TABLET (FP) PO SCH (21:16)
[2019-09-14] MEDS: NYSTATIN 500,000 UNITS/5 ML SUSPENSION PO SCH ×4 (01:03→17:55)
[2019-09-14] MEDS: ENOXAPARIN NA (PORCINE) 40 MG/0.4 ML DISP.SYRIN SQ SCH (09:04)
[2019-09-14] MEDS: AMINO ACIDS/PROTEIN HYDROLYS 30 ML LIQUID.PKT PO SCH ×2 (09:04→17:56)
[2019-09-14] MEDS: levETIRAcetam 500 MG/5 ML ORAL SOLUTION (UNIT-DOSE CUPS) PO SCH (09:04)
[2019-09-14] MEDS: VALPROATE SODIUM 250 MG/5 ML UNIT DOSE CUP PO SCH (09:05)
[2019-09-14] MEDS: AMOX TR/POT CLAV 875MG/125MG TABLETS (FP) PO SCH ×2 (09:05→17:56)
[2019-09-14] MEDS: FOLIC ACID 1 MG TABLET (FP) PO SCH (09:05)
[2019-09-14] MEDS: TIOTROPIUM BROMIDE 2.5 MCG (SPIRIVA) RESPIMAT INHALER IH SCH (09:05)
[2019-09-14] MEDS: BUDESONIDE/FORMETEROL FUMARATE 160/4.5 mcg INHALER IH SCH (09:05)
[2019-09-14] MEDS: MULTIVITAMINS (DAILY MVI) TABLET (FP) PO SCH (09:05)
[2019-09-14] MEDS ORDERED: THIAMINE HCL 100 MG TABLET (FP) PO SCH (10:15)
--- NOTE | 2019-09-14 11:05 | PN ---
Progress Note, COLLISION ESTIMATOR - Note Progress Note: Selected Entries 09/12/19 09/12/19 09/12/19 02:00 06:00 12:00 Breakfast Lunch Temperature 98.5 F 98.1 F 98.1 F 09/12/19 09/12/19 09/13/19 14:00 16:08 05:55 Breakfast Lunch Temperature 98.4 F 98.1 F 97.9 F 09/13/19 09/13/19 09/13/19 10:30 14:00 17:21 Breakfast 75% Lunch 50% Temperature 98.7 F 98.4 F 09/14/19 09/14/19 07:29 10:07 Breakfast 100% Lunch Temperature 97.8 F Laboratory Tests 09/12/19 09/13/19 08:04 08:12 WBC 7.6 5.1 Pt reported to be tolerating reg diet/thin liquids. Afebrile. Speech MUCH better! No longer hypernasal, more precise. Suspect Librium adversely affected swallowing function and speech production. Similar presentation during last hospitalization. Reviewed with PMD , to be noted for future mgmt - cont aspiration precautions after discharge
--- NOTE | 2019-09-14 13:37 | PN ---
Teaching Attending Note Name of Resident: Jamari Winslow ATTENDING PHYSICIAN STATEMENT I saw and evaluated the patient. I reviewed the resident's note and discussed the case with the resident. I agree with the resident's findings and plan as documented. SUBJECTIVE: no fever or chills. No MCNEAL. no SOB , no N/V . no cough OBJECTIVE: NAD, has resolved. MMM. dysarthric speech. tremor of tongue Cv; RRR. Lungs: CTAB Abd: soft, NT, ND, NL BS Ext: No edema or erythema . course tremors in hands on rest A/P : 64 year old man with a history of hyperlipidemia, seizure disorder, schizoaffective disorder, Parkinson's disease, asthma, alcohol and cocaine dependence, who was sent to the ED from [facility] for altered mental status. 1- Seizure. 2- Encephalopathy due to post-ictal state and possible Wernike'e encephalopathy 3- oral thrush 4- possible aspiration PNA/pneumonitis 5- ETOH withdrawal . s/p librium detox 6- Severe malnutrition 7- chronic normocytic anemia 8- dysphagia plan: - cont aspiration precautions after discharge. - augmentin fro today and tomorrow - cont Keppra and valproic acid - cont topical nystatin for 4 more days - finished 72 hours of thiamine for Possible Wernike's . will start thiamine po daily at dc dc home with VNS. He refused rehab placement today. he understands he is weak, and at risk for falls ( fractures, bleeding , ICH, , ...etc) his is at bedside and would like to honor his wishes
[2019-09-14 14:45] VITALS: BP 107/63; PULSE 72; TEMP 98.5
--- NOTE | 2019-09-14 15:52 | DS ---
Physical Exam: SUBJECTIVE: Patient seen and examined at the bedside. Stated he is feeling well and wants to go home. Was once again explained the complications of oral intake including but limited to pneumonia, fevers, difficulty breathing, . Denied acute complaints of fever, chills, headaches, dizziness, lightheadedness, confusion, cp, sob, abd pain, n/v/c/d, focal weakness, numbness, tingling. OBJECTIVE: Vital Signs Period Temp Pulse Resp BP Sys/Quintanilla Pulse Ox Last 24 Hr 97.8 F-98.5 F 61-72 18-20 91-107/50-63 PHYSICAL EXAM GENERAL: Awake, alert, and oriented x3. Very thin, malnourished. EYES: Pupils equal, round and reactive to light. THROAT: Oropharynx clear without exudates. Moist mucous membranes. Food particles noted in oral cavity. LUNGS: Breath sounds equal bilaterally. No auscultated wheezes, no crackles or coarse breath sounds. HEART: Regular rate and rhythm, normal S1 and S2 without murmur. ABDOMEN: Soft, nontender, not distended, normoactive bowel sounds, no guarding, no rebound, no masses. EXTREMITIES: 2+ pulses, warm, well-perfused. No calf tenderness. No peripheral edema. NEUROLOGICAL: Slurred speech noted. No facial droop. Tic-like movements of the tongue. 4/5 muscle strength bilaterally upper and lower extremities. PSYCHIATRIC: Compliant, appropriate mood and affect. HOSPITAL COURSE: Marshal Fontana is a 64 year old male with a past medical history of seizure disorder, schizoaffective disorder, ?Parkinson's disease, asthma, alcohol/cocaine dependence, asthma admitted for altered mental status likely in setting of breakthrough seizure. Keppra level noted to be subtherapeutic prior to loading dose. CT scan noted cerebellar atrophy, bilateral basal ganglia calcifications. MRI head noting non-specific white matter changes consistent with chronic changes, no acute infarct or other acute intracranial process. Patient had dysarthria and dysphagia and speech and swallow was consulted and MBS performed noting signs of aspiration and poor swallow. ENT was consulted and noted oral thrush but no obvious structural cause of dysphagia. Patient declined NG tube and PEG tube and insisted on oral intake despite risks including but not limited to neumonitis, pneumonia, atelectasis, respiratory distress and/or fa ilure, and and patient patient understood the risks of feeding. Psychiatry noted that patient had intact decision making capacity. Neurology noted that patient's most likely cause of chronic cerebellar atrophy and in setting of dysarthria and dysphagia is Wernicke's encephalopathy and was given 72 hours of IV thiamine with subsequent oral thiamine replacement. Had a fever while admitted likely in the setting of aspiration and was started on Unasyn and will complete PO Augmentin in the outpatient setting. While admitted, completed his Librium protocol for alcohol withdrawal. Patient was noted to have poor ambulation with physical therapy requiring assistance. Patient refused rehab and wanted to go home. Was advised of the risks of the going home without adequate physical therapy including but not limited to falls, fractures, clots, pulmonary embolism, and/or . Was advised not to consume alcohol and follow up with addiction medicine for possible rehab. Patient was advised to follow up with his PCP, ENT, neurology, addiction medicine and to start on nystatin swish and swallow for 4 more days, Augmentin for 3 more doses, thiamine. Patient and at the bedside were notified of the plan and were in agreement. Patient was discharged in stable medical condition. Date of Admission:09/06/19 Date of Discharge: 09/14/19 Minutes to complete discharge: 35 Discharge Summary Problems reviewed: Yes Reason For Visit: AMS Condition: Stable - Instructions Diet, Activity, Other Instructions: You were admitted due to an episode of altered mental status which was likely due to a seizure. You had CT scan of your head which showed some calcification in your brain and decreased volume of one of the parts of your brain that is responsible for balance. You are recommended to follow up with a neurologist for these findings. You were given medication to treat your seizures and your mental status had improved. While you were admitted your swallowing was evaluated due to the fact that you had slurred speech. You were found to have poor swallowing ability which may cause you to incorrectly swallow food and it may end up in your lungs which can be the cause of pneumonia, respiratory failure, and/or potentially . You were seen by the otolaryngolagist (ear, nose, and throat doctor) who did not find a definitive reason for your poor swallowing but recommended that you have a medication to treat the infection in your mouth. You were seen by the neurologist who recommended an MRI to evaluate your cause of poor swallowing. After discussion with you and the medical team you agreed to accept the risks of eating by mouth despite the numerous problems that it may cause including those listed above. MEDICATIONS START to take nystatin swish and swallow every 6 hours for 4 days. Your last dose will be on 09/18/19. START to take Augmentin 875mg twice a day for 3 more doses. Take one dose tonight and two doses tomorrow. Your last dose will be on 09/15/19 in evening . START to take thiamine 100mg once daily Continue to take all of your home medications as prescribed. REFERRALS Please follow up with your primary care physician within 1 week. If you do not have a primary care physician, you can follow up with the resident's clinic for which the information is provided. Please follow up with the otolaryngolagist, Dr. Duke, within 2 weeks. Please follow up with the neurologist, Dr. Arevalo, within 2 weeks. Please follow up with the addiction medicine specialist, Dr. Brandon, within 1 week. SPECIAL INSTRUCTIONS Please cease drinking alcohol as it can greatly reduce your risk of developing further medical problems and damage to your liver, stomach, brain, heart, and other vital organs. Please follow up with all the listed providers. Please take great care when eating in order not to swallow food incorrectly. eat in sitting position, drink fluids with food. eat slowly and chew very well. If you have any further symptoms of choking, fever, chest pain, shortness of breath, confusion, seizures, or any other general feelings of unwellness, please call 911 or go to your nearest emergency room. Referrals: [facility] [place] [Provider Group] - 1 Week Michael Arevalo MD [Staff Physician] - 1 Week Hadley Duke MD [Staff Physician] - 1 Week Adrian Brandon DO [Staff Physician] - 1 Week Disposition: VNS/HOME HEALTH CARE - Home Medications Comprehensive Discharge Medication List: Ambulatory Orders Folic Acid 1 mg PO DAILY 02/13/19 Atorvastatin Ca [Lipitor] 20 mg PO DAILY 05/08/19 Olanzapine [Zyprexa] 20 mg PO HS 05/08/19 Valproic Acid 500 mg PO BID 05/08/19 levETIRAcetam [Keppra -] 500 mg PO BID 05/08/19 traZODone HCL [Desyrel -] 50 mg PO HS 05/08/19 Budesonide/Formeterol Fumarate [SYMBICORT 160/4.5mcg -] 2 puff IH BID #1 inhaler 05/19/19 Tiotropium Home [Spiriva Respimat] 2 puff IH DAILY #1 inhaler 05/19/19 Albuterol Sulfate Inhaler - [Ventolin HFA Inhaler -] 2 puff IH QID PRN 09/09/19 Amox-Tr/K Cl [Augmentin 875-125mg Tablet -] 1 tab PO BID@0800,1730 #3 tablet 09/14/19 Nystatin Oral Suspension - [Nystatin Oral Susp 264524 Units/5 ML -] 500,000 units PO Q6H #1 cup 09/14/19 Thiamine HCl [Vitamin B1 -] 100 mg PO DAILY #30 tablet 09/14/19 Problem List - Problems (1) AMS (altered mental status) Code(s): R41.82 - ALTERED MENTAL STATUS, UNSPECIFIED (2) Alcohol dependence Code(s): F10.20 - ALCOHOL DEPENDENCE, UNCOMPLICATED (3) Anemia Code(s): D64.9 - ANEMIA, UNSPECIFIED Qualifiers: Anemia type: unspecified type Qualified Code(s): D64.9 - Anemia, unspecified (4) Asthma Code(s): J45.909 - UNSPECIFIED ASTHMA, UNCOMPLICATED Qualifiers: Asthma severity: mild Asthma persistence: unspecified Asthma complication type: uncomplicated Qualified Code(s): J45.909 - Unspecified asthma, uncomplicated (5) COPD (chronic obstructive pulmonary disease) Code(s): J44.9 - CHRONIC OBSTRUCTIVE PULMONARY DISEASE, UNSPECIFIED (6) Cocaine dependence Code(s): F14.20 - COCAINE DEPENDENCE, UNCOMPLICATED Qualifiers: Substance use status: uncomplicated Qualified Code(s): F14.20 - Cocaine dependence, uncomplicated (7) Extrapyramidal and movement disorder Code(s): G25.9 - EXTRAPYRAMIDAL AND MOVEMENT DISORDER, UNSPECIFIED (8) Frequent falls Code(s): R29.6 - REPEATED FALLS (9) HLD (hyperlipidemia) Code(s): E78.5 - HYPERLIPIDEMIA, UNSPECIFIED (10) Insomnia Code(s): G47.00 - INSOMNIA, UNSPECIFIED Qualifiers: Insomnia type: unspecified Qualified Code(s): G47.00 - Insomnia, unspecified (11) Nicotine dependence Code(s): F17.200 - NICOTINE DEPENDENCE, UNSPECIFIED, UNCOMPLICATED Qualifiers: Nicotine product type: cigarettes Substance use status: in withdrawal Qualified Code(s): F17.213 - Nicotine dependence, cigarettes, with withdrawal (12) Parkinson disease Code(s): G20 - PARKINSON'S DISEASE (13) Schizoaffective disorder Code(s): F25.9 - SCHIZOAFFECTIVE DISORDER, UNSPECIFIED (14) Seizure disorder Code(s): G40.909 - EPILEPSY, UNSP, NOT INTRACTABLE, WITHOUT STATUS EPILEPTICUS This patient is new to me today: No Emergency Visit: Yes ED Registration Date: 09/06/19 Care time: The patient presented to the Emergency Department on the above date and was hospitalized for further evaluation of their emergent condition. Critical Care patient: No - Discharge Referral Referred to [facility] Med P.C.: No
== END 2019-09-14 22:00 | disposition home or self-care (01) | DRG 53 ==
LOC: JER 09:41 → JERBED 14:49 → J6S 20:16
PROVIDERS: ADMIT Internal Medicine; ATTEND Internal Medicine
PROC: HZ2ZZZZ Detoxification Services for Substance Abuse Treatment (ICD-10-PCS; principal; 2019-09-07)
DX: G40.909 Epilepsy, unspecified, not intractable, without status epilepticus (principal); F10.239 Alcohol dependence with withdrawal, unspecified; G93.41 Metabolic encephalopathy; F25.9 Schizoaffective disorder, unspecified; D64.9 Anemia, unspecified; J45.909 Unspecified asthma, uncomplicated; G81.94 Hemiplegia, unspecified affecting left nondominant side; B37.0 Candidal stomatitis; E43 Unspecified severe protein-calorie malnutrition; F14.20 Cocaine dependence, uncomplicated; E78.5 Hyperlipidemia, unspecified; Z68.1 Body mass index [BMI] 19.9 or less, adult; G24.01 Drug induced subacute dyskinesia; G20 Parkinson's disease; E86.0 Dehydration; G47.00 Insomnia, unspecified; R41.82 Altered mental status, unspecified; J69.0 Pneumonitis due to inhalation of food and vomit; R50.9 Fever, unspecified; R29.6 Repeated falls; F17.210 Nicotine dependence, cigarettes, uncomplicated; G25.9 Extrapyramidal and movement disorder, unspecified
CPT/HCPCS: 36415; 36600; 70450-TC; 70551-TC; 71045-TC-FY; 74230-TC-FY; 80048; 80053; 80177; 80307; 81003; 82140; 82375; 82550; 82607; 82728; 82746; 82803; 83050; 83540; 83550; 83605; 83735; 84100; 84443; 84466; 84484; 85025; 85027; 85044; 85610; 85730; 87040; 87086; 92611-GN; 93005; 93010; 97116-GP; 97162-GP; 99285-25; J0131; J7030

== ENCOUNTER 2020-03-04 12:10 | Inpatient (IN) | payer OTHER ==
--- NOTE | 2020-03-04 13:15 | BHS.RME ---
Substance Use & Tx History - Substance Use History Alcohol Substance amount: one pint Frequency of use: Daily Substance route: Oral Date of Last Use: 03/03/20 Cocaine-Crack Substance amount: $200 Frequency of use: Daily Substance route: Smoking Date of Last Use: 03/03/20 Nicotine Substance amount: one pack Frequency of use: Daily Substance route: Smoking Date of Last Use: 03/04/20 Physical/Psych/Mental Status - Behavior General Behavior: Increased activity (restlessness, agitation) Eye Contact: Normal - Cooperativeness Cooperativeness: Cooperative - Thinking Thought Processes: Tight Thought content: Future oriented - Physical Health Problems Is patient presently having any pain?: No Does patient presently have any injuries (include location): No Does patient currently have a fever: No CIWA Nausea/Vomitin-No Nausea/No Vomiting Muscle Tremors: 4-Moderate,w/Arms Extend (patient has baseline dyskinesia) Anxiety: 2 Agitation: 0-Normal Activity Paroxysmal Sweats: 1-Minimal Palms Moist Orientation: 0-Oriented Tacttile Disturbances: 0-None Auditory Disturbances: 0-None Visual Disturbances: 0-None Headache: 4-Moderately Severe CIWA-Ar Total Score: 11
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
[2020-03-04] MEDS ORDERED: ALBUTEROL SO4 HFA INHALER IH PRN (16:04)
[2020-03-04] MEDS ORDERED: NICOTINE POLACRILEX 2 MG GUM BUC PRN (16:08)
[2020-03-04] MEDS ORDERED: IBUPROFEN 400 MG TABLET (FP) PO PRN (16:08)
[2020-03-04] MEDS ORDERED: MAGNESIUM CITRATE 300 ML BOTTLE PO PRN (16:08)
[2020-03-04] MEDS ORDERED: MENTHOL/PHENOL 1 EACH UD MM PRN (16:08)
[2020-03-04] MEDS ORDERED: MAGNESIUM HYDROX 2400MG/30ML ORAL SUSPENSION 30 ML CUP PO PRN (16:08)
[2020-03-04] MEDS ORDERED: BISMUTH SUBSALICYLATE 524 MG/30 ML UD PO PRN (16:08)
[2020-03-04] MEDS ORDERED: MAG HYDROX/AL HYDROX/SIMETH 30 ML UNIT-DOSE CUP PO PRN (16:08)
[2020-03-04] MEDS ORDERED: chlordiazePOXIDE HCL 25 MG CAPSULE PO PRN (16:08)
[2020-03-04] MEDS ORDERED: ACETAMINOPHEN 325 MG TABLET (FP) PO PRN ×2 (16:08)
[2020-03-04] MEDS ORDERED: METHOCARBAMOL 500 MG TABLET PO PRN (16:08)
--- NOTE | 2020-03-04 16:22 | PN ---
Teaching Attending Note Name of Resident: Tosin Weeks ATTENDING PHYSICIAN STATEMENT I saw and evaluated the patient. I reviewed the resident's note and discussed the case with the resident. I agree with the resident's findings and plan as documented. SUBJECTIVE: OBJECTIVE: ASSESSMENT AND PLAN: 1. Alcohol use disorder 2. Unsteady gait with a hx of falls Plan 1. Librium detox protocol 2. Wheelchair while mobile on [address], room near nurses station
[2020-03-04] MEDS ORDERED: ONDANSETRON *ODT* 4 MG TABLET SL ONE (16:30)
[2020-03-04] MEDS: NICOTINE 21 MG/24 HOURS TOPICAL PATCH TD SCH (17:24)
[2020-03-04] MEDS: chlordiazePOXIDE HCL 25 MG CAPSULE PO SCH ×2 (17:24→22:56)
[2020-03-04] MEDS: THIAMINE HCL 100 MG TABLET (FP) PO SCH (22:56)
[2020-03-04] MEDS: ATORVASTATIN CA 20 MG TABLET (FP) PO SCH (22:56)
[2020-03-04] MEDS: levETIRAcetam 500 MG TABLET (FP) PO SCH (22:56)
[2020-03-04] MEDS: VALPROATE SODIUM 250 MG/5 ML UNIT DOSE CUP PO SCH (22:56)
[2020-03-04] MEDS: MELATONIN 5 MG TABLETS PO SCH (22:57)
[2020-03-04] MEDS: BUDESONIDE/FORMETEROL FUMARATE 160/4.5 mcg INHALER IH SCH (22:57)
[2020-03-05] MEDS: chlordiazePOXIDE HCL 25 MG CAPSULE PO SCH ×4 (07:06→22:36)
[2020-03-05] MEDS: PRENATAL VITAMINS W/ FOLIC ACID TABLET (FP) PO SCH (10:48)
[2020-03-05] MEDS: NICOTINE 21 MG/24 HOURS TOPICAL PATCH TD SCH (10:48)
[2020-03-05] MEDS: BUDESONIDE/FORMETEROL FUMARATE 160/4.5 mcg INHALER IH SCH ×2 (10:48→22:36)
[2020-03-05] MEDS: levETIRAcetam 500 MG TABLET (FP) PO SCH ×2 (10:48→22:36)
--- NOTE | 2020-03-05 10:57 | PN ---
S CIWA - CIWA Score Nausea/Vomitin-No Nausea/No Vomiting Muscle Tremors: 2 Anxiety: 3 Agitation: 0-Normal Activity Paroxysmal Sweats: 3 Orientation: 0-Oriented Tacttile Disturbances: 0-None Auditory Disturbances: 0-None Visual Disturbances: 0-None Headache: 2-Mild CIWA-Ar Total Score: 10 BHS Progress Note (SOAP) Subjective: c/o sweats, anxiety, interrupted sleep, and headache. Objective: 03/05/20 10:56 Vital Signs 03/05/20 03/05/20 05:39 08:39 Temperature 96.9 F L 96.9 F L Pulse Rate 57 L 67 Respiratory 16 18 Rate Blood Pressure 101/61 120/82 O2 Sat by Pulse 96 Oximetry (%) Labs pending. Assessment: 03/05/20 10:57 AOX3 and in no acute respiratory distress. Full ROM, ambulating in the unit. Withdrawal symptoms. Plan: continue detox.
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
[2020-03-05] MEDS: TIOTROPIUM BROMIDE 2.5 MCG (SPIRIVA) RESPIMAT INHALER IH SCH (11:32)
[2020-03-05] MEDS: VALPROATE SODIUM 250 MG/5 ML UNIT DOSE CUP PO SCH ×2 (11:33→22:35)
[2020-03-05 11:59] LABS: HEMATOCRIT 34.3 % (35.4-49); HEMOGLOBIN 11.3 GM/dL (11.7-16.9); MCH 28.5 pg (25.7-33.7); MCHC 32.9 g/dl (32.0-35.9); MEAN CELL VOLUME 86.9 fl (80-96); MEAN PLT VOLUME 10.1 fl (7.5-11.1); PLATELET COUNT 163 K/MM3 (134-434); RBC 3.95 M/mm3 (4.00-5.60); RDW 15.4 % (11.9-15.9); WHITE BLOOD COUNT 4.2 K/mm3 (4.0-10.0)
[2020-03-05 12:09] LABS: ALBUMIN 3.5 g/dl (3.4-5.0); BILIRUBIN,TOTAL 0.3 mg/dL (0.2-1); BLOOD UREA NITROGEN 8.4 mg/dL (7-18); CALCIUM 8.9 mg/dL (8.5-10.1); CREATININE 0.8 mg/dL (0.55-1.3); POTASSIUM 3.9 mmol/L (3.5-5.1); TOT PROT 7.5 g/dl (6.4-8.2)
[2020-03-05] MEDS: ATORVASTATIN CA 20 MG TABLET (FP) PO SCH (22:36)
[2020-03-05] MEDS: THIAMINE HCL 100 MG TABLET (FP) PO SCH (22:36)
[2020-03-05] MEDS: MELATONIN 5 MG TABLETS PO SCH (22:36)
[2020-03-06] MEDS ORDERED: chlordiazePOXIDE HCL 25 MG CAPSULE PO SCH (05:00)
[2020-03-06] MEDS: VALPROATE SODIUM 250 MG/5 ML UNIT DOSE CUP PO SCH ×2 (10:41→22:39)
[2020-03-06] MEDS: TIOTROPIUM BROMIDE 2.5 MCG (SPIRIVA) RESPIMAT INHALER IH SCH (10:41)
[2020-03-06] MEDS: PRENATAL VITAMINS W/ FOLIC ACID TABLET (FP) PO SCH (10:42)
[2020-03-06] MEDS: NICOTINE 21 MG/24 HOURS TOPICAL PATCH TD SCH (10:42)
[2020-03-06] MEDS: BUDESONIDE/FORMETEROL FUMARATE 160/4.5 mcg INHALER IH SCH ×2 (10:42→22:40)
[2020-03-06] MEDS: levETIRAcetam 500 MG TABLET (FP) PO SCH ×2 (10:42→22:39)
--- NOTE | 2020-03-06 10:59 | PN ---
S CIWA - CIWA Score Nausea/Vomitin-Mild Nausea/No Vomiting Muscle Tremors: 3 Anxiety: 4-Mod. Anxious/Guarded Agitation: 1-Slight > Activity Paroxysmal Sweats: No Perspiration Orientation: 0-Oriented Tacttile Disturbances: 0-None Auditory Disturbances: 0-None Visual Disturbances: 2-Mild Sensitivity Headache: 1-Very Mild CIWA-Ar Total Score: 12 BHS Progress Note (SOAP) Subjective: 64 years old male admitted on 03/04/20 for alcohol withdrawal sx management treating with librium detox regiment mr serrato has battled with alcohol addiction "A LONG TIME" fears of "going out there" encourage follow up with [facility] in patient for alcohol recovery Objective: 03/06/20 10:57 Vital Signs - 24 hr 03/05/20 03/05/20 03/05/20 12:42 17:00 20:40 Temperature 98.4 F 97.1 F L 97.3 F L Pulse Rate 69 66 63 Respiratory 18 18 18 Rate Blood Pressure 102/69 95/62 97/65 O2 Sat by Pulse 100 97 Oximetry (%) 03/06/20 03/06/20 06:57 08:23 Temperature 97.3 F L 97.1 F L Pulse Rate 115 H 73 Respiratory 20 16 Rate Blood Pressure 118/74 115/76 O2 Sat by Pulse 96 Oximetry (%) Laboratory Tests 03/04/20 03/05/20 03/05/20 15:15 07:50 07:50 WBC RBC Hgb Hct MCV MCH MCHC RDW Plt Count MPV Sodium Potassium Chloride Carbon Dioxide Anion Gap BUN Creatinine Est GFR (CKD-EPI)AfAm Est GFR (CKD-EPI)NonAf Random Glucose Calcium Total Bilirubin AST ALT Alkaline Phosphatase Total Protein Albumin Valproic Acid 30.9 L Syphilis Serology Reactive A* RPR Titer HIV Ag/Ab Combo Qual Negative 03/05/20 03/05/20 03/05/20 07:50 07:50 07:50 WBC 4.2 RBC 3.95 L Hgb 11.3 L Hct 34.3 L MCV 86.9 MCH 28.5 MCHC 32.9 RDW 15.4 Plt Count 163 D MPV 10.1 Sodium 144 Potassium 3.9 Chloride 108 H Carbon Dioxide 29 Anion Gap 7 L BUN 8.4 Creatinine 0.8 Est GFR (CKD-EPI)AfAm 110.19 Est GFR (CKD-EPI)NonAf 95.07 Random Glucose 93 Calcium 8.9 Total Bilirubin 0.3 AST 12 L ALT 12 L Alkaline Phosphatase 79 Total Protein 7.5 Albumin 3.5 Valproic Acid Syphilis Serology RPR Titer Reactive 1:1 H HIV Ag/Ab Combo Qual syphilis contacted treated covid pending Assessment: 03/06/20 11:00 alcohol withdrawal syphilis contacted Plan: librium regiment syphilis treated
[2020-03-06] MEDS ORDERED: CHLORDIAZEPOXIDE 20 MG, CHLORDIAZEPOXIDE 5 MG PO SCH (11:00)
[2020-03-06] MEDS: chlordiazePOXIDE HCL 10 MG CAPSULE PO SCH ×2 (18:16→23:23)
[2020-03-06] MEDS: ATORVASTATIN CA 20 MG TABLET (FP) PO SCH (22:39)
[2020-03-06] MEDS: MELATONIN 5 MG TABLETS PO SCH (22:40)
[2020-03-06] MEDS: THIAMINE HCL 100 MG TABLET (FP) PO SCH (22:40)
[2020-03-07] MEDS ORDERED: chlordiazePOXIDE HCL 10 MG CAPSULE PO PRN
[2020-03-07] MEDS ORDERED: chlordiazePOXIDE HCL 10 MG CAPSULE PO SCH ×2 (05:00)
[2020-03-07] MEDS: chlordiazePOXIDE 5 MG CAPSULE PO SCH ×2 (08:05→13:40)
[2020-03-07] MEDS: VALPROATE SODIUM 250 MG/5 ML UNIT DOSE CUP PO SCH ×2 (10:37→22:04)
[2020-03-07] MEDS: PRENATAL VITAMINS W/ FOLIC ACID TABLET (FP) PO SCH (10:38)
[2020-03-07] MEDS: NICOTINE 21 MG/24 HOURS TOPICAL PATCH TD SCH (10:38)
[2020-03-07] MEDS: levETIRAcetam 500 MG TABLET (FP) PO SCH ×2 (10:38→22:05)
[2020-03-07] MEDS: BUDESONIDE/FORMETEROL FUMARATE 160/4.5 mcg INHALER IH SCH ×2 (10:39→22:05)
[2020-03-07] MEDS: TIOTROPIUM BROMIDE 2.5 MCG (SPIRIVA) RESPIMAT INHALER IH SCH (10:41)
--- NOTE | 2020-03-07 14:23 | PN ---
S CIWA - CIWA Score Nausea/Vomitin-Mild Nausea/No Vomiting Muscle Tremors: 1-None Visible, but [place] Anxiety: 1-Mildly Anxious Agitation: 1-Slight > Activity Paroxysmal Sweats: No Perspiration Orientation: 0-Oriented Tacttile Disturbances: 1-Very Mild Itch/Numbness Auditory Disturbances: 0-None Visual Disturbances: 0-None Headache: 2-Mild CIWA-Ar Total Score: 7 BHS Progress Note (SOAP) Subjective: alert,irritable,anxious,interrupted sleep,aching pain Objective: 03/07/20 18:05 Vital Signs Temperature 97.3 F L 03/07/20 16:52 Pulse Rate 67 03/07/20 16:52 Respiratory Rate 18 03/07/20 16:52 Blood Pressure 108/72 03/07/20 16:52 O2 Sat by Pulse Oximetry (%) 98 03/07/20 12:36 Laboratory Last Values WBC 4.2 K/mm3 (4.0-10.0) 03/05/20 07:50 RBC 3.95 M/mm3 (4.00-5.60) L 03/05/20 07:50 Hgb 11.3 GM/dL (11.7-16.9) L 03/05/20 07:50 Hct 34.3 % (35.4-49) L 03/05/20 07:50 MCV 86.9 fl (80-96) 03/05/20 07:50 MCH 28.5 pg (25.7-33.7) 03/05/20 07:50 MCHC 32.9 g/dl (32.0-35.9) 03/05/20 07:50 RDW 15.4 % (11.9-15.9) 03/05/20 07:50 Plt Count 163 K/MM3 (134-434) D 03/05/20 07:50 MPV 10.1 fl (7.5-11.1) 03/05/20 07:50 Sodium 144 mmol/L (136-145) 03/05/20 07:50 Potassium 3.9 mmol/L (3.5-5.1) 03/05/20 07:50 Chloride 108 mmol/L (98-107) H 03/05/20 07:50 Carbon Dioxide 29 mmol/L (21-32) 03/05/20 07:50 Anion Gap 7 MMOL/L (8-16) L 03/05/20 07:50 BUN 8.4 mg/dL (7-18) 03/05/20 07:50 Creatinine 0.8 mg/dL (0.55-1.3) 03/05/20 07:50 Est GFR (CKD-EPI)AfAm 110.19 03/05/20 07:50 Est GFR (CKD-EPI)NonAf 95.07 03/05/20 07:50 Random Glucose 93 mg/dL (74-106) 03/05/20 07:50 Calcium 8.9 mg/dL (8.5-10.1) 03/05/20 07:50 Total Bilirubin 0.3 mg/dL (0.2-1) 03/05/20 07:50 AST 12 U/L (15-37) L 03/05/20 07:50 ALT 12 U/L (13-61) L 03/05/20 07:50 Alkaline Phosphatase 79 U/L (45-117) 03/05/20 07:50 Total Protein 7.5 g/dl (6.4-8.2) 03/05/20 07:50 Albumin 3.5 g/dl (3.4-5.0) 03/05/20 07:50 Valproic Acid 30.9 ug/mL (50-100) L 03/05/20 07:50 Syphilis Serology Reactive (NONREACTIVE) A* 03/05/20 07:50 RPR Titer Reactive 1:1 (NONREACTIVE) H 03/05/20 07:50 COVID-19 (MILDRED) Not detected (Not Detected) 03/05/20 09:30 HIV Ag/Ab Combo Qual Negative (NEGATIVE) 03/04/20 15:15 03/07/20 18:07 treated for syphilis before Assessment: 03/07/20 18:07 withdrawal symptom Plan: continue detox,encourage oral fluid,ambulate with wheelchair as necessary
[2020-03-07] MEDS: THIAMINE HCL 100 MG TABLET (FP) PO SCH (22:05)
[2020-03-07] MEDS: ATORVASTATIN CA 20 MG TABLET (FP) PO SCH (22:05)
[2020-03-07] MEDS: MELATONIN 5 MG TABLETS PO SCH (22:05)
[2020-03-08] MEDS ORDERED: chlordiazePOXIDE HCL 10 MG CAPSULE PO SCH (05:00)
[2020-03-08] MEDS: chlordiazePOXIDE 5 MG CAPSULE PO SCH ×2 (05:18→18:03)
[2020-03-08] MEDS: VALPROATE SODIUM 250 MG/5 ML UNIT DOSE CUP PO SCH ×2 (09:44→22:55)
[2020-03-08] MEDS: levETIRAcetam 500 MG TABLET (FP) PO SCH ×2 (09:44→22:55)
[2020-03-08] MEDS: PRENATAL VITAMINS W/ FOLIC ACID TABLET (FP) PO SCH (09:44)
[2020-03-08] MEDS: TIOTROPIUM BROMIDE 2.5 MCG (SPIRIVA) RESPIMAT INHALER IH SCH (09:51)
[2020-03-08] MEDS: BUDESONIDE/FORMETEROL FUMARATE 160/4.5 mcg INHALER IH SCH ×2 (09:52→22:55)
[2020-03-08] MEDS: NICOTINE 21 MG/24 HOURS TOPICAL PATCH TD SCH (09:52)
--- NOTE | 2020-03-08 10:55 | PN ---
[facility] CIWA - CIWA Score Nausea/Vomitin-No Nausea/No Vomiting Muscle Tremors: 1-None Visible, but [place] Anxiety: 1-Mildly Anxious Agitation: 1-Slight > Activity Paroxysmal Sweats: 1-Minimal Palms Moist Orientation: 0-Oriented Tacttile Disturbances: 0-None Auditory Disturbances: 0-None Visual Disturbances: 1-Very Mild Sensitivity Headache: 0-None Present CIWA-Ar Total Score: 5 BHS Progress Note (SOAP) Subjective: 64 years old male was admitted on 03/04/20 for alcohol withdrawal sx management treating with librium detox regiment feeling better less tremor mild anxiety discussing aftercare with staff that [facility] either one is good for him Objective: 03/08/20 11:08 Vital Signs - 24 hr 03/07/20 03/07/20 03/07/20 12:36 16:52 20:47 Temperature 97.1 F L 97.3 F L 97.1 F L Pulse Rate 73 67 68 Respiratory 18 18 18 Rate Blood Pressure 112/80 108/72 97/64 O2 Sat by Pulse 98 100 Oximetry (%) 03/08/20 03/08/20 06:11 08:42 Temperature 98.4 F 97.3 F L Pulse Rate 64 81 Respiratory 16 18 Rate Blood Pressure 106/72 107/74 O2 Sat by Pulse 98 Oximetry (%) Laboratory Tests 03/04/20 03/05/20 03/05/20 15:15 07:50 07:50 WBC RBC Hgb Hct MCV MCH MCHC RDW Plt Count MPV Sodium Potassium Chloride Carbon Dioxide Anion Gap BUN Creatinine Est GFR (CKD-EPI)AfAm Est GFR (CKD-EPI)NonAf Random Glucose Calcium Total Bilirubin AST ALT Alkaline Phosphatase Total Protein Albumin Valproic Acid 30.9 L Syphilis Serology Reactive A* RPR Titer COVID-19 (MILDRED) HIV Ag/Ab Combo Qual Negative 03/05/20 03/05/20 03/05/20 07:50 07:50 07:50 WBC 4.2 RBC 3.95 L Hgb 11.3 L Hct 34.3 L MCV 86.9 MCH 28.5 MCHC 32.9 RDW 15.4 Plt Count 163 D MPV 10.1 Sodium 144 Potassium 3.9 Chloride 108 H Carbon Dioxide 29 Anion Gap 7 L BUN 8.4 Creatinine 0.8 Est GFR (CKD-EPI)AfAm 110.19 Est GFR (CKD-EPI)NonAf 95.07 Random Glucose 93 Calcium 8.9 Total Bilirubin 0.3 AST 12 L ALT 12 L Alkaline Phosphatase 79 Total Protein 7.5 Albumin 3.5 Valproic Acid Syphilis Serology RPR Titer Reactive 1:1 H COVID-19 (MILDRED) HIV Ag/Ab Combo Qual 03/05/20 09:30 WBC RBC Hgb Hct MCV MCH MCHC RDW Plt Count MPV Sodium Potassium Chloride Carbon Dioxide Anion Gap BUN Creatinine Est GFR (CKD-EPI)AfAm Est GFR (CKD-EPI)NonAf Random Glucose Calcium Total Bilirubin AST ALT Alkaline Phosphatase Total Protein Albumin Valproic Acid Syphilis Serology RPR Titer COVID-19 (MILDRED) Not detected HIV Ag/Ab Combo Qual 03/08/20 11:12 lab noted syphilis treated around Assessment: 03/08/20 11:12 alcohol withdrawal Plan: librium regiment
[2020-03-08] MEDS: THIAMINE HCL 100 MG TABLET (FP) PO SCH (22:55)
[2020-03-08] MEDS: ATORVASTATIN CA 20 MG TABLET (FP) PO SCH (22:55)
[2020-03-08] MEDS: MELATONIN 5 MG TABLETS PO SCH (22:55)
[2020-03-09] MEDS ORDERED: chlordiazePOXIDE 5 MG CAPSULE PO ONE (05:00)
[2020-03-09] MEDS ORDERED: chlordiazePOXIDE HCL 10 MG CAPSULE PO ONE (05:00)
--- NOTE | 2020-03-09 08:51 | DS ---
[facility] Detox Discharge Summary Admission Date: 03/04/20 Discharge Date: 03/09/20 - History Present History: Alcohol Dependence - Physical Exam Results Vital Signs: Vital Signs Temperature 97.1 F L 03/09/20 05:22 Pulse Rate 63 03/09/20 05:22 Respiratory Rate 20 03/09/20 05:22 Blood Pressure 115/72 03/09/20 05:22 O2 Sat by Pulse Oximetry (%) 100 03/09/20 05:22 - Treatment Hospital Course: Detox Protocol Followed, Detoxed Safely, Responded well, Discharged Condition Good, Rehab Referral Accepted - Medication Discharge Medications: Ambulatory Orders Folic Acid 1 mg PO DAILY 02/13/19 Atorvastatin Ca [Lipitor] 20 mg PO DAILY 05/08/19 Olanzapine [Zyprexa] 20 mg PO HS 05/08/19 Valproic Acid 500 mg PO BID 05/08/19 traZODone HCL [Desyrel -] 100 mg PO HS 05/08/19 Budesonide/Formeterol Fumarate [SYMBICORT 160/4.5mcg -] 2 puff IH BID #1 inhaler 05/19/19 Tiotropium [place] [Spiriva Respimat] 2 puff IH DAILY #1 inhaler 05/19/19 Albuterol Sulfate Inhaler - [Ventolin HFA Inhaler -] 2 puff IH QID PRN 09/09/19 Thiamine HCl [Vitamin B1 -] 100 mg PO DAILY #30 tablet 09/14/19 Calcium 250Mg/Vit-D 125 Units [Oscal 250 mg+D -] 1 tab PO BID tab 12/17/19 - AMA Did Patient Leave Against Medical Advice: No CIWA Score - CIWA Score Nausea/Vomitin-No Nausea/No Vomiting Muscle Tremors: 1-None Visible, but [place] Anxiety: 0-No Anxiety, at Ease Agitation: 1-Slight > Activity Paroxysmal Sweats: No Perspiration Orientation: 0-Oriented Tacttile Disturbances: 0-None Auditory Disturbances: 0-None Visual Disturbances: 0-None Headache: 0-None Present CIWA-Ar Total Score: 2
[2020-03-09] MEDS: TIOTROPIUM BROMIDE 2.5 MCG (SPIRIVA) RESPIMAT INHALER IH SCH (10:26)
[2020-03-09] MEDS: BUDESONIDE/FORMETEROL FUMARATE 160/4.5 mcg INHALER IH SCH ×2 (10:26→23:19)
[2020-03-09] MEDS: NICOTINE 21 MG/24 HOURS TOPICAL PATCH TD SCH (10:26)
[2020-03-09] MEDS: VALPROATE SODIUM 250 MG/5 ML UNIT DOSE CUP PO SCH ×2 (10:26→23:19)
[2020-03-09] MEDS: PRENATAL VITAMINS W/ FOLIC ACID TABLET (FP) PO SCH (10:26)
[2020-03-09] MEDS: levETIRAcetam 500 MG TABLET (FP) PO SCH ×2 (10:26→23:19)
[2020-03-09] MEDS ORDERED: LACTULOSE 20 GM/30 ML UDC (FOR ORAL USE ONLY) PO ONE (13:30)
[2020-03-09] MEDS: LACTULOSE 20 GM/30 ML UDC (FOR ORAL USE ONLY) PO SCH ×2 (17:51→23:18)
[2020-03-09] MEDS: ATORVASTATIN CA 20 MG TABLET (FP) PO SCH (23:19)
[2020-03-09] MEDS: MELATONIN 5 MG TABLETS PO SCH (23:19)
[2020-03-09] MEDS: THIAMINE HCL 100 MG TABLET (FP) PO SCH (23:19)
[2020-03-10] MEDS: LACTULOSE 20 GM/30 ML UDC (FOR ORAL USE ONLY) PO SCH (05:09)
--- NOTE | 2020-03-10 08:09 | PN ---
S CIWA - CIWA Score Nausea/Vomitin-No Nausea/No Vomiting Muscle Tremors: 1-None Visible, but [place] Anxiety: 0-No Anxiety, at Ease Agitation: 1-Slight > Activity Paroxysmal Sweats: No Perspiration Orientation: 0-Oriented Tacttile Disturbances: 0-None Auditory Disturbances: 0-None Visual Disturbances: 0-None Headache: 0-None Present CIWA-Ar Total Score: 2 BHS Progress Note (SOAP) Subjective: 64 years old male was admitted on 03/04/20 for alcohol withdrawal sx management treating with librium detox regiment Laboratory Tests 03/04/20 03/05/20 03/05/20 15:15 07:50 07:50 WBC RBC Hgb Hct MCV MCH MCHC RDW Plt Count MPV Sodium Potassium Chloride Carbon Dioxide Anion Gap BUN Creatinine Est GFR (CKD-EPI)AfAm Est GFR (CKD-EPI)NonAf Random Glucose Calcium Total Bilirubin AST ALT Alkaline Phosphatase Ammonia Total Protein Albumin Valproic Acid 30.9 L Levetiracetam Syphilis Serology Reactive A* RPR Titer COVID-19 (MILDRED) HIV Ag/Ab Combo Qual Negative 03/05/20 03/05/20 03/05/20 07:50 07:50 07:50 WBC 4.2 RBC 3.95 L Hgb 11.3 L Hct 34.3 L MCV 86.9 MCH 28.5 MCHC 32.9 RDW 15.4 Plt Count 163 D MPV 10.1 Sodium 144 Potassium 3.9 Chloride 108 H Carbon Dioxide 29 Anion Gap 7 L BUN 8.4 Creatinine 0.8 Est GFR (CKD-EPI)AfAm 110.19 Est GFR (CKD-EPI)NonAf 95.07 Random Glucose 93 Calcium 8.9 Total Bilirubin 0.3 AST 12 L ALT 12 L Alkaline Phosphatase 79 Ammonia Total Protein 7.5 Albumin 3.5 Valproic Acid Levetiracetam 1.2 L Syphilis Serology RPR Titer COVID-19 (MILDERD) HIV Ag/Ab Combo Qual 03/05/20 03/05/20 03/09/20 07:50 09:30 08:47 WBC RBC Hgb Hct MCV MCH MCHC RDW Plt Count MPV Sodium Potassium Chloride Carbon Dioxide Anion Gap BUN Creatinine Est GFR (CKD-EPI)AfAm Est GFR (CKD-EPI)NonAf Random Glucose Calcium Total Bilirubin AST ALT Alkaline Phosphatase Ammonia 92.10 H Total Protein Albumin Valproic Acid Levetiracetam Syphilis Serology RPR Titer Reactive 1:1 H COVID-19 (MILDRED) Not detected HIV Ag/Ab Combo Qual ammonia elevation lactulose initiated Objective: 03/10/20 08:06 Vital Signs - 24 hr 03/09/20 03/09/20 03/09/20 08:42 12:49 16:46 Temperature 97.3 F L 97.1 F L 97.3 F L Pulse Rate 72 78 82 Respiratory 18 16 16 Rate Blood Pressure 116/84 100/61 111/75 O2 Sat by Pulse 98 98 Oximetry (%) 03/09/20 03/10/20 20:50 06:35 Temperature 97.1 F L 96.9 F L Pulse Rate 79 74 Respiratory 18 18 Rate Blood Pressure 92/58 L 109/74 O2 Sat by Pulse 98 99 Oximetry (%) ambulating with own wheel chair slow steady requests to talk with his case discussed with counselor for talking to arrangement Assessment: 03/10/20 08:09 alcohol withdrawal ammonia elevation Plan: librium regiment continue lactulose
[2020-03-10 09:34] VITALS: BP 108/71; PULSE 63; TEMP 97.1
--- NOTE | 2020-03-10 10:37 | DS ---
[facility] Detox Discharge Summary Admission Date: 03/04/20 Discharge Date: 03/10/20 - History Present History: Alcohol Dependence Additional Comments: 64 years old male was admitted on 03/04/20 for alcohol withdrawal sx management treated with librium detox regiment seen by psychiatrist hold zyprexa and trazodone due to unable to verify compliance mr serrato has completed librium regiment and is tolerated well ambulating with wheelchair slow goal directed navigating through detox hallway General Appearance: Yes: dress self and feed self moving wheelchair independently, no Distress, Other (thin, Parkinson's tremor) HEENTM: Yes: Within Normal Limits, Hearing grossly Normal, Normocephalic, MEME, Other (difficult to understand speaking) Respiratory: Yes: Other (diffuse rhonchi across all lung [place]) Neck: Yes: Within Normal Limits Breast: Yes: Breast Exam Deferred Cardiology: Yes: Regular Rhythm, Regular Rate, S1, S2 Abdominal: Yes: Within Normal Limits, Non Tender, Flat, Soft Genitourinary: Yes: Within Normal Limits Back: Yes: Within Normal Limits Musculoskeletal: Yes: Other (patient uses a cane and walker for ambulation at baseline) currently ambulating with wheelchair Extremities: Yes: Within Normal Limits, Normal Inspection, midl Tremors Neurological: Yes: Fully Oriented, Normal Mood/Affect, Normal Response Integumentary: Yes: Other (multiple healing cuts on forehead from recent fall 2 days ago) Lymphatic: Yes: Within Normal Limits asthma copd chronic cigarette smoker health teaching on smoking induced asthma episodes Pertinent Past History: time for discharge 45 minutes ammonia elevation treating with lactulos strong recommend mr serrato picks up lactulose from pharmacy and follow up with [facility] service - Physical Exam Results Vital Signs: Vital Signs Temperature 97.1 F L 03/10/20 09:33 Pulse Rate 63 03/10/20 09:33 Respiratory Rate 20 03/10/20 09:33 Blood Pressure 108/71 03/10/20 09:33 O2 Sat by Pulse Oximetry (%) 99 03/10/20 06:35 Pertinent Admission Physical Exam Findings: alcohol withdrawal Laboratory Tests 03/04/20 03/05/20 03/05/20 15:15 07:50 07:50 WBC RBC Hgb Hct MCV MCH MCHC RDW Plt Count MPV Sodium Potassium Chloride Carbon Dioxide Anion Gap BUN Creatinine Est GFR (CKD-EPI)AfAm Est GFR (CKD-EPI)NonAf Random Glucose Calcium Total Bilirubin AST ALT Alkaline Phosphatase Ammonia Total Protein Albumin Valproic Acid 30.9 L Levetiracetam Syphilis Serology Reactive A* RPR Titer COVID-19 (MILDRED) HIV Ag/Ab Combo Qual Negative 03/05/20 03/05/20 03/05/20 07:50 07:50 07:50 WBC 4.2 RBC 3.95 L Hgb 11.3 L Hct 34.3 L MCV 86.9 MCH 28.5 MCHC 32.9 RDW 15.4 Plt Count 163 D MPV 10.1 Sodium 144 Potassium 3.9 Chloride 108 H Carbon Dioxide 29 Anion Gap 7 L BUN 8.4 Creatinine 0.8 Est GFR (CKD-EPI)AfAm 110.19 Est GFR (CKD-EPI)NonAf 95.07 Random Glucose 93 Calcium 8.9 Total Bilirubin 0.3 AST 12 L ALT 12 L Alkaline Phosphatase 79 Ammonia Total Protein 7.5 Albumin 3.5 Valproic Acid Levetiracetam 1.2 L Syphilis Serology RPR Titer COVID-19 (MILDRED) HIV Ag/Ab Combo Qual 03/05/20 03/05/20 03/09/20 07:50 09:30 08:47 WBC RBC Hgb Hct MCV MCH MCHC RDW Plt Count MPV Sodium Potassium Chloride Carbon Dioxide Anion Gap BUN Creatinine Est GFR (CKD-EPI)AfAm Est GFR (CKD-EPI)NonAf Random Glucose Calcium Total Bilirubin AST ALT Alkaline Phosphatase Ammonia 92.10 H Total Protein Albumin Valproic Acid Levetiracetam Syphilis Serology RPR Titer Reactive 1:1 H COVID-19 (MILDRED) Not detected HIV Ag/Ab Combo Qual syphilis contacted treated ammonia elevation treated with lactulose follow up with [facility] service - Treatment Hospital Course: Detox Protocol Followed, Detoxed Safely, Responded well, Discharged Condition Good, Rehab Referral Accepted - Medication Discharge Medications: Ambulatory Orders Folic Acid 1 mg PO DAILY 02/13/19 Atorvastatin Ca [Lipitor] 20 mg PO DAILY 05/08/19 Olanzapine [Zyprexa] 20 mg PO HS 05/08/19 Valproic Acid 500 mg PO BID 05/08/19 traZODone HCL [Desyrel -] 100 mg PO HS 05/08/19 Tiotropium [place] [Spiriva Respimat] 2 puff IH DAILY #1 inhaler 05/19/19 Thiamine HCl [Vitamin B1 -] 100 mg PO DAILY #30 tablet 09/14/19 Calcium 250Mg/Vit-D 125 Units [Oscal 250 mg+D -] 1 tab PO BID tab 12/17/19 Albuterol Sulfate Inhaler - [Ventolin HFA Inhaler -] 2 puff IH QID PRN #1 inhaler 03/10/20 Budesonide/Formeterol Fumarate [SYMBICORT 160/4.5mcg -] 2 puff IH BID #1 inhaler 03/10/20 Lactulose (Oral Use) [Cephulac -] 20 gm PO Q6HPO #1 udc 03/10/20 Tiotropium [place] [Spiriva Respimat] 2 puff IH DAILY #1 inhaler 03/10/20 levETIRAcetam [Keppra -] 500 mg PO BID #60 tablet 03/10/20 - Diagnosis (1) Alcohol dependence with uncomplicated withdrawal Status: Acute (2) Syphilis contact, treated Status: Chronic (3) Asthma Status: Chronic Qualifiers: Asthma severity: mild Asthma persistence: intermittent Asthma complication type: with status asthmaticus Qualified Code(s): J45.22 - Mild intermittent asthma with status asthmaticus (4) COPD (chronic obstructive pulmonary disease) Status: Chronic Qualifiers: COPD type: emphysema Emphysema type: unspecified Qualified Code(s): J43.9 - Emphysema, unspecified (5) Emphysema lung Status: Chronic Qualifiers: Emphysema type: unilateral Qualified Code(s): 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 (7) HLD (hyperlipidemia) Status: Chronic Qualifiers: Hyperlipidemia type: pure hypertriglyceridemia Qualified Code(s): E78.1 - Pure hyperglyceridemia (8) Lung granuloma Status: Chronic (9) Lung nodule < 6cm on CT Status: Chronic (10) Nicotine dependence Status: Acute Qualifiers: Nicotine product type: cigarettes Substance use status: in withdrawal Qualified Code(s): F17.213 - Nicotine dependence, cigarettes, with withdrawal (11) Parkinson disease Status: Chronic (12) Seizure disorder Status: Chronic (13) Weight loss Status: Chronic (14) CVA, old, dysarthria Status: Chronic - AMA Did Patient Leave Against Medical Advice: No CIWA Score - CIWA Score Nausea/Vomitin-No Nausea/No Vomiting Muscle Tremors: 1-None Visible, but [place] Anxiety: 0-No Anxiety, at Ease Agitation: 0-Normal Activity Paroxysmal Sweats: No Perspiration Orientation: 0-Oriented Tacttile Disturbances: 0-None Auditory Disturbances: 0-None Visual Disturbances: 0-None Headache: 0-None Present CIWA-Ar Total Score: 1
== END 2020-03-10 09:35 | disposition home or self-care (01) | DRG 774 ==
LOC: YASAS 12:10 → Y3N 15:05
PROVIDERS: ADMIT Allergy & Immunology; ATTEND Allergy & Immunology
PROC: HZ2ZZZZ Detoxification Services for Substance Abuse Treatment (ICD-10-PCS; principal; 2020-03-04)
DX: F10.230 Alcohol dependence with withdrawal, uncomplicated (principal); F14.20 Cocaine dependence, uncomplicated; F17.210 Nicotine dependence, cigarettes, uncomplicated; F25.9 Schizoaffective disorder, unspecified; G24.01 Drug induced subacute dyskinesia; G25.9 Extrapyramidal and movement disorder, unspecified; G20 Parkinson's disease; G40.909 Epilepsy, unspecified, not intractable, without status epilepticus; J43.0 Unilateral pulmonary emphysema [MacLeod's syndrome]; J84.10 Pulmonary fibrosis, unspecified; J45.20 Mild intermittent asthma, uncomplicated; I69.822 Dysarthria following other cerebrovascular disease; I69.854 Hemiplegia and hemiparesis following other cerebrovascular disease affecting left non-dominant side; R91.1 Solitary pulmonary nodule; R26.89 Other abnormalities of gait and mobility; R29.6 Repeated falls; R63.4 Abnormal weight loss; Z68.20 Body mass index [BMI] 20.0-20.9, adult; Z20.2 Contact with and (suspected) exposure to infections with a predominantly sexual mode of transmission; Z99.89 Dependence on other enabling machines and devices; Z91.5 Personal history of self-harm; Z91.14 Patient's other noncompliance with medication regimen; Z91.19 Patient's noncompliance with other medical treatment and regimen
CPT/HCPCS: 36415; 80053; 80164; 80177; 82140; 85027; 86593; 86780; 87389; U0003

== ENCOUNTER 2020-06-22 11:16 | Inpatient (IN) | payer OTHER ==
[2020-06-22 11:54] VITALS: BMI 22.6
[2020-06-22] MEDS ORDERED: MAG HYDROX/AL HYDROX/SIMETH 30 ML UNIT-DOSE CUP PO PRN (12:52)
[2020-06-22] MEDS ORDERED: BISMUTH SUBSALICYLATE 524 MG/30 ML UD PO PRN (12:52)
[2020-06-22] MEDS ORDERED: METHOCARBAMOL 500 MG TABLET PO PRN (12:52)
[2020-06-22] MEDS ORDERED: IBUPROFEN 400 MG TABLET (FP) PO PRN (12:52)
[2020-06-22] MEDS ORDERED: MAGNESIUM HYDROX 2400MG/30ML ORAL SUSPENSION 30 ML CUP PO PRN (12:52)
[2020-06-22] MEDS ORDERED: MENTHOL/PHENOL 1 EACH UD MM PRN (12:52)
[2020-06-22] MEDS ORDERED: MAGNESIUM CITRATE 300 ML BOTTLE PO PRN (12:52)
[2020-06-22] MEDS ORDERED: ACETAMINOPHEN 325 MG TABLET (FP) PO PRN ×2 (12:52)
[2020-06-22] MEDS ORDERED: ONDANSETRON *ODT* 4 MG TABLET SL PRN (12:52)
[2020-06-22] MEDS ORDERED: NICOTINE POLACRILEX 2 MG GUM BUC PRN (12:52)
[2020-06-22] MEDS ORDERED: chlordiazePOXIDE HCL 25 MG CAPSULE PO PRN (12:52)
[2020-06-22] MEDS: NICOTINE 14 MG/24 HOURS TOPICAL PATCH TD SCH (14:26)
[2020-06-22] MEDS: hydrOXYzine PAMOATE 25 MG CAPSULE (FP) PO SCH ×3 (14:26→23:01)
[2020-06-22 17:10] LABS: POTASSIUM 3.7 mmol/L (3.5-5.1)
[2020-06-22 17:13] LABS: HEMATOCRIT 35.6 % (35.4-49); HEMOGLOBIN 11.6 GM/dL (11.7-16.9); MCH 28.4 pg (25.7-33.7); MCHC 32.7 g/dl (32.0-35.9); MEAN PLT VOLUME 9.9 fl (7.5-11.1); PLATELET COUNT 140 K/MM3 (134-434); RBC 4.09 M/mm3 (4.00-5.60); RDW 14.9 % (11.9-15.9); WHITE BLOOD COUNT 8.6 K/mm3 (4.0-10.0)
[2020-06-22 17:15] LABS: ALBUMIN 3.6 g/dl (3.4-5.0); BLOOD UREA NITROGEN 17.7 mg/dL (7-18)
[2020-06-22 17:16] LABS: CALCIUM 9.2 mg/dL (8.5-10.1)
[2020-06-22 17:18] LABS: CREATININE 0.8 mg/dL (0.55-1.3)
[2020-06-22 17:19] LABS: BILIRUBIN,TOTAL 0.3 mg/dL (0.2-1); TOT PROT 7.5 g/dl (6.4-8.2)
[2020-06-22] MEDS: chlordiazePOXIDE HCL 25 MG CAPSULE PO SCH ×2 (17:46→23:01)
[2020-06-22] MEDS: MELATONIN 5 MG TABLETS PO SCH (23:01)
[2020-06-22] MEDS: THIAMINE HCL 100 MG TABLET (FP) PO SCH (23:01)
[2020-06-23] MEDS: chlordiazePOXIDE HCL 25 MG CAPSULE PO SCH ×2 (06:59→10:53)
[2020-06-23] MEDS: hydrOXYzine PAMOATE 25 MG CAPSULE (FP) PO SCH (06:59)
[2020-06-23] MEDS ORDERED: hydrOXYzine PAMOATE 25 MG CAPSULE (FP) PO PRN (09:40)
[2020-06-23] MEDS ORDERED: diazePAM 5 MG TABLET PO PRN (11:06)
[2020-06-23] MEDS: NICOTINE 14 MG/24 HOURS TOPICAL PATCH TD SCH (11:38)
[2020-06-23] MEDS: PRENATAL VITAMINS W/ FOLIC ACID TABLET (FP) PO SCH (11:38)
[2020-06-23] MEDS: DIVALPROEX SODIUM 500 MG TABLET E.C. PO SCH ×2 (11:38→22:33)
[2020-06-23] MEDS: diazePAM 5 MG TABLET PO SCH ×2 (17:57→22:33)
[2020-06-23] MEDS: THIAMINE HCL 100 MG TABLET (FP) PO SCH (22:32)
[2020-06-23] MEDS: traZODone HCL 100 MG TABLET (FP) PO SCH (22:32)
[2020-06-23] MEDS: MELATONIN 5 MG TABLETS PO SCH (22:33)
[2020-06-23] MEDS: OLANZapine 10 MG TABLET PO SCH (22:33)
[2020-06-24] MEDS ORDERED: chlordiazePOXIDE HCL 25 MG CAPSULE PO SCH (05:00)
[2020-06-24] MEDS: diazePAM 5 MG TABLET PO SCH ×4 (05:40→22:34)
[2020-06-24] MEDS: NICOTINE 14 MG/24 HOURS TOPICAL PATCH TD SCH (10:49)
[2020-06-24] MEDS: PRENATAL VITAMINS W/ FOLIC ACID TABLET (FP) PO SCH (10:49)
[2020-06-24] MEDS: DIVALPROEX SODIUM 500 MG TABLET E.C. PO SCH ×2 (10:49→22:31)
[2020-06-24] MEDS: THIAMINE HCL 100 MG TABLET (FP) PO SCH (22:31)
[2020-06-24] MEDS: OLANZapine 10 MG TABLET PO SCH (22:31)
[2020-06-24] MEDS: MELATONIN 5 MG TABLETS PO SCH (22:33)
[2020-06-24] MEDS: traZODone HCL 100 MG TABLET (FP) PO SCH (22:33)
[2020-06-25] MEDS ORDERED: chlordiazePOXIDE HCL 10 MG CAPSULE PO PRN
[2020-06-25] MEDS ORDERED: chlordiazePOXIDE HCL 10 MG CAPSULE PO SCH (05:00)
[2020-06-25] MEDS: diazePAM 5 MG TABLET PO SCH ×3 (07:16→23:14)
[2020-06-25] MEDS: DIVALPROEX SODIUM 500 MG TABLET E.C. PO SCH ×2 (10:59→22:44)
[2020-06-25] MEDS: PRENATAL VITAMINS W/ FOLIC ACID TABLET (FP) PO SCH (10:59)
[2020-06-25] MEDS: NICOTINE 14 MG/24 HOURS TOPICAL PATCH TD SCH (10:59)
[2020-06-25] MEDS: THIAMINE HCL 100 MG TABLET (FP) PO SCH (22:44)
[2020-06-25] MEDS: OLANZapine 10 MG TABLET PO SCH (22:44)
[2020-06-25] MEDS: MELATONIN 5 MG TABLETS PO SCH (23:14)
[2020-06-25] MEDS: traZODone HCL 100 MG TABLET (FP) PO SCH (23:14)
[2020-06-26] MEDS ORDERED: chlordiazePOXIDE HCL 10 MG CAPSULE PO SCH (05:00)
[2020-06-26] MEDS: diazePAM 5 MG TABLET PO SCH ×2 (07:00→19:00)
[2020-06-26] MEDS: DIVALPROEX SODIUM 500 MG TABLET E.C. PO SCH ×2 (11:17→22:30)
[2020-06-26] MEDS: NICOTINE 14 MG/24 HOURS TOPICAL PATCH TD SCH (11:18)
[2020-06-26] MEDS: PRENATAL VITAMINS W/ FOLIC ACID TABLET (FP) PO SCH (11:18)
[2020-06-26] MEDS ORDERED: PENICILLIN G BENZATHINE 2,400,000 UNIT/4 ML PFS IM ONE (20:00)
[2020-06-26] MEDS: THIAMINE HCL 100 MG TABLET (FP) PO SCH (22:30)
[2020-06-26] MEDS: OLANZapine 10 MG TABLET PO SCH (22:30)
[2020-06-26] MEDS: traZODone HCL 100 MG TABLET (FP) PO SCH (23:08)
[2020-06-26] MEDS: MELATONIN 5 MG TABLETS PO SCH (23:08)
[2020-06-27] MEDS ORDERED: chlordiazePOXIDE HCL 10 MG CAPSULE PO ONE (05:00)
[2020-06-27] MEDS ORDERED: diazePAM 5 MG TABLET PO ONE (06:00)
[2020-06-27 09:48] VITALS: BP 109/77; PULSE 96; TEMP 98.2
[2020-07-03] MEDS ORDERED: PENICILLIN G BENZATHINE 2,400,000 UNIT/4 ML PFS IM ONE (20:00)
[2020-07-10] MEDS ORDERED: PENICILLIN G BENZATHINE 2,400,000 UNIT/4 ML PFS IM ONE (20:00)
== END 2020-06-27 10:05 | disposition home or self-care (01) | DRG 774 ==
LOC: YASAS 11:16 → Y6N 12:30
PROVIDERS: ADMIT Allergy & Immunology; ATTEND Allergy & Immunology
PROC: HZ2ZZZZ Detoxification Services for Substance Abuse Treatment (ICD-10-PCS; principal; 2020-06-22)
DX: F10.230 Alcohol dependence with withdrawal, uncomplicated (principal); F14.20 Cocaine dependence, uncomplicated; F17.210 Nicotine dependence, cigarettes, uncomplicated; F25.1 Schizoaffective disorder, depressive type; F19.282 Other psychoactive substance dependence with psychoactive substance-induced sleep disorder; J43.9 Emphysema, unspecified; J45.20 Mild intermittent asthma, uncomplicated; D64.9 Anemia, unspecified; I69.322 Dysarthria following cerebral infarction; G40.909 Epilepsy, unspecified, not intractable, without status epilepticus; A53.9 Syphilis, unspecified; R26.2 Difficulty in walking, not elsewhere classified; Z99.89 Dependence on other enabling machines and devices; R29.6 Repeated falls; G20 Parkinson's disease; G24.01 Drug induced subacute dyskinesia; G25.70 Drug induced movement disorder, unspecified; R47.81 Slurred speech
CPT/HCPCS: 36415; 80053; 85027; 86593; 86780; C9803; U0003

== ENCOUNTER 2020-09-23 13:02 | Inpatient (IN) | payer OTHER ==
[2020-09-23 14:39] VITALS: BMI 53.4
[2020-09-23] MEDS ORDERED: ALBUTEROL SO4 HFA INHALER IH PRN (19:45)
[2020-09-23] MEDS ORDERED: MAGNESIUM CITRATE 300 ML BOTTLE PO PRN (19:46)
[2020-09-23] MEDS ORDERED: MAG HYDROX/AL HYDROX/SIMETH 30 ML UNIT-DOSE CUP PO PRN (19:46)
[2020-09-23] MEDS ORDERED: IBUPROFEN 400 MG TABLET (FP) PO PRN (19:46)
[2020-09-23] MEDS ORDERED: MAGNESIUM HYDROX 2400MG/30ML ORAL SUSPENSION 30 ML CUP PO PRN (19:46)
[2020-09-23] MEDS ORDERED: P-EPHED 60MG/TRIPROLIDI 2.5MG TABLET PO PRN (19:46)
[2020-09-23] MEDS ORDERED: LOPERAMIDE HCL 2 MG CAPSULE PO PRN (19:46)
[2020-09-23] MEDS ORDERED: guaiFENesin 200 MG/10 ML 10 ML UNIT-DOSE CUPS PO PRN (19:46)
[2020-09-23] MEDS ORDERED: NICOTINE POLACRILEX 2 MG GUM BC PRN (19:46)
[2020-09-23] MEDS ORDERED: ACETAMINOPHEN 325 MG TABLET (FP) PO PRN (19:46)
[2020-09-23] MEDS: hydrOXYzine PAMOATE 25 MG CAPSULE (FP) PO SCH (22:14)
[2020-09-23] MEDS: THIAMINE HCL 100 MG TABLET (FP) PO SCH (22:14)
[2020-09-23] MEDS: MELATONIN 5 MG TABLETS PO SCH (22:14)
[2020-09-23] MEDS ORDERED: TUBERCULIN PPD 5 TU/0.1ML VIAL ID ONE (22:17)
[2020-09-24] MEDS: hydrOXYzine PAMOATE 25 MG CAPSULE (FP) PO SCH ×5 (06:08→21:37)
[2020-09-24] MEDS: NICOTINE 7 MG/24 HOURS TOPICAL PATCH TD SCH (10:08)
[2020-09-24] MEDS: PRENATAL VITAMINS W/ FOLIC ACID TABLET (FP) PO SCH (10:08)
[2020-09-24 10:28] LABS: HEMATOCRIT 34.1 % (35.4-49); HEMOGLOBIN 11.6 GM/dL (11.7-16.9); MCH 29.5 pg (25.7-33.7); MCHC 33.9 g/dl (32.0-35.9); MEAN CELL VOLUME 86.9 fl (80-96); PLATELET COUNT 146 K/MM3 (134-434); RBC 3.92 M/mm3 (4.00-5.60); RDW 14.2 % (11.9-15.9); WHITE BLOOD COUNT 4.5 K/mm3 (4.0-10.0)
[2020-09-24 10:29] LABS: POTASSIUM 3.5 mmol/L (3.5-5.1)
[2020-09-24 10:31] LABS: URINE APPEARANCE CLEAR; URINE BILIRUBIN NEGATIVE (NEGATIVE); URINE COLOR YELLOW; URINE GLUCOSE (UA) NEGATIVE (NEGATIVE); URINE KETONE TRACE (NEGATIVE); URINE LEUK ESTERASE NEGATIVE (NEGATIVE); URINE NITRITE NEGATIVE (NEGATIVE); URINE PROTEIN NEGATIVE (NEGATIVE)
[2020-09-24 10:35] LABS: CALCIUM 8.7 mg/dL (8.5-10.1)
[2020-09-24 10:36] LABS: ALBUMIN 3.3 g/dl (3.4-5.0)
[2020-09-24 10:39] LABS: CREATININE 0.8 mg/dL (0.55-1.3)
[2020-09-24 10:40] LABS: BILIRUBIN,TOTAL 0.2 mg/dL (0.2-1); TOT PROT 7.1 g/dl (6.4-8.2)
[2020-09-24] MEDS: THIAMINE HCL 100 MG TABLET (FP) PO SCH (21:06)
[2020-09-24] MEDS: MELATONIN 5 MG TABLETS PO SCH (21:06)
[2020-09-24] MEDS: OLANZapine 10 MG TABLET PO SCH (21:07)
[2020-09-24] MEDS: DIVALPROEX SODIUM 250 MG TABLET E.C. PO SCH (21:37)
[2020-09-24] MEDS ORDERED: DIVALPROEX SODIUM 500 MG TABLET E.C. PO SCH (22:00)
[2020-09-25] MEDS: hydrOXYzine PAMOATE 25 MG CAPSULE (FP) PO SCH ×5 (07:18→21:46)
[2020-09-25] MEDS: PRENATAL VITAMINS W/ FOLIC ACID TABLET (FP) PO SCH (09:17)
[2020-09-25] MEDS: DIVALPROEX SODIUM 250 MG TABLET E.C. PO SCH ×2 (09:17→21:46)
[2020-09-25] MEDS: NICOTINE 7 MG/24 HOURS TOPICAL PATCH TD SCH (09:17)
[2020-09-25] MEDS: OLANZapine 10 MG TABLET PO SCH (21:46)
[2020-09-25] MEDS: THIAMINE HCL 100 MG TABLET (FP) PO SCH (21:47)
[2020-09-25] MEDS: MELATONIN 5 MG TABLETS PO SCH (21:47)
[2020-09-26] MEDS: hydrOXYzine PAMOATE 25 MG CAPSULE (FP) PO SCH ×5 (06:20→21:04)
[2020-09-26] MEDS: DIVALPROEX SODIUM 250 MG TABLET E.C. PO SCH ×2 (10:37→21:04)
[2020-09-26] MEDS: PRENATAL VITAMINS W/ FOLIC ACID TABLET (FP) PO SCH (10:37)
[2020-09-26] MEDS: NICOTINE 7 MG/24 HOURS TOPICAL PATCH TD SCH (10:38)
[2020-09-26] MEDS: OLANZapine 10 MG TABLET PO SCH (21:04)
[2020-09-26] MEDS: MELATONIN 5 MG TABLETS PO SCH (21:04)
[2020-09-26] MEDS: THIAMINE HCL 100 MG TABLET (FP) PO SCH (21:04)
[2020-09-27] MEDS: hydrOXYzine PAMOATE 25 MG CAPSULE (FP) PO SCH ×5 (06:43→21:53)
[2020-09-27] MEDS: DIVALPROEX SODIUM 250 MG TABLET E.C. PO SCH ×2 (10:37→21:52)
[2020-09-27] MEDS: PRENATAL VITAMINS W/ FOLIC ACID TABLET (FP) PO SCH (10:37)
[2020-09-27] MEDS: NICOTINE 7 MG/24 HOURS TOPICAL PATCH TD SCH (10:38)
[2020-09-27] MEDS: MELATONIN 5 MG TABLETS PO SCH (21:52)
[2020-09-27] MEDS: THIAMINE HCL 100 MG TABLET (FP) PO SCH (21:53)
[2020-09-27] MEDS: OLANZapine 10 MG TABLET PO SCH (21:53)
[2020-09-28] MEDS: hydrOXYzine PAMOATE 25 MG CAPSULE (FP) PO SCH ×5 (06:17→21:06)
[2020-09-28] MEDS: DIVALPROEX SODIUM 250 MG TABLET E.C. PO SCH ×2 (10:29→21:05)
[2020-09-28] MEDS: PRENATAL VITAMINS W/ FOLIC ACID TABLET (FP) PO SCH (10:29)
[2020-09-28] MEDS: NICOTINE 7 MG/24 HOURS TOPICAL PATCH TD SCH (10:29)
[2020-09-28] MEDS: MELATONIN 5 MG TABLETS PO SCH (21:05)
[2020-09-28] MEDS: THIAMINE HCL 100 MG TABLET (FP) PO SCH (21:05)
[2020-09-28] MEDS: OLANZapine 10 MG TABLET PO SCH (21:06)
[2020-09-29] MEDS: hydrOXYzine PAMOATE 25 MG CAPSULE (FP) PO SCH ×5 (06:24→22:09)
[2020-09-29] MEDS: PRENATAL VITAMINS W/ FOLIC ACID TABLET (FP) PO SCH (10:20)
[2020-09-29] MEDS: NICOTINE 7 MG/24 HOURS TOPICAL PATCH TD SCH (10:20)
[2020-09-29] MEDS: DIVALPROEX SODIUM 250 MG TABLET E.C. PO SCH ×2 (10:20→22:09)
[2020-09-29] MEDS: LACTULOSE 20 GM/30 ML UDC (FOR ORAL USE ONLY) PO SCH (22:09)
[2020-09-29] MEDS: MELATONIN 5 MG TABLETS PO SCH (22:09)
[2020-09-29] MEDS: OLANZapine 10 MG TABLET PO SCH (22:09)
[2020-09-29] MEDS: THIAMINE HCL 100 MG TABLET (FP) PO SCH (22:09)
[2020-09-30] MEDS: hydrOXYzine PAMOATE 25 MG CAPSULE (FP) PO SCH ×5 (06:46→21:27)
[2020-09-30] MEDS: LACTULOSE 20 GM/30 ML UDC (FOR ORAL USE ONLY) PO SCH ×3 (06:46→21:25)
[2020-09-30] MEDS: NICOTINE 7 MG/24 HOURS TOPICAL PATCH TD SCH (09:15)
[2020-09-30] MEDS: DIVALPROEX SODIUM 250 MG TABLET E.C. PO SCH ×2 (09:15→21:25)
[2020-09-30] MEDS: PRENATAL VITAMINS W/ FOLIC ACID TABLET (FP) PO SCH (09:15)
[2020-09-30] MEDS: OLANZapine 10 MG TABLET PO SCH (21:25)
[2020-09-30] MEDS: MELATONIN 5 MG TABLETS PO SCH (21:25)
[2020-09-30] MEDS: THIAMINE HCL 100 MG TABLET (FP) PO SCH (21:25)
[2020-10-01] MEDS: LACTULOSE 20 GM/30 ML UDC (FOR ORAL USE ONLY) PO SCH ×3 (06:33→21:13)
[2020-10-01] MEDS: hydrOXYzine PAMOATE 25 MG CAPSULE (FP) PO SCH ×5 (06:33→21:12)
[2020-10-01] MEDS: PRENATAL VITAMINS W/ FOLIC ACID TABLET (FP) PO SCH (10:04)
[2020-10-01] MEDS: DIVALPROEX SODIUM 250 MG TABLET E.C. PO SCH ×2 (10:04→21:12)
[2020-10-01] MEDS: NICOTINE 7 MG/24 HOURS TOPICAL PATCH TD SCH (10:04)
[2020-10-01] MEDS: OLANZapine 10 MG TABLET PO SCH (21:12)
[2020-10-01] MEDS: THIAMINE HCL 100 MG TABLET (FP) PO SCH (21:12)
[2020-10-01] MEDS: MELATONIN 5 MG TABLETS PO SCH (21:12)
[2020-10-02] MEDS: LACTULOSE 20 GM/30 ML UDC (FOR ORAL USE ONLY) PO SCH ×3 (06:19→21:21)
[2020-10-02] MEDS: hydrOXYzine PAMOATE 25 MG CAPSULE (FP) PO SCH ×5 (06:19→21:20)
[2020-10-02] MEDS: PRENATAL VITAMINS W/ FOLIC ACID TABLET (FP) PO SCH (10:02)
[2020-10-02] MEDS: DIVALPROEX SODIUM 250 MG TABLET E.C. PO SCH ×2 (10:02→21:20)
[2020-10-02] MEDS: NICOTINE 7 MG/24 HOURS TOPICAL PATCH TD SCH (10:02)
[2020-10-02] MEDS: MELATONIN 5 MG TABLETS PO SCH (21:20)
[2020-10-02] MEDS: OLANZapine 10 MG TABLET PO SCH (21:20)
[2020-10-02] MEDS: THIAMINE HCL 100 MG TABLET (FP) PO SCH (21:20)
[2020-10-03] MEDS: hydrOXYzine PAMOATE 25 MG CAPSULE (FP) PO SCH ×5 (06:46→21:15)
[2020-10-03] MEDS: LACTULOSE 20 GM/30 ML UDC (FOR ORAL USE ONLY) PO SCH ×3 (06:46→21:15)
[2020-10-03] MEDS: DIVALPROEX SODIUM 250 MG TABLET E.C. PO SCH ×2 (10:14→21:15)
[2020-10-03] MEDS: PRENATAL VITAMINS W/ FOLIC ACID TABLET (FP) PO SCH (10:14)
[2020-10-03] MEDS: NICOTINE 7 MG/24 HOURS TOPICAL PATCH TD SCH (10:15)
[2020-10-03] MEDS: THIAMINE HCL 100 MG TABLET (FP) PO SCH (21:14)
[2020-10-03] MEDS: MELATONIN 5 MG TABLETS PO SCH (21:14)
[2020-10-03] MEDS: OLANZapine 10 MG TABLET PO SCH (21:15)
[2020-10-04] MEDS: hydrOXYzine PAMOATE 25 MG CAPSULE (FP) PO SCH ×5 (06:25→21:46)
[2020-10-04] MEDS: LACTULOSE 20 GM/30 ML UDC (FOR ORAL USE ONLY) PO SCH ×3 (06:25→21:45)
[2020-10-04] MEDS: DIVALPROEX SODIUM 250 MG TABLET E.C. PO SCH ×2 (10:11→21:45)
[2020-10-04] MEDS: NICOTINE 7 MG/24 HOURS TOPICAL PATCH TD SCH (10:11)
[2020-10-04] MEDS: PRENATAL VITAMINS W/ FOLIC ACID TABLET (FP) PO SCH (10:11)
[2020-10-04] MEDS: MELATONIN 5 MG TABLETS PO SCH (21:45)
[2020-10-04] MEDS: THIAMINE HCL 100 MG TABLET (FP) PO SCH (21:45)
[2020-10-04] MEDS: OLANZapine 10 MG TABLET PO SCH (21:45)
[2020-10-05] MEDS: LACTULOSE 20 GM/30 ML UDC (FOR ORAL USE ONLY) PO SCH ×3 (06:17→21:08)
[2020-10-05] MEDS: hydrOXYzine PAMOATE 25 MG CAPSULE (FP) PO SCH ×5 (06:17→21:09)
[2020-10-05] MEDS: NICOTINE 7 MG/24 HOURS TOPICAL PATCH TD SCH (10:23)
[2020-10-05] MEDS: PRENATAL VITAMINS W/ FOLIC ACID TABLET (FP) PO SCH (10:23)
[2020-10-05] MEDS: DIVALPROEX SODIUM 250 MG TABLET E.C. PO SCH ×2 (10:23→21:09)
[2020-10-05] MEDS: MELATONIN 5 MG TABLETS PO SCH (21:08)
[2020-10-05] MEDS: THIAMINE HCL 100 MG TABLET (FP) PO SCH (21:08)
[2020-10-05] MEDS: OLANZapine 10 MG TABLET PO SCH (21:09)
[2020-10-06] MEDS: hydrOXYzine PAMOATE 25 MG CAPSULE (FP) PO SCH ×5 (06:14→21:28)
[2020-10-06] MEDS: LACTULOSE 20 GM/30 ML UDC (FOR ORAL USE ONLY) PO SCH ×3 (06:14→21:28)
[2020-10-06] MEDS: DIVALPROEX SODIUM 250 MG TABLET E.C. PO SCH ×2 (10:22→21:28)
[2020-10-06] MEDS: PRENATAL VITAMINS W/ FOLIC ACID TABLET (FP) PO SCH (10:23)
[2020-10-06] MEDS: NICOTINE 7 MG/24 HOURS TOPICAL PATCH TD SCH (10:23)
[2020-10-06] MEDS ORDERED: PT OWN MED DRAWER 7, Y5N ONE (19:49)
[2020-10-06] MEDS: OLANZapine 10 MG TABLET PO SCH (21:28)
[2020-10-06] MEDS: THIAMINE HCL 100 MG TABLET (FP) PO SCH (21:28)
[2020-10-06] MEDS: MELATONIN 5 MG TABLETS PO SCH (21:28)
[2020-10-07] MEDS: LACTULOSE 20 GM/30 ML UDC (FOR ORAL USE ONLY) PO SCH (06:38)
[2020-10-07] MEDS: hydrOXYzine PAMOATE 25 MG CAPSULE (FP) PO SCH ×2 (06:38→09:47)
[2020-10-07 07:02] VITALS: BP 107/67; PULSE 85; TEMP 97.3
[2020-10-07] MEDS: DIVALPROEX SODIUM 250 MG TABLET E.C. PO SCH (09:47)
[2020-10-07] MEDS: PRENATAL VITAMINS W/ FOLIC ACID TABLET (FP) PO SCH (09:47)
[2020-10-07] MEDS: NICOTINE 7 MG/24 HOURS TOPICAL PATCH TD SCH (09:48)
== END 2020-10-07 09:54 | disposition home or self-care (01) | DRG 772 ==
LOC: YASAS 13:02 → Y3W 19:36 → Y5N 09-29 16:47 → Y3E 09-30 15:16
PROVIDERS: ADMIT Allergy & Immunology; ATTEND Allergy & Immunology
PROC: HZ42ZZZ Group Counseling for Substance Abuse Treatment, Cognitive-Behavioral (ICD-10-PCS; principal; 2020-09-23)
DX: F10.20 Alcohol dependence, uncomplicated (principal); F14.20 Cocaine dependence, uncomplicated; F17.210 Nicotine dependence, cigarettes, uncomplicated; F25.9 Schizoaffective disorder, unspecified; F19.24 Other psychoactive substance dependence with psychoactive substance-induced mood disorder; D64.9 Anemia, unspecified; G20 Parkinson's disease; G40.909 Epilepsy, unspecified, not intractable, without status epilepticus; G24.01 Drug induced subacute dyskinesia; G25.70 Drug induced movement disorder, unspecified; J43.9 Emphysema, unspecified; J45.20 Mild intermittent asthma, uncomplicated; E78.5 Hyperlipidemia, unspecified; R29.6 Repeated falls; I69.822 Dysarthria following other cerebrovascular disease; Z99.89 Dependence on other enabling machines and devices; Z87.828 Personal history of other (healed) physical injury and trauma; Z98.890 Other specified postprocedural states
CPT/HCPCS: 36415; 71046-TC-FY; 80053; 80164; 81003; 82140; 82962; 85027; 86593; 86780; 93005; 93010; C9803; U0003

== ENCOUNTER 2021-03-26 11:41 | Inpatient (IN) | payer OTHER ==
[2021-03-26 12:26] VITALS: BMI 17.4
[2021-03-26] MEDS ORDERED: LORazepam 1 MG TABLET PO PRN (14:09)
[2021-03-26] MEDS ORDERED: NICOTINE POLACRILEX 2 MG GUM BUC PRN (14:09)
[2021-03-26] MEDS ORDERED: ACETAMINOPHEN 325 MG TABLET (FP) PO PRN ×2 (14:09)
[2021-03-26] MEDS ORDERED: MAG HYDROX/AL HYDROX/SIMETH 30 ML UNIT-DOSE CUP PO PRN (14:09)
[2021-03-26] MEDS ORDERED: BISMUTH SUBSALICYLATE 524 MG/30 ML PO PRN (14:09)
[2021-03-26] MEDS ORDERED: MENTHOL/PHENOL 1 EACH UD MM PRN (14:09)
[2021-03-26] MEDS ORDERED: NICOTINE 10 MG CARTRIDGE (INHALER) IH PRN (14:09)
[2021-03-26] MEDS ORDERED: METHOCARBAMOL 500 MG TABLET PO PRN (14:09)
[2021-03-26] MEDS ORDERED: MAGNESIUM HYDROX 2400MG/30ML ORAL SUSPENSION 30 ML CUP PO PRN (14:09)
[2021-03-26] MEDS ORDERED: ONDANSETRON *ODT* 4 MG TABLET SL PRN (14:09)
[2021-03-26] MEDS ORDERED: IBUPROFEN 400 MG TABLET (FP) PO PRN (14:09)
[2021-03-26] MEDS ORDERED: MAGNESIUM CITRATE 300 ML BOTTLE PO PRN (14:09)
[2021-03-26] MEDS ORDERED: LORazepam 2 MG TABLET ONE (19:57)
[2021-03-26] MEDS ORDERED: hydrOXYzine PAMOATE 25 MG CAPSULE (FP) PO ONE (19:57)
[2021-03-26] MEDS: LORazepam 2 MG TABLET PO SCH ×2 (19:58→22:45)
[2021-03-26] MEDS: hydrOXYzine PAMOATE 25 MG CAPSULE (FP) PO SCH ×2 (19:58→22:45)
[2021-03-26] MEDS: MELATONIN 5 MG TABLETS PO SCH (22:45)
[2021-03-26] MEDS: THIAMINE HCL 100 MG TABLET (FP) PO SCH (22:45)
[2021-03-27] MEDS: hydrOXYzine PAMOATE 25 MG CAPSULE (FP) PO SCH (07:07)
[2021-03-27] MEDS: LORazepam 2 MG TABLET PO SCH ×4 (07:07→22:32)
[2021-03-27] MEDS ORDERED: hydrOXYzine PAMOATE 25 MG CAPSULE (FP) PO PRN (08:50)
[2021-03-27] MEDS: PRENATAL VITAMINS W/ FOLIC ACID TABLET (FP) PO SCH (10:34)
[2021-03-27] MEDS ORDERED: ALBUTEROL SO4 HFA INHALER IH PRN (12:53)
[2021-03-27] MEDS: TIOTROPIUM BROMIDE 2.5 MCG (SPIRIVA) RESPIMAT INHALER IH SCH (15:38)
[2021-03-27 18:27] LABS: HEMATOCRIT 31.5 % (35.4-49); HEMOGLOBIN 10.7 GM/dL (11.7-16.9); MCH 29.8 pg (25.7-33.7); MCHC 33.9 g/dl (32.0-35.9); MEAN CELL VOLUME 87.9 fl (80-96); MEAN PLT VOLUME 10.1 fl (7.5-11.1); PLATELET COUNT 145 10^3/uL (134-434); RBC 3.59 M/mm3 (4.00-5.60); RDW 15.1 % (11.9-15.9); WHITE BLOOD COUNT 3.4 K/mm3 (4.0-10.0)
[2021-03-27 18:44] LABS: CALCIUM 8.4 mg/dL (8.5-10.1)
[2021-03-27 18:45] LABS: ALBUMIN 2.8 g/dl (3.4-5.0); BLOOD UREA NITROGEN 17.4 mg/dL (7-18)
[2021-03-27 18:48] LABS: CREATININE 0.7 mg/dL (0.55-1.3)
[2021-03-27 18:49] LABS: BILIRUBIN,TOTAL 0.2 mg/dL (0.2-1); TOT PROT 6.3 g/dl (6.4-8.2)
[2021-03-27 19:38] LABS: HIV INTERPRETATION NEGATIVE (NEGATIVE)
[2021-03-27] MEDS ORDERED: OLANZapine 7.5 MG TABLET PO SCH (22:00)
[2021-03-27] MEDS: levETIRAcetam 500 MG TABLET (FP) PO SCH (22:31)
[2021-03-27] MEDS: BUDESONIDE/FORMETEROL FUMARATE 160/4.5 mcg INHALER IH SCH (22:31)
[2021-03-27] MEDS: DIVALPROEX SODIUM 500 MG TABLET E.C. PO SCH (22:31)
[2021-03-27] MEDS: THIAMINE HCL 100 MG TABLET (FP) PO SCH (22:31)
[2021-03-27] MEDS: OLANZAPINE 2.5 MG, OLANZAPINE 5 MG PO SCH (22:31)
[2021-03-27] MEDS: MELATONIN 5 MG TABLETS PO SCH (22:32)
[2021-03-28] MEDS: LORazepam 1 MG TABLET PO SCH ×4 (06:27→22:28)
[2021-03-28] MEDS: levETIRAcetam 500 MG TABLET (FP) PO SCH ×2 (10:14→22:28)
[2021-03-28] MEDS: ATORVASTATIN CA 20 MG TABLET (FP) PO SCH (10:14)
[2021-03-28] MEDS: TIOTROPIUM BROMIDE 2.5 MCG (SPIRIVA) RESPIMAT INHALER IH SCH (10:14)
[2021-03-28] MEDS: PRENATAL VITAMINS W/ FOLIC ACID TABLET (FP) PO SCH (10:15)
[2021-03-28] MEDS: DIVALPROEX SODIUM 500 MG TABLET E.C. PO SCH ×2 (10:15→22:28)
[2021-03-28] MEDS: BUDESONIDE/FORMETEROL FUMARATE 160/4.5 mcg INHALER IH SCH ×2 (10:16→22:27)
[2021-03-28] MEDS: OLANZAPINE 2.5 MG, OLANZAPINE 5 MG PO SCH (22:27)
[2021-03-28] MEDS: THIAMINE HCL 100 MG TABLET (FP) PO SCH (22:27)
[2021-03-28] MEDS: MELATONIN 5 MG TABLETS PO SCH (22:28)
[2021-03-29] MEDS ORDERED: LORazepam 0.5 MG TABLET PO PRN
[2021-03-29] MEDS: LORazepam 0.5 MG TABLET PO SCH ×4 (05:57→22:17)
[2021-03-29] MEDS: PRENATAL VITAMINS W/ FOLIC ACID TABLET (FP) PO SCH (10:20)
[2021-03-29] MEDS: DIVALPROEX SODIUM 500 MG TABLET E.C. PO SCH ×2 (10:20→22:17)
[2021-03-29] MEDS: ATORVASTATIN CA 20 MG TABLET (FP) PO SCH (10:20)
[2021-03-29] MEDS: levETIRAcetam 500 MG TABLET (FP) PO SCH ×2 (10:21→22:17)
[2021-03-29] MEDS: BUDESONIDE/FORMETEROL FUMARATE 160/4.5 mcg INHALER IH SCH ×2 (10:21→22:16)
[2021-03-29] MEDS: TIOTROPIUM BROMIDE 2.5 MCG (SPIRIVA) RESPIMAT INHALER IH SCH (10:24)
[2021-03-29 10:48] LABS: HEMATOCRIT 30.6 % (35.4-49); HEMOGLOBIN 10.4 GM/dL (11.7-16.9); MCH 29.5 pg (25.7-33.7); MCHC 33.8 g/dl (32.0-35.9); MEAN PLT VOLUME 9.5 fl (7.5-11.1); PLATELET COUNT 152 10^3/uL (134-434); RBC 3.52 M/mm3 (4.00-5.60); RDW 14.8 % (11.9-15.9); WHITE BLOOD COUNT 4.4 K/mm3 (4.0-10.0)
[2021-03-29 10:55] LABS: ALBUMIN 2.7 g/dl (3.4-5.0); BLOOD UREA NITROGEN 11.2 mg/dL (7-18); CALCIUM 8.2 mg/dL (8.5-10.1)
[2021-03-29 10:59] LABS: CREATININE 0.7 mg/dL (0.55-1.3)
[2021-03-29 11:00] LABS: BILIRUBIN,TOTAL 0.2 mg/dL (0.2-1); TOT PROT 6.3 g/dl (6.4-8.2)
[2021-03-29] MEDS: MELATONIN 5 MG TABLETS PO SCH (22:16)
[2021-03-29] MEDS: THIAMINE HCL 100 MG TABLET (FP) PO SCH (22:16)
[2021-03-29] MEDS: OLANZAPINE 2.5 MG, OLANZAPINE 5 MG PO SCH (22:17)
[2021-03-30] MEDS ORDERED: LORazepam 0.5 MG TABLET PO ONE (05:00)
[2021-03-30] MEDS: ATORVASTATIN CA 20 MG TABLET (FP) PO SCH (10:54)
[2021-03-30] MEDS: DIVALPROEX SODIUM 500 MG TABLET E.C. PO SCH (10:54)
[2021-03-30] MEDS: TIOTROPIUM BROMIDE 2.5 MCG (SPIRIVA) RESPIMAT INHALER IH SCH (10:55)
[2021-03-30] MEDS: PRENATAL VITAMINS W/ FOLIC ACID TABLET (FP) PO SCH (10:55)
[2021-03-30] MEDS: levETIRAcetam 500 MG TABLET (FP) PO SCH (10:55)
[2021-03-30] MEDS: BUDESONIDE/FORMETEROL FUMARATE 160/4.5 mcg INHALER IH SCH (10:55)
[2021-03-30 13:54] VITALS: BP 115/70; PULSE 102; TEMP 96.8
== END 2021-03-30 14:30 | disposition home or self-care (01) | DRG 897 ==
LOC: YASAS 11:41 → Y3N 19:55
PROVIDERS: ADMIT Allergy & Immunology; ATTEND Allergy & Immunology
PROC: HZ2ZZZZ Detoxification Services for Substance Abuse Treatment (ICD-10-PCS; principal; 2021-03-26)
DX: F10.230 Alcohol dependence with withdrawal, uncomplicated (principal); F14.20 Cocaine dependence, uncomplicated; I69.851 Hemiplegia and hemiparesis following other cerebrovascular disease affecting right dominant side; F12.20 Cannabis dependence, uncomplicated; F17.210 Nicotine dependence, cigarettes, uncomplicated; F25.9 Schizoaffective disorder, unspecified; F19.24 Other psychoactive substance dependence with psychoactive substance-induced mood disorder; G40.909 Epilepsy, unspecified, not intractable, without status epilepticus; G20 Parkinson's disease; G24.01 Drug induced subacute dyskinesia; J42 Unspecified chronic bronchitis; J45.909 Unspecified asthma, uncomplicated; R26.2 Difficulty in walking, not elsewhere classified; Z99.89 Dependence on other enabling machines and devices; Z91.5 Personal history of self-harm
CPT/HCPCS: 36415; 80053; 80164; 80177; 85027; 86593; 86780; 87389; C9803; U0003; U0005

== ENCOUNTER 2021-05-07 13:01 | Inpatient (IN) | payer OTHER ==
[2021-05-07 14:58] VITALS: BMI 19.3
[2021-05-07] MEDS ORDERED: MENTHOL/PHENOL 1 EACH UD MM PRN (16:45)
[2021-05-07] MEDS ORDERED: ACETAMINOPHEN 325 MG TABLET (FP) PO PRN ×2 (16:45)
[2021-05-07] MEDS ORDERED: METHOCARBAMOL 500 MG TABLET PO PRN (16:45)
[2021-05-07] MEDS ORDERED: BISMUTH SUBSALICYLATE 524 MG/30 ML PO PRN (16:45)
[2021-05-07] MEDS ORDERED: MAG HYDROX/AL HYDROX/SIMETH 30 ML UNIT-DOSE CUP PO PRN (16:45)
[2021-05-07] MEDS ORDERED: IBUPROFEN 400 MG TABLET (FP) PO PRN (16:45)
[2021-05-07] MEDS ORDERED: LORazepam 1 MG TABLET PO PRN (16:45)
[2021-05-07] MEDS ORDERED: MAGNESIUM HYDROX 2400MG/30ML ORAL SUSPENSION 30 ML CUP PO PRN (16:45)
[2021-05-07] MEDS ORDERED: ONDANSETRON *ODT* 4 MG TABLET SL PRN (16:45)
[2021-05-07] MEDS ORDERED: MAGNESIUM CITRATE 300 ML BOTTLE PO PRN (16:45)
[2021-05-07] MEDS ORDERED: NICOTINE 10 MG CARTRIDGE (INHALER) IH PRN (16:45)
[2021-05-07] MEDS ORDERED: LORazepam 2 MG TABLET PO SCH (17:00)
[2021-05-07] MEDS ORDERED: MELATONIN 5 MG TABLETS PO SCH (22:00)
[2021-05-07] MEDS: hydrOXYzine PAMOATE 25 MG CAPSULE (FP) PO SCH ×2 (22:40→23:03)
[2021-05-07] MEDS: THIAMINE HCL 100 MG TABLET (FP) PO SCH (22:40)
[2021-05-08] MEDS: hydrOXYzine PAMOATE 25 MG CAPSULE (FP) PO SCH (07:17)
[2021-05-08] MEDS ORDERED: hydrOXYzine PAMOATE 25 MG CAPSULE (FP) PO PRN (09:49)
[2021-05-08] MEDS: PRENATAL VITAMINS W/ FOLIC ACID TABLET (FP) PO SCH (10:25)
[2021-05-08] MEDS: DIVALPROEX SODIUM 500 MG TABLET E.C. PO SCH ×2 (11:48→21:39)
[2021-05-08 12:13] LABS: ALBUMIN 2.9 g/dl (3.4-5.0); BLOOD UREA NITROGEN 11.8 mg/dL (7-18); CALCIUM 8.1 mg/dL (8.5-10.1)
[2021-05-08 12:13] LABS: HEMATOCRIT 32.2 % (35.4-49); HEMOGLOBIN 10.7 GM/dL (11.7-16.9); MCH 29.1 pg (25.7-33.7); MCHC 33.2 g/dl (32.0-35.9); MEAN CELL VOLUME 87.7 fl (80-96); MEAN PLT VOLUME 9.6 fl (7.5-11.1); PLATELET COUNT 191 10^3/uL (134-434); RBC 3.68 M/mm3 (4.00-5.60); RDW 14.7 % (11.9-15.9); WHITE BLOOD COUNT 3.4 K/mm3 (4.0-10.0)
[2021-05-08 12:17] LABS: BILIRUBIN,TOTAL 0.4 mg/dL (0.2-1); CREATININE 0.7 mg/dL (0.55-1.3)
[2021-05-08 12:18] LABS: TOT PROT 6.8 g/dl (6.4-8.2)
[2021-05-08] MEDS: THIAMINE HCL 100 MG TABLET (FP) PO SCH (21:39)
[2021-05-08] MEDS: OLANZapine 10 MG TABLET PO SCH (21:39)
[2021-05-08] MEDS: traZODone HCL 100 MG TABLET (FP) PO SCH (21:39)
[2021-05-09] MEDS ORDERED: LORazepam 1 MG TABLET PO SCH (05:00)
[2021-05-09] MEDS: PRENATAL VITAMINS W/ FOLIC ACID TABLET (FP) PO SCH (09:33)
[2021-05-09] MEDS: DIVALPROEX SODIUM 500 MG TABLET E.C. PO SCH ×2 (09:33→21:45)
[2021-05-09] MEDS: OLANZapine 10 MG TABLET PO SCH (21:45)
[2021-05-09] MEDS: traZODone HCL 100 MG TABLET (FP) PO SCH (21:45)
[2021-05-09] MEDS: THIAMINE HCL 100 MG TABLET (FP) PO SCH (21:46)
[2021-05-10] MEDS ORDERED: LORazepam 0.5 MG TABLET PO PRN
[2021-05-10] MEDS ORDERED: LORazepam 0.5 MG TABLET PO SCH (05:00)
[2021-05-10] MEDS: PRENATAL VITAMINS W/ FOLIC ACID TABLET (FP) PO SCH (09:55)
[2021-05-10] MEDS: DIVALPROEX SODIUM 500 MG TABLET E.C. PO SCH ×2 (09:55→21:17)
[2021-05-10] MEDS: traZODone HCL 100 MG TABLET (FP) PO SCH (21:17)
[2021-05-10] MEDS: OLANZapine 10 MG TABLET PO SCH (21:17)
[2021-05-10] MEDS: THIAMINE HCL 100 MG TABLET (FP) PO SCH (21:17)
[2021-05-11] MEDS ORDERED: LORazepam 0.5 MG TABLET PO ONE (05:00)
[2021-05-11] MEDS: PRENATAL VITAMINS W/ FOLIC ACID TABLET (FP) PO SCH (10:04)
[2021-05-11] MEDS: DIVALPROEX SODIUM 500 MG TABLET E.C. PO SCH ×2 (10:04→21:20)
[2021-05-11] MEDS: THIAMINE HCL 100 MG TABLET (FP) PO SCH (21:19)
[2021-05-11] MEDS: traZODone HCL 100 MG TABLET (FP) PO SCH (21:20)
[2021-05-11] MEDS: OLANZapine 10 MG TABLET PO SCH (21:20)
[2021-05-12 07:14] VITALS: BP 110/75; PULSE 78; TEMP 98.2
[2021-05-12] MEDS: PRENATAL VITAMINS W/ FOLIC ACID TABLET (FP) PO SCH (10:15)
[2021-05-12] MEDS: DIVALPROEX SODIUM 500 MG TABLET E.C. PO SCH (10:15)
== END 2021-05-12 15:25 | disposition home or self-care (01) | DRG 895 ==
LOC: YASAS 13:01 → Y3W 20:50
PROVIDERS: ADMIT Allergy & Immunology; ATTEND Allergy & Immunology
PROC: HZ42ZZZ Group Counseling for Substance Abuse Treatment, Cognitive-Behavioral (ICD-10-PCS; principal; 2021-05-07)
DX: F10.20 Alcohol dependence, uncomplicated (principal); F14.20 Cocaine dependence, uncomplicated; I69.351 Hemiplegia and hemiparesis following cerebral infarction affecting right dominant side; G25.9 Extrapyramidal and movement disorder, unspecified; F17.210 Nicotine dependence, cigarettes, uncomplicated; F25.9 Schizoaffective disorder, unspecified; E78.1 Pure hyperglyceridemia; R29.6 Repeated falls; J45.20 Mild intermittent asthma, uncomplicated; G40.909 Epilepsy, unspecified, not intractable, without status epilepticus; G47.30 Sleep apnea, unspecified; G20 Parkinson's disease; G24.01 Drug induced subacute dyskinesia; D64.9 Anemia, unspecified; R26.2 Difficulty in walking, not elsewhere classified; Z99.89 Dependence on other enabling machines and devices; Z86.19 Personal history of other infectious and parasitic diseases; Z91.14 Patient's other noncompliance with medication regimen; Z86.711 Personal history of pulmonary embolism; Z56.0 Unemployment, unspecified
CPT/HCPCS: 36415; 80053; 85027; 86593; 86780; C9803; U0003; U0005

== ENCOUNTER 2021-06-28 12:23 | Inpatient (IN) | payer OTHER ==
[2021-06-28 12:57] VITALS: BMI 20.9
[2021-06-28] MEDS ORDERED: NICOTINE 10 MG CARTRIDGE (INHALER) IH PRN (12:57)
[2021-06-28] MEDS ORDERED: MAGNESIUM CITRATE 300 ML BOTTLE PO PRN (12:57)
[2021-06-28] MEDS ORDERED: IBUPROFEN 400 MG TABLET (FP) PO PRN (12:57)
[2021-06-28] MEDS ORDERED: MENTHOL/PHENOL 1 EACH UD MM PRN (12:57)
[2021-06-28] MEDS ORDERED: MAG HYDROX/AL HYDROX/SIMETH 30 ML UNIT-DOSE CUP PO PRN (12:57)
[2021-06-28] MEDS ORDERED: BISMUTH SUBSALICYLATE 524 MG/30 ML PO PRN (12:57)
[2021-06-28] MEDS ORDERED: MAGNESIUM HYDROX 2400MG/30ML ORAL SUSPENSION 30 ML CUP PO PRN (12:57)
[2021-06-28] MEDS ORDERED: ACETAMINOPHEN 325 MG TABLET (FP) PO PRN ×2 (12:57)
[2021-06-28] MEDS ORDERED: LORazepam 1 MG TABLET PO PRN (12:57)
[2021-06-28] MEDS ORDERED: ONDANSETRON *ODT* 4 MG TABLET SL PRN (12:57)
[2021-06-28] MEDS ORDERED: ALBUTEROL SO4 HFA INHALER IH PRN (13:00)
[2021-06-28] MEDS: LORazepam 1 MG TABLET PO SCH ×3 (14:00→23:00)
[2021-06-28] MEDS: PRENATAL VITAMINS W/ FOLIC ACID TABLET (FP) PO SCH (14:01)
[2021-06-28] MEDS: NICOTINE 21 MG/24 HOURS TOPICAL PATCH TD SCH (14:01)
[2021-06-28] MEDS: hydrOXYzine PAMOATE 25 MG CAPSULE (FP) PO SCH ×3 (14:02→23:01)
[2021-06-28 16:20] LABS: BLOOD UREA NITROGEN 16.2 mg/dL (7-18); CALCIUM 8.9 mg/dL (8.5-10.1)
[2021-06-28 16:21] LABS: ALBUMIN 3.5 g/dl (3.4-5.0)
[2021-06-28 16:23] LABS: CREATININE 0.7 mg/dL (0.55-1.3)
[2021-06-28 16:24] LABS: HEMATOCRIT 35.1 % (35.4-49); HEMOGLOBIN 11.6 GM/dL (11.7-16.9); MCH 28.4 pg (25.7-33.7); MEAN PLT VOLUME 9.3 fl (7.5-11.1); PLATELET COUNT 172 10^3/uL (134-434); RBC 4.09 M/mm3 (4.00-5.60); RDW 14.8 % (11.9-15.9); WHITE BLOOD COUNT 3.8 K/mm3 (4.0-10.0)
[2021-06-28 16:25] LABS: BILIRUBIN,TOTAL 0.2 mg/dL (0.2-1); TOT PROT 7.4 g/dl (6.4-8.2)
[2021-06-28] MEDS: LACTULOSE 20 GM/30 ML UDC (FOR ORAL USE ONLY) PO SCH ×2 (18:30→23:00)
[2021-06-28] MEDS: levETIRAcetam 500 MG TABLET (FP) PO SCH (22:53)
[2021-06-28] MEDS: DIVALPROEX SODIUM 500 MG TABLET E.C. PO SCH (22:53)
[2021-06-28] MEDS: THIAMINE HCL 100 MG TABLET (FP) PO SCH (22:53)
[2021-06-28] MEDS: BUDESONIDE/FORMETEROL FUMARATE 160/4.5 mcg INHALER IH SCH (23:00)
[2021-06-28] MEDS: MELATONIN 5 MG TABLETS PO SCH (23:00)
[2021-06-28] MEDS: CALCIUM 250MG/VIT-D 125 UNITS 1 COMBO TABLET PO SCH (23:43)
[2021-06-29] MEDS: LACTULOSE 20 GM/30 ML UDC (FOR ORAL USE ONLY) PO SCH ×4 (05:31→23:00)
[2021-06-29] MEDS: hydrOXYzine PAMOATE 25 MG CAPSULE (FP) PO SCH ×5 (05:31→22:28)
[2021-06-29] MEDS: LORazepam 1 MG TABLET PO SCH ×4 (05:31→22:26)
[2021-06-29] MEDS: BUDESONIDE/FORMETEROL FUMARATE 160/4.5 mcg INHALER IH SCH ×2 (10:51→22:28)
[2021-06-29] MEDS: METHOCARBAMOL 500 MG TABLET PO PRN (10:52)
[2021-06-29] MEDS: levETIRAcetam 500 MG TABLET (FP) PO SCH ×2 (10:52→22:26)
[2021-06-29] MEDS: DIVALPROEX SODIUM 500 MG TABLET E.C. PO SCH ×2 (10:52→22:26)
[2021-06-29] MEDS: ATORVASTATIN CA 20 MG TABLET (FP) PO SCH (10:52)
[2021-06-29] MEDS: PRENATAL VITAMINS W/ FOLIC ACID TABLET (FP) PO SCH (10:55)
[2021-06-29] MEDS: CALCIUM 250MG/VIT-D 125 UNITS 1 COMBO TABLET PO SCH ×2 (11:33→22:28)
[2021-06-29] MEDS: TIOTROPIUM BROMIDE 2.5 MCG (SPIRIVA) RESPIMAT INHALER IH SCH (11:33)
[2021-06-29] MEDS: NICOTINE 21 MG/24 HOURS TOPICAL PATCH TD SCH (11:34)
[2021-06-29] MEDS: THIAMINE HCL 100 MG TABLET (FP) PO SCH (22:26)
[2021-06-29] MEDS: MELATONIN 5 MG TABLETS PO SCH (22:28)
[2021-06-29] MEDS: OLANZapine 10 MG TABLET PO SCH (23:40)
[2021-06-30] MEDS: LORazepam 1 MG TABLET PO SCH ×3 (05:14→17:28)
[2021-06-30] MEDS: LACTULOSE 20 GM/30 ML UDC (FOR ORAL USE ONLY) PO SCH ×3 (05:16→17:28)
[2021-06-30] MEDS: hydrOXYzine PAMOATE 25 MG CAPSULE (FP) PO SCH ×4 (05:19→17:29)
[2021-06-30] MEDS: PRENATAL VITAMINS W/ FOLIC ACID TABLET (FP) PO SCH (10:19)
[2021-06-30] MEDS: ATORVASTATIN CA 20 MG TABLET (FP) PO SCH (10:19)
[2021-06-30] MEDS: DIVALPROEX SODIUM 500 MG TABLET E.C. PO SCH (10:19)
[2021-06-30] MEDS: levETIRAcetam 500 MG TABLET (FP) PO SCH (10:21)
[2021-06-30] MEDS: BUDESONIDE/FORMETEROL FUMARATE 160/4.5 mcg INHALER IH SCH (10:21)
[2021-06-30] MEDS: TIOTROPIUM BROMIDE 2.5 MCG (SPIRIVA) RESPIMAT INHALER IH SCH (10:21)
[2021-06-30] MEDS: NICOTINE 21 MG/24 HOURS TOPICAL PATCH TD SCH (10:21)
[2021-06-30] MEDS: CALCIUM 250MG/VIT-D 125 UNITS 1 COMBO TABLET PO SCH (10:21)
[2021-07-01] MEDS ORDERED: LORazepam 0.5 MG TABLET PO PRN
[2021-07-01] MEDS: LORazepam 1 MG TABLET PO SCH (00:27)
[2021-07-01] MEDS: OLANZapine 10 MG TABLET PO SCH (00:28)
[2021-07-01] MEDS: levETIRAcetam 500 MG TABLET (FP) PO SCH ×3 (00:28→22:23)
[2021-07-01] MEDS: MELATONIN 5 MG TABLETS PO SCH ×2 (00:29→22:22)
[2021-07-01] MEDS: hydrOXYzine PAMOATE 25 MG CAPSULE (FP) PO SCH ×6 (00:29→22:22)
[2021-07-01] MEDS: CALCIUM 250MG/VIT-D 125 UNITS 1 COMBO TABLET PO SCH ×2 (00:29→11:02)
[2021-07-01] MEDS: BUDESONIDE/FORMETEROL FUMARATE 160/4.5 mcg INHALER IH SCH ×2 (00:29→11:02)
[2021-07-01] MEDS: THIAMINE HCL 100 MG TABLET (FP) PO SCH (00:29)
[2021-07-01] MEDS: DIVALPROEX SODIUM 500 MG TABLET E.C. PO SCH ×2 (00:45→11:00)
[2021-07-01] MEDS: LACTULOSE 20 GM/30 ML UDC (FOR ORAL USE ONLY) PO SCH ×4 (01:32→17:53)
[2021-07-01] MEDS: LORazepam 0.5 MG TABLET PO SCH ×4 (04:58→22:23)
[2021-07-01] MEDS: PRENATAL VITAMINS W/ FOLIC ACID TABLET (FP) PO SCH (11:00)
[2021-07-01] MEDS: ATORVASTATIN CA 20 MG TABLET (FP) PO SCH (11:00)
[2021-07-01] MEDS: METHOCARBAMOL 500 MG TABLET PO PRN (11:00)
[2021-07-01] MEDS: NICOTINE 21 MG/24 HOURS TOPICAL PATCH TD SCH (11:00)
[2021-07-01] MEDS: TIOTROPIUM BROMIDE 2.5 MCG (SPIRIVA) RESPIMAT INHALER IH SCH (11:03)
[2021-07-02] MEDS: CALCIUM 250MG/VIT-D 125 UNITS 1 COMBO TABLET PO SCH (00:22)
[2021-07-02] MEDS: THIAMINE HCL 100 MG TABLET (FP) PO SCH (00:22)
[2021-07-02] MEDS: DIVALPROEX SODIUM 500 MG TABLET E.C. PO SCH (00:22)
[2021-07-02] MEDS: BUDESONIDE/FORMETEROL FUMARATE 160/4.5 mcg INHALER IH SCH (00:23)
[2021-07-02] MEDS: OLANZapine 10 MG TABLET PO SCH (00:23)
[2021-07-02] MEDS: LACTULOSE 20 GM/30 ML UDC (FOR ORAL USE ONLY) PO SCH ×2 (01:00→06:06)
[2021-07-02] MEDS ORDERED: LORazepam 0.5 MG TABLET PO ONE (05:00)
[2021-07-02] MEDS: hydrOXYzine PAMOATE 25 MG CAPSULE (FP) PO SCH (06:06)
[2021-07-02 09:51] VITALS: BP 114/72; PULSE 86; TEMP 98.3
== END 2021-07-02 11:00 | disposition home or self-care (01) | DRG 897 ==
LOC: YASAS 12:23 → Y6N 13:08
PROVIDERS: ADMIT Allergy & Immunology; ATTEND Allergy & Immunology
PROC: HZ2ZZZZ Detoxification Services for Substance Abuse Treatment (ICD-10-PCS; principal; 2021-06-27)
DX: F10.230 Alcohol dependence with withdrawal, uncomplicated (principal); F14.20 Cocaine dependence, uncomplicated; I69.351 Hemiplegia and hemiparesis following cerebral infarction affecting right dominant side; F17.210 Nicotine dependence, cigarettes, uncomplicated; F25.9 Schizoaffective disorder, unspecified; E78.1 Pure hyperglyceridemia; G40.909 Epilepsy, unspecified, not intractable, without status epilepticus; J45.20 Mild intermittent asthma, uncomplicated; R63.4 Abnormal weight loss; R76.8 Other specified abnormal immunological findings in serum; R29.6 Repeated falls; R47.81 Slurred speech; D64.9 Anemia, unspecified; G47.30 Sleep apnea, unspecified; G20 Parkinson's disease; G24.01 Drug induced subacute dyskinesia; R26.2 Difficulty in walking, not elsewhere classified; Z99.89 Dependence on other enabling machines and devices; Z86.19 Personal history of other infectious and parasitic diseases; Z91.14 Patient's other noncompliance with medication regimen; Z56.0 Unemployment, unspecified; Z86.711 Personal history of pulmonary embolism
CPT/HCPCS: 36415; 80053; 85027; 86593; 86780; C9803; U0003; U0005

== ENCOUNTER 2021-07-23 11:08 | Inpatient (IN) | payer OTHER ==
[2021-07-23 12:29] VITALS: BMI 22.6
[2021-07-23] MEDS ORDERED: ACETAMINOPHEN 325 MG TABLET (FP) PO PRN ×2 (14:03)
[2021-07-23] MEDS ORDERED: BISMUTH SUBSALICYLATE 524 MG/30 ML PO PRN (14:03)
[2021-07-23] MEDS ORDERED: MAGNESIUM HYDROX 2400MG/30ML ORAL SUSPENSION 30 ML CUP PO PRN (14:03)
[2021-07-23] MEDS ORDERED: MAG HYDROX/AL HYDROX/SIMETH 30 ML UNIT-DOSE CUP PO PRN (14:03)
[2021-07-23] MEDS ORDERED: MAGNESIUM CITRATE 300 ML BOTTLE PO PRN (14:03)
[2021-07-23] MEDS ORDERED: NICOTINE 10 MG CARTRIDGE (INHALER) IH PRN (14:03)
[2021-07-23] MEDS ORDERED: chlordiazePOXIDE HCL 25 MG CAPSULE PO PRN (14:03)
[2021-07-23] MEDS ORDERED: IBUPROFEN 400 MG TABLET (FP) PO PRN (14:03)
[2021-07-23] MEDS ORDERED: MENTHOL/PHENOL 1 EACH UD MM PRN (14:03)
[2021-07-23] MEDS ORDERED: ONDANSETRON *ODT* 4 MG TABLET SL PRN (14:03)
[2021-07-23] MEDS ORDERED: ALBUTEROL SO4 HFA INHALER IH PRN (14:09)
[2021-07-23] MEDS ORDERED: levETIRAcetam 500 MG TABLET (FP) PO ONE (14:59)
[2021-07-23] MEDS: METHOCARBAMOL 500 MG TABLET PO PRN (15:04)
[2021-07-23] MEDS: chlordiazePOXIDE HCL 25 MG CAPSULE PO SCH ×2 (18:27→22:33)
[2021-07-23] MEDS: hydrOXYzine PAMOATE 25 MG CAPSULE (FP) PO SCH ×2 (18:27→22:35)
[2021-07-23] MEDS ORDERED: MELATONIN 5 MG TABLETS PO SCH (22:00)
[2021-07-23] MEDS: ATORVASTATIN CA 20 MG TABLET (FP) PO SCH (22:33)
[2021-07-23] MEDS: levETIRAcetam 500 MG TABLET (FP) PO SCH (22:33)
[2021-07-23] MEDS: THIAMINE HCL 100 MG TABLET (FP) PO SCH (22:33)
[2021-07-23] MEDS: BUDESONIDE/FORMETEROL FUMARATE 160/4.5 mcg INHALER IH SCH (22:34)
[2021-07-24] MEDS: chlordiazePOXIDE HCL 25 MG CAPSULE PO SCH ×4 (06:09→23:56)
[2021-07-24] MEDS: hydrOXYzine PAMOATE 25 MG CAPSULE (FP) PO SCH (06:10)
[2021-07-24] MEDS: BUDESONIDE/FORMETEROL FUMARATE 160/4.5 mcg INHALER IH SCH ×2 (10:49→23:56)
[2021-07-24] MEDS: METHOCARBAMOL 500 MG TABLET PO PRN (10:49)
[2021-07-24] MEDS: PRENATAL VITAMINS W/ FOLIC ACID TABLET (FP) PO SCH (10:49)
[2021-07-24] MEDS: levETIRAcetam 500 MG TABLET (FP) PO SCH ×2 (10:50→23:55)
[2021-07-24] MEDS: DIVALPROEX SODIUM 500 MG TABLET E.C. PO SCH ×2 (10:50→23:55)
[2021-07-24] MEDS: TIOTROPIUM BROMIDE 2.5 MCG (SPIRIVA) RESPIMAT INHALER IH SCH (10:51)
[2021-07-24 11:09] LABS: HEMATOCRIT 31.5 % (35.4-49); HEMOGLOBIN 10.2 GM/dL (11.7-16.9); MCH 27.9 pg (25.7-33.7); MCHC 32.4 g/dl (32.0-35.9); MEAN CELL VOLUME 86.2 fl (80-96); MEAN PLT VOLUME 9.8 fl (7.5-11.1); PLATELET COUNT 142 10^3/uL (134-434); RBC 3.65 M/mm3 (4.00-5.60); WHITE BLOOD COUNT 4.9 K/mm3 (4.0-10.0)
[2021-07-24 11:30] LABS: BLOOD UREA NITROGEN 9.8 mg/dL (7-18)
[2021-07-24 11:31] LABS: ALBUMIN 3.2 g/dl (3.4-5.0); CALCIUM 8.7 mg/dL (8.5-10.1)
[2021-07-24 11:33] LABS: CREATININE 0.7 mg/dL (0.55-1.3)
[2021-07-24 11:36] LABS: BILIRUBIN,TOTAL 0.3 mg/dL (0.2-1); TOT PROT 6.5 g/dl (6.4-8.2)
[2021-07-24] MEDS: ATORVASTATIN CA 20 MG TABLET (FP) PO SCH (23:55)
[2021-07-24] MEDS: traZODone HCL 50 MG TABLET (FP) PO SCH (23:55)
[2021-07-24] MEDS: OLANZapine 10 MG TABLET PO SCH (23:56)
[2021-07-24] MEDS: THIAMINE HCL 100 MG TABLET (FP) PO SCH (23:56)
[2021-07-25] MEDS: chlordiazePOXIDE HCL 25 MG CAPSULE PO SCH ×4 (05:38→22:26)
[2021-07-25] MEDS: PRENATAL VITAMINS W/ FOLIC ACID TABLET (FP) PO SCH (10:26)
[2021-07-25] MEDS: DIVALPROEX SODIUM 500 MG TABLET E.C. PO SCH ×2 (10:26→22:25)
[2021-07-25] MEDS: levETIRAcetam 500 MG TABLET (FP) PO SCH ×2 (10:26→22:26)
[2021-07-25] MEDS: BUDESONIDE/FORMETEROL FUMARATE 160/4.5 mcg INHALER IH SCH ×2 (10:28→22:35)
[2021-07-25] MEDS: TIOTROPIUM BROMIDE 2.5 MCG (SPIRIVA) RESPIMAT INHALER IH SCH (10:28)
[2021-07-25] MEDS: OLANZapine 10 MG TABLET PO SCH (22:25)
[2021-07-25] MEDS: ATORVASTATIN CA 20 MG TABLET (FP) PO SCH (22:25)
[2021-07-25] MEDS: THIAMINE HCL 100 MG TABLET (FP) PO SCH (22:26)
[2021-07-25] MEDS: traZODone HCL 50 MG TABLET (FP) PO SCH (22:26)
[2021-07-26] MEDS ORDERED: chlordiazePOXIDE HCL 10 MG CAPSULE PO PRN
[2021-07-26] MEDS: chlordiazePOXIDE HCL 10 MG CAPSULE PO SCH ×4 (06:22→22:47)
[2021-07-26] MEDS: DIVALPROEX SODIUM 500 MG TABLET E.C. PO SCH ×2 (10:47→22:46)
[2021-07-26] MEDS: PRENATAL VITAMINS W/ FOLIC ACID TABLET (FP) PO SCH (10:47)
[2021-07-26] MEDS: levETIRAcetam 500 MG TABLET (FP) PO SCH ×2 (10:47→22:46)
[2021-07-26] MEDS: TIOTROPIUM BROMIDE 2.5 MCG (SPIRIVA) RESPIMAT INHALER IH SCH (10:48)
[2021-07-26] MEDS: BUDESONIDE/FORMETEROL FUMARATE 160/4.5 mcg INHALER IH SCH ×2 (10:48→23:10)
[2021-07-26] MEDS: ATORVASTATIN CA 20 MG TABLET (FP) PO SCH (22:45)
[2021-07-26] MEDS: THIAMINE HCL 100 MG TABLET (FP) PO SCH (22:46)
[2021-07-26] MEDS: traZODone HCL 50 MG TABLET (FP) PO SCH (23:55)
[2021-07-26] MEDS: OLANZapine 10 MG TABLET PO SCH (23:56)
[2021-07-27] MEDS: chlordiazePOXIDE HCL 10 MG CAPSULE PO SCH ×2 (05:39→18:53)
[2021-07-27] MEDS: levETIRAcetam 500 MG TABLET (FP) PO SCH ×2 (10:19→21:41)
[2021-07-27] MEDS: PRENATAL VITAMINS W/ FOLIC ACID TABLET (FP) PO SCH (10:19)
[2021-07-27] MEDS: DIVALPROEX SODIUM 500 MG TABLET E.C. PO SCH ×2 (10:19→21:41)
[2021-07-27] MEDS: TIOTROPIUM BROMIDE 2.5 MCG (SPIRIVA) RESPIMAT INHALER IH SCH (10:21)
[2021-07-27] MEDS: BUDESONIDE/FORMETEROL FUMARATE 160/4.5 mcg INHALER IH SCH ×2 (10:22→21:52)
[2021-07-27] MEDS: ATORVASTATIN CA 20 MG TABLET (FP) PO SCH (21:41)
[2021-07-27] MEDS: THIAMINE HCL 100 MG TABLET (FP) PO SCH (21:41)
[2021-07-27] MEDS: OLANZapine 10 MG TABLET PO SCH (21:52)
[2021-07-27] MEDS: traZODone HCL 50 MG TABLET (FP) PO SCH (21:52)
[2021-07-28] MEDS ORDERED: guaiFENesin 200 MG/10 ML 10 ML UNIT-DOSE CUPS PO PRN (02:10)
[2021-07-28] MEDS ORDERED: chlordiazePOXIDE HCL 10 MG CAPSULE PO ONE (05:00)
[2021-07-28] MEDS: levETIRAcetam 500 MG TABLET (FP) PO SCH (10:07)
[2021-07-28] MEDS: DIVALPROEX SODIUM 500 MG TABLET E.C. PO SCH (10:07)
[2021-07-28] MEDS: PRENATAL VITAMINS W/ FOLIC ACID TABLET (FP) PO SCH (10:09)
[2021-07-28] MEDS: BUDESONIDE/FORMETEROL FUMARATE 160/4.5 mcg INHALER IH SCH (10:09)
[2021-07-28] MEDS: TIOTROPIUM BROMIDE 2.5 MCG (SPIRIVA) RESPIMAT INHALER IH SCH (10:09)
[2021-07-28 13:11] VITALS: BP 123/75; PULSE 90; TEMP 97.3
== END 2021-07-28 13:40 | disposition other institution (70) | DRG 897 ==
LOC: YASAS 11:08 → Y6N 13:57 → Y3W 07-28 13:56 → Y6N 07-28 13:56
PROVIDERS: ADMIT Allergy & Immunology; ATTEND Allergy & Immunology
PROC: HZ2ZZZZ Detoxification Services for Substance Abuse Treatment (ICD-10-PCS; principal; 2021-07-23)
DX: F10.230 Alcohol dependence with withdrawal, uncomplicated (principal); F14.20 Cocaine dependence, uncomplicated; F19.282 Other psychoactive substance dependence with psychoactive substance-induced sleep disorder; I69.851 Hemiplegia and hemiparesis following other cerebrovascular disease affecting right dominant side; F17.210 Nicotine dependence, cigarettes, uncomplicated; F25.9 Schizoaffective disorder, unspecified; D64.9 Anemia, unspecified; G40.909 Epilepsy, unspecified, not intractable, without status epilepticus; G20 Parkinson's disease; J45.20 Mild intermittent asthma, uncomplicated; J42 Unspecified chronic bronchitis; I69.822 Dysarthria following other cerebrovascular disease; Z86.19 Personal history of other infectious and parasitic diseases; Z99.89 Dependence on other enabling machines and devices; Z91.51 Personal history of suicidal behavior
CPT/HCPCS: 36415; 80053; 80177; 85027; 86593; 86780; C9803; U0003; U0005

== ENCOUNTER 2021-07-28 15:57 | Inpatient (IN) | payer OTHER ==
[2021-07-28] MEDS ORDERED: MAG HYDROX/AL HYDROX/SIMETH 30 ML UNIT-DOSE CUP PO PRN (17:23)
[2021-07-28] MEDS ORDERED: IBUPROFEN 400 MG TABLET (FP) PO PRN (17:23)
[2021-07-28] MEDS ORDERED: MAGNESIUM HYDROX 2400MG/30ML ORAL SUSPENSION 30 ML CUP PO PRN (17:23)
[2021-07-28] MEDS ORDERED: P-EPHED 60MG/TRIPROLIDI 2.5MG TABLET PO PRN (17:23)
[2021-07-28] MEDS ORDERED: guaiFENesin 200 MG/10 ML 10 ML UNIT-DOSE CUPS PO PRN (17:23)
[2021-07-28] MEDS ORDERED: MAGNESIUM CITRATE 300 ML BOTTLE PO PRN (17:23)
[2021-07-28] MEDS ORDERED: ACETAMINOPHEN 325 MG TABLET (FP) PO PRN (17:23)
[2021-07-28] MEDS ORDERED: MENTHOL/PHENOL 1 EACH UD MM PRN (17:23)
[2021-07-28] MEDS ORDERED: LOPERAMIDE HCL 2 MG CAPSULE PO PRN (17:23)
[2021-07-28] MEDS ORDERED: ALBUTEROL SO4 HFA INHALER IH PRN (19:49)
[2021-07-28] MEDS: traZODone HCL 50 MG TABLET (FP) PO SCH (21:52)
[2021-07-28] MEDS: THIAMINE HCL 100 MG TABLET (FP) PO SCH (21:52)
[2021-07-28] MEDS: ATORVASTATIN CA 20 MG TABLET (FP) PO SCH (21:53)
[2021-07-28] MEDS: OLANZapine 10 MG TABLET PO SCH (21:53)
[2021-07-28] MEDS: levETIRAcetam 500 MG TABLET (FP) PO SCH (21:53)
[2021-07-28] MEDS: DIVALPROEX SODIUM 500 MG TABLET E.C. PO SCH (21:53)
[2021-07-28] MEDS: BUDESONIDE/FORMETEROL FUMARATE 160/4.5 mcg INHALER IH SCH (21:58)
[2021-07-28] MEDS ORDERED: MELATONIN 5 MG TABLETS PO SCH (22:00)
[2021-07-28] MEDS: CALCIUM 250MG/VIT-D 125 UNITS 1 COMBO TABLET PO SCH (23:11)
[2021-07-29] MEDS: CALCIUM 250MG/VIT-D 125 UNITS 1 COMBO TABLET PO SCH ×2 (10:41→21:30)
[2021-07-29] MEDS: DIVALPROEX SODIUM 500 MG TABLET E.C. PO SCH ×2 (10:41→21:30)
[2021-07-29] MEDS: PRENATAL VITAMINS W/ FOLIC ACID TABLET (FP) PO SCH (10:41)
[2021-07-29] MEDS: levETIRAcetam 500 MG TABLET (FP) PO SCH ×2 (10:41→21:30)
[2021-07-29] MEDS: TIOTROPIUM BROMIDE 2.5 MCG (SPIRIVA) RESPIMAT INHALER IH SCH (10:42)
[2021-07-29] MEDS: BUDESONIDE/FORMETEROL FUMARATE 160/4.5 mcg INHALER IH SCH ×2 (10:42→21:33)
[2021-07-29] MEDS: ATORVASTATIN CA 20 MG TABLET (FP) PO SCH (21:30)
[2021-07-29] MEDS: traZODone HCL 50 MG TABLET (FP) PO SCH (21:30)
[2021-07-29] MEDS: OLANZapine 10 MG TABLET PO SCH (21:30)
[2021-07-29] MEDS: THIAMINE HCL 100 MG TABLET (FP) PO SCH (21:30)
[2021-07-30] MEDS: TIOTROPIUM BROMIDE 2.5 MCG (SPIRIVA) RESPIMAT INHALER IH SCH (09:51)
[2021-07-30] MEDS: levETIRAcetam 500 MG TABLET (FP) PO SCH ×2 (09:52→21:17)
[2021-07-30] MEDS: PRENATAL VITAMINS W/ FOLIC ACID TABLET (FP) PO SCH (09:52)
[2021-07-30] MEDS: DIVALPROEX SODIUM 500 MG TABLET E.C. PO SCH ×2 (09:52→21:17)
[2021-07-30] MEDS: BUDESONIDE/FORMETEROL FUMARATE 160/4.5 mcg INHALER IH SCH ×2 (09:52→21:19)
[2021-07-30] MEDS: CALCIUM 250MG/VIT-D 125 UNITS 1 COMBO TABLET PO SCH ×2 (09:52→21:17)
[2021-07-30] MEDS: ATORVASTATIN CA 20 MG TABLET (FP) PO SCH (21:17)
[2021-07-30] MEDS: traZODone HCL 50 MG TABLET (FP) PO SCH (21:17)
[2021-07-30] MEDS: OLANZapine 10 MG TABLET PO SCH (21:17)
[2021-07-30] MEDS: THIAMINE HCL 100 MG TABLET (FP) PO SCH (21:17)
[2021-07-31] MEDS: CALCIUM 250MG/VIT-D 125 UNITS 1 COMBO TABLET PO SCH ×2 (09:46→22:06)
[2021-07-31] MEDS: levETIRAcetam 500 MG TABLET (FP) PO SCH ×2 (09:46→22:05)
[2021-07-31] MEDS: DIVALPROEX SODIUM 500 MG TABLET E.C. PO SCH ×2 (09:46→22:05)
[2021-07-31] MEDS: BUDESONIDE/FORMETEROL FUMARATE 160/4.5 mcg INHALER IH SCH ×2 (09:47→22:07)
[2021-07-31] MEDS: PRENATAL VITAMINS W/ FOLIC ACID TABLET (FP) PO SCH (09:47)
[2021-07-31] MEDS: TIOTROPIUM BROMIDE 2.5 MCG (SPIRIVA) RESPIMAT INHALER IH SCH (09:48)
[2021-07-31] MEDS: ATORVASTATIN CA 20 MG TABLET (FP) PO SCH (22:05)
[2021-07-31] MEDS: OLANZapine 10 MG TABLET PO SCH (22:05)
[2021-07-31] MEDS: THIAMINE HCL 100 MG TABLET (FP) PO SCH (22:06)
[2021-07-31] MEDS: guaiFENesin 200 MG/10 ML 10 ML UNIT-DOSE CUPS PO PRN (22:11)
[2021-08-01] MEDS: DIVALPROEX SODIUM 500 MG TABLET E.C. PO SCH (09:39)
[2021-08-01] MEDS: CALCIUM 250MG/VIT-D 125 UNITS 1 COMBO TABLET PO SCH ×2 (09:39→21:20)
[2021-08-01] MEDS: levETIRAcetam 500 MG TABLET (FP) PO SCH ×2 (09:39→21:19)
[2021-08-01] MEDS: PRENATAL VITAMINS W/ FOLIC ACID TABLET (FP) PO SCH (09:39)
[2021-08-01] MEDS: BUDESONIDE/FORMETEROL FUMARATE 160/4.5 mcg INHALER IH SCH ×2 (09:40→21:20)
[2021-08-01] MEDS: TIOTROPIUM BROMIDE 2.5 MCG (SPIRIVA) RESPIMAT INHALER IH SCH (09:40)
[2021-08-01] MEDS: ATORVASTATIN CA 20 MG TABLET (FP) PO SCH (21:19)
[2021-08-01] MEDS: OLANZapine 10 MG TABLET PO SCH (21:20)
[2021-08-01] MEDS: THIAMINE HCL 100 MG TABLET (FP) PO SCH (21:21)
[2021-08-02] MEDS: BUDESONIDE/FORMETEROL FUMARATE 160/4.5 mcg INHALER IH SCH ×2 (09:40→21:14)
[2021-08-02] MEDS: TIOTROPIUM BROMIDE 2.5 MCG (SPIRIVA) RESPIMAT INHALER IH SCH (09:40)
[2021-08-02] MEDS: PRENATAL VITAMINS W/ FOLIC ACID TABLET (FP) PO SCH (09:40)
[2021-08-02] MEDS: CALCIUM 250MG/VIT-D 125 UNITS 1 COMBO TABLET PO SCH ×2 (09:40→21:15)
[2021-08-02] MEDS: levETIRAcetam 500 MG TABLET (FP) PO SCH ×2 (09:40→21:14)
[2021-08-02] MEDS: OLANZapine 10 MG TABLET PO SCH (21:14)
[2021-08-02] MEDS: ATORVASTATIN CA 20 MG TABLET (FP) PO SCH (21:14)
[2021-08-02] MEDS: THIAMINE HCL 100 MG TABLET (FP) PO SCH (21:14)
[2021-08-03] MEDS: levETIRAcetam 500 MG TABLET (FP) PO SCH ×2 (09:51→21:24)
[2021-08-03] MEDS: PRENATAL VITAMINS W/ FOLIC ACID TABLET (FP) PO SCH (09:51)
[2021-08-03] MEDS: CALCIUM 250MG/VIT-D 125 UNITS 1 COMBO TABLET PO SCH ×2 (09:52→21:23)
[2021-08-03] MEDS: BUDESONIDE/FORMETEROL FUMARATE 160/4.5 mcg INHALER IH SCH ×2 (09:52→21:24)
[2021-08-03] MEDS: TIOTROPIUM BROMIDE 2.5 MCG (SPIRIVA) RESPIMAT INHALER IH SCH (09:53)
[2021-08-03] MEDS: OLANZapine 10 MG TABLET PO SCH (21:23)
[2021-08-03] MEDS: ATORVASTATIN CA 20 MG TABLET (FP) PO SCH (21:23)
[2021-08-03] MEDS: THIAMINE HCL 100 MG TABLET (FP) PO SCH (21:24)
[2021-08-04] MEDS: CALCIUM 250MG/VIT-D 125 UNITS 1 COMBO TABLET PO SCH ×2 (09:52→21:45)
[2021-08-04] MEDS: levETIRAcetam 500 MG TABLET (FP) PO SCH ×2 (09:52→22:20)
[2021-08-04] MEDS: BUDESONIDE/FORMETEROL FUMARATE 160/4.5 mcg INHALER IH SCH ×2 (09:52→21:44)
[2021-08-04] MEDS: TIOTROPIUM BROMIDE 2.5 MCG (SPIRIVA) RESPIMAT INHALER IH SCH (09:52)
[2021-08-04] MEDS: PRENATAL VITAMINS W/ FOLIC ACID TABLET (FP) PO SCH (09:52)
[2021-08-04] MEDS: guaiFENesin 200 MG/10 ML 10 ML UNIT-DOSE CUPS PO PRN (09:54)
[2021-08-04] MEDS: THIAMINE HCL 100 MG TABLET (FP) PO SCH (21:44)
[2021-08-04] MEDS: ATORVASTATIN CA 20 MG TABLET (FP) PO SCH (21:45)
[2021-08-04] MEDS: OLANZapine 10 MG TABLET PO SCH (22:19)
[2021-08-05] MEDS: BUDESONIDE/FORMETEROL FUMARATE 160/4.5 mcg INHALER IH SCH ×2 (10:32→21:24)
[2021-08-05] MEDS: PRENATAL VITAMINS W/ FOLIC ACID TABLET (FP) PO SCH (10:32)
[2021-08-05] MEDS: levETIRAcetam 500 MG TABLET (FP) PO SCH ×2 (10:33→21:23)
[2021-08-05] MEDS: CALCIUM 250MG/VIT-D 125 UNITS 1 COMBO TABLET PO SCH ×2 (10:34→21:23)
[2021-08-05] MEDS: TIOTROPIUM BROMIDE 2.5 MCG (SPIRIVA) RESPIMAT INHALER IH SCH (10:34)
[2021-08-05] MEDS: OLANZapine 10 MG TABLET PO SCH (21:23)
[2021-08-05] MEDS: THIAMINE HCL 100 MG TABLET (FP) PO SCH (21:23)
[2021-08-05] MEDS: ATORVASTATIN CA 20 MG TABLET (FP) PO SCH (21:23)
[2021-08-06] MEDS: CALCIUM 250MG/VIT-D 125 UNITS 1 COMBO TABLET PO SCH ×2 (10:24→21:58)
[2021-08-06] MEDS: PRENATAL VITAMINS W/ FOLIC ACID TABLET (FP) PO SCH (10:24)
[2021-08-06] MEDS: levETIRAcetam 500 MG TABLET (FP) PO SCH ×2 (10:24→21:57)
[2021-08-06] MEDS: BUDESONIDE/FORMETEROL FUMARATE 160/4.5 mcg INHALER IH SCH ×2 (10:24→21:58)
[2021-08-06] MEDS: TIOTROPIUM BROMIDE 2.5 MCG (SPIRIVA) RESPIMAT INHALER IH SCH (10:25)
[2021-08-06] MEDS: ATORVASTATIN CA 20 MG TABLET (FP) PO SCH (21:57)
[2021-08-06] MEDS: THIAMINE HCL 100 MG TABLET (FP) PO SCH (21:57)
[2021-08-06] MEDS: OLANZapine 10 MG TABLET PO SCH (22:20)
[2021-08-07 08:29] VITALS: BP 136/77; PULSE 78; TEMP 97.9
[2021-08-07] MEDS: PRENATAL VITAMINS W/ FOLIC ACID TABLET (FP) PO SCH (10:26)
[2021-08-07] MEDS: levETIRAcetam 500 MG TABLET (FP) PO SCH (10:26)
[2021-08-07] MEDS: BUDESONIDE/FORMETEROL FUMARATE 160/4.5 mcg INHALER IH SCH (10:26)
[2021-08-07] MEDS: CALCIUM 250MG/VIT-D 125 UNITS 1 COMBO TABLET PO SCH (10:27)
[2021-08-07] MEDS: TIOTROPIUM BROMIDE 2.5 MCG (SPIRIVA) RESPIMAT INHALER IH SCH (10:27)
== END 2021-08-07 14:00 | disposition home or self-care (01) | DRG 895 ==
LOC: YASAS 15:57 → Y3W 16:00 → Y5N 08-04 14:18
PROVIDERS: ADMIT Allergy & Immunology; ATTEND Allergy & Immunology
PROC: HZ42ZZZ Group Counseling for Substance Abuse Treatment, Cognitive-Behavioral (ICD-10-PCS; principal; 2021-07-28)
DX: F10.20 Alcohol dependence, uncomplicated (principal); F14.20 Cocaine dependence, uncomplicated; F19.282 Other psychoactive substance dependence with psychoactive substance-induced sleep disorder; F17.210 Nicotine dependence, cigarettes, uncomplicated; F25.9 Schizoaffective disorder, unspecified; G40.909 Epilepsy, unspecified, not intractable, without status epilepticus; G20 Parkinson's disease; G24.01 Drug induced subacute dyskinesia; D64.9 Anemia, unspecified; E78.1 Pure hyperglyceridemia; J45.20 Mild intermittent asthma, uncomplicated; J42 Unspecified chronic bronchitis; I69.822 Dysarthria following other cerebrovascular disease; Z86.19 Personal history of other infectious and parasitic diseases; W06.XXXA Fall from bed, initial encounter; Y92.230 Patient room in hospital as the place of occurrence of the external cause
CPT/HCPCS: 71045-TC-FY; 82962; C9803; U0003; U0005

== ENCOUNTER 2021-09-20 08:33 | Inpatient (IN) | payer OTHER ==
[2021-09-20 09:43] VITALS: BMI 21.7
[2021-09-20] MEDS ORDERED: BISMUTH SUBSALICYLATE 524 MG/30 ML PO PRN (09:56)
[2021-09-20] MEDS ORDERED: MAG HYDROX/AL HYDROX/SIMETH 30 ML UNIT-DOSE CUP PO PRN (09:56)
[2021-09-20] MEDS ORDERED: IBUPROFEN 400 MG TABLET (FP) PO PRN (09:56)
[2021-09-20] MEDS ORDERED: NICOTINE 10 MG CARTRIDGE (INHALER) IH PRN (09:56)
[2021-09-20] MEDS ORDERED: MENTHOL/PHENOL 1 EACH UD MM PRN (09:56)
[2021-09-20] MEDS ORDERED: MAGNESIUM HYDROX 2400MG/30ML ORAL SUSPENSION 30 ML CUP PO PRN (09:56)
[2021-09-20] MEDS ORDERED: ACETAMINOPHEN 325 MG TABLET (FP) PO PRN ×2 (09:56)
[2021-09-20] MEDS ORDERED: ONDANSETRON *ODT* 4 MG TABLET SL PRN (09:56)
[2021-09-20] MEDS ORDERED: LOPERAMIDE HCL 2 MG CAPSULE PO PRN (09:56)
[2021-09-20] MEDS ORDERED: MAGNESIUM CITRATE 300 ML BOTTLE PO PRN (09:56)
[2021-09-20] MEDS ORDERED: LORazepam 1 MG TABLET PO PRN (09:56)
[2021-09-20] MEDS ORDERED: ALBUTEROL SO4 HFA INHALER IH PRN (10:00)
[2021-09-20] MEDS: PRENATAL VITAMINS W/ FOLIC ACID TABLET (FP) PO SCH (12:08)
[2021-09-20] MEDS: BUDESONIDE/FORMETEROL FUMARATE 160/4.5 mcg INHALER IH SCH ×2 (12:08→22:28)
[2021-09-20] MEDS: CALCIUM 250MG/VIT-D 125 UNITS 1 COMBO TABLET PO SCH ×2 (12:08→22:28)
[2021-09-20] MEDS: ATORVASTATIN CA 20 MG TABLET (FP) PO SCH (12:08)
[2021-09-20] MEDS: hydrOXYzine PAMOATE 25 MG CAPSULE (FP) PO SCH ×4 (12:08→22:28)
[2021-09-20] MEDS: LORazepam 1 MG TABLET PO SCH ×2 (18:15→22:25)
[2021-09-20] MEDS ORDERED: PATIENT'S OWN MEDICATION (NON-FORMULARY) (Valproic Acid [Valproic Acid] 250 MG Capsule) PO SCH (22:00)
[2021-09-20] MEDS: levETIRAcetam 500 MG TABLET (FP) PO SCH (22:24)
[2021-09-20] MEDS: DIVALPROEX SODIUM 500 MG TABLET E.C. PO SCH (22:24)
[2021-09-20] MEDS: THIAMINE HCL 100 MG TABLET (FP) PO SCH (22:24)
[2021-09-20] MEDS: MELATONIN 5 MG TABLETS PO SCH (22:26)
[2021-09-21] MEDS: LORazepam 1 MG TABLET PO SCH ×4 (06:05→22:20)
[2021-09-21] MEDS: hydrOXYzine PAMOATE 25 MG CAPSULE (FP) PO SCH ×5 (06:13→22:18)
[2021-09-21] MEDS: BUDESONIDE/FORMETEROL FUMARATE 160/4.5 mcg INHALER IH SCH ×2 (10:26→22:18)
[2021-09-21] MEDS: PRENATAL VITAMINS W/ FOLIC ACID TABLET (FP) PO SCH (10:26)
[2021-09-21] MEDS: DIVALPROEX SODIUM 500 MG TABLET E.C. PO SCH ×2 (10:27→22:17)
[2021-09-21] MEDS: levETIRAcetam 500 MG TABLET (FP) PO SCH ×2 (10:27→22:18)
[2021-09-21] MEDS: METHOCARBAMOL 500 MG TABLET PO PRN (10:27)
[2021-09-21] MEDS: ATORVASTATIN CA 20 MG TABLET (FP) PO SCH (10:27)
[2021-09-21] MEDS: CALCIUM 250MG/VIT-D 125 UNITS 1 COMBO TABLET PO SCH ×2 (10:28→22:18)
[2021-09-21 11:21] LABS: HEMATOCRIT 30.2 % (35.4-49); MCH 28.1 pg (25.7-33.7); MCHC 32.9 g/dl (32.0-35.9); MEAN CELL VOLUME 85.2 fl (80-96); MEAN PLT VOLUME 9.3 fl (7.5-11.1); PLATELET COUNT 126 10^3/uL (134-434); RBC 3.55 M/mm3 (4.00-5.60); RDW 15.2 % (11.9-15.9); WHITE BLOOD COUNT 2.5 K/mm3 (4.0-10.0)
[2021-09-21 11:53] LABS: BLOOD UREA NITROGEN 18.3 mg/dL (7-18); CALCIUM 8.4 mg/dL (8.5-10.1)
[2021-09-21 11:56] LABS: CREATININE 0.9 mg/dL (0.55-1.3)
[2021-09-21 11:58] LABS: BILIRUBIN,TOTAL 0.6 mg/dL (0.2-1); TOT PROT 6.2 g/dl (6.4-8.2)
[2021-09-21] MEDS: THIAMINE HCL 100 MG TABLET (FP) PO SCH (22:17)
[2021-09-21] MEDS: OLANZapine 10 MG TABLET PO SCH (22:17)
[2021-09-21] MEDS: MELATONIN 5 MG TABLETS PO SCH (22:18)
[2021-09-22] MEDS: hydrOXYzine PAMOATE 25 MG CAPSULE (FP) PO SCH ×5 (05:21→22:26)
[2021-09-22] MEDS: LORazepam 1 MG TABLET PO SCH ×4 (05:21→22:27)
[2021-09-22] MEDS: BUDESONIDE/FORMETEROL FUMARATE 160/4.5 mcg INHALER IH SCH ×2 (10:32→22:27)
[2021-09-22] MEDS: PRENATAL VITAMINS W/ FOLIC ACID TABLET (FP) PO SCH (10:32)
[2021-09-22] MEDS: DIVALPROEX SODIUM 500 MG TABLET E.C. PO SCH ×2 (10:33→22:26)
[2021-09-22] MEDS: ATORVASTATIN CA 20 MG TABLET (FP) PO SCH (10:33)
[2021-09-22] MEDS: levETIRAcetam 500 MG TABLET (FP) PO SCH ×2 (10:33→22:26)
[2021-09-22] MEDS: METHOCARBAMOL 500 MG TABLET PO PRN (10:33)
[2021-09-22] MEDS: CALCIUM 250MG/VIT-D 125 UNITS 1 COMBO TABLET PO SCH ×2 (10:35→22:26)
[2021-09-22 14:08] LABS: SARS-CoV-2 NAA Not Detected (Not Detected)
[2021-09-22] MEDS: MELATONIN 5 MG TABLETS PO SCH (22:25)
[2021-09-22] MEDS: THIAMINE HCL 100 MG TABLET (FP) PO SCH (22:25)
[2021-09-22] MEDS: OLANZapine 10 MG TABLET PO SCH (22:26)
[2021-09-23] MEDS ORDERED: LORazepam 0.5 MG TABLET PO PRN
[2021-09-23] MEDS: LORazepam 0.5 MG TABLET PO SCH ×4 (05:47→22:10)
[2021-09-23] MEDS: hydrOXYzine PAMOATE 25 MG CAPSULE (FP) PO SCH ×5 (05:47→23:53)
[2021-09-23] MEDS: ATORVASTATIN CA 20 MG TABLET (FP) PO SCH (10:15)
[2021-09-23] MEDS: levETIRAcetam 500 MG TABLET (FP) PO SCH ×2 (10:15→22:11)
[2021-09-23] MEDS: DIVALPROEX SODIUM 500 MG TABLET E.C. PO SCH ×2 (10:15→22:11)
[2021-09-23] MEDS: CALCIUM 250MG/VIT-D 125 UNITS 1 COMBO TABLET PO SCH ×2 (10:15→22:11)
[2021-09-23] MEDS: PRENATAL VITAMINS W/ FOLIC ACID TABLET (FP) PO SCH (10:17)
[2021-09-23] MEDS: BUDESONIDE/FORMETEROL FUMARATE 160/4.5 mcg INHALER IH SCH ×2 (10:18→22:09)
[2021-09-23] MEDS: OLANZapine 10 MG TABLET PO SCH (22:10)
[2021-09-23] MEDS: MELATONIN 5 MG TABLETS PO SCH (22:11)
[2021-09-23] MEDS: THIAMINE HCL 100 MG TABLET (FP) PO SCH (22:11)
[2021-09-24] MEDS ORDERED: LORazepam 0.5 MG TABLET PO ONE (05:00)
[2021-09-24] MEDS: hydrOXYzine PAMOATE 25 MG CAPSULE (FP) PO SCH ×2 (05:33→09:59)
[2021-09-24 07:34] VITALS: BP 109/74; PULSE 74; TEMP 97.8
[2021-09-24] MEDS: DIVALPROEX SODIUM 500 MG TABLET E.C. PO SCH (09:58)
[2021-09-24] MEDS: PRENATAL VITAMINS W/ FOLIC ACID TABLET (FP) PO SCH (09:58)
[2021-09-24] MEDS: levETIRAcetam 500 MG TABLET (FP) PO SCH (09:58)
[2021-09-24] MEDS: BUDESONIDE/FORMETEROL FUMARATE 160/4.5 mcg INHALER IH SCH (09:58)
[2021-09-24] MEDS: ATORVASTATIN CA 20 MG TABLET (FP) PO SCH (09:58)
[2021-09-24] MEDS: CALCIUM 250MG/VIT-D 125 UNITS 1 COMBO TABLET PO SCH (09:58)
== END 2021-09-24 10:00 | disposition home or self-care (01) | DRG 897 ==
LOC: YASAS 08:33 → Y6N 11:16
PROVIDERS: ADMIT Allergy & Immunology; ATTEND Allergy & Immunology
PROC: HZ2ZZZZ Detoxification Services for Substance Abuse Treatment (ICD-10-PCS; principal; 2021-09-20)
DX: F10.230 Alcohol dependence with withdrawal, uncomplicated (principal); F14.20 Cocaine dependence, uncomplicated; D61.818 Other pancytopenia; F17.210 Nicotine dependence, cigarettes, uncomplicated; D72.819 Decreased white blood cell count, unspecified; D50.9 Iron deficiency anemia, unspecified; E55.9 Vitamin D deficiency, unspecified; G40.909 Epilepsy, unspecified, not intractable, without status epilepticus; G20 Parkinson's disease; J43.0 Unilateral pulmonary emphysema [MacLeod's syndrome]; J45.20 Mild intermittent asthma, uncomplicated; E78.1 Pure hyperglyceridemia; G24.01 Drug induced subacute dyskinesia; R29.6 Repeated falls; R63.4 Abnormal weight loss; Z68.21 Body mass index [BMI] 21.0-21.9, adult; I69.822 Dysarthria following other cerebrovascular disease; Z86.19 Personal history of other infectious and parasitic diseases; Z99.89 Dependence on other enabling machines and devices
CPT/HCPCS: 36415; 71046-TC-FY; 80053; 80164; 80177; 85027; 86593; 86780; C9803; U0003; U0005

== ENCOUNTER 2021-10-29 09:15 | Inpatient (IN) | payer OTHER ==
[2021-10-29 10:24] VITALS: BMI 20.9
[2021-10-29] MEDS ORDERED: BENZOCAINE/MENTHOL (CHLORASEPTIC ) LOZENGE MM PRN (11:53)
[2021-10-29] MEDS ORDERED: MAGNESIUM CITRATE 300 ML BOTTLE PO PRN (11:53)
[2021-10-29] MEDS ORDERED: MAGNESIUM HYDROX 2400MG/30ML ORAL SUSPENSION 30 ML CUP PO PRN (11:53)
[2021-10-29] MEDS ORDERED: BISMUTH SUBSALICYLATE 524 MG/30 ML PO PRN (11:53)
[2021-10-29] MEDS ORDERED: ACETAMINOPHEN 325 MG TABLET (FP) PO PRN ×2 (11:53)
[2021-10-29] MEDS ORDERED: chlordiazePOXIDE HCL 25 MG CAPSULE PO PRN (11:53)
[2021-10-29] MEDS ORDERED: ONDANSETRON *ODT* 4 MG TABLET SL PRN (11:53)
[2021-10-29] MEDS ORDERED: METHOCARBAMOL 500 MG TABLET PO PRN (11:53)
[2021-10-29] MEDS ORDERED: LOPERAMIDE HCL 2 MG CAPSULE PO PRN (11:53)
[2021-10-29] MEDS ORDERED: MAG HYDROX/AL HYDROX/SIMETH 30 ML UNIT-DOSE CUP PO PRN (11:53)
[2021-10-29] MEDS ORDERED: DICYCLOMINE HCL 10 MG CAPSULE PO PRN (11:53)
[2021-10-29] MEDS ORDERED: NICOTINE 10 MG CARTRIDGE (INHALER) IH PRN (11:53)
[2021-10-29] MEDS ORDERED: IBUPROFEN 400 MG TABLET (FP) PO PRN (11:53)
[2021-10-29] MEDS: hydrOXYzine PAMOATE 25 MG CAPSULE (FP) PO SCH ×3 (13:51→22:24)
[2021-10-29] MEDS ORDERED: ALBUTEROL SO4 HFA INHALER IH PRN (14:32)
[2021-10-29] MEDS: TIOTROPIUM BROMIDE 2.5 MCG (SPIRIVA) RESPIMAT INHALER IH SCH (15:55)
[2021-10-29] MEDS: chlordiazePOXIDE HCL 25 MG CAPSULE PO SCH ×2 (18:18→22:24)
[2021-10-29] MEDS: BUDESONIDE/FORMETEROL FUMARATE 160/4.5 mcg INHALER IH SCH (22:23)
[2021-10-29] MEDS: THIAMINE HCL 100 MG TABLET (FP) PO SCH (22:24)
[2021-10-29] MEDS: MELATONIN 5 MG TABLETS PO SCH (22:24)
[2021-10-29] MEDS: DIVALPROEX SODIUM 500 MG TABLET E.C. PO SCH (22:24)
[2021-10-29] MEDS: levETIRAcetam 500 MG TABLET (FP) PO SCH (22:24)
[2021-10-29] MEDS: ATORVASTATIN CA 20 MG TABLET (FP) PO SCH (22:24)
[2021-10-29] MEDS: CALCIUM 250MG/VIT-D 125 UNITS 1 COMBO TABLET PO SCH (23:50)
[2021-10-30] MEDS: chlordiazePOXIDE HCL 25 MG CAPSULE PO SCH ×4 (06:00→22:22)
[2021-10-30] MEDS: hydrOXYzine PAMOATE 25 MG CAPSULE (FP) PO SCH ×5 (06:00→22:25)
[2021-10-30] MEDS: DIVALPROEX SODIUM 500 MG TABLET E.C. PO SCH ×2 (10:16→22:21)
[2021-10-30] MEDS: CALCIUM 250MG/VIT-D 125 UNITS 1 COMBO TABLET PO SCH ×2 (10:16→22:21)
[2021-10-30] MEDS: levETIRAcetam 500 MG TABLET (FP) PO SCH ×2 (10:16→22:21)
[2021-10-30] MEDS: PRENATAL VITAMINS W/ FOLIC ACID TABLET (FP) PO SCH (10:16)
[2021-10-30] MEDS: BUDESONIDE/FORMETEROL FUMARATE 160/4.5 mcg INHALER IH SCH ×2 (10:19→22:21)
[2021-10-30] MEDS: TIOTROPIUM BROMIDE 2.5 MCG (SPIRIVA) RESPIMAT INHALER IH SCH (10:19)
[2021-10-30 12:10] LABS: HEMATOCRIT 30.3 % (35.4-49); MCH 28.3 pg (25.7-33.7); MCHC 32.9 g/dl (32.0-35.9); MEAN CELL VOLUME 85.8 fl (80-96); MEAN PLT VOLUME 9.5 fl (7.5-11.1); PLATELET COUNT 142 10^3/uL (134-434); RBC 3.53 M/mm3 (4.00-5.60); RDW 16.2 % (11.9-15.9)
[2021-10-30 12:34] LABS: BLOOD UREA NITROGEN 16.5 mg/dL (7-18)
[2021-10-30 12:35] LABS: ALBUMIN 2.6 g/dl (3.4-5.0)
[2021-10-30 12:37] LABS: CREATININE 0.6 mg/dL (0.55-1.3)
[2021-10-30 12:38] LABS: BILIRUBIN,TOTAL 0.3 mg/dL (0.2-1)
[2021-10-30 12:39] LABS: TOT PROT 5.9 g/dl (6.4-8.2)
[2021-10-30] MEDS: THIAMINE HCL 100 MG TABLET (FP) PO SCH (22:21)
[2021-10-30] MEDS: ATORVASTATIN CA 20 MG TABLET (FP) PO SCH (22:21)
[2021-10-30] MEDS: MELATONIN 5 MG TABLETS PO SCH (22:21)
[2021-10-31] MEDS: chlordiazePOXIDE HCL 25 MG CAPSULE PO SCH ×4 (07:21→22:29)
[2021-10-31] MEDS: hydrOXYzine PAMOATE 25 MG CAPSULE (FP) PO SCH ×5 (07:21→22:29)
[2021-10-31 08:06] LABS: SARS-CoV-2 NAA Not Detected (Not Detected)
[2021-10-31] MEDS: levETIRAcetam 500 MG TABLET (FP) PO SCH ×2 (10:03→22:28)
[2021-10-31] MEDS: DIVALPROEX SODIUM 500 MG TABLET E.C. PO SCH ×2 (10:03→22:28)
[2021-10-31] MEDS: PRENATAL VITAMINS W/ FOLIC ACID TABLET (FP) PO SCH (10:03)
[2021-10-31] MEDS: CALCIUM 250MG/VIT-D 125 UNITS 1 COMBO TABLET PO SCH ×2 (10:04→22:28)
[2021-10-31] MEDS: TIOTROPIUM BROMIDE 2.5 MCG (SPIRIVA) RESPIMAT INHALER IH SCH (10:06)
[2021-10-31] MEDS: BUDESONIDE/FORMETEROL FUMARATE 160/4.5 mcg INHALER IH SCH ×2 (10:06→22:31)
[2021-10-31] MEDS: MELATONIN 5 MG TABLETS PO SCH (22:29)
[2021-10-31] MEDS: ATORVASTATIN CA 20 MG TABLET (FP) PO SCH (22:29)
[2021-10-31] MEDS: THIAMINE HCL 100 MG TABLET (FP) PO SCH (22:29)
[2021-11-01] MEDS ORDERED: chlordiazePOXIDE HCL 10 MG CAPSULE PO PRN
[2021-11-01] MEDS: hydrOXYzine PAMOATE 25 MG CAPSULE (FP) PO SCH ×5 (05:34→22:57)
[2021-11-01] MEDS: chlordiazePOXIDE HCL 10 MG CAPSULE PO SCH ×4 (05:34→22:58)
[2021-11-01] MEDS: CALCIUM 250MG/VIT-D 125 UNITS 1 COMBO TABLET PO SCH ×2 (10:35→22:55)
[2021-11-01] MEDS: levETIRAcetam 500 MG TABLET (FP) PO SCH ×2 (10:35→22:55)
[2021-11-01] MEDS: TIOTROPIUM BROMIDE 2.5 MCG (SPIRIVA) RESPIMAT INHALER IH SCH (10:35)
[2021-11-01] MEDS: DIVALPROEX SODIUM 500 MG TABLET E.C. PO SCH ×2 (10:35→22:56)
[2021-11-01] MEDS: BUDESONIDE/FORMETEROL FUMARATE 160/4.5 mcg INHALER IH SCH ×2 (10:35→22:58)
[2021-11-01] MEDS: PRENATAL VITAMINS W/ FOLIC ACID TABLET (FP) PO SCH (10:35)
[2021-11-01] MEDS: ATORVASTATIN CA 20 MG TABLET (FP) PO SCH (22:55)
[2021-11-01] MEDS: MELATONIN 5 MG TABLETS PO SCH (22:56)
[2021-11-01] MEDS: THIAMINE HCL 100 MG TABLET (FP) PO SCH (22:56)
[2021-11-02] MEDS: hydrOXYzine PAMOATE 25 MG CAPSULE (FP) PO SCH ×5 (06:05→22:55)
[2021-11-02] MEDS: chlordiazePOXIDE HCL 10 MG CAPSULE PO SCH ×2 (06:05→17:34)
[2021-11-02] MEDS: PRENATAL VITAMINS W/ FOLIC ACID TABLET (FP) PO SCH (10:28)
[2021-11-02] MEDS: levETIRAcetam 500 MG TABLET (FP) PO SCH ×2 (10:29→22:56)
[2021-11-02] MEDS: CALCIUM 250MG/VIT-D 125 UNITS 1 COMBO TABLET PO SCH ×2 (10:29→22:56)
[2021-11-02] MEDS: BUDESONIDE/FORMETEROL FUMARATE 160/4.5 mcg INHALER IH SCH ×2 (10:29→22:56)
[2021-11-02] MEDS: DIVALPROEX SODIUM 500 MG TABLET E.C. PO SCH ×2 (10:29→22:55)
[2021-11-02] MEDS: TIOTROPIUM BROMIDE 2.5 MCG (SPIRIVA) RESPIMAT INHALER IH SCH (10:29)
[2021-11-02] MEDS: THIAMINE HCL 100 MG TABLET (FP) PO SCH (22:55)
[2021-11-02] MEDS: ATORVASTATIN CA 20 MG TABLET (FP) PO SCH (22:55)
[2021-11-02] MEDS: MELATONIN 5 MG TABLETS PO SCH (22:56)
[2021-11-03] MEDS ORDERED: chlordiazePOXIDE HCL 10 MG CAPSULE PO ONE (05:00)
[2021-11-03] MEDS: hydrOXYzine PAMOATE 25 MG CAPSULE (FP) PO SCH ×3 (05:56→14:16)
[2021-11-03 09:00] VITALS: TEMP 97.9
[2021-11-03] MEDS: levETIRAcetam 500 MG TABLET (FP) PO SCH (10:41)
[2021-11-03] MEDS: BUDESONIDE/FORMETEROL FUMARATE 160/4.5 mcg INHALER IH SCH (10:41)
[2021-11-03] MEDS: DIVALPROEX SODIUM 500 MG TABLET E.C. PO SCH (10:41)
[2021-11-03] MEDS: PRENATAL VITAMINS W/ FOLIC ACID TABLET (FP) PO SCH (10:41)
[2021-11-03] MEDS: CALCIUM 250MG/VIT-D 125 UNITS 1 COMBO TABLET PO SCH (10:41)
[2021-11-03] MEDS: TIOTROPIUM BROMIDE 2.5 MCG (SPIRIVA) RESPIMAT INHALER IH SCH (10:41)
[2021-11-03 12:58] VITALS: BP 158/73; PULSE 77
== END 2021-11-03 14:20 | disposition home or self-care (01) | DRG 897 ==
LOC: YASAS 09:15 → Y3N 12:24
PROVIDERS: ADMIT Allergy & Immunology; ATTEND Allergy & Immunology
PROC: HZ2ZZZZ Detoxification Services for Substance Abuse Treatment (ICD-10-PCS; principal; 2021-10-29)
DX: F10.230 Alcohol dependence with withdrawal, uncomplicated (principal); F14.20 Cocaine dependence, uncomplicated; I69.851 Hemiplegia and hemiparesis following other cerebrovascular disease affecting right dominant side; F17.210 Nicotine dependence, cigarettes, uncomplicated; G40.909 Epilepsy, unspecified, not intractable, without status epilepticus; G20 Parkinson's disease; J44.9 Chronic obstructive pulmonary disease, unspecified; J45.20 Mild intermittent asthma, uncomplicated; I69.898 Other sequelae of other cerebrovascular disease; Z99.89 Dependence on other enabling machines and devices
CPT/HCPCS: 36415; 80053; 80164; 80177; 85027; 86593; 86780; 87811; C9803-CS; U0003; U0005

== ENCOUNTER 2021-11-03 14:51 | Inpatient (IN) | payer OTHER ==
[2021-11-03] MEDS ORDERED: ACETAMINOPHEN 325 MG TABLET (FP) PO PRN (16:04)
[2021-11-03] MEDS ORDERED: MAGNESIUM CITRATE 300 ML BOTTLE PO PRN (16:04)
[2021-11-03] MEDS ORDERED: P-EPHED 60MG/TRIPROLIDI 2.5MG TABLET PO PRN (16:04)
[2021-11-03] MEDS ORDERED: IBUPROFEN 400 MG TABLET (FP) PO PRN (16:04)
[2021-11-03] MEDS ORDERED: MAGNESIUM HYDROX 2400MG/30ML ORAL SUSPENSION 30 ML CUP PO PRN (16:04)
[2021-11-03] MEDS ORDERED: guaiFENesin 200 MG/10 ML 10 ML UNIT-DOSE CUPS PO PRN (16:04)
[2021-11-03] MEDS ORDERED: BENZOCAINE/MENTHOL (CHLORASEPTIC ) LOZENGE MM PRN (16:04)
[2021-11-03] MEDS ORDERED: MAG HYDROX/AL HYDROX/SIMETH 30 ML UNIT-DOSE CUP PO PRN (16:04)
[2021-11-03] MEDS ORDERED: LOPERAMIDE HCL 2 MG CAPSULE PO PRN (16:04)
[2021-11-03] MEDS ORDERED: ALBUTEROL SO4 HFA INHALER IH PRN (16:06)
[2021-11-03] MEDS: hydrOXYzine PAMOATE 25 MG CAPSULE (FP) PO SCH ×2 (17:50→21:55)
[2021-11-03] MEDS: levETIRAcetam 500 MG TABLET (FP) PO SCH (21:55)
[2021-11-03] MEDS: THIAMINE HCL 100 MG TABLET (FP) PO SCH (21:55)
[2021-11-03] MEDS: DIVALPROEX SODIUM 500 MG TABLET E.C. PO SCH (21:55)
[2021-11-03] MEDS: OLANZapine 5 MG TABLET PO SCH (21:55)
[2021-11-03] MEDS: ATORVASTATIN CA 20 MG TABLET (FP) PO SCH (21:55)
[2021-11-03] MEDS: MELATONIN 5 MG TABLETS PO SCH (21:55)
[2021-11-03] MEDS: BUDESONIDE/FORMETEROL FUMARATE 160/4.5 mcg INHALER IH SCH (22:55)
[2021-11-04] MEDS: hydrOXYzine PAMOATE 25 MG CAPSULE (FP) PO SCH ×5 (06:38→21:39)
[2021-11-04] MEDS: levETIRAcetam 500 MG TABLET (FP) PO SCH ×2 (10:00→21:28)
[2021-11-04] MEDS: PRENATAL VITAMINS W/ FOLIC ACID TABLET (FP) PO SCH (10:00)
[2021-11-04] MEDS: DIVALPROEX SODIUM 500 MG TABLET E.C. PO SCH ×2 (10:00→21:28)
[2021-11-04] MEDS: CALCIUM 250MG/VIT-D 125 UNITS 1 COMBO TABLET PO SCH (10:00)
[2021-11-04] MEDS: BUDESONIDE/FORMETEROL FUMARATE 160/4.5 mcg INHALER IH SCH ×2 (10:01→21:39)
[2021-11-04] MEDS: TIOTROPIUM BROMIDE 2.5 MCG (SPIRIVA) RESPIMAT INHALER IH SCH (10:02)
[2021-11-04] MEDS: THIAMINE HCL 100 MG TABLET (FP) PO SCH (21:28)
[2021-11-04] MEDS: MELATONIN 5 MG TABLETS PO SCH (21:28)
[2021-11-04] MEDS: ATORVASTATIN CA 20 MG TABLET (FP) PO SCH (21:29)
[2021-11-04] MEDS: OLANZapine 5 MG TABLET PO SCH (21:29)
[2021-11-05] MEDS: hydrOXYzine PAMOATE 25 MG CAPSULE (FP) PO SCH ×5 (06:21→21:29)
[2021-11-05] MEDS: DIVALPROEX SODIUM 500 MG TABLET E.C. PO SCH ×2 (09:16→21:28)
[2021-11-05] MEDS: levETIRAcetam 500 MG TABLET (FP) PO SCH ×2 (09:16→21:27)
[2021-11-05] MEDS: CALCIUM 250MG/VIT-D 125 UNITS 1 COMBO TABLET PO SCH (09:16)
[2021-11-05] MEDS: BUDESONIDE/FORMETEROL FUMARATE 160/4.5 mcg INHALER IH SCH ×2 (09:17→21:29)
[2021-11-05] MEDS: PRENATAL VITAMINS W/ FOLIC ACID TABLET (FP) PO SCH (09:17)
[2021-11-05] MEDS: TIOTROPIUM BROMIDE 2.5 MCG (SPIRIVA) RESPIMAT INHALER IH SCH (09:17)
[2021-11-05] MEDS: THIAMINE HCL 100 MG TABLET (FP) PO SCH (21:27)
[2021-11-05] MEDS: OLANZapine 5 MG TABLET PO SCH (21:27)
[2021-11-05] MEDS: MELATONIN 5 MG TABLETS PO SCH (21:27)
[2021-11-05] MEDS: ATORVASTATIN CA 20 MG TABLET (FP) PO SCH (21:29)
[2021-11-06] MEDS: hydrOXYzine PAMOATE 25 MG CAPSULE (FP) PO SCH ×2 (06:33→10:07)
[2021-11-06] MEDS: DIVALPROEX SODIUM 500 MG TABLET E.C. PO SCH ×2 (10:07→21:08)
[2021-11-06] MEDS: CALCIUM 250MG/VIT-D 125 UNITS 1 COMBO TABLET PO SCH (10:07)
[2021-11-06] MEDS: levETIRAcetam 500 MG TABLET (FP) PO SCH ×2 (10:07→21:08)
[2021-11-06] MEDS: PRENATAL VITAMINS W/ FOLIC ACID TABLET (FP) PO SCH (10:07)
[2021-11-06] MEDS: BUDESONIDE/FORMETEROL FUMARATE 160/4.5 mcg INHALER IH SCH ×2 (10:08→21:09)
[2021-11-06] MEDS: TIOTROPIUM BROMIDE 2.5 MCG (SPIRIVA) RESPIMAT INHALER IH SCH (10:08)
[2021-11-06] MEDS ORDERED: hydrOXYzine PAMOATE 25 MG CAPSULE (FP) PO PRN (11:25)
[2021-11-06] MEDS: MELATONIN 5 MG TABLETS PO SCH (21:08)
[2021-11-06] MEDS: OLANZapine 5 MG TABLET PO SCH (21:08)
[2021-11-06] MEDS: THIAMINE HCL 100 MG TABLET (FP) PO SCH (21:08)
[2021-11-06] MEDS: ATORVASTATIN CA 20 MG TABLET (FP) PO SCH (21:09)
[2021-11-07 06:40] VITALS: BP 101/68; PULSE 79; TEMP 97.3
[2021-11-07] MEDS: PRENATAL VITAMINS W/ FOLIC ACID TABLET (FP) PO SCH (09:45)
[2021-11-07] MEDS: levETIRAcetam 500 MG TABLET (FP) PO SCH (09:45)
[2021-11-07] MEDS: DIVALPROEX SODIUM 500 MG TABLET E.C. PO SCH (09:45)
[2021-11-07] MEDS: BUDESONIDE/FORMETEROL FUMARATE 160/4.5 mcg INHALER IH SCH (09:45)
[2021-11-07] MEDS: CALCIUM 250MG/VIT-D 125 UNITS 1 COMBO TABLET PO SCH (09:46)
[2021-11-07] MEDS: TIOTROPIUM BROMIDE 2.5 MCG (SPIRIVA) RESPIMAT INHALER IH SCH (09:46)
[2021-11-07 14:07] LABS: SARS-CoV-2 NAA Not Detected (Not Detected)
== END 2021-11-07 09:50 | disposition left against medical advice (07) | DRG 894 ==
LOC: YASAS 14:51 → Y3E 14:53
PROVIDERS: ADMIT Allergy & Immunology; ATTEND Allergy & Immunology
PROC: HZ42ZZZ Group Counseling for Substance Abuse Treatment, Cognitive-Behavioral (ICD-10-PCS; principal; 2021-11-03)
DX: F10.20 Alcohol dependence, uncomplicated (principal); F14.20 Cocaine dependence, uncomplicated; J44.1 Chronic obstructive pulmonary disease with (acute) exacerbation; I69.851 Hemiplegia and hemiparesis following other cerebrovascular disease affecting right dominant side; F17.210 Nicotine dependence, cigarettes, uncomplicated; F20.9 Schizophrenia, unspecified; G20 Parkinson's disease; G40.909 Epilepsy, unspecified, not intractable, without status epilepticus; G24.01 Drug induced subacute dyskinesia; Z86.19 Personal history of other infectious and parasitic diseases; Z99.89 Dependence on other enabling machines and devices
CPT/HCPCS: C9803-CS; U0003; U0005

== ENCOUNTER 2022-01-03 13:19 | Inpatient (IN) | payer OTHER ==
[2022-01-03 18:58] VITALS: BMI 21.7
[2022-01-03] MEDS ORDERED: MAG HYDROX/AL HYDROX/SIMETH 30 ML UNIT-DOSE CUP PO PRN (19:30)
[2022-01-03] MEDS ORDERED: guaiFENesin 200 MG/10 ML 10 ML UNIT-DOSE CUPS PO PRN (19:30)
[2022-01-03] MEDS ORDERED: IBUPROFEN 400 MG TABLET (FP) PO PRN (19:30)
[2022-01-03] MEDS ORDERED: MAGNESIUM HYDROX 2400MG/30ML ORAL SUSPENSION 30 ML CUP PO PRN (19:30)
[2022-01-03] MEDS ORDERED: ACETAMINOPHEN 325 MG TABLET (FP) PO PRN (19:30)
[2022-01-03] MEDS ORDERED: MAGNESIUM CITRATE 300 ML BOTTLE PO PRN (19:30)
[2022-01-03] MEDS ORDERED: LOPERAMIDE HCL 2 MG CAPSULE PO PRN (19:30)
[2022-01-03] MEDS ORDERED: P-EPHED 60MG/TRIPROLIDI 2.5MG TABLET PO PRN (19:30)
[2022-01-03] MEDS ORDERED: ALBUTEROL SO4 HFA INHALER IH PRN (19:31)
[2022-01-03] MEDS: MELATONIN 5 MG TABLETS PO SCH (21:23)
[2022-01-03] MEDS: levETIRAcetam 500 MG TABLET (FP) PO SCH (21:23)
[2022-01-03] MEDS: THIAMINE HCL 100 MG TABLET (FP) PO SCH (21:23)
[2022-01-03] MEDS: DIVALPROEX SODIUM 500 MG TABLET E.C. PO SCH (21:23)
[2022-01-03] MEDS: ATORVASTATIN CA 20 MG TABLET (FP) PO SCH (21:24)
[2022-01-03] MEDS: BUDESONIDE/FORMETEROL FUMARATE 160/4.5 mcg INHALER IH SCH (21:24)
[2022-01-03] MEDS: CALCIUM 250MG/VIT-D 125 UNITS 1 COMBO TABLET PO SCH (23:46)
[2022-01-04] MEDS: PRENATAL VITAMINS W/ FOLIC ACID TABLET (FP) PO SCH (10:13)
[2022-01-04] MEDS: CALCIUM 250MG/VIT-D 125 UNITS 1 COMBO TABLET PO SCH ×2 (10:13→21:27)
[2022-01-04] MEDS: DIVALPROEX SODIUM 500 MG TABLET E.C. PO SCH ×2 (10:13→21:27)
[2022-01-04] MEDS: levETIRAcetam 500 MG TABLET (FP) PO SCH ×2 (10:13→21:27)
[2022-01-04] MEDS: BUDESONIDE/FORMETEROL FUMARATE 160/4.5 mcg INHALER IH SCH ×2 (10:14→21:28)
[2022-01-04] MEDS: TIOTROPIUM BROMIDE 2.5 MCG (SPIRIVA) RESPIMAT INHALER IH SCH (10:14)
[2022-01-04 12:04] LABS: HEMATOCRIT 37.6 % (35.4-49); HEMOGLOBIN 12.6 GM/dL (11.7-16.9); MCHC 33.5 g/dl (32.0-35.9); MEAN CELL VOLUME 86.4 fl (80-96); PLATELET COUNT 169 10^3/uL (134-434); RBC 4.35 M/mm3 (4.00-5.60); RDW 14.5 % (11.9-15.9); WHITE BLOOD COUNT 3.4 K/mm3 (4.0-10.0)
[2022-01-04 12:21] LABS: CALCIUM 9.6 mg/dL (8.5-10.1)
[2022-01-04 12:22] LABS: BLOOD UREA NITROGEN 12.5 mg/dL (7-18)
[2022-01-04 12:23] LABS: ALBUMIN 3.7 g/dl (3.4-5.0)
[2022-01-04 12:26] LABS: CREATININE 0.8 mg/dL (0.55-1.3)
[2022-01-04 12:27] LABS: BILIRUBIN,TOTAL 0.4 mg/dL (0.2-1)
[2022-01-04 12:29] LABS: TOT PROT 7.8 g/dl (6.4-8.2)
[2022-01-04] MEDS: THIAMINE HCL 100 MG TABLET (FP) PO SCH (21:27)
[2022-01-04] MEDS: OLANZapine 7.5 MG TABLET PO SCH (21:27)
[2022-01-04] MEDS: MELATONIN 5 MG TABLETS PO SCH (21:27)
[2022-01-04] MEDS: ATORVASTATIN CA 20 MG TABLET (FP) PO SCH (21:27)
[2022-01-05] MEDS: CALCIUM 250MG/VIT-D 125 UNITS 1 COMBO TABLET PO SCH ×2 (11:05→21:18)
[2022-01-05] MEDS: PRENATAL VITAMINS W/ FOLIC ACID TABLET (FP) PO SCH (11:05)
[2022-01-05] MEDS: DIVALPROEX SODIUM 500 MG TABLET E.C. PO SCH ×2 (11:05→21:17)
[2022-01-05] MEDS: levETIRAcetam 500 MG TABLET (FP) PO SCH ×2 (11:05→21:17)
[2022-01-05] MEDS: TIOTROPIUM BROMIDE 2.5 MCG (SPIRIVA) RESPIMAT INHALER IH SCH (11:05)
[2022-01-05] MEDS: BUDESONIDE/FORMETEROL FUMARATE 160/4.5 mcg INHALER IH SCH ×2 (11:06→21:18)
[2022-01-05] MEDS: THIAMINE HCL 100 MG TABLET (FP) PO SCH (21:17)
[2022-01-05] MEDS: ATORVASTATIN CA 20 MG TABLET (FP) PO SCH (21:17)
[2022-01-05] MEDS: MELATONIN 5 MG TABLETS PO SCH (21:17)
[2022-01-05] MEDS: OLANZapine 7.5 MG TABLET PO SCH (21:19)
[2022-01-06] MEDS: CALCIUM 250MG/VIT-D 125 UNITS 1 COMBO TABLET PO SCH ×2 (10:02→21:18)
[2022-01-06] MEDS: levETIRAcetam 500 MG TABLET (FP) PO SCH ×2 (10:02→21:18)
[2022-01-06] MEDS: DIVALPROEX SODIUM 500 MG TABLET E.C. PO SCH ×2 (10:02→21:16)
[2022-01-06] MEDS: PRENATAL VITAMINS W/ FOLIC ACID TABLET (FP) PO SCH (10:02)
[2022-01-06] MEDS: BUDESONIDE/FORMETEROL FUMARATE 160/4.5 mcg INHALER IH SCH ×2 (10:05→21:18)
[2022-01-06] MEDS: TIOTROPIUM BROMIDE 2.5 MCG (SPIRIVA) RESPIMAT INHALER IH SCH (10:05)
[2022-01-06 10:21] LABS: URINE APPEARANCE CLEAR; URINE BILIRUBIN NEGATIVE (NEGATIVE); URINE COLOR YELLOW; URINE GLUCOSE (UA) NEGATIVE (NEGATIVE); URINE KETONE NEGATIVE (NEGATIVE); URINE LEUK ESTERASE NEGATIVE (NEGATIVE); URINE NITRITE NEGATIVE (NEGATIVE); URINE PROTEIN NEGATIVE (NEGATIVE); URINE UROBILINOGEN 0.2 mg/dL (0.2-1.0)
[2022-01-06] MEDS: THIAMINE HCL 100 MG TABLET (FP) PO SCH (21:16)
[2022-01-06] MEDS: MELATONIN 5 MG TABLETS PO SCH (21:16)
[2022-01-06] MEDS: OLANZapine 7.5 MG TABLET PO SCH (21:17)
[2022-01-06] MEDS: ATORVASTATIN CA 20 MG TABLET (FP) PO SCH (21:17)
[2022-01-07] MEDS: BUDESONIDE/FORMETEROL FUMARATE 160/4.5 mcg INHALER IH SCH ×2 (10:45→21:40)
[2022-01-07] MEDS: PRENATAL VITAMINS W/ FOLIC ACID TABLET (FP) PO SCH (10:45)
[2022-01-07] MEDS: TIOTROPIUM BROMIDE 2.5 MCG (SPIRIVA) RESPIMAT INHALER IH SCH (10:46)
[2022-01-07] MEDS: CALCIUM 250MG/VIT-D 125 UNITS 1 COMBO TABLET PO SCH ×2 (10:46→21:40)
[2022-01-07] MEDS: DIVALPROEX SODIUM 500 MG TABLET E.C. PO SCH ×2 (10:46→21:39)
[2022-01-07] MEDS: levETIRAcetam 500 MG TABLET (FP) PO SCH ×2 (10:46→21:39)
[2022-01-07] MEDS: THIAMINE HCL 100 MG TABLET (FP) PO SCH (21:39)
[2022-01-07] MEDS: MELATONIN 5 MG TABLETS PO SCH (21:39)
[2022-01-07] MEDS: ATORVASTATIN CA 20 MG TABLET (FP) PO SCH (21:39)
[2022-01-07] MEDS: OLANZapine 7.5 MG TABLET PO SCH (21:41)
[2022-01-08] MEDS: levETIRAcetam 500 MG TABLET (FP) PO SCH ×2 (10:18→21:07)
[2022-01-08] MEDS: DIVALPROEX SODIUM 500 MG TABLET E.C. PO SCH ×2 (10:18→21:07)
[2022-01-08] MEDS: TIOTROPIUM BROMIDE 2.5 MCG (SPIRIVA) RESPIMAT INHALER IH SCH (10:18)
[2022-01-08] MEDS: PRENATAL VITAMINS W/ FOLIC ACID TABLET (FP) PO SCH (10:18)
[2022-01-08] MEDS: CALCIUM 250MG/VIT-D 125 UNITS 1 COMBO TABLET PO SCH ×2 (10:18→21:07)
[2022-01-08] MEDS: BUDESONIDE/FORMETEROL FUMARATE 160/4.5 mcg INHALER IH SCH ×2 (10:18→21:07)
[2022-01-08] MEDS: ATORVASTATIN CA 20 MG TABLET (FP) PO SCH (21:06)
[2022-01-08] MEDS: THIAMINE HCL 100 MG TABLET (FP) PO SCH (21:06)
[2022-01-08] MEDS: MELATONIN 5 MG TABLETS PO SCH (21:06)
[2022-01-08] MEDS: OLANZapine 7.5 MG TABLET PO SCH (21:07)
[2022-01-09 06:47] VITALS: TEMP 97.3
[2022-01-09] MEDS: PRENATAL VITAMINS W/ FOLIC ACID TABLET (FP) PO SCH (10:28)
[2022-01-09] MEDS: levETIRAcetam 500 MG TABLET (FP) PO SCH ×2 (10:28→21:22)
[2022-01-09] MEDS: CALCIUM 250MG/VIT-D 125 UNITS 1 COMBO TABLET PO SCH ×2 (10:29→21:22)
[2022-01-09] MEDS: TIOTROPIUM BROMIDE 2.5 MCG (SPIRIVA) RESPIMAT INHALER IH SCH (10:29)
[2022-01-09] MEDS: BUDESONIDE/FORMETEROL FUMARATE 160/4.5 mcg INHALER IH SCH ×2 (10:29→21:22)
[2022-01-09] MEDS: DIVALPROEX SODIUM 500 MG TABLET E.C. PO SCH ×2 (10:30→21:22)
[2022-01-09] MEDS: OLANZapine 7.5 MG TABLET PO SCH (21:22)
[2022-01-09] MEDS: MELATONIN 5 MG TABLETS PO SCH (21:22)
[2022-01-09] MEDS: THIAMINE HCL 100 MG TABLET (FP) PO SCH (21:22)
[2022-01-09] MEDS: ATORVASTATIN CA 20 MG TABLET (FP) PO SCH (21:22)
[2022-01-10 06:27] VITALS: BP 132/84; PULSE 68
[2022-01-10] MEDS: levETIRAcetam 500 MG TABLET (FP) PO SCH (10:06)
[2022-01-10] MEDS: PRENATAL VITAMINS W/ FOLIC ACID TABLET (FP) PO SCH (10:06)
[2022-01-10] MEDS: TIOTROPIUM BROMIDE 2.5 MCG (SPIRIVA) RESPIMAT INHALER IH SCH (10:07)
[2022-01-10] MEDS: CALCIUM 250MG/VIT-D 125 UNITS 1 COMBO TABLET PO SCH (10:07)
[2022-01-10] MEDS: BUDESONIDE/FORMETEROL FUMARATE 160/4.5 mcg INHALER IH SCH (10:08)
[2022-01-10] MEDS: DIVALPROEX SODIUM 500 MG TABLET E.C. PO SCH (10:08)
== END 2022-01-10 13:10 | disposition home or self-care (01) | DRG 895 ==
LOC: YASAS 13:19 → Y3W 18:57
PROVIDERS: ADMIT Allergy & Immunology; ATTEND Psychiatry & Neurology Pain Medicine
PROC: HZ42ZZZ Group Counseling for Substance Abuse Treatment, Cognitive-Behavioral (ICD-10-PCS; principal; 2022-01-03)
DX: F10.20 Alcohol dependence, uncomplicated (principal); F14.20 Cocaine dependence, uncomplicated; I69.351 Hemiplegia and hemiparesis following cerebral infarction affecting right dominant side; F17.210 Nicotine dependence, cigarettes, uncomplicated; F20.9 Schizophrenia, unspecified; F25.1 Schizoaffective disorder, depressive type; J45.20 Mild intermittent asthma, uncomplicated; J43.0 Unilateral pulmonary emphysema [MacLeod's syndrome]; E78.5 Hyperlipidemia, unspecified; G40.909 Epilepsy, unspecified, not intractable, without status epilepticus; G20 Parkinson's disease; G24.01 Drug induced subacute dyskinesia; D64.9 Anemia, unspecified; G47.30 Sleep apnea, unspecified; Z86.19 Personal history of other infectious and parasitic diseases; Z56.0 Unemployment, unspecified
CPT/HCPCS: 36415; 80053; 80164; 81003; 85027; 86593; 86780; C9803-CS; U0003; U0005

== ENCOUNTER 2022-02-24 08:52 | Inpatient (IN) | payer OTHER ==
[2022-02-24 09:33] VITALS: BMI 18.8
[2022-02-24] MEDS ORDERED: MAGNESIUM CITRATE 300 ML BOTTLE PO PRN (10:23)
[2022-02-24] MEDS ORDERED: BISMUTH SUBSALICYLATE 524 MG/30 ML PO PRN (10:23)
[2022-02-24] MEDS ORDERED: LOPERAMIDE HCL 2 MG CAPSULE PO PRN (10:23)
[2022-02-24] MEDS ORDERED: BENZOCAINE/MENTHOL (CHLORASEPTIC ) LOZENGE MM PRN (10:23)
[2022-02-24] MEDS ORDERED: IBUPROFEN 400 MG TABLET (FP) PO PRN (10:23)
[2022-02-24] MEDS ORDERED: IBUPROFEN 600 MG TABLET (FP) PO PRN (10:23)
[2022-02-24] MEDS ORDERED: MAGNESIUM HYDROX 2400MG/30ML ORAL SUSPENSION 30 ML CUP PO PRN (10:23)
[2022-02-24] MEDS ORDERED: NICOTINE 10 MG CARTRIDGE (INHALER) IH PRN (10:23)
[2022-02-24] MEDS ORDERED: ONDANSETRON *ODT* 4 MG TABLET SL PRN (10:23)
[2022-02-24] MEDS ORDERED: ACETAMINOPHEN 325 MG TABLET (FP) PO PRN ×2 (10:23)
[2022-02-24] MEDS ORDERED: MAG HYDROX/AL HYDROX/SIMETH 30 ML UNIT-DOSE CUP PO PRN (10:23)
[2022-02-24] MEDS ORDERED: DICYCLOMINE HCL 10 MG CAPSULE PO PRN (10:23)
[2022-02-24] MEDS ORDERED: LORazepam 1 MG TABLET PO PRN (10:23)
[2022-02-24] MEDS ORDERED: ALBUTEROL SO4 HFA INHALER IH PRN (10:26)
[2022-02-24] MEDS ORDERED: DIVALPROEX SODIUM 500 MG TABLET E.C. PO SCH (10:30)
[2022-02-24] MEDS ORDERED: PATIENT'S OWN MEDICATION (NON-FORMULARY) (Valproic Acid (As Sodium Salt) [Valproic Acid] 5 PO SCH (10:45)
[2022-02-24] MEDS: levETIRAcetam 500 MG TABLET (FP) PO SCH ×2 (12:55→22:51)
[2022-02-24] MEDS: VALPROATE SODIUM 250 MG/5 ML UNIT DOSE CUP PO SCH ×2 (15:00→22:53)
[2022-02-24] MEDS: LORazepam 2 MG TABLET PO SCH ×2 (18:00→22:52)
[2022-02-24] MEDS: ATORVASTATIN CA 20 MG TABLET (FP) PO SCH (22:51)
[2022-02-24] MEDS: THIAMINE HCL 100 MG TABLET (FP) PO SCH (22:51)
[2022-02-24] MEDS: MELATONIN 5 MG TABLETS PO SCH (22:51)
[2022-02-25] MEDS: LORazepam 2 MG TABLET PO SCH ×4 (06:24→22:43)
[2022-02-25] MEDS ORDERED: TIOTROPIUM BROMIDE 2.5 MCG (SPIRIVA) RESPIMAT INHALER IH SCH (10:00)
[2022-02-25] MEDS ORDERED: PNEUMOC 20-VAL CONJ-DIP CRM/PF 0.5 ML SYRINGE IM ONE (10:00)
[2022-02-25] MEDS: PRENATAL VITAMINS W/ FOLIC ACID TABLET (FP) PO SCH (10:58)
[2022-02-25] MEDS: levETIRAcetam 500 MG TABLET (FP) PO SCH ×2 (10:59→22:42)
[2022-02-25] MEDS: VALPROATE SODIUM 250 MG/5 ML UNIT DOSE CUP PO SCH ×2 (11:01→22:43)
[2022-02-25] MEDS: THIAMINE HCL 100 MG TABLET (FP) PO SCH (22:42)
[2022-02-25] MEDS: MELATONIN 5 MG TABLETS PO SCH (22:42)
[2022-02-25] MEDS: ATORVASTATIN CA 20 MG TABLET (FP) PO SCH (22:42)
[2022-02-26] MEDS: LORazepam 1 MG TABLET PO SCH ×2 (06:21→10:39)
[2022-02-26 08:07] VITALS: TEMP 96.8
[2022-02-26 09:24] VITALS: BP 155/80; PULSE 76; RESP 17
[2022-02-26] MEDS: VALPROATE SODIUM 250 MG/5 ML UNIT DOSE CUP PO SCH (10:38)
[2022-02-26] MEDS: levETIRAcetam 500 MG TABLET (FP) PO SCH (10:39)
[2022-02-26] MEDS: PRENATAL VITAMINS W/ FOLIC ACID TABLET (FP) PO SCH (10:39)
[2022-02-27] MEDS ORDERED: LORazepam 0.5 MG TABLET PO PRN
[2022-02-27] MEDS ORDERED: LORazepam 0.5 MG TABLET PO SCH (05:00)
[2022-02-28] MEDS ORDERED: LORazepam 0.5 MG TABLET PO ONE (05:00)
== END 2022-02-26 11:08 | disposition left against medical advice (07) | DRG 894 ==
LOC: YASAS 08:52 → Y3N 09:51 → Y6N 19:37
PROVIDERS: ADMIT Surgery; ATTEND Surgery
PROC: HZ2ZZZZ Detoxification Services for Substance Abuse Treatment (ICD-10-PCS; principal; 2022-02-24)
DX: F10.230 Alcohol dependence with withdrawal, uncomplicated (principal); U07.1 COVID-19; F14.20 Cocaine dependence, uncomplicated; F19.282 Other psychoactive substance dependence with psychoactive substance-induced sleep disorder; F17.210 Nicotine dependence, cigarettes, uncomplicated; F20.9 Schizophrenia, unspecified; F19.24 Other psychoactive substance dependence with psychoactive substance-induced mood disorder; E78.5 Hyperlipidemia, unspecified; J43.0 Unilateral pulmonary emphysema [MacLeod's syndrome]; J45.20 Mild intermittent asthma, uncomplicated; G40.909 Epilepsy, unspecified, not intractable, without status epilepticus; G24.01 Drug induced subacute dyskinesia; G20 Parkinson's disease; R63.4 Abnormal weight loss; G47.30 Sleep apnea, unspecified; R26.2 Difficulty in walking, not elsewhere classified; Z99.89 Dependence on other enabling machines and devices; Z86.19 Personal history of other infectious and parasitic diseases; Z91.51 Personal history of suicidal behavior; Z56.0 Unemployment, unspecified; Z86.73 Personal history of transient ischemic attack (TIA), and cerebral infarction without residual deficits
CPT/HCPCS: C9803-CS; U0003; U0005

== ENCOUNTER 2022-05-27 09:25 | Inpatient (IN) | payer OTHER ==
[2022-05-27 10:33] VITALS: BMI 17.1
[2022-05-27] MEDS ORDERED: MAGNESIUM HYDROX 2400MG/30ML ORAL SUSPENSION 30 ML CUP PO PRN (10:55)
[2022-05-27] MEDS ORDERED: ACETAMINOPHEN 325 MG TABLET (FP) PO PRN ×2 (10:55)
[2022-05-27] MEDS ORDERED: IBUPROFEN 400 MG TABLET (FP) PO PRN (10:55)
[2022-05-27] MEDS ORDERED: chlordiazePOXIDE HCL 25 MG CAPSULE PO PRN (10:55)
[2022-05-27] MEDS ORDERED: MAGNESIUM CITRATE 300 ML BOTTLE PO PRN (10:55)
[2022-05-27] MEDS ORDERED: BENZOCAINE/MENTHOL (CHLORASEPTIC ) LOZENGE MM PRN (10:55)
[2022-05-27] MEDS ORDERED: ONDANSETRON *ODT* 4 MG TABLET SL PRN (10:55)
[2022-05-27] MEDS ORDERED: IBUPROFEN 600 MG TABLET (FP) PO PRN (10:55)
[2022-05-27] MEDS ORDERED: BISMUTH SUBSALICYLATE 524 MG/30 ML PO PRN (10:55)
[2022-05-27] MEDS ORDERED: NALOXONE HCL (KLOXXADO) 8 MG SPRAY NS PRN (10:55)
[2022-05-27] MEDS ORDERED: DICYCLOMINE HCL 10 MG CAPSULE PO PRN (10:55)
[2022-05-27] MEDS ORDERED: MAG HYDROX/AL HYDROX/SIMETH 30 ML UNIT-DOSE CUP PO PRN (10:55)
[2022-05-27] MEDS ORDERED: hydrOXYzine PAMOATE 25 MG CAPSULE (FP) PO PRN (10:55)
[2022-05-27] MEDS ORDERED: LOPERAMIDE HCL 2 MG CAPSULE PO PRN (10:55)
[2022-05-27] MEDS ORDERED: chlordiazePOXIDE HCL 25 MG CAPSULE PO SCH (11:00)
[2022-05-27] MEDS ORDERED: ALBUTEROL SO4 HFA INHALER IH PRN (11:02)
[2022-05-27] MEDS ORDERED: chlordiazePOXIDE HCL 10 MG CAPSULE PO SCH (12:00)
[2022-05-27] MEDS ORDERED: chlordiazePOXIDE HCL 25 MG CAPSULE ONE (12:01)
[2022-05-27] MEDS: METHOCARBAMOL 500 MG TABLET PO PRN (12:51)
[2022-05-27] MEDS: chlordiazePOXIDE HCL 25 MG CAPSULE PO SCH (18:08)
[2022-05-27] MEDS ORDERED: levETIRAcetam 250 MG TABLET PO ONE (22:44)
[2022-05-27] MEDS: ATORVASTATIN CA 20 MG TABLET (FP) PO SCH (22:44)
[2022-05-27] MEDS: levETIRAcetam 500 MG TABLET (FP) PO SCH (22:44)
[2022-05-27] MEDS: THIAMINE HCL 100 MG TABLET (FP) PO SCH (22:45)
[2022-05-27] MEDS: DIVALPROEX SODIUM 500 MG TABLET E.C. PO SCH (22:45)
[2022-05-27] MEDS: MELATONIN 5 MG TABLETS PO SCH (22:45)
[2022-05-28] MEDS: chlordiazePOXIDE HCL 25 MG CAPSULE PO SCH ×4 (00:19→17:46)
[2022-05-28] MEDS ORDERED: levETIRAcetam 250 MG TABLET PO ONE (09:32)
[2022-05-28] MEDS: PRENATAL VITAMINS W/ FOLIC ACID TABLET (FP) PO SCH (10:36)
[2022-05-28] MEDS: levETIRAcetam 500 MG TABLET (FP) PO SCH ×2 (10:37→22:29)
[2022-05-28] MEDS: METHOCARBAMOL 500 MG TABLET PO PRN (10:37)
[2022-05-28] MEDS: DIVALPROEX SODIUM 500 MG TABLET E.C. PO SCH ×2 (10:37→22:29)
[2022-05-28] MEDS: TIOTROPIUM BROMIDE 2.5 MCG (SPIRIVA) RESPIMAT INHALER IH SCH (10:37)
[2022-05-28 13:03] LABS: HEMATOCRIT 29.6 % (35.4-49); HEMOGLOBIN 9.9 GM/dL (11.7-16.9); MCH 28.7 pg (25.7-33.7); MCHC 33.3 g/dl (32.0-35.9); MEAN CELL VOLUME 86.2 fl (80-96); MEAN PLT VOLUME 9.9 fl (7.5-11.1); PLATELET COUNT 159 10^3/uL (134-434); RBC 3.44 M/mm3 (4.00-5.60); RDW 14.6 % (11.9-15.9); WHITE BLOOD COUNT 5.2 K/mm3 (4.0-10.0)
[2022-05-28 14:04] LABS: ALBUMIN 2.4 g/dl (3.4-5.0); BLOOD UREA NITROGEN 11.8 mg/dL (7-18); CALCIUM 7.9 mg/dL (8.5-10.1)
[2022-05-28 14:07] LABS: CREATININE 0.6 mg/dL (0.55-1.3)
[2022-05-28 14:08] LABS: BILIRUBIN,TOTAL 0.2 mg/dL (0.2-1)
[2022-05-28 14:09] LABS: TOT PROT 5.7 g/dl (6.4-8.2)
[2022-05-28] MEDS: OLANZapine 10 MG TABLET PO SCH (22:29)
[2022-05-28] MEDS: ATORVASTATIN CA 20 MG TABLET (FP) PO SCH (22:29)
[2022-05-28] MEDS: THIAMINE HCL 100 MG TABLET (FP) PO SCH (22:29)
[2022-05-28] MEDS: MELATONIN 5 MG TABLETS PO SCH (22:30)
[2022-05-29] MEDS: chlordiazePOXIDE HCL 25 MG CAPSULE PO SCH ×5 (00:06→23:04)
[2022-05-29] MEDS: levETIRAcetam 500 MG TABLET (FP) PO SCH ×2 (12:33→23:04)
[2022-05-29] MEDS: DIVALPROEX SODIUM 500 MG TABLET E.C. PO SCH ×2 (12:33→23:03)
[2022-05-29] MEDS: PRENATAL VITAMINS W/ FOLIC ACID TABLET (FP) PO SCH (12:33)
[2022-05-29] MEDS: TIOTROPIUM BROMIDE 2.5 MCG (SPIRIVA) RESPIMAT INHALER IH SCH (12:57)
[2022-05-29] MEDS: ATORVASTATIN CA 20 MG TABLET (FP) PO SCH (23:03)
[2022-05-29] MEDS: OLANZapine 10 MG TABLET PO SCH (23:03)
[2022-05-29] MEDS: THIAMINE HCL 100 MG TABLET (FP) PO SCH (23:04)
[2022-05-29] MEDS: MELATONIN 5 MG TABLETS PO SCH (23:05)
[2022-05-30] MEDS ORDERED: chlordiazePOXIDE HCL 10 MG CAPSULE PO PRN
[2022-05-30] MEDS: chlordiazePOXIDE HCL 10 MG CAPSULE PO SCH ×4 (06:26→23:38)
[2022-05-30] MEDS: DIVALPROEX SODIUM 500 MG TABLET E.C. PO SCH ×2 (12:16→23:37)
[2022-05-30] MEDS: levETIRAcetam 500 MG TABLET (FP) PO SCH ×2 (12:17→23:38)
[2022-05-30] MEDS: PRENATAL VITAMINS W/ FOLIC ACID TABLET (FP) PO SCH (12:17)
[2022-05-30] MEDS: TIOTROPIUM BROMIDE 2.5 MCG (SPIRIVA) RESPIMAT INHALER IH SCH (12:17)
[2022-05-30] MEDS: THIAMINE HCL 100 MG TABLET (FP) PO SCH (23:38)
[2022-05-30] MEDS: OLANZapine 10 MG TABLET PO SCH (23:38)
[2022-05-30] MEDS: ATORVASTATIN CA 20 MG TABLET (FP) PO SCH (23:38)
[2022-05-30] MEDS: MELATONIN 5 MG TABLETS PO SCH (23:38)
[2022-05-31] MEDS: chlordiazePOXIDE HCL 10 MG CAPSULE PO SCH ×2 (05:40→20:22)
[2022-05-31] MEDS: PRENATAL VITAMINS W/ FOLIC ACID TABLET (FP) PO SCH (10:36)
[2022-05-31] MEDS: levETIRAcetam 500 MG TABLET (FP) PO SCH ×2 (10:36→22:53)
[2022-05-31] MEDS: DIVALPROEX SODIUM 500 MG TABLET E.C. PO SCH ×2 (10:36→22:53)
[2022-05-31] MEDS: TIOTROPIUM BROMIDE 2.5 MCG (SPIRIVA) RESPIMAT INHALER IH SCH (10:37)
[2022-05-31 13:41] VITALS: RESP 18
[2022-05-31] MEDS ORDERED: FERROUS SO4 325 MG TABLET (FP) PO ONE (15:00)
[2022-05-31] MEDS ORDERED: FERROUS SO4 325 MG TABLET (FP) PO SCH (22:00)
[2022-05-31] MEDS: THIAMINE HCL 100 MG TABLET (FP) PO SCH (22:53)
[2022-05-31] MEDS: ATORVASTATIN CA 20 MG TABLET (FP) PO SCH (22:53)
[2022-05-31] MEDS: MELATONIN 5 MG TABLETS PO SCH (23:57)
[2022-05-31] MEDS: OLANZapine 10 MG TABLET PO SCH (23:58)
[2022-06-01] MEDS: chlordiazePOXIDE HCL 10 MG CAPSULE PO ONE ×2 (06:11→06:36)
[2022-06-01 08:38] VITALS: BP 105/65; PULSE 75; TEMP 97.7
== END 2022-06-01 09:05 | disposition home or self-care (01) | DRG 897 ==
LOC: YASAS 09:25 → Y6N 11:46
PROVIDERS: ADMIT Allergy & Immunology; ATTEND Surgery
PROC: HZ2ZZZZ Detoxification Services for Substance Abuse Treatment (ICD-10-PCS; principal; 2022-05-27)
DX: F10.230 Alcohol dependence with withdrawal, uncomplicated (principal); F14.20 Cocaine dependence, uncomplicated; F19.282 Other psychoactive substance dependence with psychoactive substance-induced sleep disorder; Z68.1 Body mass index [BMI] 19.9 or less, adult; F17.213 Nicotine dependence, cigarettes, with withdrawal; F20.9 Schizophrenia, unspecified; F19.24 Other psychoactive substance dependence with psychoactive substance-induced mood disorder; G24.01 Drug induced subacute dyskinesia; G20 Parkinson's disease; J43.0 Unilateral pulmonary emphysema [MacLeod's syndrome]; J45.20 Mild intermittent asthma, uncomplicated; Z86.73 Personal history of transient ischemic attack (TIA), and cerebral infarction without residual deficits; Z86.19 Personal history of other infectious and parasitic diseases; R63.4 Abnormal weight loss; Z99.89 Dependence on other enabling machines and devices; W19.XXXA Unspecified fall, initial encounter; Z91.81 History of falling; Y93.89 Activity, other specified; Y92.238 Other place in hospital as the place of occurrence of the external cause
CPT/HCPCS: 36415; 80053; 85027; 86593; 86780; 87811; C9803-CS; U0003; U0005

== ENCOUNTER 2022-05-30 07:39 | Emergency (ER) | payer OTHER ==
[2022-05-30 10:22] VITALS: TEMP 97.7; BMI 17.0
[2022-05-30 12:50] VITALS: BP 158/98; PULSE 91; RESP 20
== END 2022-05-30 12:58 | disposition home or self-care (01) ==
LOC: JER 07:39
DX: Z04.3 Encounter for examination and observation following other accident (principal)
CPT/HCPCS: 70450-TC; 72125-TC; 99284-25

== ENCOUNTER 2022-08-06 09:37 | Inpatient (IN) | payer OTHER ==
[2022-08-06 10:58] VITALS: BMI 18.6
[2022-08-06] MEDS ORDERED: diazePAM 5 MG TABLET PO SCH ×2 (11:00→13:43)
[2022-08-06] MEDS ORDERED: LOPERAMIDE HCL 2 MG CAPSULE PO PRN (11:38)
[2022-08-06] MEDS ORDERED: BENZOCAINE/MENTHOL (CHLORASEPTIC ) LOZENGE MM PRN (11:38)
[2022-08-06] MEDS ORDERED: ONDANSETRON *ODT* 4 MG TABLET SL PRN (11:38)
[2022-08-06] MEDS ORDERED: ACETAMINOPHEN 325 MG TABLET (FP) PO PRN ×2 (11:38)
[2022-08-06] MEDS ORDERED: BISMUTH SUBSALICYLATE 262 MG/15 ML BTL PO PRN (11:38)
[2022-08-06] MEDS ORDERED: NICOTINE 10 MG CARTRIDGE (INHALER) IH PRN (11:38)
[2022-08-06] MEDS ORDERED: METHOCARBAMOL 500 MG TABLET PO PRN (11:38)
[2022-08-06] MEDS ORDERED: MAG HYDROX/AL HYDROX/SIMETH 30 ML UNIT-DOSE CUP PO PRN (11:38)
[2022-08-06] MEDS ORDERED: IBUPROFEN 600 MG TABLET (FP) PO PRN (11:38)
[2022-08-06] MEDS ORDERED: DICYCLOMINE HCL 10 MG CAPSULE PO PRN (11:38)
[2022-08-06] MEDS ORDERED: MAGNESIUM HYDROX 2400MG/30ML ORAL SUSPENSION 30 ML CUP PO PRN (11:38)
[2022-08-06] MEDS ORDERED: POLYETHYLENE GLYCOL (HEALTHYLAX) 3350 17 GM PACKET PO PRN (11:38)
[2022-08-06] MEDS ORDERED: IBUPROFEN 400 MG TABLET (FP) PO PRN (11:38)
[2022-08-06] MEDS ORDERED: NALOXONE HCL (KLOXXADO) 8 MG SPRAY NS PRN (11:38)
[2022-08-06] MEDS ORDERED: ALBUTEROL SO4 HFA INHALER IH PRN (11:44)
[2022-08-06] MEDS ORDERED: FERROUS SO4 325 MG TABLET (FP) PO SCH (11:45)
[2022-08-06] MEDS ORDERED: TIOTROPIUM BROMIDE 2.5 MCG (SPIRIVA) RESPIMAT INHALER IH SCH ×2 (11:45→14:15)
[2022-08-06] MEDS ORDERED: PRENATAL VITAMINS W/ FOLIC ACID TABLET (FP) PO SCH (11:45)
[2022-08-06] MEDS ORDERED: levETIRAcetam 500 MG TABLET (FP) PO SCH (12:00)
[2022-08-06] MEDS: FERROUS SO4 325 MG TABLET (FP) PO SCH ×2 (14:30→22:07)
[2022-08-06] MEDS: levETIRAcetam 500 MG TABLET (FP) PO SCH ×2 (14:32→22:07)
[2022-08-06] MEDS: PRENATAL VITAMINS W/ FOLIC ACID TABLET (FP) PO SCH (14:34)
[2022-08-06] MEDS: diazePAM 5 MG TABLET PO SCH ×2 (19:00→23:58)
[2022-08-06] MEDS ORDERED: MELATONIN 5 MG TABLETS PO SCH (22:00)
[2022-08-06] MEDS: THIAMINE HCL 100 MG TABLET (FP) PO SCH (22:07)
[2022-08-06] MEDS: ATORVASTATIN CA 20 MG TABLET (FP) PO SCH (22:08)
[2022-08-06] MEDS: OLANZapine 10 MG TABLET PO SCH (22:08)
[2022-08-07] MEDS: diazePAM 5 MG TABLET PO SCH ×4 (05:28→23:59)
[2022-08-07] MEDS: PRENATAL VITAMINS W/ FOLIC ACID TABLET (FP) PO SCH (09:49)
[2022-08-07] MEDS: FERROUS SO4 325 MG TABLET (FP) PO SCH ×2 (09:49→22:21)
[2022-08-07] MEDS: levETIRAcetam 500 MG TABLET (FP) PO SCH ×2 (09:49→22:21)
[2022-08-07] MEDS: TIOTROPIUM BROMIDE 2.5 MCG (SPIRIVA) RESPIMAT INHALER IH SCH (09:50)
[2022-08-07 12:11] LABS: HEMATOCRIT 30.5 % (35.4-49); HEMOGLOBIN 10.1 GM/dL (11.7-16.9); MCH 28.6 pg (25.7-33.7); MEAN CELL VOLUME 86.9 fl (80-96); MEAN PLT VOLUME 9.3 fl (7.5-11.1); PLATELET COUNT 123 10^3/uL (134-434); RBC 3.52 M/mm3 (4.00-5.60); WHITE BLOOD COUNT 3.6 K/mm3 (4.0-10.0)
[2022-08-07 12:14] LABS: ALBUMIN 2.9 g/dl (3.4-5.0); BLOOD UREA NITROGEN 16.2 mg/dL (7-18)
[2022-08-07 12:17] LABS: CREATININE 0.8 mg/dL (0.55-1.3)
[2022-08-07 12:19] LABS: BILIRUBIN,TOTAL 0.2 mg/dL (0.2-1); TOT PROT 5.9 g/dl (6.4-8.2)
[2022-08-07] MEDS: OLANZapine 10 MG TABLET PO SCH (22:21)
[2022-08-07] MEDS: THIAMINE HCL 100 MG TABLET (FP) PO SCH (22:21)
[2022-08-07] MEDS: ATORVASTATIN CA 20 MG TABLET (FP) PO SCH (22:21)
[2022-08-08] MEDS: diazePAM 5 MG TABLET PO SCH ×3 (05:45→22:28)
[2022-08-08] MEDS ORDERED: diazePAM 5 MG TABLET PO SCH ×2 (06:00→13:41)
[2022-08-08] MEDS ORDERED: BACITRACIN 15 GM TUBE TOPICAL OINTMENT TP PRN (06:15)
[2022-08-08] MEDS: PRENATAL VITAMINS W/ FOLIC ACID TABLET (FP) PO SCH (09:56)
[2022-08-08] MEDS: levETIRAcetam 500 MG TABLET (FP) PO SCH ×2 (09:56→22:06)
[2022-08-08] MEDS: FERROUS SO4 325 MG TABLET (FP) PO SCH ×2 (09:56→22:05)
[2022-08-08] MEDS: TIOTROPIUM BROMIDE 2.5 MCG (SPIRIVA) RESPIMAT INHALER IH SCH (09:56)
[2022-08-08] MEDS: THIAMINE HCL 100 MG TABLET (FP) PO SCH (22:05)
[2022-08-08] MEDS: ATORVASTATIN CA 20 MG TABLET (FP) PO SCH (22:05)
[2022-08-08] MEDS: OLANZapine 10 MG TABLET PO SCH (22:05)
[2022-08-09] MEDS: diazePAM 5 MG TABLET PO SCH ×2 (05:23→18:54)
[2022-08-09] MEDS: levETIRAcetam 500 MG TABLET (FP) PO SCH ×2 (10:13→22:27)
[2022-08-09] MEDS: FERROUS SO4 325 MG TABLET (FP) PO SCH ×2 (10:13→22:27)
[2022-08-09] MEDS: PRENATAL VITAMINS W/ FOLIC ACID TABLET (FP) PO SCH (10:13)
[2022-08-09] MEDS: TIOTROPIUM BROMIDE 2.5 MCG (SPIRIVA) RESPIMAT INHALER IH SCH (10:15)
[2022-08-09] MEDS: THIAMINE HCL 100 MG TABLET (FP) PO SCH (22:26)
[2022-08-09] MEDS: OLANZapine 10 MG TABLET PO SCH (22:27)
[2022-08-09] MEDS: ATORVASTATIN CA 20 MG TABLET (FP) PO SCH (22:27)
[2022-08-10] MEDS ORDERED: diazePAM 5 MG TABLET PO ONE (06:00)
[2022-08-10 09:08] VITALS: BP 124/72; PULSE 100; RESP 20; TEMP 98.1
[2022-08-10] MEDS: FERROUS SO4 325 MG TABLET (FP) PO SCH (09:45)
[2022-08-10] MEDS: PRENATAL VITAMINS W/ FOLIC ACID TABLET (FP) PO SCH (09:45)
[2022-08-10] MEDS: levETIRAcetam 500 MG TABLET (FP) PO SCH (09:45)
[2022-08-10] MEDS: TIOTROPIUM BROMIDE 2.5 MCG (SPIRIVA) RESPIMAT INHALER IH SCH (09:46)
== END 2022-08-10 12:35 | disposition home or self-care (01) | DRG 897 ==
LOC: YASAS 09:37 → Y6N 12:30
PROVIDERS: ADMIT Allergy & Immunology; ATTEND Surgery
PROC: HZ2ZZZZ Detoxification Services for Substance Abuse Treatment (ICD-10-PCS; principal; 2022-08-06)
DX: F10.230 Alcohol dependence with withdrawal, uncomplicated (principal); F14.20 Cocaine dependence, uncomplicated; F19.282 Other psychoactive substance dependence with psychoactive substance-induced sleep disorder; Z68.1 Body mass index [BMI] 19.9 or less, adult; F17.210 Nicotine dependence, cigarettes, uncomplicated; F19.24 Other psychoactive substance dependence with psychoactive substance-induced mood disorder; F20.9 Schizophrenia, unspecified; F31.9 Bipolar disorder, unspecified; D64.9 Anemia, unspecified; G24.01 Drug induced subacute dyskinesia; G20 Parkinson's disease; G40.909 Epilepsy, unspecified, not intractable, without status epilepticus; J44.9 Chronic obstructive pulmonary disease, unspecified; R63.4 Abnormal weight loss; R29.6 Repeated falls; Z86.73 Personal history of transient ischemic attack (TIA), and cerebral infarction without residual deficits; Z91.81 History of falling; Z99.89 Dependence on other enabling machines and devices; Z86.19 Personal history of other infectious and parasitic diseases; W19.XXXA Unspecified fall, initial encounter; Y92.230 Patient room in hospital as the place of occurrence of the external cause
CPT/HCPCS: 36415; 80053; 82140; 82962; 85027; 86593; 86780; C9803-CS; U0003; U0005

== ENCOUNTER 2023-01-12 09:31 | Inpatient (IN) | payer OTHER ==
[2023-01-12 11:25] VITALS: BMI 17.4
[2023-01-12] MEDS ORDERED: NICOTINE POLACRILEX 2 MG GUM BUC PRN (13:25)
[2023-01-12] MEDS ORDERED: ACETAMINOPHEN 325 MG TABLET (FP) PO PRN (13:25)
[2023-01-12] MEDS ORDERED: METHOCARBAMOL 500 MG TABLET PO PRN (13:25)
[2023-01-12] MEDS ORDERED: BENZOCAINE/MENTHOL (CHLORASEPTIC ) LOZENGE MM PRN (13:25)
[2023-01-12] MEDS ORDERED: BENZONATATE 200 MG CAPSULE PO PRN (13:25)
[2023-01-12] MEDS ORDERED: ONDANSETRON *ODT* 4 MG TABLET SL PRN (13:25)
[2023-01-12] MEDS ORDERED: NICOTINE 10 MG CARTRIDGE (INHALER) IH PRN (13:25)
[2023-01-12] MEDS ORDERED: POLYETHYLENE GLYCOL (HEALTHYLAX) 3350 17 GM PACKET PO PRN (13:25)
[2023-01-12] MEDS ORDERED: hydrOXYzine PAMOATE 25 MG CAPSULE (FP) PO PRN (13:25)
[2023-01-12] MEDS ORDERED: guaiFENesin 600 MG TABLET.ER (FP) PO PRN (13:25)
[2023-01-12] MEDS ORDERED: BISMUTH SUBSALICYLATE 524 MG/30 ML PO PRN (13:25)
[2023-01-12] MEDS ORDERED: diazePAM 5 MG TABLET PO PRN (13:25)
[2023-01-12] MEDS ORDERED: LOPERAMIDE HCL 2 MG CAPSULE PO PRN (13:25)
[2023-01-12] MEDS ORDERED: IBUPROFEN 400 MG TABLET (FP) PO PRN (13:25)
[2023-01-12] MEDS ORDERED: MAG HYDROX/AL HYDROX/SIMETH 30 ML UNIT-DOSE CUP PO PRN (13:25)
[2023-01-12] MEDS ORDERED: NALOXONE HCL (KLOXXADO) 8 MG SPRAY NS PRN (13:25)
[2023-01-12] MEDS ORDERED: IBUPROFEN 600 MG TABLET (FP) PO PRN (13:25)
[2023-01-12] MEDS ORDERED: NALOXONE HCL 0.4 MG/ML VIAL IM PRN (13:25)
[2023-01-12] MEDS ORDERED: MAGNESIUM HYDROX 2400MG/30ML ORAL SUSPENSION 30 ML CUP PO PRN (13:25)
[2023-01-12] MEDS ORDERED: DICYCLOMINE HCL 10 MG CAPSULE PO PRN (13:25)
[2023-01-12] MEDS: diazePAM 5 MG TABLET PO SCH ×2 (17:38→22:44)
[2023-01-12] MEDS ORDERED: ALBUTEROL SO4 HFA INHALER IH PRN (18:38)
[2023-01-12] MEDS: levETIRAcetam 500 MG TABLET (FP) PO SCH (22:43)
[2023-01-12] MEDS: MELATONIN 5 MG TABLETS PO SCH (22:44)
[2023-01-12] MEDS: FERROUS SO4 325 MG TABLET (FP) PO SCH (22:44)
[2023-01-12] MEDS: ATORVASTATIN CA 20 MG TABLET (FP) PO SCH (22:44)
[2023-01-12] MEDS: THIAMINE HCL 100 MG TABLET (FP) PO SCH (22:44)
[2023-01-13] MEDS: diazePAM 5 MG TABLET PO SCH ×4 (06:02→22:45)
[2023-01-13] MEDS: FERROUS SO4 325 MG TABLET (FP) PO SCH ×2 (09:10→22:45)
[2023-01-13] MEDS: PRENATAL VITAMINS W/ FOLIC ACID TABLET (FP) PO SCH (09:10)
[2023-01-13] MEDS: levETIRAcetam 500 MG TABLET (FP) PO SCH ×2 (09:11→22:45)
[2023-01-13 09:18] LABS: HEMATOCRIT 27.6 % (35.4-49); HEMOGLOBIN 8.8 GM/dL (11.7-16.9); MCH 27.9 pg (25.7-33.7); MCHC 32.1 g/dl (32.0-35.9); MEAN CELL VOLUME 87.1 fl (80-96); MEAN PLT VOLUME 9.9 fl (7.5-11.1); PLATELET COUNT 153 10^3/uL (134-434); RBC 3.16 M/mm3 (4.00-5.60); RDW 17.4 % (11.9-15.9); WHITE BLOOD COUNT 4.5 K/mm3 (4.0-10.0)
[2023-01-13 09:19] LABS: POTASSIUM 3.9 mmol/L (3.5-5.1)
[2023-01-13 09:36] LABS: CALCIUM 8.2 mg/dL (8.5-10.1)
[2023-01-13 09:37] LABS: ALBUMIN 2.3 g/dl (3.4-5.0); BLOOD UREA NITROGEN 12.8 mg/dL (7-18)
[2023-01-13 09:40] LABS: CREATININE 0.6 mg/dL (0.55-1.3)
[2023-01-13 09:41] LABS: BILIRUBIN,TOTAL 0.8 mg/dL (0.2-1); TOT PROT 5.6 g/dl (6.4-8.2)
[2023-01-13] MEDS: TIOTROPIUM BROMIDE 2.5 MCG (SPIRIVA) RESPIMAT INHALER IH SCH (09:53)
[2023-01-13] MEDS: ATORVASTATIN CA 20 MG TABLET (FP) PO SCH (22:45)
[2023-01-13] MEDS: OLANZapine 10 MG TABLET PO SCH (22:45)
[2023-01-13] MEDS: THIAMINE HCL 100 MG TABLET (FP) PO SCH (22:45)
[2023-01-13] MEDS: MELATONIN 5 MG TABLETS PO SCH (23:38)
[2023-01-14] MEDS: diazePAM 5 MG TABLET PO SCH ×3 (05:54→22:18)
[2023-01-14] MEDS: FERROUS SO4 325 MG TABLET (FP) PO SCH ×2 (10:35→22:17)
[2023-01-14] MEDS: PRENATAL VITAMINS W/ FOLIC ACID TABLET (FP) PO SCH (10:35)
[2023-01-14] MEDS: levETIRAcetam 500 MG TABLET (FP) PO SCH ×2 (10:35→22:17)
[2023-01-14] MEDS: TIOTROPIUM BROMIDE 2.5 MCG (SPIRIVA) RESPIMAT INHALER IH SCH (10:36)
[2023-01-14] MEDS: ATORVASTATIN CA 20 MG TABLET (FP) PO SCH (22:17)
[2023-01-14] MEDS: MELATONIN 5 MG TABLETS PO SCH (22:17)
[2023-01-14] MEDS: THIAMINE HCL 100 MG TABLET (FP) PO SCH (22:17)
[2023-01-14] MEDS: OLANZapine 10 MG TABLET PO SCH (22:19)
[2023-01-15] MEDS: diazePAM 5 MG TABLET PO SCH ×2 (06:17→17:22)
[2023-01-15] MEDS: levETIRAcetam 500 MG TABLET (FP) PO SCH ×2 (09:48→22:01)
[2023-01-15] MEDS: FERROUS SO4 325 MG TABLET (FP) PO SCH ×2 (09:48→22:01)
[2023-01-15] MEDS: TIOTROPIUM BROMIDE 2.5 MCG (SPIRIVA) RESPIMAT INHALER IH SCH (09:48)
[2023-01-15] MEDS: PRENATAL VITAMINS W/ FOLIC ACID TABLET (FP) PO SCH (09:48)
[2023-01-15 11:23] LABS: HEMATOCRIT 25.8 % (35.4-49); HEMOGLOBIN 8.3 GM/dL (11.7-16.9); MCH 27.6 pg (25.7-33.7); MCHC 32.4 g/dl (32.0-35.9); MEAN CELL VOLUME 85.3 fl (80-96); MEAN PLT VOLUME 9.5 fl (7.5-11.1); PLATELET COUNT 142 10^3/uL (134-434); RBC 3.02 M/mm3 (4.00-5.60); RDW 17.6 % (11.9-15.9)
[2023-01-15 20:43] VITALS: BP 153/83; PULSE 132; RESP 16; TEMP 105
[2023-01-15] MEDS: ATORVASTATIN CA 20 MG TABLET (FP) PO SCH (22:01)
[2023-01-15] MEDS: THIAMINE HCL 100 MG TABLET (FP) PO SCH (22:01)
[2023-01-15] MEDS: OLANZapine 10 MG TABLET PO SCH (22:01)
[2023-01-15] MEDS: MELATONIN 5 MG TABLETS PO SCH (22:01)
[2023-01-16] MEDS ORDERED: diazePAM 5 MG TABLET PO ONE (06:00)
== END 2023-01-16 02:00 | disposition short-term general hospital (02) | DRG 896 ==
LOC: YASAS 09:31 → Y6N 14:01
PROVIDERS: ADMIT Allergy & Immunology; ATTEND Surgery
PROC: HZ2ZZZZ Detoxification Services for Substance Abuse Treatment (ICD-10-PCS; principal; 2023-01-12)
DX: F10.230 Alcohol dependence with withdrawal, uncomplicated (principal); D60.8 Other acquired pure red cell aplasias; F19.282 Other psychoactive substance dependence with psychoactive substance-induced sleep disorder; I69.851 Hemiplegia and hemiparesis following other cerebrovascular disease affecting right dominant side; F17.210 Nicotine dependence, cigarettes, uncomplicated; F20.9 Schizophrenia, unspecified; G20 Parkinson's disease; G40.909 Epilepsy, unspecified, not intractable, without status epilepticus; G24.01 Drug induced subacute dyskinesia; J44.9 Chronic obstructive pulmonary disease, unspecified; R50.9 Fever, unspecified; R32 Unspecified urinary incontinence; R15.9 Full incontinence of feces; Z99.89 Dependence on other enabling machines and devices
CPT/HCPCS: 36415; 80053; 85027; 86593; 86780; 87635

== ENCOUNTER 2023-01-15 21:06 | Inpatient (IN) | payer OTHER ==
[2023-01-15] MEDS ORDERED: SODIUM CHLORIDE 1,429 ML IV ONE (21:18)
[2023-01-15] MEDS ORDERED: PIPERACILLIN/TAZOB 3.375 GM 3.375 GM in DEXTROSE 5%-WATER - 50 ML IVPB ONE (21:20)
[2023-01-15] MEDS ORDERED: VANCOMYCIN 1 GM in D5W (PRE-DOCKED) 1,000 MG/250 ML (RESTRICTED TO ID ONLY IVPB ONE (21:20)
[2023-01-15] MEDS ORDERED: ACETAMINOPHEN 1000 MG/100 ML BAG IVPB ONE (21:21)
[2023-01-15] MEDS ORDERED: ACETAMINOPHEN INJECTION 100 ML IVPB ONE (21:47)
[2023-01-15] MEDS ORDERED: levETIRAcetam 500 MG/5 ML INJECTION VIAL IVPB ONE ×2 (21:53→22:26)
[2023-01-15] MEDS ORDERED: PIPERACILLIN/TAZOB 3.375 GM 3.375 GM/50 ML BAG IVPB ONE (22:27)
[2023-01-15] MEDS ORDERED: VANCOMYCIN/WATER FOR INJ (PEG) 1,000 MG/200 ML BAG IVPB ONE (22:27)
[2023-01-15 22:35] LABS: BASO % 0.2 % (0-2.0); EOS % 0.2 % (0-4.5); HEMATOCRIT 28.3 % (35.4-49); HEMOGLOBIN 9.3 GM/dL (11.7-16.9); LYMPH % 3.4 % (8-40); MCH 27.9 pg (25.7-33.7); MCHC 32.8 g/dl (32.0-35.9); MEAN CELL VOLUME 85.2 fl (80-96); MONO % 6.6 % (3.8-10.2); NEUT % 89.6 % (42.8-82.8); PH,URINE 8.5 (5.0-8.0); PLATELET COUNT 140 10^3/uL (134-434); RBC 3.32 M/mm3 (4.00-5.60); RDW 17.1 % (11.9-15.9); URINE APPEARANCE CLEAR; URINE BILIRUBIN NEGATIVE (NEGATIVE); URINE COLOR YELLOW; URINE GLUCOSE (UA) NEGATIVE (NEGATIVE); URINE KETONE NEGATIVE (NEGATIVE); URINE LEUK ESTERASE NEGATIVE (NEGATIVE); URINE NITRITE NEGATIVE (NEGATIVE); URINE PROTEIN NEGATIVE (NEGATIVE); WHITE BLOOD COUNT 8.6 K/mm3 (4.0-10.0)
[2023-01-15 22:59] LABS: POTASSIUM 4.1 mmol/L (3.5-5.1)
[2023-01-15 23:00] LABS: VENOUS BASE EXCESS -0.7 mmol/L (-2-2); VENOUS O2 SATURATION 87.3 % (70-80); VENOUS PCO2 45.1 mmHg (38-52); VENOUS PH 7.36 (7.310-7.410)
[2023-01-15 23:01] LABS: ALBUMIN 2.7 g/dl (3.4-5.0); BLOOD UREA NITROGEN 16.7 mg/dL (7-18); CALCIUM 8.3 mg/dL (8.5-10.1)
[2023-01-15 23:04] LABS: CREATININE 0.7 mg/dL (0.55-1.3)
[2023-01-15 23:06] LABS: BILIRUBIN,TOTAL 0.2 mg/dL (0.2-1); TOT PROT 6.8 g/dl (6.4-8.2)
[2023-01-15 23:15] LABS: INR 1.16 (0.83-1.09); PROTHROMBIN TIME (PATIENT) 13.4 SEC (9.7-13.0)
[2023-01-15 23:17] LABS: ACTIVATED PTT 26.8 SECONDS (25.2-36.5)
[2023-01-16] MEDS ORDERED: LORazepam 2 MG/ML SDV VIAL IVPUSH PRN ×2 (01:20→01:48)
[2023-01-16] MEDS: SODIUM CHLORIDE 1,000 ML IV SCH ×2 (02:45→16:31)
[2023-01-16 04:01] VITALS: RESP 18
[2023-01-16] MEDS: PIPERACILLIN/TAZOB 3.375 GM 3.375 GM in DEXTROSE 5%-WATER - 50 ML IVPB SCH ×5 (04:13→21:25)
[2023-01-16 04:35] VITALS: BMI 19.3
[2023-01-16 07:24] LABS: HEMATOCRIT 25.8 % (35.4-49); HEMOGLOBIN 8.3 GM/dL (11.7-16.9); MCHC 32.1 g/dl (32.0-35.9); MEAN CELL VOLUME 87.5 fl (80-96); MEAN PLT VOLUME 9.8 fl (7.5-11.1); PLATELET COUNT 131 10^3/uL (134-434); RBC 2.94 M/mm3 (4.00-5.60); RDW 17.3 % (11.9-15.9); WHITE BLOOD COUNT 9.6 K/mm3 (4.0-10.0)
[2023-01-16 07:43] LABS: POTASSIUM 4.2 mmol/L (3.5-5.1)
[2023-01-16 07:46] LABS: CALCIUM 7.7 mg/dL (8.5-10.1)
[2023-01-16 07:47] LABS: ALBUMIN 2.2 g/dl (3.4-5.0); BLOOD UREA NITROGEN 11.9 mg/dL (7-18); MAGNESIUM 1.7 mg/dL (1.8-2.4)
[2023-01-16 07:49] LABS: CREATININE 0.6 mg/dL (0.55-1.3); PHOSPHOROUS 2.6 mg/dL (2.5-4.9)
[2023-01-16 07:51] LABS: BILIRUBIN,TOTAL 0.3 mg/dL (0.2-1); TOT PROT 5.7 g/dl (6.4-8.2)
[2023-01-16 07:55] LABS: IRON SERUM 14 ug/dL (50-175); TOTAL IRON BINDING CAPACITY 189 ug/dL (250-450)
[2023-01-16] MEDS: FOLIC ACID 1 MG TABLET (FP) PO SCH (09:36)
[2023-01-16] MEDS: levETIRAcetam 500 MG TABLET (FP) PO SCH ×2 (09:37→22:22)
[2023-01-16] MEDS: THIAMINE HCL 100 MG TABLET (FP) PO SCH (09:37)
[2023-01-16] MEDS: ENOXAPARIN NA (PORCINE) 40 MG/0.4 ML DISP.SYRIN SQ SCH (09:37)
[2023-01-16] MEDS: VALPROATE SODIUM 250 MG/5 ML UNIT DOSE CUP PO SCH (09:38)
[2023-01-16] MEDS ORDERED: VANCOMYCIN/WATER FOR INJ (PEG) 750 MG/150 ML BAG IVPB SCH ×2 (22:00)
[2023-01-17 08:12] LABS: POTASSIUM 4.3 mmol/L (3.5-5.1)
[2023-01-17 08:34] LABS: BLOOD UREA NITROGEN 15.8 mg/dL (7-18); CALCIUM 7.7 mg/dL (8.5-10.1)
[2023-01-17 08:38] LABS: CREATININE 0.5 mg/dL (0.55-1.3); PHOSPHOROUS 2.5 mg/dL (2.5-4.9)
[2023-01-17 09:03] VITALS: BP 123/69; PULSE 80; TEMP 98.6
[2023-01-17] MEDS: VALPROATE SODIUM 250 MG/5 ML UNIT DOSE CUP PO SCH (09:11)
[2023-01-17] MEDS: ENOXAPARIN NA (PORCINE) 40 MG/0.4 ML DISP.SYRIN SQ SCH (09:11)
[2023-01-17] MEDS: levETIRAcetam 500 MG TABLET (FP) PO SCH (09:11)
[2023-01-17] MEDS: FOLIC ACID 1 MG TABLET (FP) PO SCH (09:11)
[2023-01-17] MEDS: THIAMINE HCL 100 MG TABLET (FP) PO SCH (09:11)
== END 2023-01-17 14:11 | disposition other institution (70) | DRG 71 ==
LOC: JER 21:06 → JERBED 01-16 00:20 → J4W 01-16 02:52 → OBSVTOIN 01-16 10:13
PROVIDERS: ADMIT Internal Medicine; ATTEND Internal Medicine
PROC: HZ2ZZZZ Detoxification Services for Substance Abuse Treatment (ICD-10-PCS; principal; 2023-01-15)
DX: G93.41 Metabolic encephalopathy (principal); R64 Cachexia; R65.10 Systemic inflammatory response syndrome (SIRS) of non-infectious origin without acute organ dysfunction; Z68.1 Body mass index [BMI] 19.9 or less, adult; J44.9 Chronic obstructive pulmonary disease, unspecified; G21.0 Malignant neuroleptic syndrome; J45.909 Unspecified asthma, uncomplicated; F10.10 Alcohol abuse, uncomplicated; F14.10 Cocaine abuse, uncomplicated; G20 Parkinson's disease; G40.909 Epilepsy, unspecified, not intractable, without status epilepticus; F17.200 Nicotine dependence, unspecified, uncomplicated; F32.A Depression, unspecified; F25.9 Schizoaffective disorder, unspecified; R50.9 Fever, unspecified; R00.0 Tachycardia, unspecified; G24.01 Drug induced subacute dyskinesia
CPT/HCPCS: 0241U-QW; 36415; 70450-TC; 71045-TC-FY; 80048; 80053; 80177; 81003; 82550; 82803; 82962; 83540; 83550; 83605; 83735; 84100; 84146; 84466; 84484; 85025; 85027; 85045; 85610; 85730; 86850; 86900; 86901; 87040; 87086; 93005; 93010; 99285-25; G0378

== ENCOUNTER 2023-02-11 12:17 | Inpatient (IN) | payer OTHER ==
[2023-02-11 13:02] VITALS: BMI 16.9
[2023-02-11] MEDS ORDERED: BENZOCAINE/MENTHOL (CHLORASEPTIC ) LOZENGE MM PRN (15:42)
[2023-02-11] MEDS ORDERED: MAG HYDROX/AL HYDROX/SIMETH 30 ML UNIT-DOSE CUP PO PRN (15:42)
[2023-02-11] MEDS ORDERED: ONDANSETRON *ODT* 4 MG TABLET SL PRN (15:42)
[2023-02-11] MEDS ORDERED: IBUPROFEN 600 MG TABLET (FP) PO PRN (15:42)
[2023-02-11] MEDS ORDERED: BISMUTH SUBSALICYLATE 262 MG/15 ML BTL PO PRN (15:42)
[2023-02-11] MEDS ORDERED: LOPERAMIDE HCL 2 MG CAPSULE PO PRN (15:42)
[2023-02-11] MEDS ORDERED: DICYCLOMINE HCL 10 MG CAPSULE PO PRN (15:42)
[2023-02-11] MEDS ORDERED: BENZONATATE 200 MG CAPSULE PO PRN (15:42)
[2023-02-11] MEDS ORDERED: IBUPROFEN 400 MG TABLET (FP) PO PRN (15:42)
[2023-02-11] MEDS ORDERED: NALOXONE HCL 0.4 MG/ML VIAL IM PRN (15:42)
[2023-02-11] MEDS ORDERED: POLYETHYLENE GLYCOL (HEALTHYLAX) 3350 17 GM PACKET PO PRN (15:42)
[2023-02-11] MEDS ORDERED: guaiFENesin 600 MG TABLET.ER (FP) PO PRN (15:42)
[2023-02-11] MEDS ORDERED: MAGNESIUM HYDROX 2400MG/30ML ORAL SUSPENSION 30 ML CUP PO PRN (15:42)
[2023-02-11] MEDS ORDERED: ACETAMINOPHEN 325 MG TABLET (FP) PO PRN (15:42)
[2023-02-11] MEDS ORDERED: NICOTINE POLACRILEX 2 MG GUM BUC PRN (15:42)
[2023-02-11] MEDS ORDERED: NALOXONE HCL (KLOXXADO) 8 MG SPRAY NS PRN (15:42)
[2023-02-11] MEDS: PRENATAL VITAMINS W/ FOLIC ACID TABLET (FP) PO SCH (17:34)
[2023-02-11] MEDS: levETIRAcetam 500 MG TABLET (FP) PO SCH (22:08)
[2023-02-11] MEDS: MELATONIN 5 MG TABLETS PO SCH (22:09)
[2023-02-11] MEDS: THIAMINE HCL 100 MG TABLET (FP) PO SCH (22:09)
[2023-02-12] MEDS ORDERED: levETIRAcetam 500 MG TABLET (FP) PO SCH (10:00)
[2023-02-12] MEDS: PRENATAL VITAMINS W/ FOLIC ACID TABLET (FP) PO SCH (10:22)
[2023-02-12] MEDS: levETIRAcetam 500 MG TABLET (FP) PO SCH ×2 (10:22→22:16)
[2023-02-12 11:20] LABS: HEMATOCRIT 30.5 % (35.4-49); HEMOGLOBIN 9.7 GM/dL (11.7-16.9); MCH 27.9 pg (25.7-33.7); MCHC 31.8 g/dl (32.0-35.9); MEAN CELL VOLUME 87.6 fl (80-96); MEAN PLT VOLUME 10.1 fl (7.5-11.1); PLATELET COUNT 170 10^3/uL (134-434); RBC 3.49 M/mm3 (4.00-5.60); RDW 16.3 % (11.9-15.9); WHITE BLOOD COUNT 7.5 K/mm3 (4.0-10.0)
[2023-02-12 11:47] LABS: POTASSIUM 3.5 mmol/L (3.5-5.1)
[2023-02-12 12:18] LABS: ALBUMIN 2.7 g/dl (3.4-5.0); BLOOD UREA NITROGEN 8.2 mg/dL (7-18); CALCIUM 8.4 mg/dL (8.5-10.1)
[2023-02-12 12:22] LABS: CREATININE 0.6 mg/dL (0.55-1.3)
[2023-02-12 12:23] LABS: BILIRUBIN,TOTAL 0.2 mg/dL (0.2-1); TOT PROT 6.7 g/dl (6.4-8.2)
[2023-02-12] MEDS ORDERED: traZODone HCL 50 MG TABLET (FP) PO SCH (22:00)
[2023-02-12] MEDS ORDERED: OLANZapine 10 MG TABLET PO SCH (22:00)
[2023-02-12] MEDS: THIAMINE HCL 100 MG TABLET (FP) PO SCH (22:16)
[2023-02-12] MEDS: MELATONIN 5 MG TABLETS PO SCH (22:39)
[2023-02-13 06:13] VITALS: RESP 18
[2023-02-13] MEDS ORDERED: ALBUTEROL SO4 HFA INHALER IH PRN (09:06)
[2023-02-13] MEDS: levETIRAcetam 500 MG TABLET (FP) PO SCH (09:34)
[2023-02-13] MEDS: PRENATAL VITAMINS W/ FOLIC ACID TABLET (FP) PO SCH (09:34)
[2023-02-13 12:41] VITALS: BP 123/74; PULSE 87; TEMP 97.7
== END 2023-02-13 12:30 | disposition other institution (70) | DRG 897 ==
LOC: YASAS 12:17 → Y6N 16:21
PROVIDERS: ADMIT Allergy & Immunology; ATTEND Surgery
PROC: HZ2ZZZZ Detoxification Services for Substance Abuse Treatment (ICD-10-PCS; principal; 2023-02-11)
DX: F10.230 Alcohol dependence with withdrawal, uncomplicated (principal); F14.20 Cocaine dependence, uncomplicated; F17.210 Nicotine dependence, cigarettes, uncomplicated; F20.9 Schizophrenia, unspecified; G40.909 Epilepsy, unspecified, not intractable, without status epilepticus; J45.20 Mild intermittent asthma, uncomplicated; G20 Parkinson's disease; G24.01 Drug induced subacute dyskinesia; J45.909 Unspecified asthma, uncomplicated; Z86.19 Personal history of other infectious and parasitic diseases; Z86.73 Personal history of transient ischemic attack (TIA), and cerebral infarction without residual deficits; Z99.89 Dependence on other enabling machines and devices
CPT/HCPCS: 36415; 80053; 85027; 86593; 86780; 87635; 87811; 93005; 93010

== ENCOUNTER 2023-02-13 12:37 | Inpatient (IN) | payer OTHER ==
[2023-02-13] MEDS ORDERED: POLYETHYLENE GLYCOL (HEALTHYLAX) 3350 17 GM PACKET PO PRN (14:03)
[2023-02-13] MEDS ORDERED: hydrOXYzine PAMOATE 25 MG CAPSULE (FP) PO PRN (14:03)
[2023-02-13] MEDS ORDERED: BACLOFEN 10 MG TABLET (FP) PO PRN (14:03)
[2023-02-13] MEDS ORDERED: IBUPROFEN 600 MG TABLET (FP) PO PRN (14:03)
[2023-02-13] MEDS ORDERED: MAG HYDROX/AL HYDROX/SIMETH 30 ML UNIT-DOSE CUP PO PRN (14:03)
[2023-02-13] MEDS ORDERED: NICOTINE POLACRILEX 2 MG GUM BUC PRN (14:03)
[2023-02-13] MEDS ORDERED: LOPERAMIDE HCL 2 MG CAPSULE PO PRN (14:03)
[2023-02-13] MEDS ORDERED: NALOXONE HCL 0.4 MG/ML VIAL IVPUSH PRN (14:03)
[2023-02-13] MEDS ORDERED: NICOTINE 10 MG CARTRIDGE (INHALER) IH PRN (14:03)
[2023-02-13] MEDS ORDERED: BENZONATATE 200 MG CAPSULE PO PRN (14:03)
[2023-02-13] MEDS ORDERED: NALOXONE HCL (KLOXXADO) 8 MG SPRAY NS PRN (14:03)
[2023-02-13] MEDS ORDERED: ACETAMINOPHEN 325 MG TABLET (FP) PO PRN (14:03)
[2023-02-13] MEDS ORDERED: IBUPROFEN 400 MG TABLET (FP) PO PRN (14:03)
[2023-02-13] MEDS ORDERED: MAGNESIUM HYDROX 2400MG/30ML ORAL SUSPENSION 30 ML CUP PO PRN (14:03)
[2023-02-13] MEDS ORDERED: guaiFENesin 600 MG TABLET.ER (FP) PO PRN (14:03)
[2023-02-13] MEDS ORDERED: NICOTINE 21 MG/24 HOURS TOPICAL PATCH TD PRN (14:03)
[2023-02-13] MEDS ORDERED: BENZOCAINE/MENTHOL (CHLORASEPTIC ) LOZENGE MM PRN (14:03)
[2023-02-13] MEDS ORDERED: AMMONIUM LACTATE 12% LOTION 225 GM BOTTLE TP PRN (14:03)
[2023-02-13] MEDS ORDERED: COLLOIDAL OATMEAL 1 BAR EACH TP PRN (14:03)
[2023-02-13] MEDS ORDERED: ALBUTEROL SO4 HFA INHALER IH PRN (14:07)
[2023-02-13] MEDS ORDERED: guaiFENesin 200 MG/10 ML 10 ML UNIT-DOSE CUPS PO PRN (14:08)
[2023-02-13] MEDS: THIAMINE HCL 100 MG TABLET (FP) PO SCH (21:11)
[2023-02-13] MEDS: levETIRAcetam 500 MG TABLET (FP) PO SCH (21:12)
[2023-02-13] MEDS: traZODone HCL 50 MG TABLET (FP) PO SCH (21:12)
[2023-02-13] MEDS ORDERED: OLANZapine 10 MG TABLET PO SCH (22:00)
[2023-02-13] MEDS ORDERED: MELATONIN 5 MG TABLETS PO SCH (22:00)
[2023-02-14] MEDS: levETIRAcetam 500 MG TABLET (FP) PO SCH ×2 (09:39→21:18)
[2023-02-14] MEDS: PRENATAL VITAMINS W/ FOLIC ACID TABLET (FP) PO SCH (09:39)
[2023-02-14 12:50] LABS: HIV INTERPRETATION NEGATIVE (NEGATIVE)
[2023-02-14] MEDS: FERROUS SO4 325 MG TABLET (FP) PO SCH (15:39)
[2023-02-14] MEDS: THIAMINE HCL 100 MG TABLET (FP) PO SCH (21:17)
[2023-02-14] MEDS: traZODone HCL 50 MG TABLET (FP) PO SCH (21:18)
[2023-02-14] MEDS: LACTULOSE 20 GM/30 ML UDC (FOR ORAL USE ONLY) PO SCH (21:18)
[2023-02-14] MEDS: OLANZapine 10 MG TABLET PO SCH (21:19)
[2023-02-15] MEDS: LACTULOSE 20 GM/30 ML UDC (FOR ORAL USE ONLY) PO SCH ×2 (06:41→21:22)
[2023-02-15] MEDS: levETIRAcetam 500 MG TABLET (FP) PO SCH ×2 (10:00→21:22)
[2023-02-15] MEDS: PRENATAL VITAMINS W/ FOLIC ACID TABLET (FP) PO SCH (10:00)
[2023-02-15] MEDS: FERROUS SO4 325 MG TABLET (FP) PO SCH (10:00)
[2023-02-15 10:41] LABS: INR 1.04 (0.83-1.09); PROTHROMBIN TIME (PATIENT) 12.1 SEC (9.7-13.0)
[2023-02-15] MEDS: ERGOCALCIFEROL (VIT D2) 50,000 UNIT (1.25 MG) CAPSULE PO SCH (13:50)
[2023-02-15] MEDS ORDERED: LACTULOSE 20 GM/30 ML UDC (FOR ORAL USE ONLY) PO SCH (14:00)
[2023-02-15] MEDS: THIAMINE HCL 100 MG TABLET (FP) PO SCH (21:22)
[2023-02-15] MEDS: OLANZapine 10 MG TABLET PO SCH (21:22)
[2023-02-15] MEDS: traZODone HCL 50 MG TABLET (FP) PO SCH (21:22)
[2023-02-16] MEDS: LACTULOSE 20 GM/30 ML UDC (FOR ORAL USE ONLY) PO SCH ×3 (06:32→21:27)
[2023-02-16] MEDS: levETIRAcetam 500 MG TABLET (FP) PO SCH ×2 (09:30→21:27)
[2023-02-16] MEDS: MAGNESIUM CL 64 MG TABLET.SA PO SCH (09:30)
[2023-02-16] MEDS: FERROUS SO4 325 MG TABLET (FP) PO SCH (09:30)
[2023-02-16] MEDS: PRENATAL VITAMINS W/ FOLIC ACID TABLET (FP) PO SCH (09:31)
[2023-02-16] MEDS ORDERED: CHOLECALCIFEROL (VIT D3) 1,000 UNIT (25 MCG) TABLET PO SCH (10:00)
[2023-02-16] MEDS: traZODone HCL 50 MG TABLET (FP) PO SCH (21:27)
[2023-02-16] MEDS: THIAMINE HCL 100 MG TABLET (FP) PO SCH (21:27)
[2023-02-16] MEDS: OLANZapine 10 MG TABLET PO SCH (21:27)
[2023-02-17] MEDS: LACTULOSE 20 GM/30 ML UDC (FOR ORAL USE ONLY) PO SCH ×3 (06:19→21:11)
[2023-02-17] MEDS: levETIRAcetam 500 MG TABLET (FP) PO SCH ×2 (10:00→21:11)
[2023-02-17] MEDS: FERROUS SO4 325 MG TABLET (FP) PO SCH (10:00)
[2023-02-17] MEDS: PRENATAL VITAMINS W/ FOLIC ACID TABLET (FP) PO SCH (10:00)
[2023-02-17] MEDS: MAGNESIUM CL 64 MG TABLET.SA PO SCH (10:01)
[2023-02-17] MEDS: THIAMINE HCL 100 MG TABLET (FP) PO SCH (21:11)
[2023-02-17] MEDS: traZODone HCL 50 MG TABLET (FP) PO SCH (21:11)
[2023-02-17] MEDS: OLANZapine 10 MG TABLET PO SCH (21:11)
[2023-02-18] MEDS: LACTULOSE 20 GM/30 ML UDC (FOR ORAL USE ONLY) PO SCH ×3 (06:47→21:14)
[2023-02-18] MEDS: PRENATAL VITAMINS W/ FOLIC ACID TABLET (FP) PO SCH (09:36)
[2023-02-18] MEDS: FERROUS SO4 325 MG TABLET (FP) PO SCH (09:36)
[2023-02-18] MEDS: levETIRAcetam 500 MG TABLET (FP) PO SCH ×2 (09:36→21:13)
[2023-02-18] MEDS: MAGNESIUM CL 64 MG TABLET.SA PO SCH (09:36)
[2023-02-18] MEDS: THIAMINE HCL 100 MG TABLET (FP) PO SCH (21:12)
[2023-02-18] MEDS: OLANZapine 10 MG TABLET PO SCH (21:13)
[2023-02-18] MEDS: traZODone HCL 50 MG TABLET (FP) PO SCH (21:14)
[2023-02-19] MEDS: LACTULOSE 20 GM/30 ML UDC (FOR ORAL USE ONLY) PO SCH ×3 (06:15→21:18)
[2023-02-19] MEDS: PRENATAL VITAMINS W/ FOLIC ACID TABLET (FP) PO SCH (10:10)
[2023-02-19] MEDS: MAGNESIUM CL 64 MG TABLET.SA PO SCH (10:10)
[2023-02-19] MEDS: levETIRAcetam 500 MG TABLET (FP) PO SCH ×2 (10:10→21:18)
[2023-02-19] MEDS: FERROUS SO4 325 MG TABLET (FP) PO SCH (10:10)
[2023-02-19] MEDS: amLODIPine BESYLATE 5 MG TABLET (FP) PO SCH (10:11)
[2023-02-19] MEDS: OLANZapine 10 MG TABLET PO SCH (21:18)
[2023-02-19] MEDS: traZODone HCL 50 MG TABLET (FP) PO SCH (21:18)
[2023-02-19] MEDS: THIAMINE HCL 100 MG TABLET (FP) PO SCH (21:18)
[2023-02-20] MEDS: LACTULOSE 20 GM/30 ML UDC (FOR ORAL USE ONLY) PO SCH ×3 (06:16→21:08)
[2023-02-20] MEDS: amLODIPine BESYLATE 5 MG TABLET (FP) PO SCH (09:23)
[2023-02-20] MEDS: MAGNESIUM CL 64 MG TABLET.SA PO SCH (09:23)
[2023-02-20] MEDS: FERROUS SO4 325 MG TABLET (FP) PO SCH (09:23)
[2023-02-20] MEDS: PRENATAL VITAMINS W/ FOLIC ACID TABLET (FP) PO SCH (09:24)
[2023-02-20] MEDS: levETIRAcetam 500 MG TABLET (FP) PO SCH ×2 (09:24→21:08)
[2023-02-20] MEDS: THIAMINE HCL 100 MG TABLET (FP) PO SCH (21:07)
[2023-02-20] MEDS: traZODone HCL 50 MG TABLET (FP) PO SCH (21:08)
[2023-02-20] MEDS: OLANZapine 10 MG TABLET PO SCH (21:08)
[2023-02-21] MEDS: LACTULOSE 20 GM/30 ML UDC (FOR ORAL USE ONLY) PO SCH (06:53)
[2023-02-21] MEDS: levETIRAcetam 500 MG TABLET (FP) PO SCH ×2 (10:03→21:17)
[2023-02-21] MEDS: MAGNESIUM CL 64 MG TABLET.SA PO SCH (10:03)
[2023-02-21] MEDS: amLODIPine BESYLATE 5 MG TABLET (FP) PO SCH (10:04)
[2023-02-21] MEDS: PRENATAL VITAMINS W/ FOLIC ACID TABLET (FP) PO SCH (10:04)
[2023-02-21] MEDS: FERROUS SO4 325 MG TABLET (FP) PO SCH (10:04)
[2023-02-21 11:35] LABS: CALCIUM 8.8 mg/dL (8.5-10.1); MAGNESIUM 2.2 mg/dL (1.8-2.4)
[2023-02-21] MEDS: traZODone HCL 50 MG TABLET (FP) PO SCH (21:17)
[2023-02-21] MEDS: THIAMINE HCL 100 MG TABLET (FP) PO SCH (21:17)
[2023-02-21] MEDS: OLANZapine 10 MG TABLET PO SCH (21:18)
[2023-02-22] MEDS: levETIRAcetam 500 MG TABLET (FP) PO SCH ×2 (09:40→21:17)
[2023-02-22] MEDS: ERGOCALCIFEROL (VIT D2) 50,000 UNIT (1.25 MG) CAPSULE PO SCH (09:40)
[2023-02-22] MEDS: FERROUS SO4 325 MG TABLET (FP) PO SCH (09:40)
[2023-02-22] MEDS: amLODIPine BESYLATE 5 MG TABLET (FP) PO SCH (09:41)
[2023-02-22] MEDS: PRENATAL VITAMINS W/ FOLIC ACID TABLET (FP) PO SCH (09:41)
[2023-02-22] MEDS ORDERED: ERGOCALCIFEROL (VIT D2) 50,000 UNIT (1.25 MG) CAPSULE PO SCH (10:00)
[2023-02-22] MEDS: THIAMINE HCL 100 MG TABLET (FP) PO SCH (21:17)
[2023-02-22] MEDS: traZODone HCL 50 MG TABLET (FP) PO SCH (21:17)
[2023-02-22] MEDS: OLANZapine 10 MG TABLET PO SCH (21:17)
[2023-02-22] MEDS: RIFAXIMIN 550 MG TABLET PO SCH (21:18)
[2023-02-23] MEDS: FERROUS SO4 325 MG TABLET (FP) PO SCH (09:57)
[2023-02-23] MEDS: amLODIPine BESYLATE 5 MG TABLET (FP) PO SCH (09:57)
[2023-02-23] MEDS: RIFAXIMIN 550 MG TABLET PO SCH ×2 (09:57→21:17)
[2023-02-23] MEDS: PRENATAL VITAMINS W/ FOLIC ACID TABLET (FP) PO SCH (09:57)
[2023-02-23] MEDS: levETIRAcetam 500 MG TABLET (FP) PO SCH ×2 (09:57→21:17)
[2023-02-23] MEDS: traZODone HCL 50 MG TABLET (FP) PO SCH (21:17)
[2023-02-23] MEDS: OLANZapine 10 MG TABLET PO SCH (21:17)
[2023-02-23] MEDS: THIAMINE HCL 100 MG TABLET (FP) PO SCH (21:17)
[2023-02-24] MEDS: FERROUS SO4 325 MG TABLET (FP) PO SCH (09:52)
[2023-02-24] MEDS: amLODIPine BESYLATE 5 MG TABLET (FP) PO SCH (09:52)
[2023-02-24] MEDS: levETIRAcetam 500 MG TABLET (FP) PO SCH ×2 (09:52→21:22)
[2023-02-24] MEDS: PRENATAL VITAMINS W/ FOLIC ACID TABLET (FP) PO SCH (09:53)
[2023-02-24] MEDS: RIFAXIMIN 550 MG TABLET PO SCH ×2 (09:53→21:22)
[2023-02-24] MEDS: THIAMINE HCL 100 MG TABLET (FP) PO SCH (21:22)
[2023-02-24] MEDS: OLANZapine 10 MG TABLET PO SCH (21:22)
[2023-02-24] MEDS: traZODone HCL 50 MG TABLET (FP) PO SCH (21:22)
[2023-02-25] MEDS: RIFAXIMIN 550 MG TABLET PO SCH ×2 (09:23→21:22)
[2023-02-25] MEDS: PRENATAL VITAMINS W/ FOLIC ACID TABLET (FP) PO SCH (09:23)
[2023-02-25] MEDS: FERROUS SO4 325 MG TABLET (FP) PO SCH (09:23)
[2023-02-25] MEDS: levETIRAcetam 500 MG TABLET (FP) PO SCH ×2 (09:23→21:22)
[2023-02-25] MEDS: amLODIPine BESYLATE 5 MG TABLET (FP) PO SCH (10:12)
[2023-02-25] MEDS: CHOLECALCIFEROL (VIT D3) 400 UNIT (10 MCG) TABLET PO SCH (16:40)
[2023-02-25] MEDS: THIAMINE HCL 100 MG TABLET (FP) PO SCH (21:22)
[2023-02-25] MEDS: traZODone HCL 50 MG TABLET (FP) PO SCH (21:22)
[2023-02-25] MEDS: OLANZapine 10 MG TABLET PO SCH (21:23)
[2023-02-26] MEDS: CHOLECALCIFEROL (VIT D3) 400 UNIT (10 MCG) TABLET PO SCH (09:32)
[2023-02-26] MEDS: levETIRAcetam 500 MG TABLET (FP) PO SCH ×2 (09:32→21:04)
[2023-02-26] MEDS: amLODIPine BESYLATE 5 MG TABLET (FP) PO SCH (09:32)
[2023-02-26] MEDS: FERROUS SO4 325 MG TABLET (FP) PO SCH (09:32)
[2023-02-26] MEDS: RIFAXIMIN 550 MG TABLET PO SCH ×2 (09:33→21:03)
[2023-02-26] MEDS: PRENATAL VITAMINS W/ FOLIC ACID TABLET (FP) PO SCH (09:33)
[2023-02-26] MEDS: THIAMINE HCL 100 MG TABLET (FP) PO SCH (21:04)
[2023-02-26] MEDS: traZODone HCL 50 MG TABLET (FP) PO SCH (21:04)
[2023-02-26] MEDS: OLANZapine 10 MG TABLET PO SCH (21:04)
[2023-02-27 06:51] VITALS: TEMP 98
[2023-02-27 09:03] VITALS: BP 116/69; PULSE 95; RESP 17
[2023-02-27] MEDS: FERROUS SO4 325 MG TABLET (FP) PO SCH (09:04)
[2023-02-27] MEDS: CHOLECALCIFEROL (VIT D3) 400 UNIT (10 MCG) TABLET PO SCH (09:04)
[2023-02-27] MEDS: RIFAXIMIN 550 MG TABLET PO SCH (09:04)
[2023-02-27] MEDS: PRENATAL VITAMINS W/ FOLIC ACID TABLET (FP) PO SCH (09:05)
[2023-02-27] MEDS: levETIRAcetam 500 MG TABLET (FP) PO SCH (09:05)
[2023-02-27] MEDS: amLODIPine BESYLATE 5 MG TABLET (FP) PO SCH (09:05)
== END 2023-02-27 09:12 | disposition home or self-care (01) | DRG 895 ==
LOC: YASAS 12:37 → Y3E 12:43
PROVIDERS: ADMIT Allergy & Immunology; ATTEND Psychiatry & Neurology Pain Medicine
PROC: HZ42ZZZ Group Counseling for Substance Abuse Treatment, Cognitive-Behavioral (ICD-10-PCS; principal; 2023-02-13)
DX: F10.20 Alcohol dependence, uncomplicated (principal); F14.20 Cocaine dependence, uncomplicated; E72.20 Disorder of urea cycle metabolism, unspecified; F17.210 Nicotine dependence, cigarettes, uncomplicated; F19.982 Other psychoactive substance use, unspecified with psychoactive substance-induced sleep disorder; F19.980 Other psychoactive substance use, unspecified with psychoactive substance-induced anxiety disorder; E78.5 Hyperlipidemia, unspecified; J44.9 Chronic obstructive pulmonary disease, unspecified; G40.909 Epilepsy, unspecified, not intractable, without status epilepticus; R63.4 Abnormal weight loss; R14.3 Flatulence; R26.2 Difficulty in walking, not elsewhere classified; Z99.89 Dependence on other enabling machines and devices; Z86.19 Personal history of other infectious and parasitic diseases
CPT/HCPCS: 36415; 80177; 82140; 82306; 82310; 83735; 85610; 86803; 87389

== ENCOUNTER 2023-06-02 11:09 | Inpatient (IN) | payer OTHER ==
[2023-06-02 15:47] VITALS: BMI 18.6
[2023-06-02] MEDS ORDERED: P-EPHED 60MG/TRIPROLIDI 2.5MG TABLET PO PRN (19:56)
[2023-06-02] MEDS ORDERED: POLYETHYLENE GLYCOL (HEALTHYLAX) 3350 17 GM PACKET PO PRN (19:56)
[2023-06-02] MEDS ORDERED: NICOTINE POLACRILEX 2 MG GUM BUC PRN (19:56)
[2023-06-02] MEDS ORDERED: NALOXONE HCL (KLOXXADO) 8 MG SPRAY NS PRN (19:56)
[2023-06-02] MEDS ORDERED: guaiFENesin 600 MG TABLET.ER (FP) PO PRN (19:56)
[2023-06-02] MEDS ORDERED: LOPERAMIDE HCL 2 MG CAPSULE PO PRN (19:56)
[2023-06-02] MEDS ORDERED: BENZOCAINE/MENTHOL (CHLORASEPTIC ) LOZENGE MM PRN (19:56)
[2023-06-02] MEDS ORDERED: MAG HYDROX/AL HYDROX/SIMETH 30 ML UNIT-DOSE CUP PO PRN (19:56)
[2023-06-02] MEDS ORDERED: IBUPROFEN 600 MG TABLET (FP) PO PRN (19:56)
[2023-06-02] MEDS ORDERED: ACETAMINOPHEN 325 MG TABLET (FP) PO PRN (19:56)
[2023-06-02] MEDS ORDERED: BENZONATATE 200 MG CAPSULE PO PRN (19:56)
[2023-06-02] MEDS ORDERED: NALOXONE HCL 0.4 MG/ML VIAL IM PRN (19:56)
[2023-06-02] MEDS ORDERED: IBUPROFEN 400 MG TABLET (FP) PO PRN (19:56)
[2023-06-02] MEDS ORDERED: MAGNESIUM HYDROX 2400MG/30ML ORAL SUSPENSION 30 ML CUP PO PRN (19:56)
[2023-06-02] MEDS ORDERED: COLLOIDAL OATMEAL 1 BAR EACH TP PRN (19:56)
[2023-06-02] MEDS ORDERED: ALBUTEROL SO4 HFA INHALER IH PRN (20:21)
[2023-06-02] MEDS: levETIRAcetam 500 MG TABLET (FP) PO SCH (21:39)
[2023-06-02] MEDS: MELATONIN 5 MG TABLETS PO SCH (21:40)
[2023-06-02] MEDS: THIAMINE HCL 100 MG TABLET (FP) PO SCH (21:40)
[2023-06-03] MEDS: levETIRAcetam 500 MG TABLET (FP) PO SCH ×2 (10:02→21:24)
[2023-06-03] MEDS: PRENATAL VITAMINS W/ FOLIC ACID TABLET (FP) PO SCH (10:02)
[2023-06-03 11:12] LABS: HEMATOCRIT 31.5 % (35.4-49); HEMOGLOBIN 10.1 GM/dL (11.7-16.9); MCH 27.6 pg (25.7-33.7); MCHC 32.1 g/dl (32.0-35.9); MEAN CELL VOLUME 85.9 fl (80-96); PLATELET COUNT 189 10^3/uL (134-434); RBC 3.66 M/mm3 (4.00-5.60); RDW 16.5 % (11.9-15.9); WHITE BLOOD COUNT 3.4 K/mm3 (4.0-10.0)
[2023-06-03 11:19] LABS: CHLORIDE 108 mmol/L (98-107); POTASSIUM 3.9 mmol/L (3.5-5.1); SODIUM 141 mmol/L (136-145)
[2023-06-03 11:46] LABS: ALBUMIN 2.7 g/dl (3.4-5.0); BLOOD UREA NITROGEN 13.8 mg/dL (7-18); CALCIUM 8.2 mg/dL (8.5-10.1); GLUCOSE,RANDOM 113 mg/dL (74-106)
[2023-06-03 11:47] LABS: ANION GAP 3 mmol/L (4-13); CO2 30 mmol/L (21-32)
[2023-06-03 11:49] LABS: CREATININE 0.7 mg/dL (0.55-1.3); SGOT/AST 14 U/L (15-37); SGPT/ALT 15 U/L (13-61)
[2023-06-03 11:50] LABS: BILIRUBIN,TOTAL 0.2 mg/dL (0.2-1)
[2023-06-03 11:51] LABS: ALK PHOS 89 U/L (45-117)
[2023-06-03 12:32] LABS: SYPHILIS W/ RPR CONF REACTIVE (NONREACTIVE)
[2023-06-03] MEDS: MELATONIN 5 MG TABLETS PO SCH (21:24)
[2023-06-03] MEDS: traZODone HCL 100 MG TABLET (FP) PO SCH (21:24)
[2023-06-03] MEDS: THIAMINE HCL 100 MG TABLET (FP) PO SCH (21:24)
[2023-06-03] MEDS: OLANZapine 10 MG TABLET PO SCH (21:25)
[2023-06-04] MEDS: levETIRAcetam 500 MG TABLET (FP) PO SCH ×2 (09:22→21:41)
[2023-06-04] MEDS: PRENATAL VITAMINS W/ FOLIC ACID TABLET (FP) PO SCH (09:22)
[2023-06-04 14:46] LABS: URINE APPEARANCE CLEAR; URINE BILIRUBIN NEGATIVE (NEGATIVE); URINE COLOR YELLOW; URINE GLUCOSE (UA) NEGATIVE (NEGATIVE); URINE KETONE NEGATIVE (NEGATIVE); URINE LEUK ESTERASE NEGATIVE (NEGATIVE); URINE NITRITE NEGATIVE (NEGATIVE); URINE PROTEIN NEGATIVE (NEGATIVE); URINE UROBILINOGEN 0.2 mg/dL (0.2-1.0)
[2023-06-04] MEDS: THIAMINE HCL 100 MG TABLET (FP) PO SCH (21:41)
[2023-06-04] MEDS: MELATONIN 5 MG TABLETS PO SCH (21:41)
[2023-06-04] MEDS: OLANZapine 10 MG TABLET PO SCH (21:41)
[2023-06-04] MEDS: traZODone HCL 100 MG TABLET (FP) PO SCH (21:41)
[2023-06-05] MEDS: levETIRAcetam 500 MG TABLET (FP) PO SCH ×2 (10:10→21:14)
[2023-06-05] MEDS: PRENATAL VITAMINS W/ FOLIC ACID TABLET (FP) PO SCH (10:10)
[2023-06-05] MEDS: MELATONIN 5 MG TABLETS PO SCH (21:14)
[2023-06-05] MEDS: traZODone HCL 100 MG TABLET (FP) PO SCH (21:14)
[2023-06-05] MEDS: THIAMINE HCL 100 MG TABLET (FP) PO SCH (21:14)
[2023-06-05] MEDS: OLANZapine 10 MG TABLET PO SCH (21:14)
[2023-06-06] MEDS: levETIRAcetam 500 MG TABLET (FP) PO SCH ×2 (09:58→21:22)
[2023-06-06] MEDS: PRENATAL VITAMINS W/ FOLIC ACID TABLET (FP) PO SCH (09:58)
[2023-06-06] MEDS: traZODone HCL 100 MG TABLET (FP) PO SCH (21:22)
[2023-06-06] MEDS: OLANZapine 10 MG TABLET PO SCH (21:22)
[2023-06-06] MEDS: MELATONIN 5 MG TABLETS PO SCH (21:22)
[2023-06-06] MEDS: THIAMINE HCL 100 MG TABLET (FP) PO SCH (21:22)
[2023-06-07] MEDS: levETIRAcetam 500 MG TABLET (FP) PO SCH ×2 (10:13→21:08)
[2023-06-07] MEDS: PRENATAL VITAMINS W/ FOLIC ACID TABLET (FP) PO SCH (10:13)
[2023-06-07] MEDS: THIAMINE HCL 100 MG TABLET (FP) PO SCH (21:08)
[2023-06-07] MEDS: MELATONIN 5 MG TABLETS PO SCH (21:08)
[2023-06-07] MEDS: OLANZapine 10 MG TABLET PO SCH (21:08)
[2023-06-07] MEDS: traZODone HCL 100 MG TABLET (FP) PO SCH (21:08)
[2023-06-08] MEDS: PRENATAL VITAMINS W/ FOLIC ACID TABLET (FP) PO SCH (10:14)
[2023-06-08] MEDS: levETIRAcetam 500 MG TABLET (FP) PO SCH ×2 (10:14→21:26)
[2023-06-08] MEDS: OLANZapine 10 MG TABLET PO SCH (21:25)
[2023-06-08] MEDS: MELATONIN 5 MG TABLETS PO SCH (21:26)
[2023-06-08] MEDS: traZODone HCL 100 MG TABLET (FP) PO SCH (21:26)
[2023-06-08] MEDS: THIAMINE HCL 100 MG TABLET (FP) PO SCH (21:26)
[2023-06-09] MEDS: levETIRAcetam 500 MG TABLET (FP) PO SCH ×2 (09:48→21:17)
[2023-06-09] MEDS: PRENATAL VITAMINS W/ FOLIC ACID TABLET (FP) PO SCH (09:48)
[2023-06-09] MEDS: LACTULOSE 20 GM/30 ML UDC (FOR ORAL USE ONLY) PO SCH ×2 (14:15→21:16)
[2023-06-09] MEDS: traZODone HCL 100 MG TABLET (FP) PO SCH (21:16)
[2023-06-09] MEDS: THIAMINE HCL 100 MG TABLET (FP) PO SCH (21:17)
[2023-06-09] MEDS: MELATONIN 5 MG TABLETS PO SCH (21:17)
[2023-06-09] MEDS: OLANZapine 10 MG TABLET PO SCH (21:17)
[2023-06-10] MEDS: LACTULOSE 20 GM/30 ML UDC (FOR ORAL USE ONLY) PO SCH ×3 (06:38→21:23)
[2023-06-10] MEDS: PRENATAL VITAMINS W/ FOLIC ACID TABLET (FP) PO SCH (09:39)
[2023-06-10] MEDS: levETIRAcetam 500 MG TABLET (FP) PO SCH ×2 (09:39→21:23)
[2023-06-10] MEDS: OLANZapine 10 MG TABLET PO SCH (21:23)
[2023-06-10] MEDS: MELATONIN 5 MG TABLETS PO SCH (21:23)
[2023-06-10] MEDS: THIAMINE HCL 100 MG TABLET (FP) PO SCH (21:23)
[2023-06-10] MEDS: traZODone HCL 100 MG TABLET (FP) PO SCH (21:23)
[2023-06-11] MEDS: LACTULOSE 20 GM/30 ML UDC (FOR ORAL USE ONLY) PO SCH ×3 (06:51→21:34)
[2023-06-11] MEDS: PRENATAL VITAMINS W/ FOLIC ACID TABLET (FP) PO SCH (09:57)
[2023-06-11] MEDS: levETIRAcetam 500 MG TABLET (FP) PO SCH ×2 (09:57→21:34)
[2023-06-11] MEDS: THIAMINE HCL 100 MG TABLET (FP) PO SCH (21:34)
[2023-06-11] MEDS: OLANZapine 10 MG TABLET PO SCH (21:34)
[2023-06-11] MEDS: traZODone HCL 100 MG TABLET (FP) PO SCH (21:34)
[2023-06-11] MEDS: MELATONIN 5 MG TABLETS PO SCH (21:35)
[2023-06-12 06:40] VITALS: RESP 16
[2023-06-12] MEDS: LACTULOSE 20 GM/30 ML UDC (FOR ORAL USE ONLY) PO SCH (06:54)
[2023-06-12] MEDS: PRENATAL VITAMINS W/ FOLIC ACID TABLET (FP) PO SCH (09:02)
[2023-06-12] MEDS: levETIRAcetam 500 MG TABLET (FP) PO SCH (09:02)
[2023-06-12 09:16] VITALS: BP 116/72; PULSE 90; TEMP 98
== END 2023-06-12 09:15 | disposition home or self-care (01) | DRG 895 ==
LOC: YASAS 11:09 → Y3E 20:12
PROVIDERS: ADMIT Allergy & Immunology; ATTEND Psychiatry & Neurology Pain Medicine
PROC: HZ42ZZZ Group Counseling for Substance Abuse Treatment, Cognitive-Behavioral (ICD-10-PCS; principal; 2023-06-02)
DX: F10.20 Alcohol dependence, uncomplicated (principal); F14.20 Cocaine dependence, uncomplicated; F19.282 Other psychoactive substance dependence with psychoactive substance-induced sleep disorder; E72.20 Disorder of urea cycle metabolism, unspecified; F17.210 Nicotine dependence, cigarettes, uncomplicated; F25.9 Schizoaffective disorder, unspecified; F32.A Depression, unspecified; G20.C Parkinsonism, unspecified; G24.01 Drug induced subacute dyskinesia; J44.9 Chronic obstructive pulmonary disease, unspecified; R26.89 Other abnormalities of gait and mobility; Z86.73 Personal history of transient ischemic attack (TIA), and cerebral infarction without residual deficits; Z86.19 Personal history of other infectious and parasitic diseases; Z99.89 Dependence on other enabling machines and devices
CPT/HCPCS: 36415; 80053; 80177; 80307; 81003; 82140; 85027; 86593; 86780; 86803; 87635

== ENCOUNTER 2023-08-16 13:04 | Inpatient (IN) | payer OTHER ==
[2023-08-16 14:53] VITALS: BMI 20.5
[2023-08-16] MEDS ORDERED: BENZOCAINE/MENTHOL (CHLORASEPTIC ) LOZENGE MM PRN ×2 (15:43→16:30)
[2023-08-16] MEDS ORDERED: guaiFENesin 600 MG TABLET.ER (FP) PO PRN ×2 (15:43→16:30)
[2023-08-16] MEDS ORDERED: ACETAMINOPHEN 325 MG TABLET (FP) PO PRN ×2 (15:43→16:30)
[2023-08-16] MEDS ORDERED: IBUPROFEN 600 MG TABLET (FP) PO PRN ×2 (15:43→16:30)
[2023-08-16] MEDS ORDERED: MAG HYDROX/AL HYDROX/SIMETH 30 ML UNIT-DOSE CUP PO PRN ×2 (15:43→16:30)
[2023-08-16] MEDS ORDERED: MAGNESIUM HYDROX 2400MG/30ML ORAL SUSPENSION 30 ML CUP PO PRN ×2 (15:43→16:30)
[2023-08-16] MEDS ORDERED: POLYETHYLENE GLYCOL (HEALTHYLAX) 3350 17 GM PACKET PO PRN ×2 (15:43→16:30)
[2023-08-16] MEDS ORDERED: LOPERAMIDE HCL 2 MG CAPSULE PO PRN ×2 (15:43→16:30)
[2023-08-16] MEDS ORDERED: IBUPROFEN 400 MG TABLET (FP) PO PRN ×2 (15:43→16:30)
[2023-08-16] MEDS ORDERED: PRENATAL VITAMINS W/ FOLIC ACID TABLET (FP) PO SCH (16:30)
[2023-08-16] MEDS ORDERED: BENZONATATE 200 MG CAPSULE PO PRN (16:30)
[2023-08-16] MEDS ORDERED: NALOXONE HCL (KLOXXADO) 8 MG SPRAY NS PRN (16:30)
[2023-08-16] MEDS ORDERED: NALOXONE HCL 0.4 MG/ML VIAL IM PRN (16:30)
[2023-08-16] MEDS ORDERED: hydrOXYzine PAMOATE 25 MG CAPSULE (FP) PO PRN (16:30)
[2023-08-16] MEDS ORDERED: ALBUTEROL SO4 HFA INHALER IH PRN (16:35)
[2023-08-16] MEDS: NICOTINE 14 MG/24 HOURS TOPICAL PATCH TD SCH (16:55)
[2023-08-16] MEDS ORDERED: NICOTINE 14 MG/24 HOURS TOPICAL PATCH TD ONE (19:15)
[2023-08-16] MEDS: PRENATAL VITAMINS W/ FOLIC ACID TABLET (FP) PO SCH (19:31)
[2023-08-16] MEDS: levETIRAcetam 500 MG TABLET (FP) PO SCH (21:57)
[2023-08-16] MEDS: MELATONIN 5 MG TABLETS PO SCH (21:57)
[2023-08-16] MEDS: THIAMINE HCL 100 MG TABLET (FP) PO SCH (21:57)
[2023-08-16] MEDS ORDERED: MELATONIN 5 MG TABLETS PO SCH (22:00)
[2023-08-16] MEDS ORDERED: THIAMINE HCL 100 MG TABLET (FP) PO SCH (22:00)
[2023-08-17] MEDS: amLODIPine BESYLATE 5 MG TABLET (FP) PO SCH (10:19)
[2023-08-17 11:13] LABS: HEMATOCRIT 30.1 % (35.4-49); HEMOGLOBIN 9.9 GM/dL (11.7-16.9); MCH 28.3 pg (25.7-33.7); MCHC 32.8 g/dl (32.0-35.9); MEAN CELL VOLUME 86.5 fl (80-96); PLATELET COUNT 177 10^3/uL (134-434); RBC 3.48 M/mm3 (4.00-5.60); RDW 15.3 % (11.9-15.9); WHITE BLOOD COUNT 4.2 K/mm3 (4.0-10.0)
[2023-08-17 11:42] LABS: POTASSIUM 3.5 mmol/L (3.5-5.1)
[2023-08-17 11:44] LABS: CALCIUM 8.4 mg/dL (8.5-10.1)
[2023-08-17 11:45] LABS: ALBUMIN 2.7 g/dl (3.4-5.0); BLOOD UREA NITROGEN 10.2 mg/dL (7-18)
[2023-08-17 11:48] LABS: CREATININE 0.7 mg/dL (0.55-1.3)
[2023-08-17 11:49] LABS: BILIRUBIN,TOTAL 0.2 mg/dL (0.2-1); TOT PROT 6.2 g/dl (6.4-8.2)
[2023-08-17 11:57] LABS: EPI CELLS 17 /uL (0-25.1); HYALINE CASTS 4 /uL (0-3.1); URINE APPEARANCE CLEAR; URINE BACTERIA 8 /uL (0-1359); URINE BILIRUBIN NEGATIVE (NEGATIVE); URINE COLOR YELLOW; URINE GLUCOSE (UA) NEGATIVE (NEGATIVE); URINE KETONE NEGATIVE (NEGATIVE); URINE LEUK ESTERASE TRACE (NEGATIVE); URINE NITRITE NEGATIVE (NEGATIVE); URINE PROTEIN NEGATIVE (NEGATIVE); URINE RBC 21 /uL (0-23.9); URINE WBC 56 /uL (0-25.8)
[2023-08-17 13:23] LABS: SYPHILIS W/ RPR CONF REACTIVE (NONREACTIVE)
[2023-08-17 13:32] LABS: HIV INTERPRETATION NEGATIVE (NEGATIVE)
[2023-08-17] MEDS: traZODone HCL 100 MG TABLET (FP) PO SCH (21:20)
[2023-08-17] MEDS: OLANZapine 10 MG TABLET PO SCH (21:20)
[2023-08-19] MEDS ORDERED: NALTREXONE HCL 50 MG TABLET PO SCH (10:00)
[2023-08-19] MEDS: NALTREXONE HCL 50 MG TABLET PO ONE (22:19)
[2023-08-20] MEDS: NALTREXONE HCL 50 MG TABLET PO SCH (10:18)
[2023-08-20 14:06] LABS: INR 0.99 (0.83-1.09); PROTHROMBIN TIME (PATIENT) 11.5 SEC (9.7-13.0)
[2023-08-20] MEDS: traZODone HCL 50 MG TABLET (FP) PO SCH (21:25)
[2023-08-21] MEDS: FERROUS SO4 325 MG TABLET (FP) PO SCH (09:56)
[2023-08-28 08:56] VITALS: RESP 18
[2023-08-28] MEDS: NALTREXONE MICROSPHERES (VIVITROL) 380 MG DISP.SYRIN IM ONE (10:26)
[2023-08-29 06:44] VITALS: TEMP 97.8
[2023-08-29 08:49] VITALS: BP 126/77; PULSE 99
== END 2023-08-29 09:45 | disposition home or self-care (01) | DRG 895 ==
LOC: YASAS 13:04 → Y3W 18:53
PROVIDERS: ADMIT Allergy & Immunology; ATTEND Psychiatry & Neurology Pain Medicine
PROC: HZ42ZZZ Group Counseling for Substance Abuse Treatment, Cognitive-Behavioral (ICD-10-PCS; principal; 2023-08-16)
DX: F10.20 Alcohol dependence, uncomplicated (principal); F14.20 Cocaine dependence, uncomplicated; F19.282 Other psychoactive substance dependence with psychoactive substance-induced sleep disorder; F17.210 Nicotine dependence, cigarettes, uncomplicated; F25.9 Schizoaffective disorder, unspecified; F32.A Depression, unspecified; G40.909 Epilepsy, unspecified, not intractable, without status epilepticus; G20.C Parkinsonism, unspecified; G24.01 Drug induced subacute dyskinesia; E78.2 Mixed hyperlipidemia; J44.9 Chronic obstructive pulmonary disease, unspecified; Z91.51 Personal history of suicidal behavior; Z86.73 Personal history of transient ischemic attack (TIA), and cerebral infarction without residual deficits; Z99.89 Dependence on other enabling machines and devices
CPT/HCPCS: 36415; 80053; 80177; 81003; 82140; 82652; 85027; 85610; 86593; 86780; 86803; 87389; 87635; J2315

== ENCOUNTER 2023-12-21 20:22 | Inpatient (IN) | payer OTHER ==
[2023-12-21 21:07] VITALS: BMI 17.7
[2023-12-21] MEDS ORDERED: P-EPHED 60MG/TRIPROLIDI 2.5MG TABLET PO PRN (21:31)
[2023-12-21] MEDS ORDERED: BENZOCAINE/MENTHOL (CHLORASEPTIC ) LOZENGE MM PRN (21:31)
[2023-12-21] MEDS ORDERED: ONDANSETRON *ODT* 4 MG TABLET SL PRN (21:31)
[2023-12-21] MEDS ORDERED: IBUPROFEN 400 MG TABLET (FP) PO PRN (21:31)
[2023-12-21] MEDS ORDERED: POLYETHYLENE GLYCOL (HEALTHYLAX) 3350 17 GM PACKET PO PRN (21:31)
[2023-12-21] MEDS ORDERED: MAGNESIUM HYDROX 2400MG/30ML ORAL SUSPENSION 30 ML CUP PO PRN (21:31)
[2023-12-21] MEDS ORDERED: LOPERAMIDE HCL 2 MG CAPSULE PO PRN (21:31)
[2023-12-21] MEDS ORDERED: BENZONATATE 200 MG CAPSULE PO PRN (21:31)
[2023-12-21] MEDS ORDERED: guaiFENesin 600 MG TABLET.ER (FP) PO PRN (21:31)
[2023-12-21] MEDS ORDERED: MAG HYDROX/AL HYDROX/SIMETH 30 ML UNIT-DOSE CUP PO PRN (21:31)
[2023-12-21] MEDS ORDERED: BISMUTH SUBSALICYLATE 524 MG/30 ML PO PRN (21:31)
[2023-12-21] MEDS ORDERED: IBUPROFEN 600 MG TABLET (FP) PO PRN (21:31)
[2023-12-21] MEDS ORDERED: ACETAMINOPHEN 325 MG TABLET (FP) PO PRN (21:31)
[2023-12-21] MEDS ORDERED: ALBUTEROL SO4 HFA INHALER IH PRN (21:33)
[2023-12-21] MEDS: amLODIPine BESYLATE 5 MG TABLET (FP) PO SCH (22:00)
[2023-12-21] MEDS: levETIRAcetam 500 MG TABLET (FP) PO SCH (22:01)
[2023-12-21] MEDS: MELATONIN 5 MG TABLETS PO SCH (22:01)
[2023-12-21] MEDS: THIAMINE 100 MG TABLET PO SCH (22:01)
[2023-12-22] MEDS: PRENATAL VITAMINS W/ FOLIC ACID TABLET (FP) PO SCH (09:51)
[2023-12-22] MEDS: traZODone HCL 50 MG TABLET (FP) PO SCH (22:25)
[2023-12-22] MEDS: OLANZapine 10 MG TABLET PO SCH (22:25)
[2023-12-23 11:56] LABS: BASO % 0.1 % (0-2.0); EOS % 1.1 % (0-4.5); HEMATOCRIT 29.5 % (35.4-49); LYMPH % 28.8 % (8-40); MCH 28.8 pg (25.7-33.7); MEAN CELL VOLUME 84.6 fl (80-96); MEAN PLT VOLUME 9.6 fl (7.5-11.1); MONO % 9.9 % (3.8-10.2); NEUT % 60.1 % (42.8-82.8); PLATELET COUNT 121 10^3/uL (134-434); RBC 3.49 M/mm3 (4.00-5.60)
[2023-12-23 12:28] LABS: POTASSIUM 3.8 mmol/L (3.5-5.1)
[2023-12-23 12:34] LABS: CALCIUM 8.2 mg/dL (8.5-10.1)
[2023-12-23 12:38] LABS: CREATININE 0.6 mg/dL (0.55-1.3)
[2023-12-26] MEDS: FERROUS SO4 325 MG TABLET (FP) PO SCH (13:56)
[2023-12-28 15:25] LABS: HEMATOCRIT 31.9 % (35.4-49); HEMOGLOBIN 10.4 GM/dL (11.7-16.9); MCH 27.9 pg (25.7-33.7); MCHC 32.7 g/dl (32.0-35.9); MEAN CELL VOLUME 85.3 fl (80-96); MEAN PLT VOLUME 9.1 fl (7.5-11.1); PLATELET COUNT 189 10^3/uL (134-434); RBC 3.74 M/mm3 (4.00-5.60); RDW 16.5 % (11.9-15.9); WHITE BLOOD COUNT 4.7 K/mm3 (4.0-10.0)
[2023-12-31 07:19] VITALS: RESP 20; TEMP 98.2
[2023-12-31 09:24] VITALS: BP 134/80; PULSE 90
== END 2023-12-31 10:54 | disposition home or self-care (01) | DRG 895 ==
LOC: YASAS 20:22 → Y3N 21:27 → Y3W 12-23 11:41
PROVIDERS: ADMIT Allergy & Immunology; ATTEND Psychiatry & Neurology Pain Medicine
PROC: HZ42ZZZ Group Counseling for Substance Abuse Treatment, Cognitive-Behavioral (ICD-10-PCS; principal; 2023-12-21)
DX: F10.20 Alcohol dependence, uncomplicated (principal); F14.20 Cocaine dependence, uncomplicated; F17.210 Nicotine dependence, cigarettes, uncomplicated; F20.9 Schizophrenia, unspecified; F32.A Depression, unspecified; G40.909 Epilepsy, unspecified, not intractable, without status epilepticus; G24.01 Drug induced subacute dyskinesia; G20.C Parkinsonism, unspecified; J44.9 Chronic obstructive pulmonary disease, unspecified; Z86.73 Personal history of transient ischemic attack (TIA), and cerebral infarction without residual deficits; Z91.51 Personal history of suicidal behavior
CPT/HCPCS: 0241U-QW; 36415; 71045-TC-FY; 80048; 80053; 80305; 80307; 82803; 83690; 83735; 83880; 84443; 84484; 85025; 85027; 85610; 85730; 87811; 93005; 93010; 99285-25

== ENCOUNTER 2024-02-21 11:47 | Inpatient (IN) | payer OTHER ==
[2024-02-21 12:18] VITALS: BMI 16.7
[2024-02-21] MEDS ORDERED: BENZOCAINE/MENTHOL (CHLORASEPTIC ) LOZENGE MM PRN (12:47)
[2024-02-21] MEDS ORDERED: MAGNESIUM HYDROX 2400MG/30ML ORAL SUSPENSION 30 ML CUP PO PRN (12:47)
[2024-02-21] MEDS ORDERED: ACETAMINOPHEN 325 MG TABLET (FP) PO PRN (12:47)
[2024-02-21] MEDS ORDERED: P-EPHED 60MG/TRIPROLIDI 2.5MG TABLET PO PRN (12:47)
[2024-02-21] MEDS ORDERED: MAG HYDROX/AL HYDROX/SIMETH 30 ML UNIT-DOSE CUP PO PRN (12:47)
[2024-02-21] MEDS ORDERED: BENZONATATE 200 MG CAPSULE PO PRN (12:47)
[2024-02-21] MEDS ORDERED: LOPERAMIDE HCL 2 MG CAPSULE PO PRN (12:47)
[2024-02-21] MEDS ORDERED: guaiFENesin 600 MG TABLET.ER (FP) PO PRN (12:47)
[2024-02-21] MEDS ORDERED: POLYETHYLENE GLYCOL (HEALTHYLAX) 3350 17 GM PACKET PO PRN (12:47)
[2024-02-21] MEDS ORDERED: NICOTINE POLACRILEX 2 MG LOZENGE BC PRN (12:47)
[2024-02-21] MEDS ORDERED: IBUPROFEN 400 MG TABLET (FP) PO PRN (12:47)
[2024-02-21] MEDS ORDERED: DOCUSATE SODIUM 100 MG CAPSULE (FP) PO PRN (12:47)
[2024-02-21] MEDS ORDERED: amLODIPine BESYLATE 5 MG TABLET (FP) ONE (13:24)
[2024-02-21] MEDS ORDERED: levETIRAcetam 500 MG TABLET (FP) PO ONE (13:24)
[2024-02-21] MEDS ORDERED: METOPROLOL TARTRATE 25 MG TABLET (FP) ONE (13:24)
[2024-02-21] MEDS: METOPROLOL TARTRATE 25 MG TABLET (FP) PO ONE (13:27)
[2024-02-21] MEDS: levETIRAcetam 500 MG TABLET (FP) PO SCH (13:27)
[2024-02-21] MEDS: amLODIPine BESYLATE 5 MG TABLET (FP) PO SCH (13:27)
[2024-02-21 18:26] LABS: HIV INTERPRETATION NEGATIVE (NEGATIVE)
[2024-02-21] MEDS: MELATONIN 5 MG TABLETS PO SCH (22:28)
[2024-02-21] MEDS: THIAMINE 100 MG TABLET PO SCH (22:28)
[2024-02-22] MEDS: FERROUS SO4 325 MG TABLET (FP) PO SCH (09:53)
[2024-02-22] MEDS: PRENATAL VITAMINS W/ FOLIC ACID TABLET (FP) PO SCH (09:53)
[2024-02-22 11:38] LABS: URINE APPEARANCE CLEAR; URINE BILIRUBIN NEGATIVE (NEGATIVE); URINE COLOR YELLOW; URINE GLUCOSE (UA) NEGATIVE (NEGATIVE); URINE KETONE TRACE (NEGATIVE); URINE LEUK ESTERASE NEGATIVE (NEGATIVE); URINE NITRITE NEGATIVE (NEGATIVE); URINE PROTEIN NEGATIVE (NEGATIVE)
[2024-02-22] MEDS: traZODone HCL 50 MG TABLET (FP) PO SCH (21:52)
[2024-02-22] MEDS: OLANZapine 10 MG TABLET PO SCH (21:52)
[2024-03-01] MEDS: NICOTINE POLACRILEX 2 MG GUM BUC PRN (10:46)
[2024-03-02 07:29] VITALS: TEMP 97.5
[2024-03-02 08:58] VITALS: BP 120/71; PULSE 100; RESP 16
[2024-03-02] MEDS: ALBUTEROL SO4 HFA INHALER IH PRN (14:30)
== END 2024-03-02 16:10 | disposition home or self-care (01) | DRG 895 ==
LOC: YASAS 11:47 → Y3NR 14:19 → Y3E 02-22 14:50
PROVIDERS: ADMIT Allergy & Immunology; ATTEND Psychiatry & Neurology Pain Medicine
PROC: HZ42ZZZ Group Counseling for Substance Abuse Treatment, Cognitive-Behavioral (ICD-10-PCS; principal; 2024-02-21)
DX: F10.20 Alcohol dependence, uncomplicated (principal); F17.210 Nicotine dependence, cigarettes, uncomplicated; F19.982 Other psychoactive substance use, unspecified with psychoactive substance-induced sleep disorder; F25.9 Schizoaffective disorder, unspecified; I10 Essential (primary) hypertension; J44.9 Chronic obstructive pulmonary disease, unspecified; E78.2 Mixed hyperlipidemia; G40.909 Epilepsy, unspecified, not intractable, without status epilepticus; G24.01 Drug induced subacute dyskinesia; G20.C Parkinsonism, unspecified; R00.0 Tachycardia, unspecified; R26.2 Difficulty in walking, not elsewhere classified; Z99.89 Dependence on other enabling machines and devices; Z86.73 Personal history of transient ischemic attack (TIA), and cerebral infarction without residual deficits; Z86.19 Personal history of other infectious and parasitic diseases; Z91.51 Personal history of suicidal behavior; Z56.0 Unemployment, unspecified
CPT/HCPCS: 36415; 71046-TC-FY; 80305; 80307; 81003; 86803; 87389; 87811

== ENCOUNTER 2024-11-10 13:23 | Inpatient (IN) | payer OTHER ==
[2024-11-10 13:39] VITALS: BMI 19.4
[2024-11-10] MEDS ORDERED: IBUPROFEN 400 MG TABLET (FP) PO PRN (14:13)
[2024-11-10] MEDS ORDERED: MAG HYDROX/AL HYDROX/SIMETH 30 ML UNIT-DOSE CUP PO PRN (14:13)
[2024-11-10] MEDS ORDERED: IBUPROFEN 600 MG TABLET (FP) PO PRN (14:13)
[2024-11-10] MEDS ORDERED: P-EPHED 60MG/TRIPROLIDI 2.5MG TABLET PO PRN (14:13)
[2024-11-10] MEDS ORDERED: POLYETHYLENE GLYCOL (HEALTHYLAX) 3350 17 GM PACKET PO PRN (14:13)
[2024-11-10] MEDS ORDERED: MAGNESIUM HYDROX 2400MG/30ML ORAL SUSPENSION 30 ML CUP PO PRN (14:13)
[2024-11-10] MEDS ORDERED: NALOXONE (NARCAN) HCL 4 MG/0.1 ML SPRAY NS PRN (14:13)
[2024-11-10] MEDS ORDERED: BENZOCAINE/MENTHOL (CHLORASEPTIC ) LOZENGE MM PRN (14:13)
[2024-11-10] MEDS ORDERED: LOPERAMIDE HCL 2 MG CAPSULE PO PRN (14:13)
[2024-11-10] MEDS ORDERED: BENZONATATE 200 MG CAPSULE PO PRN (14:13)
[2024-11-10] MEDS ORDERED: guaiFENesin 600 MG TABLET.ER (FP) PO PRN (14:13)
[2024-11-10] MEDS ORDERED: DOCUSATE SODIUM 100 MG CAPSULE (FP) PO PRN (14:13)
[2024-11-10] MEDS ORDERED: ACETAMINOPHEN 325 MG TABLET (FP) PO PRN (14:13)
[2024-11-10] MEDS ORDERED: ALBUTEROL SO4 0.083% IH SOL 2.5 MG/3 ML VIAL.NEB. NEB PRN (21:27)
[2024-11-10] MEDS: MELATONIN 5 MG TABLETS PO SCH (22:20)
[2024-11-10] MEDS: THIAMINE 100 MG TABLET PO SCH (22:20)
[2024-11-10] MEDS: levETIRAcetam 500 MG TABLET (FP) PO SCH (22:20)
[2024-11-11 00:28] LABS: PH,URINE 5.5 (5.0-8.0); URINE APPEARANCE TURBID; URINE BILIRUBIN NEGATIVE (NEGATIVE); URINE COLOR YELLOW; URINE GLUCOSE (UA) TRACE (NEGATIVE); URINE KETONE TRACE (NEGATIVE); URINE LEUK ESTERASE NEGATIVE (NEGATIVE); URINE NITRITE NEGATIVE (NEGATIVE); URINE PROTEIN NEGATIVE (NEGATIVE); URINE UROBILINOGEN 0.2 mg/dL (0.2-1.0)
[2024-11-11] MEDS: PRENATAL VITAMINS W/ FOLIC ACID TABLET (FP) PO SCH (10:07)
[2024-11-11 11:30] LABS: HEMATOCRIT 31.1 % (40.1-51.0); HEMOGLOBIN 9.6 g/dL (13.7-17.5); MCHC 30.9 g/dl (32.3-36.5); MEAN CELL VOLUME 86.1 fl (79.0-92.2); MEAN PLT VOLUME 12.2 fl (9.4-12.4); PLATELET COUNT 143 x10^3/uL (163-337); RDW 15.8 % (12.2-16.4)
[2024-11-11 11:36] LABS: CHLORIDE 107 mmol/L (98-107); POTASSIUM 3.9 mmol/L (3.5-5.1); SODIUM 140 mmol/L (136-145)
[2024-11-11 11:43] LABS: CALCIUM 8.6 mg/dL (8.5-10.1)
[2024-11-11 11:44] LABS: ALBUMIN 2.8 g/dl (3.4-5.0); ANION GAP 5 mmol/L (4-13); BLOOD UREA NITROGEN 15.1 mg/dL (7-18); CO2 27 mmol/L (21-32); GLUCOSE,RANDOM 94 mg/dL (74-106)
[2024-11-11 11:47] LABS: CREATININE 0.8 mg/dL (0.55-1.3); SGOT/AST 21 U/L (15-37); SGPT/ALT 18 U/L (13-61)
[2024-11-11 11:49] LABS: BILIRUBIN,TOTAL 0.2 mg/dL (0.2-1)
[2024-11-11 11:50] LABS: ALK PHOS 99 U/L (45-117)
[2024-11-11] MEDS: traZODone HCL 100 MG TABLET (FP) PO SCH (21:21)
[2024-11-11] MEDS: OLANZapine 10 MG TABLET PO SCH (21:21)
[2024-11-17] MEDS: FERROUS SO4 325 MG TABLET (FP) PO SCH (09:56)
[2024-11-22] MEDS: ALBUTEROL SO4 HFA INHALER IH PRN (14:54)
[2024-11-24 06:29] VITALS: BP 127/76; PULSE 77; RESP 16; TEMP 97.8
== END 2024-11-24 09:27 | disposition home or self-care (01) | DRG 895 ==
LOC: YASAS 13:23 → Y3NR 16:18 → Y3E 11-11 09:59
PROVIDERS: ADMIT Allergy & Immunology; ATTEND Allergy & Immunology
PROC: HZ42ZZZ Group Counseling for Substance Abuse Treatment, Cognitive-Behavioral (ICD-10-PCS; principal; 2024-11-10)
DX: F10.20 Alcohol dependence, uncomplicated (principal); F14.20 Cocaine dependence, uncomplicated; F19.282 Other psychoactive substance dependence with psychoactive substance-induced sleep disorder; F17.210 Nicotine dependence, cigarettes, uncomplicated; F25.9 Schizoaffective disorder, unspecified; G40.909 Epilepsy, unspecified, not intractable, without status epilepticus; G20.C Parkinsonism, unspecified; J44.9 Chronic obstructive pulmonary disease, unspecified; I10 Essential (primary) hypertension; Z86.73 Personal history of transient ischemic attack (TIA), and cerebral infarction without residual deficits; Z99.89 Dependence on other enabling machines and devices
CPT/HCPCS: 0241U-QW; 36415; 71046-TC-FY; 80053; 80305; 80307; 81003; 85027; 86593; 86780; 93005; 93010